=== PATIENT | female | born 1960 | race Caucasian/White ===

== ENCOUNTER 2016-11-17 13:05 | Emergency (ER) | payer SELFPAY ==
[~2016-11-17] VITALS: Ht 177.8 cm; Wt 112.0 kg
[~2016-11-17 13:05] MED LIST: Z.0.NO CURRENT MEDS
[2016-11-17 13:06] VITALS: BP 149/83; PULSE 83; RESP 20; TEMP 98.5; O2SAT 97
[2016-11-17] MEDS ORDERED: CEPH-460 PO (13:48)
[2016-11-17] MEDS ORDERED: INDO50CA PO (13:48)
--- NOTE | 2016-11-17 13:49 | PD ---
HPI Chief Complaint: Skin Problem Time Seen by Provider: 13:42 Travel History International Travel<30 days: No Contact w/Intl Traveler<30days: No Traveled to known affect area: No History of Present Illness HPI Patient's 56-year-old female presenting to emergency for evaluation of redness to her right thigh. Patient states this started on Saturday, she denies any pain but states it's sensitive to the touch. Patient reports the redness has improved since it started. Patient denies any leg swelling, calf tenderness, recent surgeries, long trips. She has no significant past medical history. [facility] Past Medical History Medical History: Denies Significant Hx Tetanus Vaccination: > 5 Years Influenza Vaccination: No ?: Not Past Surgical History Surgical History: No Previous Surgery Social History Alcohol Use: No Tobacco Use: No Substance Use: No Allergies-Medications (Allergen,Severity, Reaction): Coded Allergies: No Known Allergies (Verified , 11/17/16) Reported Meds & Prescriptions Reported Meds & Active Scripts Active No Active Prescriptions or Reported Medications Review of Systems Except as stated in HPI: all other systems reviewed are Neg Skin: Positive Change in Pigmentation Physical Exam Narrative GENERAL: Obese, well-developed, alert female. Resting comfortably in no acute distress. SKIN: Focused skin assessment warm/dry. Right anterior thigh has a linear area of erythema noted, approximately 7 inches long. Tenderness to palpation, no induration noted. HEAD: Atraumatic. Normocephalic. EYES: Pupils equal and round. No scleral icterus. No injection or drainage. ENT: No nasal bleeding or discharge. Mucous membranes pink and moist. NECK: Trachea midline. No JVD. CARDIOVASCULAR: Regular rate and rhythm. No murmur appreciated. RESPIRATORY: No accessory muscle use. Clear to auscultation. Breath sounds equal bilaterally. GASTROINTESTINAL: Abdomen soft, non-tender, nondistended. Hepatic and splenic margins not palpable. MUSCULOSKELETAL: No obvious deformities. No clubbing. No cyanosis. No edema. Negative Homans sign, 2+ dorsalis pedis pulse. NEUROLOGICAL: Awake and alert. No obvious cranial nerve deficits. Motor grossly within normal limits. Normal speech. PSYCHIATRIC: Appropriate mood and affect; insight and judgment normal. Data Data Last Documented VS Vital Signs Date Time Temp Pulse Resp B/P Pulse Ox O2 Delivery O2 Flow Rate FiO2 11/17/16 13:06 98.5 83 20 149/83 97 Room Air MDM Medical Decision Making Medical Screen Exam Complete: Yes Emergency Medical Condition: Yes Interpretation(s) Vital Signs Date Time Temp Pulse Resp B/P Pulse Ox O2 Delivery O2 Flow Rate FiO2 11/17/16 13:06 98.5 83 20 149/83 97 Room Air Differential Diagnosis DVT versus phlebitis versus cellulitis versus other Narrative Course Patient is a 56-year-old female presenting to emergency department for evaluation of redness to the right anterior thigh that started 4 days ago. Patient is neurovascularly intact. Physical examination appears more consistent with phlebitis. Patient was seen and evaluated by my attending physician. Patient will be discharged home with anti-inflammatory medication as well as an antibiotic. Patient was reassured that there does not appear to be any risk factors or exam findings to suggest a DVT at this time. Patient was given strict return precautions, to secure a follow-up with her primary doctor. Patient stable for discharge. Diagnosis Primary Impression: Phlebitis Referrals: [facility] [address] Primary Care Physician Patient Instructions: General Instructions, Superficial Thrombophlebitis (ED) Additional Instructions: Follow-up with primary care or at the [facility] Take medications as directed Return to emergency department immediately for any new or worsening symptoms May apply warm compress to affected area Med/Other Pt SpecificInfo: Prescription(s) given Scripts Cephalexin (Keflex)500 Mg [id number] Mg PO Q12H 7 Days Ref 0 Prov:Sarah Nelson 11/17/16 Indomethacin 50 Mg Cap50 Mg PO TID PRN (PAIN SCALE 1 TO 10) 7 Days Ref 0 Take with food, milk, or antacids to decrease stomach adverse effects. Prov:Sarah Nelson 11/17/16 Disposition: 01 DISCHARGE HOME Condition: Stable Sarah Nelson Nov 17, 2016 13:49
--- NOTE | 2016-11-17 14:00 | PD ---
Data Data Last Documented VS Vital Signs Date Time Temp Pulse Resp B/P Pulse Ox O2 Delivery O2 Flow Rate FiO2 11/17/16 13:06 98.5 83 20 149/83 97 Room Air MDM Supervised Visit with SHANNAN: Yes Narrative Course The history, exam, and medical decision-making in the associated mid-level provider note were completed with my assistance. I reviewed and agree with the findings presented. I attest that I had a [id number] encounter with the patient on the same day, and personally performed and documented my assessment and findings in the medical record. *My assessment and Findings: 56 year-old woman presents emergency Department with a short segment of erythema on her right leg. She is a palpable. Gross vein in the upper right thigh that seems consistent with superficial thrombophlebitis. Specially improving. Been going on for couple days. There is no calf swelling edema or pressure to suggest DVT. Recommend supportive treatment antibiotics, NSAIDs, and outpatient follow-up. Warm compresses to the area. Diagnosis Primary Impression: Phlebitis Referrals: [facility] Primary Care Physician Patient Instructions: General Instructions, Superficial Thrombophlebitis (ED) Departure Forms: Tests/Procedures Additional Instruction: Follow-up with primary care or at the [facility] Take medications as directed Return to emergency department immediately for any new or worsening symptoms May apply warm compress to affected area Scripts Cephalexin (Keflex)500 Mg [id number] Mg PO Q12H 7 Days Ref 0 Prov:Sarah Nelson 11/17/16 Indomethacin 50 Mg Cap50 Mg PO TID PRN (PAIN SCALE 1 TO 10) 7 Days Ref 0 Take with food, milk, or antacids to decrease stomach adverse effects. Prov:Sarah Nelson 11/17/16 Disposition: 01 DISCHARGE HOME Condition: Stable Ramesh Ortega MD Nov 17, 2016 14:00
== END 2016-11-17 14:08 | disposition home or self-care (01) ==
LOC: NEPD 13:05
DX: I80.01 Phlebitis and thrombophlebitis of superficial vessels of right lower extremity (principal)
CPT/HCPCS: 99284

== ENCOUNTER 2016-12-29 08:20 | Inpatient (IN) | payer SELFPAY ==
[~2016-12-29] VITALS: Ht 172.7 cm; Wt 137.5 kg
[2016-12-29] VITALS (31 sets, daily range): BP systolic 98–183; BP diastolic 52–90; PULSE 111–151; RESP 26–28; TEMP 98.6; O2SAT 60–100
[~2016-12-29 08:20] MED LIST changes: +CEPH-460 PO; +INDO50CA PO; -Z.0.NO CURRENT MEDS
[2016-12-29] MEDS ORDERED: ETOMIDATE 20 MG/10 ML VIAL ONE (08:34)
[2016-12-29] MEDS ORDERED: SUCCINYLCHOLINE CHLORIDE 200 MG/10 ML VIAL ONE (08:35)
[2016-12-29] MEDS ORDERED: PROPOFOL 1000 MG/100 ML INJ 100 ML ONE ×3 (08:41→15:33)
[2016-12-29] MEDS ORDERED: SUCCINYLCHOLINE CHLORIDE 200 MG/10 ML VIAL IVP ONE (08:45)
[2016-12-29] MEDS ORDERED: ETOMIDATE 20 MG/10 ML VIAL IVP ONE (08:45)
--- NOTE | 2016-12-29 08:51 | PD ---
HPI Chief Complaint: Respiratory Distress Time Seen by Provider: 08:22 Travel History International Travel<30 days: No Contact w/Intl Traveler<30days: No Traveled to known affect area: No History of Present Illness HPI The patient was seen and examined in the presence of the nurse. This patient complains of shortness of breath. She woke up this morning feeling short of breath. Yesterday she was feeling fine. She doesn't go to any physician. She has no medical illnesses her history. She's never smoked. She denies fever or any chest pain or cardiac history or pulmonary history. She's had a cough on and off for a week but that's her only complaint prior to this morning. Patient arrives critically ill. She is in extremis. Saturations are in the 70s on room air and her heart rate is 160. Challenging for her to speak in complete sentences. She is gasping for breath. [facility] Social History Alcohol Use: No Tobacco Use: No Substance Use: No Allergies-Medications (Allergen,Severity, Reaction): Coded Allergies: No Known Allergies (Verified , 11/17/16) Reported Meds & Prescriptions Reported Meds & Active Scripts Active Keflex (Cephalexin) 500 Mg Cap 500 Mg PO Q12H 7 Days Indomethacin 50 Mg Cap 50 Mg PO TID PRN 7 Days Take with food, milk, or antacids to decrease stomach adverse effects. Review of Systems General / Constitutional: No: Fever Eyes: No: Visual changes HENT: No: Headaches Cardiovascular: No: Chest Pain or Discomfort Respiratory: Positive: Cough, Shortness of Breath Gastrointestinal: No: Abdominal Pain Genitourinary: No: Dysuria Musculoskeletal: No: Pain Skin: No Rash Neurologic: No: Weakness Psychiatric: No: Depression Endocrine: No: Polydipsia Hematologic/Lymphatic: No: Easy Bruising Physical Exam Narrative GENERAL: Well-nourished, well-developed patient in profound respiratory distress. SKIN: Focused skin assessment reveals no rash and nodules. Skin is Warm and dry. HEAD: Atraumatic. Normocephalic. EYES: Pupils equal and round. No scleral icterus. No injection or drainage. ENT: No nasal bleeding or discharge. Mucous membranes pink and moist. NECK: Trachea midline. No JVD. CARDIOVASCULAR: Regular rate and rhythm. No murmur appreciated. Tachycardic at 150s RESPIRATORY: Positive accessory muscle use. Clear to auscultation. Breath sounds equal bilaterally. She is in prominent distress GASTROINTESTINAL: Abdomen soft, non-tender, nondistended. Hepatic and splenic margins not palpable. MUSCULOSKELETAL: No obvious deformities. No clubbing. No cyanosis. No edema. NEUROLOGICAL: Awake and alert. No obvious cranial nerve deficits. Motor grossly within normal limits. Normal speech. PSYCHIATRIC: Very anxious mood and affect; insight and judgment reasonable . Data Data Last Documented VS Vital Signs Date Time Temp Pulse Resp B/P Pulse Ox O2 Delivery O2 Flow Rate FiO2 12/29/16 10:23 146 158/75 97 Ventilator 12/29/16 09:38 100 12/29/16 08:28 98.6 26 Orders Electrocardiogram (12/29/16 ) Complete Blood Count With Diff (12/29/16 08:28) Basic Metabolic Panel (Bmp) (12/29/16 08:28) Act Partial Throm Time (Ptt) (12/29/16 08:28) Prothrombin Time / Inr (Pt) (12/29/16 08:28) Arterial Blood Gas (Abg) (12/29/16 08:28) Iv Access Insert/Monitor (12/29/16 08:28) Electrocardiogram (12/29/16 08:28) Ecg Monitoring (12/29/16 08:28) Oximetry (12/29/16 08:28) Oxygen Administration (12/29/16 08:28) Chest, Single Ap (12/29/16 08:28) Sodium Chloride 0.9% Flush (Ns Flush) (12/29/16 08:30) Etomidate Inj (Amidate Inj) (12/29/16 08:34) Succinylcholine Inj (Quelicin Inj) (12/29/16 08:35) Propofol 1000 Mg/100 Ml Inj (Diprivan 10 (12/29/16 08:41) Ng Gastric Tube Insert/Monitor (12/29/16 08:42) Urinary Catheter Insert/Apply (12/29/16 08:42) Etomidate Inj (Amidate Inj) (12/29/16 08:45) Succinylcholine Inj (Quelicin Inj) (12/29/16 08:45) Sodium Chloride 0.9% Flush (Ns Flush) (12/29/16 08:45) Restraints Non-Violent YOGI.Q3H (12/29/16 08:42) Ct Pulmonary Angiogram (12/29/16 ) Lorazepam Inj (Ativan Inj) (12/29/16 09:15) Midazolam Inj (Versed Inj) (12/29/16 09:15) Sodium Chlor 0.9% 1000 Ml Inj (Ns 1000 M (12/29/16 09:45) Ct Brain W/O Iv Contrast(Rout) (12/29/16 ) Iohexol 350 Inj (Omnipaque 350 Inj) (12/29/16 10:09) Admit To Inpatient (12/29/16 ) Code Status (12/29/16 10:25) Vital Signs (Adult) YOGI.Q1H (12/29/16 10:25) Activity Bed Rest (12/29/16 10:25) Elevate Head Of Bed (12/29/16 10:25) Neuro Checks . ORDERED (12/29/16 10:25) Pantoprazole Inj (Protonix Inj) (12/29/16 11:00) Albuterol-Ipratropium Neb (Duoneb Neb) (12/29/16 12:00) Complete Blood Count With Diff (12/30/16 04:00) Basic Metabolic Panel (Bmp) (12/30/16 04:00) Library Circulation Technician / Telemetry YOGI.Q8H (12/29/16 10:25) Scd Bilateral/Knee High YOGI.BID (12/29/16 10:25) ^ Initiate Protocol (12/29/16 10:25) Instruction (12/29/16 10:25) [facility] (12/29/16 10:30) Chlorhexidine 2% Cloth (Chlorhexidine 2% (12/30/16 04:00) Chlorhexidine 2% Cloth (Chlorhexidine 2% (12/29/16 10:30) Mrsa Pcr Surveillance (12/29/16 10:25) Docusate Sodium-Senna (Radha-Colace) (12/29/16 21:00) Magnesium Hydroxide Liq (Milk Of Magnesi (12/29/16 10:30) Sennosides (Senokot) (12/29/16 10:30) Bisacodyl Supp (Dulcolax Supp) (12/29/16 10:30) Lactulose Liq (Lactulose Liq) (12/29/16 10:30) Inpatient Certification (12/29/16 ) Neurological Rass Scale Q30MX2,Q2HX4,Q4H (12/29/16 10:28) Fentanyl Drip (Fentanyl Drip) (12/29/16 10:30) Lactic Acid (12/29/16 10:28) Creatine Kinase (Cpk) (12/29/16 10:28) Ckmb (Isoenzyme) Profile (12/29/16 10:28) Troponin I (12/29/16 10:28) Echo 2d Comp With Doppler (12/29/16 ) Us Leg Venous Doppler Bilat (12/29/16 ) Sodium Chlor 0.9% 1000 Ml Inj (Ns 1000 M (12/29/16 11:00) Blood Glucose Goal (Criteria) (12/29/16 10:28) Hypoglycemia 70 Mg/Dl Or < (12/29/16 10:28) Notify Dr: Other (12/29/16 10:28) Dextrose 50% In Hector (Vial) Inj (D50w (Vi (12/29/16 10:30) Glucagon Inj (Glucagon Inj) (12/29/16 10:30) Insulin Human Reg Supp Scale (Novolin R (12/29/16 11:00) Admit Order (Ed Use Only) (12/29/16 10:30) Invasive Rad Dept Consult (12/29/16 ) Labs Laboratory Tests Test 12/29/16 12/29/16 08:34 09:09 White Blood Count 22.4 TH/MM3 Red Blood Count 4.97 MIL/MM3 Hemoglobin 14.5 GM/DL Hematocrit 43.1 % Mean Corpuscular Volume 86.7 FL Mean Corpuscular Hemoglobin 29.1 PG Mean Corpuscular Hemoglobin 33.5 % Concent Red Cell Distribution Width 14.1 % Platelet Count 328 TH/MM3 Mean Platelet Volume 6.5 FL Neutrophils (%) (Auto) 43.9 % Lymphocytes (%) (Auto) 49.2 % Monocytes (%) (Auto) 5.3 % Eosinophils (%) (Auto) 1.1 % Basophils (%) (Auto) 0.5 % Neutrophils # (Auto) 9.8 TH/MM3 Lymphocytes # (Auto) 11.0 TH/MM3 Monocytes # (Auto) 1.2 TH/MM3 Eosinophils # (Auto) 0.2 TH/MM3 Basophils # (Auto) 0.1 TH/MM3 CBC Comment AUTO DIFF Differential Total Cells 100 Counted Neutrophils % (Manual) 53 % Lymphocytes % 38 % Monocytes % 8 % Neutrophils # (Manual) 12.1 TH/MM3 Metamyelocytes 1 % Differential Comment FINAL DIFF MANUAL Platelet Estimate NORMAL Platelet Morphology Comment NORMAL Red Cell Morphology Comment NORMAL Prothrombin Time 10.6 SEC Prothromb Time International 1.0 RATIO Ratio Activated Partial 25.1 SEC Thromboplast Time Sodium Level 137 MEQ/L Potassium Level 3.7 MEQ/L Chloride Level 108 MEQ/L Carbon Dioxide Level 17.1 MEQ/L Anion Gap 12 MEQ/L Blood Urea Nitrogen 11 MG/DL Creatinine 1.12 MG/DL Estimat Glomerular Filtration 51 ML/MIN Rate Random Glucose 216 MG/DL Calcium Level 8.8 MG/DL Blood Gas Puncture Site RT RADIAL Blood Gas Patient Temperature 98.6 Blood Gas HCO3 17 mmol/L Blood Gas Base Excess -10.3 mmol/L Blood Gas Oxygen Saturation 88 % Arterial Blood pH 7.15 Arterial Blood Partial 51 mmHg Pressure CO2 Arterial Blood Partial 73 mmHG Pressure O2 Arterial Blood Oxygen Content 17.0 Vol % Arterial Blood 0.7 % Carboxyhemoglobin Arterial Blood Methemoglobin 0.6 % Blood Gas Hemoglobin 13.7 G/DL Oxygen Delivery Device VENTILATOR Blood Gas Ventilator Setting Blood Gas Inspired Oxygen 100 % MDM Medical Decision Making Medical Screen Exam Complete: Yes Emergency Medical Condition: Yes Medical Record Reviewed: Yes Differential Diagnosis Respiratory failure, PE, CHF, pneumonia Narrative Course I have reviewed the patient's electronic medical record. This patient arrives critically ill and in desperate need of mechanical ventilation. She has good waveform saturations of mid 80s despite 100% nonrebreather and is still struggling. After the risks and benefits were discussed the following procedure was performed: INTUBATION: The patient was put in optimal position for the procedure. Rapid sequence intubation was initiated by me using 30 milligrams of etomidate IV and 100 milligrams of succinylcholine IV. The patient was intubated with a 8-0 cuffed endotracheal tube. Tube placement was confirmed by visualization of the tube and balloon passing through the cords, capnometry and subsequent chest x- ray. Breath sounds were equal and well aerated bilaterally postintubation. No breath sounds over stomach. Patient tolerated procedure well. 2 IVs placed Diprivan drip started for sedation NG and restraints in Mcdaniel catheter placed CBC shows significant leukocytosis of 22,000 Metabolic profile shows mild renal insufficiency Coagulation studies are normal I reviewed her EKG. I think she is in a sinus tachycardia despite what the machine reads Extended cardiac monitoring shows sinus tachycardia of 140. There appears to be P wave in front of each QRS and it is looking regular I reviewed her chest x-ray which is negative and shows good tube placement ABG is poor. She has PO2 of 72 despite 100% FiO2 on the ventilator. She is acidemic. I sent her for CT pulmonary angiogram suspecting PE. This confirms she has bilateral extensive PE. I'm having difficulty oxygenating her despite ventilation and 100% FiO2 I reviewed with automatic machine attendant and he agrees that TPA infusion seems warranted this critically ill patient He has spoken with radiologist Dr. Álvarez who is coming in to place central line and start TPA infusion Patient will be admitted to intensive care and critical condition Very complex case and a lot of bedside time was required Critical Care Narrative Aggregate critical care time was 83 minutes. Time to perform other separately billable procedures was not included in the critical care time. My time did not include minutes spent treating any other patients simultaneously or on activities that did not directly contribute to the patient's treatment. The services I provided to this patient were to treat and/or prevent clinically significant deterioration that could result in: Cardiopulmonary arrest, hypoxemic brain injury, cardiac arrhythmia I provided critical care services requiring my management, as noted below: Chart data review, documentation time, medication orders and management, vital sign assessments/reviewing monitor data, ordering and reviewing lab tests, ordering and interpreting/reviewing x-rays and diagnostic studies, care of the patient and discussion of the patient with the admitting physicians. Diagnosis Primary Impression: Acute hypoxemic respiratory failure Additional Impression: Acute pulmonary embolus Qualified Code: I26.09 - Other acute pulmonary embolism with acute cor pulmonale Admitting Information Admitting Physician Requests: Obdulio Goncalves MD Dec 29, 2016 08:51
--- NOTE | 2016-12-29 09:13 | RADRPT ---
EXAM DATE/TIME: 12/29/2016 08:32 [facility] COMPARISON: No previous studies available for comparison. INDICATIONS : Status post intubation. Shortness of breath. MEDICAL HISTORY : None. SURGICAL HISTORY : None. ENCOUNTER: Initial ACUITY: 1 day PAIN SCORE: Non-responsive. LOCATION: Bilateral chest FINDINGS: A single view of the chest demonstrates the lungs to be symmetrically aerated without evidence of mas s, infiltrate or effusion. The endotracheal tube is present with the tip approximately 4 cm above the bernice. The cardiomediastinal contours are unremarkable. Osseous structures are intact. CONCLUSION: 1. Status post intubation. 2. No acute cardiopulmonary disease. Oswaldo Moody MD on December 29, 2016 at 9:11 Board Certified Radiologist. This report was verified electronically.
[2016-12-29] MEDS ORDERED: MIDAZOLAM HCL 2 MG/2 ML VIAL IV PUSH ONE (09:15)
[2016-12-29] MEDS ORDERED: LORazepam 2 MG/ML VIAL IV PUSH ONE (09:15)
[2016-12-29 09:19] LABS: BLOOD GAS BASE EXCESS -10.3 mmol/L (-2-2); BLOOD GAS CARBOXYHEMOGLOBIN 0.7 % (0-4); BLOOD GAS HCO3 17 mmol/L (22-26); BLOOD GAS METHEMOGLOBIN 0.6 % (0-2); BLOOD GAS O2 HGB SATURATION 88 % (90-100); BLOOD GAS PCO2 51 mmHg (38-42); BLOOD GAS PO2 73 mmHG (61-120); BLOOD GAS TOTAL HGB 13.7 G/DL (12.0-16.0); TEMP CORR TO 98.6
[2016-12-29 09:20] LABS: CRITICAL VALUE YES; DRAW SITE RT RADIAL; FIO2 100 %; NUMBER OF ARTERIAL PUNCTURES 1; OXYGEN DEVICE VENTILATOR; STAT YES
[2016-12-29 09:31] LABS: AUTOMATED NEUTROPHIL # 9.8 TH/MM3 (1.8-7.7); BASOPHIL # 0.1 TH/MM3 (0-0.2); BASOPHIL % 0.5 % (0.0-2.0); EOSINOPHIL # 0.2 TH/MM3 (0-0.4); EOSINOPHIL % 1.1 % (0.0-4.0); HEMATOCRIT 43.1 % (35.0-46.0); LYMPH % 49.2 % (9.0-44.0); MEAN CELL VOLUME 86.7 FL (80.0-100.0); MEAN CORPUSCULAR HEMOGLOBIN 29.1 PG (27.0-34.0); MEAN CORPUSCULAR HGB CONC 33.5 % (32.0-36.0); MONO % 5.3 % (0.0-8.0); NEUT % 43.9 % (16.0-70.0); PLATELET COUNT 328 TH/MM3 (150-450); RED BLOOD COUNT 4.97 MIL/MM3 (4.00-5.30); RED CELL DISTRIBUTION WIDTH 14.1 % (11.6-17.2); WHITE BLOOD COUNT 22.4 TH/MM3 (4.0-11.0)
[2016-12-29 09:33] LABS: HEMO FLAGS AUTO DIFF
[2016-12-29 09:41] LABS: APTT (PATIENT) 25.1 SEC (24.3-30.1); PROTHROMBIN TIME - PATIENT 10.6 SEC (9.8-11.6)
[2016-12-29] MEDS ORDERED: SODIUM CHLOR 0.9% 1000 ML INJ 1,000 ML IV ONE (09:45)
[2016-12-29 09:51] LABS: BICARBONATE 17.1 MEQ/L (21.0-32.0)
[2016-12-29 09:56] LABS: POTASSIUM 3.7 MEQ/L (3.5-5.1)
[2016-12-29] MEDS ORDERED: IOHEXOL 350 MG/ML 10 ML VIAL (for RAD DIAG) IV ONE (10:09)
--- NOTE | 2016-12-29 10:13 | RADRPT ---
EXAM DATE/TIME: 12/29/2016 10:01 [facility] COMPARISON: CT BRAIN W/O CONTRAST, December 29, 2016, 9:49. INDICATIONS : Shortness of breath. IV CONTRAST: 100 cc Omnipaque 350 (iohexol) IV RADIATION DOSE: 22.98 CTDIvol (mGy) MEDICAL HISTORY : Non-responsive. SURGICAL HISTORY : Non-responsive. ENCOUNTER: Initial ACUITY: 1 day PAIN SCALE: Non-responsive LOCATION: Bilateral chest TECHNIQUE: Volumetric scanning of the chest was performed using a pulmonary embolism protocol MIP images were re constructed. Using automated exposure control and adjustment of the mA and/or kV according to patien t size, radiation dose was kept as low as reasonably achievable to obtain optimal diagnostic quality images. DICOM format image data is available electronically for review and comparison. Follow-up recommendations for detected pulmonary nodules are based at a minimum on nodule size and pa tient risk factors according to Fleischner Society Guidelines. FINDINGS: PULMONARY ARTERIES: The main pulmonary artery is patent. There are bilateral pulmonary emboli with filling defects in the distal right and left main pulmonary arteries and primary branch vessels. This extends throughout th e lower extremity pulmonary arteries bilaterally. LUNGS: There is no consolidation or pneumothorax . No concerning pulmonary nodule is visualized. PLEURAE: There is no pleural thickening or pleural effusion. MEDIASTINUM: There is good visualization of the great vessels of the middle mediastinum. No evidence of mediastin al or hilar adenopathy/mass. An endotracheal tube and nasogastric tube are in place. MUSCULOSKELETAL: Within normal limits for patient age. MISCELLANEOUS: The visualized upper abdominal organs demonstrate no acute abnormality. CONCLUSION: Extensive bilateral pulmonary embolism. These findings were discussed with the emergency room physician at 1009 hrs. Oswaldo Moody MD on December 29, 2016 at 10:08 Board Certified Radiologist. This report was verified electronically.
--- NOTE | 2016-12-29 10:15 | RADRPT ---
EXAM DATE/TIME: 12/29/2016 09:49 [facility] COMPARISON: No previous studies available for comparison. INDICATIONS : Altered mental status. RADIATION DOSE: 53.85 CTDIvol (mGy) ; Patient motion MEDICAL HISTORY : Non-responsive. SURGICAL HISTORY : Non-responsive. ENCOUNTER: Initial ACUITY: 1 day PAIN SCALE: Non-responsive LOCATION: cranial TECHNIQUE: Multiple contiguous axial images were obtained of the head. Using automated exposure control and adj ustment of the mA and/or kV according to patient size, radiation dose was kept as low as reasonably a chievable to obtain optimal diagnostic quality images. DICOM format image data is available electro nically for review and comparison. FINDINGS: The study is significantly degraded by motion artifact. CEREBRUM: The ventricles are normal for age. No evidence of midline shift, mass lesion, hemorrhage or acute in farction. No extra-axial fluid collections are seen. POSTERIOR FOSSA: The cerebellum and brainstem are intact. The 4th ventricle is midline. The cerebellopontine angle i s unremarkable. There is a prominent cisterna magna is normal variant. EXTRACRANIAL: The visualized portion of the orbits is intact. SKULL: The calvaria is intact. No evidence of skull fracture. CONCLUSION: 1. Suboptimal examination secondary to motion artifact. 2. No evidence of hemorrhage or mass effect identified. Oswaldo Moody MD on December 29, 2016 at 10:11 Board Certified Radiologist. This report was verified electronically.
[2016-12-29] MEDS ORDERED: GLUCAGON 1 MG/ML VIAL OTHER PRN (10:30)
[2016-12-29] MEDS ORDERED: MAGNESIUM HYDROXIDE SUSP 30 ML CUP PO PRN (10:30)
[2016-12-29] MEDS ORDERED: LACTULOSE SYRUP 20 GM/30 ML CUP PO PRN (10:30)
[2016-12-29] MEDS ORDERED: BISACODYL 10 MG SUPP RECTAL PRN (10:30)
[2016-12-29] MEDS ORDERED: SENNOSIDES 8.6 MG TAB PO PRN (10:30)
[2016-12-29] MEDS ORDERED: DEXTROSE 50% IN WATER 50 ML VIAL(D50) IV PRN (10:30)
[2016-12-29] MEDS ORDERED: CHLORHEXIDINE GLUCONATE 2 % 1 PACK (2 CLOTHS) TOP PRN (10:30)
[2016-12-29] MEDS ORDERED: MISCELLANEOUS NURSING INFORMATION XX SCH (10:30)
[2016-12-29 10:32] LABS: METAMYELOCYTES 1 % (0-1); NEUTROPHIL # MANUAL DIFF 12.1 TH/MM3 (1.8-7.7); POLYS (SEG NEUTROPHILS) 53 % (16-70); WBC DIFF SAMPLE 100
[2016-12-29 10:33] LABS: PLATELET ESTIMATE SMEAR NORMAL (NORMAL); PLATELET MORPHOLOGY NORMAL (NORMAL); SCAN/DIFF FINAL DIFF MANUAL
[2016-12-29] MEDS ORDERED: fentaNYL DRIP 250 ML ONE (10:42)
[2016-12-29] MEDS ORDERED: SODIUM CHLOR 0.9% 1000 ML INJ 1,000 ML IV SCH (11:00)
[2016-12-29] MEDS: PANTOPRAZOLE SODIUM 40 MG VIAL IV SCH (11:07)
[2016-12-29] MEDS: INSULIN NovoLIN REGULAR SUPPLEMENTAL SCALE SQ SCH ×4 (11:21→23:00)
--- NOTE | 2016-12-29 11:40 | RADRPT ---
EXAM DATE/TIME: 12/29/2016 10:56 [facility] COMPARISON: No previous studies available for comparison. INDICATIONS : Pulmonary embolism. MEDICAL HISTORY : Pulmonary embolism. Shortness of breath. SURGICAL HISTORY : Umbilical hernia repair. ENCOUNTER: Initial ACUITY: 1 day PAIN SCORE: Non-responsive LOCATION: Bilateral legs. TECHNIQUE: Venous ultrasound of the left and right leg was performed from the inguinal ligament to the proximal calf. Real-time, color Doppler and spectral tracing, compression and augmentation techniques were us ed. FINDINGS: RIGHT LEG: There is a noncompressible occlusive thrombus in the right posterior tibial vein demonstrating no col or flow. There is nonocclusive thrombus in the right common femoral vein and greater saphenous vein w hich are partially compressible and demonstrate color flow. The superficial femoral vein and poplitea l veins are patent and compressible. LEFT LEG: There is normal compressibility of the deep venous system from the inguinal region to the proximal ca lf. No echogenic clot is seen in the lumen of the common femoral, femoral, popliteal, and posterior tibial veins. There is a normal response of the venous system to proximal and distal augmentation an d respiration. CONCLUSION: 1. Occlusive thrombus in the right posterior tibial vein. 2. Nonocclusive thrombus in the right common femoral vein and greater saphenous vein. 3. No deep venous thrombosis in the left lower extremity. Oswaldo Moody MD on December 29, 2016 at 11:34 Board Certified Radiologist. This report was verified electronically.
[2016-12-29] MEDS: RESP: ALBUTEROL 2.5 MG/IPRATROPIUM 0.5 MG NEB (SCH) INH ×3 (11:50→20:35)
--- NOTE | 2016-12-29 11:55 | ECHRPT ---
Indication: Chronic pulmonary embolism CONCLUSIONS The left ventricle is not well visualized. The right ventricle was not well visualized. The right ventricle is moderately dilated. The right ventricular systoilc function is moderately decreased. The interatrial septum not well visualized. The aortic valve is not well visualized. No aortic valve regurgitation. No aortic valve stenosis. The tricuspid valve is not well visualized. There is mild to moderate tricuspid valve regurgitation. The estimated pulmonary arterial pressure is 41 mmHg. The pulmonary valve is not well visualized. BP: / HR: Rhythm: Other Technical Quality:Poor FINDINGS LEFT VENTRICLE The left ventricle is not well visualized. RIGHT VENTRICLE The right ventricle was not well visualized. The right ventricle is moderately dilated. The right ventricular systoilc function is moderately decreased. LEFT ATRIUM The left atrial size is normal. RIGHT ATRIUM The right atrial size is normal. ATRIAL SEPTUM The interatrial septum not well visualized. AORTA The aortic root and proximal ascending aorta are normal in size on limited imaging. MITRAL VALVE Structurally normal mitral valve. No mitral valve stenosis or regurgitation. AORTIC VALVE The aortic valve is not well visualized. No aortic valve regurgitation. No aortic valve stenosis. TRICUSPID VALVE The tricuspid valve is not well visualized. There is mild to moderate tricuspid valve regurgitation. The estimated pulmonary arterial pressure is 41 mmHg. PULMONARY VALVE The pulmonary valve is not well visualized. VESSELS The inferior vena cava is normal in size. PERICARDIUM No pericardial effusion. Glen Macedo MD (Electronically Signed) Final Date:29 December 2016 11:54
--- NOTE | 2016-12-29 12:14 | MH ---
cc: ABBY MOYA M.D. DATE OF ADMISSION: 12/29/2016 HISTORY OF PRESENT ILLNESS: The patient is a 56-year-old female without significant past medical history who presented to the [facility] Emergency Department with severe respiratory distress. Per ED records, the patient woke up this morning feeling short of breath. She denied any associated symptoms of chest pain, orthopnea, PND or edema of the lower extremities. On arrival to the emergency department, she was found hypoxic with saturation in the 70s on room air and tachycardiac with heart rate of 160. The patient was subsequently intubated with etomidate, succinylcholine and Versed and placed on full mechanical ventilation. ABG post-intubation showed severe respiratory acidosis with a pH of 7.15, CO2 51, pAO2 73, bicarb 17, sats of 88% PRVC mode, rate of 24, tidal volume 500, ___ 1.0, PEEP of 20 with 100% FIO2. Chest x-ray showed no acute cardiopulmonary disease. The patient underwent a stat CT scan of the chest, which showed extensive bilateral pulmonary embolism. She also had CT scan of the brain, which showed no evidence of hemorrhage or mass effect. In the emergency room, she was given IV fluids 2 liters In ER she was given IV fluids 2 liters, Ativan, and placed on Diprivan infusion for sedation. The case discussed with Dr. Álvarez from interventional radiology and the plan is to proceed with tPA infusion per PE protocol. PAST MEDICAL HISTORY: No history of hypertension or diabetes mellitus. PAST SURGICAL HISTORY: Unknown. ALLERGIES: NO KNOWN DRUG ALLERGIES. SOCIAL HISTORY: Nonsmoker and non-drinker. REPORTED MEDICATIONS: 1. Indocin. 2. Keflex. REVIEW OF SYSTEMS: The review of systems is as per the history of present illness, and the rest of the review of systems is limited as the patient is intubated. PHYSICAL EXAMINATION: GENERAL: A 56-year-old female intubated for acute respiratory failure. VITAL SIGNS: Temperature of 98.6, pulse of 120s to 140s, blood pressure 158/75, saturation 98%. HEAD, EYES, EARS, NOSE, THROAT: Normocephalic and atraumatic. Pupils equal, round and reactive to light and accommodation. Extraocular muscles intact. Conjunctivae are pink. Nonicteric sclerae. Oral mucosa within normal limits. NECK: The neck is supple. No jugular venous distention, adenopathy or thyromegaly. Trachea in the midline. Orally intubated. CARDIOVASCULAR: Tachycardic. Normal S1-S2. No murmurs, rubs or gallops noted. PULMONARY: Bilateral equal air entry. No crackles or wheezing. ABDOMEN: The abdomen is soft, nontender and no distention. Positive bowel sounds. EXTREMITIES: No cyanosis, clubbing or edema. NEUROLOGIC: Intubated and sedated with Diprivan. LABORATORY DATA: Sodium 137, potassium 3.7, chloride 108, carbon dioxide 17, BUN 11, creatinine 1.12, glucose of 216, calcium 8.8. WBCs 22.4, hemoglobin 14.5, hematocrit 43, platelet count 328,000. INR 1. PT 10.6. PTT 25.1. RADIOGRAPHIC STUDIES: CT angiogram of the chest showed extensive bilateral PE. Chest x-ray post-intubation showed ET tube above the bernice. No acute cardiopulmonary disease. CT scan of the brain negative for acute intracranial process. EKGS: EKG showed sinus tachycardia versus atrial flutter with rapid ventricular response at a rate of 148 beats per minute. IMPRESSION: 1. Acute hypoxemic hypercapnic respiratory failure requiring intubation. 2. Extensive bilateral pulmonary embolism. 3. Leukocytosis, likely stress-related. 4. Hyperglycemia. 5. Obesity. RECOMMENDATIONS: 1. Continue with the Diprivan infusion for sedation and will add Fentanyl drip if needed for vent synchrony. 2. CT scan of the brain in the emergency room negative for acute intracranial process. 3. Continue with vent support and maintain saturations above 92%. 4. Bronchodilators in the form of DuoNeb q. 6. 5. Continue with vent settings, currently on pressure control / assist control ventilation with a respiratory rate of 28 and inspiratory pressure of 24, I-time 1.0, PEEP of 10 and 60% FIO2 with saturations of 96%. Will repeat ABG now. 6. Case discussed with Dr. Álvarez from interventional radiology. Will proceed with tPA infusion given her extensive PE and degree of hypoxemia. 7. Monitor heart rate and blood pressure closely and maintain MAP greater than 65 mmHg. 8. Check cardiac enzymes with troponin. In addition, we will check lactic acid level. 9. Obtain 2-D echocardiogram to rule out RV strain and to evaluate left ventricular function. 10. Monitor renal function, intake and output and electrolyte replacement as needed. Place on IV fluids normal saline at 84 mL/hour. 11. Keep NPO for now and place on Protonix 40 milligrams IV daily for GI prophylaxis. 12. Start nutritional support within the next 24 hours if remains intubated. 13. Monitor for signs of infection, which include fever and WBCs. Chest x-ray in the emergency room negative for acute process. Ugarte culture if spikes a fever. Check urinalysis with culture if indicated. 14. Sliding scale insulin with Accu-Chek for glycemic control q. 4 hours. 15. Monitor CBC and coags as the patient will be on tPA per PE protocol. 16. Check Doppler ultrasound of the lower extremities to rule out DVT. 17. GI prophylaxis with Protonix 40 milligrams daily and DVT prophylaxis and the patient will be starting heparin. The patient is critically ill with severe hypoxemic and hypercapnic respiratory failure and extensive bilateral pulmonary embolism. CRITICAL CARE TIME: Forty (40) minutes excluding procedures. Addendum: Patient underwent right subclavian central line placement and started on TPA infusion per IR. Shortly after arrival to ICU patient became hemodynamically unstable hypoxic with sats 60's% and hypotensive. She was started on pressors currently on Neosyn 300 mics, Dobutamine, Levophed 2mics and bicarb drip. Echo showed mod. dilated RV with decreased function. Patient was also given TPA bolus 35 mg bolus. She remained hypotensive on multiple pressors, hypoxemic on 100% FIO2 and PEEP : 10. Discussed with Dr. Álvarez re possibility of catheter directed thrombectomy however he did not feel patient is good candidate for it as the clot burden is too peripheral for angiovac catheter use. Spoke to Dr. Donnelly from CTS re possibility of open embolectomy and he did not recommend it due to risk of perioperative risk of massive bleeding and it is unlikely to improve her prognosis MD MANUEL Castrejon/ROLAND /11:39 AM /11:55 AM ANGIE
[2016-12-29] MEDS ORDERED: SODIUM CHLORIDE 0.9% INJ 10 ML ONE (12:34)
[2016-12-29] MEDS ORDERED: HEPARIN-D5W 25,000 U/250 ML 250 ML ONE (12:57)
[2016-12-29] MEDS ORDERED: HEPARIN INJ 1,000 UNITS in SODIUM CHLORID 0.9% 500 ML INJ 500 ML IV PRN (13:30)
[2016-12-29] MEDS ORDERED: HEPARIN-D5W 25,000 U/250 ML 250 ML IV SCH (13:30)
[2016-12-29] MEDS ORDERED: IOHEXOL 350 MG/ML 50 ML BTL (for RAD DIAG) IV ONE (13:35)
--- NOTE | 2016-12-29 13:41 | PD.RAD ---
Post Procedure Progress Note Pre Procedure Diagnosis: (1) Acute pulmonary embolus (2) Phlebitis (3) Acute hypoxemic respiratory failure Post Procedure Diagnosis: (1) Acute pulmonary embolus (2) Phlebitis (3) Acute hypoxemic respiratory failure Procedure Date: Dec 29, 2016 Supervising Radiologist: Oren Álvarez Proceduralist/Assist: Glory Washington RT(R)(CV) Anesthesia: Local, Conscious Sedation Plan of Activity Patient to Unit: Critical Care Patient Condition: Critical See PACS Report for procedural detail/treatment Vascular-Venous Procedure Procedure 1 Procedure Site: Bilateral Leg Procedure(s): Fibrinolysis, Venogram Access Access Site(s): Right Subclavian Vein Findings: No significant remaining lower extremity DVT to indicate IVC filter placement - small volume of residual nonocclusive clot at saphenofemoral junction and calf DVT in Right posterior tibial vein. central line placed and TPA infusion started Oren Álvarez MD Dec 29, 2016 13:41
[2016-12-29] MEDS: CATHFLO ACTIVASE INJ 10 MG in SODIUM CHLORID 0.9% 500 ML INJ 500 ML IV SCH ×2 (13:52→19:40)
[2016-12-29 14:21] LABS: BACTERIA, URINE OCC /hpf; BLOOD, URINE MOD (NEG); COMMENT (UR) CATH-CULTURE IND; CULTURE IF INDICATED CATH CULTURE IND; GLUCOSE,URINE TRACE mg/dL (NEG); HYALINE CAST, URINE 36 /lpf (RARE); KETONE, URINE NEG (NEG); MUCUS URINE MANY /lpf (OCC); NITRITE,URINE NEG (NEG); PH, URINE 5.5 (5.0-8.5); SQUAMOUS EPITHELIAL CELL URINE 9 /hpf (0-5); URINE COLOR YELLOW (YELLW/STRAW)
[2016-12-29] MEDS: PHENYLEPHRINE 40 MG/D5W 496 ML ADMIX IV SCH ×6 (14:30→21:54)
[2016-12-29] MEDS ORDERED: PHENYLEPHRINE HCL 10 MG/ML VIAL ONE ×4 (14:30→16:56)
[2016-12-29] MEDS ORDERED: NOREPINEPHRINE-DEXTROSE DRIP 250 ML IV ONE (14:52)
[2016-12-29] MEDS: PIPERACIL-TAZO 4.5 GM PREMIX 100 ML IV SCH ×2 (15:00→21:53)
[2016-12-29] MEDS ORDERED: DOBUTamine PREMIX DRIP 250 ML ONE ×2 (15:03→19:03)
[2016-12-29] MEDS ORDERED: ALTEPLASE BOLUS IV ONE (15:15)
[2016-12-29 15:34] LABS: BLOOD GAS BASE EXCESS -9.8 mmol/L (-2-2); BLOOD GAS HCO3 17 mmol/L (22-26); BLOOD GAS METHEMOGLOBIN 1.1 % (0-2); BLOOD GAS O2 HGB SATURATION 81 % (90-100); BLOOD GAS OXYGEN CONTENT 13.7 Vol % (12.0-20.0); BLOOD GAS PCO2 44 mmHg (38-42); BLOOD GAS PO2 60 mmHg (61-120); BLOOD GAS TOTAL HGB 11.9 G/DL (12.0-16.0); TEMP CORR TO 98.6
[2016-12-29 15:35] LABS: CRITICAL VALUE YES; DRAW SITE ART LINE; FIO2 100 %; LITER FLOW 15 L/M; OXYGEN DEVICE AMBU; STAT YES; ULNAR PULSE PRESENT
--- NOTE | 2016-12-29 15:42 | PD.PROCEDR ---
Procedure Note Procedure REASON FOR PROCEDURE Hemodynamic instability, invasive blood pressure monitoring and Crescencio Trac PROCEDURE PERFORMED Right femoral arterial catheter placement, US guided CONSENT Emergency procedure, profound shock ANESTHESIA Local injection of 1% Lidocaine DESCRIPTION OF THE PROCEDURE The patient was placed in supine, position. The right groin area was exposed and cleansed with ChloraPrep, times two. Sterile drape was used to cover the patient, with the site exposed, under sterile conditions including cap, face mask, sterile gown, and sterile gloves. Procedure done as emergency and unable to follow full sterile precautions. The introducer needle was inserted with negative pressure in syringe and arterial flash was obtained. The guide wire was then advanced without any restriction and the needle was removed. Using Seldinger technique the 20 G arterial catheter was advanced over the guide wire. The guide wire was removed. Good arterial wave form noted after connecting to transducer. Antibiotic disc was placed around arterial line line at puncture site. The arterial line was secured to the skin with one interrupted 2.0 silk sutures. RADIOLOGICAL DATA Ultrasound guidance was used to locate right femoral vein COMPLICATIONS: No apparent complications ESTIMATED BLOOD LOSS: Less than 3 cc. Naz Lott MD Dec 29, 2016 15:42
[2016-12-29] MEDS: SODIUM BICARBONATE 8.4% INJ 150 MEQ in WATER STERILE FOR INJ 1,000 ML IV SCH ×2 (15:45→21:54)
[2016-12-29 15:52] LABS: AUTOMATED NEUTROPHIL # 15.8 TH/MM3 (1.8-7.7); BASOPHIL # 0.1 TH/MM3 (0-0.2); BASOPHIL % 0.2 % (0.0-2.0); EOSINOPHIL % 0.1 % (0.0-4.0); HEMATOCRIT 38.1 % (35.0-46.0); LYMPH % 27.5 % (9.0-44.0); LYMPHOCYTE # 6.6 TH/MM3 (1.0-4.8); MEAN CELL VOLUME 87.9 FL (80.0-100.0); MEAN CORPUSCULAR HEMOGLOBIN 28.7 PG (27.0-34.0); MEAN CORPUSCULAR HGB CONC 32.7 % (32.0-36.0); MONO % 6.5 % (0.0-8.0); NEUT % 65.7 % (16.0-70.0); PLATELET COUNT 258 TH/MM3 (150-450); RED BLOOD COUNT 4.33 MIL/MM3 (4.00-5.30); RED CELL DISTRIBUTION WIDTH 14.2 % (11.6-17.2)
[2016-12-29] MEDS: VASOPRESSIN INJ 40 UNITS in DEXTROSE 5% IN WATER 100ML INJ 98 ML IV SCH ×2 (15:53)
--- NOTE | 2016-12-29 15:57 | PD.CONS ---
History of Present Illness Service CT Surgery Consult Requested By Dr. Tran Reason for Consult Massive pulmonary embolism with hemodynamic instability Primary Care Physician No Primary Care Physician Diagnoses: (1) Acute pulmonary embolus (2) Acute hypoxemic respiratory failure (3) Shock circulatory History of Present Illness 56 y/o female presents with acute onset dyspnea with severe hypoxia and metabolic acidosis. She was intubated and has been hemodynamically unstable. CT scan shows a massive bilateral pulmonary embolus. Systemic TPA therapy has been initiated as well as heparinization. I was called to consider her for open embolectomy vs coordination with interventional radiology to use angiovac catheter. Her PMH is unknown, but she is morbidly obese. Review of Systems ROS Limitations: Clinical Condition, Intubated, Unresponsive Past Family Social History Allergies: Coded Allergies: No Known Allergies (Verified , 11/17/16) Past Medical History unknown Past Surgical History unknown Reported Medications unknown Active Ordered Medications Current Medications Medications (Trade) Dose Ordered Sig/Sabine Route Start Time Stop Time Status Last Admin (NS Flush) 2 ml UNSCH PRN IVF 12/29/16 08:30 (NS Flush) 2 ml UNSCH PRN IVF 12/29/16 08:45 (Protonix Inj) 40 mg DAILY IV 12/29/16 11:00 12/29/16 11:07 Miscellaneous Information 1 Q361D XX 12/29/16 10:30 (Chlorhexidine 2% Cloth) 3 pack Taper DAILY@04 TOP 12/30/16 04:00 12/26/17 03:59 (Chlorhexidine 2% Cloth) 3 pack UNSCH PRN TOP 12/29/16 10:30 (Radha-Colace) 1 tab BID PO 12/29/16 21:00 (Milk Of Magnesia Liq) 30 ml Q12H PRN PO 12/29/16 10:30 (Senokot) 17.2 mg Q12H PRN PO 12/29/16 10:30 (Dulcolax Supp) 10 mg DAILY PRN RECTAL 12/29/16 10:30 Lactulose 30 ml 30 ml DAILY PRN PO 12/29/16 10:30 Fentanyl Citrate 250 ml @ 0 mls/hr TITRATE IV 12/29/16 10:30 (NS 1000 ml Inj) 1,000 ml @ 84 mls/hr [id number] IV 12/29/16 11:00 12/29/16 11:07 (D50w (Vial) Inj) 50 ml UNSCH PRN IV 12/29/16 10:30 (Glucagon Inj) 1 mg UNSCH PRN OTHER 12/29/16 10:30 Insulin Human Regular 1 1 Q4H SQ 12/29/16 11:00 12/29/16 11:21 Alteplase, Recombinant 10 mg/ Sodium Chloride 500 ml @ 0 mls/hr CONTINUOUS IV 12/29/16 15:00 12/29/16 13:52 Heparin Sodium (Porcine) 1000 units/Sodium Chloride 501 ml @ 10 mls/hr UNSCH PRN IV 12/29/16 13:30 Heparin Sodium/ Dextrose 250 ml @ 0 mls/hr TITRATE IV 12/29/16 13:30 12/29/16 13:50 (Zosyn 4.5 Gm Premix) 100 ml @ 200 mls/hr Q6H IV 12/29/16 15:00 Family History unknown Social History unknown Physical Exam Vital Signs Vital Signs Date Time Temp Pulse Resp B/P Pulse Ox O2 Delivery O2 Flow Rate FiO2 12/29/16 14:25 60 15.00 100 12/29/16 13:15 120 28 110/78 95 Ventilator 12/29/16 13:00 126 28 101/81 94 Ventilator 12/29/16 12:30 123 28 133/52 97 Ventilator 12/29/16 12:15 125 28 104/65 98 Ventilator 12/29/16 11:55 130 111/70 98 Ventilator 12/29/16 11:45 95 100 12/29/16 11:32 120 108/60 97 Ventilator 12/29/16 11:01 136 110/57 97 Ventilator 12/29/16 10:48 138 158/75 95 Ventilator 12/29/16 10:38 96 60 12/29/16 10:23 146 158/75 97 Ventilator 12/29/16 10:13 145 145/84 96 12/29/16 09:47 136 140/60 99 Ventilator 12/29/16 09:40 89 12/29/16 09:39 148 140/60 91 Ventilator 12/29/16 09:38 91 100 12/29/16 09:32 151 183/85 90 Ventilator 12/29/16 09:28 150 12/29/16 09:26 149 134/84 91 Ventilator 12/29/16 09:25 145 104/60 95 Ventilator 12/29/16 09:14 143 157/78 100 Ventilator 12/29/16 09:10 146 147/73 100 Ventilator 12/29/16 09:05 99 12/29/16 08:45 90 100 12/29/16 08:37 100 12/29/16 08:31 82 Non-Rebreather 12/29/16 08:28 98.6 111 26 173/90 Physical Exam GENERAL: This is a morbidly obese patient in acute distress. She is intubated and sedated on high-dose NIKKI infusion and 5mcg/kg/min dobutamine infusion SKIN: Cool with some mottling peripherally. HEAD: Atraumatic. Normocephalic. No temporal or scalp tenderness. EYES: No scleral icterus. No injection or drainage. ENT: Nose without bleeding, purulent drainage or septal hematoma. Throat without erythema, tonsillar hypertrophy or exudate. Uvula midline. Airway patent. NECK: Trachea midline. No JVD or lymphadenopathy. Supple, nontender, no meningeal signs. CARDIOVASCULAR: Tachy without murmurs, gallops, or rubs. RESPIRATORY: Clear to auscultation. Breath sounds equal bilaterally. No wheezes , rales, or rhonchi. GASTROINTESTINAL: Abdomen soft,obese nondistended. . MUSCULOSKELETAL: Extremities without clubbing, cyanosis, or edema. No joint tenderness, effusion, or edema noted. No calf tenderness. Negative Homans sign bilaterally. NEUROLOGICAL: intubated, sedated. Laboratory Laboratory Tests Test 12/29/16 12/29/16 12/29/16 12/29/16 08:34 09:02 09:09 15:14 White Blood Count 22.4 Red Blood Count 4.97 Hemoglobin 14.5 Hematocrit 43.1 Mean Corpuscular Volume 86.7 Mean Corpuscular Hemoglobin 29.1 Mean Corpuscular Hemoglobin 33.5 Concent Red Cell Distribution Width 14.1 Platelet Count 328 Mean Platelet Volume 6.5 Neutrophils (%) (Auto) 43.9 Lymphocytes (%) (Auto) 49.2 Monocytes (%) (Auto) 5.3 Eosinophils (%) (Auto) 1.1 Basophils (%) (Auto) 0.5 Neutrophils # (Auto) 9.8 Lymphocytes # (Auto) 11.0 Monocytes # (Auto) 1.2 Eosinophils # (Auto) 0.2 Basophils # (Auto) 0.1 CBC Comment AUTO DIFF Differential Total Cells 100 Counted Neutrophils % (Manual) 53 Lymphocytes % 38 Monocytes % 8 Neutrophils # (Manual) 12.1 Metamyelocytes 1 Differential Comment FINAL DIFF MANUAL Platelet Estimate NORMAL Platelet Morphology Comment NORMAL Red Cell Morphology Comment NORMAL Prothrombin Time 10.6 Prothromb Time International 1.0 Ratio Activated Partial 25.1 Thromboplast Time Sodium Level 137 Potassium Level 3.7 Chloride Level 108 Carbon Dioxide Level 17.1 Anion Gap 12 Blood Urea Nitrogen 11 Creatinine 1.12 Estimat Glomerular Filtration 51 Rate Random Glucose 216 Calcium Level 8.8 Urine Color YELLOW Urine Turbidity CLOUDY Urine pH 5.5 Urine Specific [place] 1.028 Urine Protein 300 Urine Glucose (UA) TRACE Urine Ketones NEG Urine Occult Blood MOD Urine Nitrite NEG Urine Bilirubin NEG Urine Urobilinogen LESS THAN 2.0 Urine Leukocyte Esterase SMALL Urine RBC 15 Urine WBC 57 Urine WBC Clumps MOD Urine Squamous Epithelial 9 Cells Urine Amorphous Sediment RARE Urine Bacteria OCC Urine Hyaline Casts 36 Urine Mucus MANY Microscopic Urinalysis Comment CATH-CULTURE IND Blood Gas Puncture Site RT RADIAL ART LINE Blood Gas Patient Temperature 98.6 98.6 Blood Gas HCO3 17 17 Blood Gas Base Excess -10.3 -9.8 Blood Gas Oxygen Saturation 88 81 Arterial Blood pH 7.15 7.20 Arterial Blood Partial 51 44 Pressure CO2 Arterial Blood Partial 73 60 Pressure O2 Arterial Blood Oxygen Content 17.0 13.7 Arterial Blood 0.7 1.0 Carboxyhemoglobin Arterial Blood Methemoglobin 0.6 1.1 Blood Gas Hemoglobin 13.7 11.9 Oxygen Delivery Device VENTILATOR AMBU Blood Gas Ventilator Setting Blood Gas Inspired Oxygen 100 100 Blood Gas Liter Flow 15 Date/Time Procedure Status Source Growth 12/29/16 09:02 Urine Culture Received Urine Clean Catch Pending Result Diagram: 12/29/16 0834 12/29/16 0834 Imaging Last Impressions Chest X-Ray 12/29/16827 Signed Impressions: Service Date/Time: Thursday, December 29, 2016 08:32 - CONCLUSION: 1. Status post intubation. 2. No acute cardiopulmonary disease. Oswaldo Moody MD Lower Extremity Ultrasound 12/29/16 0000 Signed Impressions: Service Date/Time: Thursday, December 29, 2016 10:56 - CONCLUSION: 1. Occlusive thrombus in the right posterior tibial vein. 2. Nonocclusive thrombus in the right common femoral vein and greater saphenous vein. 3. No deep venous thrombosis in the left lower extremity. Oswaldo Moody MD Head CT 12/29/16 0000 Signed Impressions: Service Date/Time: Thursday, December 29, 2016 09:49 - CONCLUSION: 1. Suboptimal examination secondary to motion artifact. 2. No evidence of hemorrhage or mass effect identified. Oswaldo Moody MD CT Angiography 12/29/16 0000 Signed Impressions: Service Date/Time: Thursday, December 29, 2016 10:01 - CONCLUSION: Extensive bilateral pulmonary embolism. These findings were discussed with the emergency room physician at 1009 hrs. Oswaldo Moody MD Course Patient has an ongoing metabolic and respiratory acidosis despite aggressive hemodynamic and circulatory support. Assessment and Plan Problem List: (1) Acute pulmonary embolus Status: Acute (2) Acute hypoxemic respiratory failure Status: Acute (3) Shock circulatory Status: Acute Assessment and Plan Unfortunate 56y/o female presents with massive pulmonary embolus with hemodynamic instability. I reviewed the CT scan with Dr. Álvarez and his impression is that the clot burden is too peripheral for angiovac catheter use. From the surgical standpoint, the patient's prognosis is very poor as she is anticoagulated with ongoing thrombolytic infusion and most of her thrombus is at the lobar level or more peripheral. Her operative risk is very high for mortality and may be equivalent to medical management at this point. Furthermore, there is no family or next of kin to discuss her prognosis and potential options. I do not recommend emergency sternotomy for open embolectomy due to risk of perioperative risk of massive bleeding and it is unlikely to improve her prognosis. Problem Qualifiers (1) Acute pulmonary embolus: Qualified Code: I26.09 - Other acute pulmonary embolism with acute cor pulmonale Angelica Donnelly MD Dec 29, 2016 15:57
[2016-12-29 15:58] LABS: HEMO FLAGS AUTO DIFF
[2016-12-29 15:59] LABS: APTT (PATIENT) 27.3 SEC (24.3-30.1); PROTHROMBIN TIME - PATIENT 11.1 SEC (9.8-11.6)
[2016-12-29 16:12] LABS: BICARBONATE 20.2 MEQ/L (21.0-32.0); POTASSIUM 4.3 MEQ/L (3.5-5.1)
--- NOTE | 2016-12-29 16:30 | RADRPT ---
EXAM DATE/TIME: 12/29/2016 11:26 This report includes an Addendum and supersedes previous reports for this exam. [facility] COMPARISON: No previous studies available for comparison. INDICATIONS : Patient with a history of pulmonary embolus needs central line. MEDICAL HISTORY : None. SURGICAL HISTORY : Unknown. ENCOUNTER: Initial ACUITY: 1 day PAIN SCORE: Nonresponsive. FLUORO TIME: 14.5 minutes IMAGE SERIES: 8 ACCESS: Right internal jugular vein DEVICE(S): 1.) 7 Moldovan triple lumen 20 cm Central line PROCEDURE : 1. Ultrasound guided venipuncture. 2. Fluoroscopic guidance. 3. Central line placement. The procedure was performed in conjunction with lower extremity venography which is dictated separate ly. The right subclavian vein had been punctured under direct ultrasound guidance. The venous access site in the right subclavian vein was utilized for placement of a 7 [place] triple-lumen central line under direct fluoroscopic guidance. The line was positioned into the superior vena cava and secured w ith silk suture. The patient tolerated the procedure well. CONCLUSION: Uncomplicated ultrasound and fluoroscopic guided central line placement as above. Oren Álvarez MD on December 29, 2016 at 16:27 Board Certified Radiologist. This report was verified electronically. ADDENDUM: At the start of the above described combined procedure: The patient was placed supine on the angiography table. The right shoulder region was prepped in ster ile fashion. Full sterile technique was used, including cap, mask, sterile gloves and gown and a larg e sterile sheet. Hand hygiene and 2% chlorhexidine and/or betadine/alcohol prep was utilized per prot ocol for cutaneous antisepsis with appropriate dry time for site. The skin and subcutaneous tissues w ere infiltrated with lidocaine solution. Blunt dissection was utilized to free up the tissues superfi cial to the access vessel. Ultrasound guidance was utilized using sterile gel and sterile probe cover . Under direct ultrasound guidance, micropuncture access was accomplished into the right subclavian v ein allowing placement of a 4 Moldovan vascular sheath. The ultrasound images depicting access guidance were saved and stored to PACS for permanent record. Oren Álvarez MD on January 17, 2017 at 8:17 Board Certified Radiologist. This report was verified electronically.
[2016-12-29 16:35] LABS: NEUTROPHIL # MANUAL DIFF 19.2 TH/MM3 (1.8-7.7); POLYS (SEG NEUTROPHILS) 80 % (16-70); WBC DIFF SAMPLE 100
[2016-12-29 16:36] LABS: BLOOD GAS BASE EXCESS -11.7 mmol/L (-2-2); BLOOD GAS CARBOXYHEMOGLOBIN 1.1 % (0-4); BLOOD GAS HCO3 14 mmol/L (22-26); BLOOD GAS METHEMOGLOBIN 1.1 % (0-2); BLOOD GAS O2 HGB SATURATION 88 % (90-100); BLOOD GAS OXYGEN CONTENT 13.9 Vol % (12.0-20.0); BLOOD GAS PCO2 32 mmHg (38-42); BLOOD GAS PO2 68 mmHg (61-120); BLOOD GAS TOTAL HGB 11.1 G/DL (12.0-16.0); TEMP CORR TO 98.6
[2016-12-29 16:36] LABS: PLATELET ESTIMATE SMEAR NORMAL (NORMAL); PLATELET MORPHOLOGY NORMAL (NORMAL); SCAN/DIFF FINAL DIFF MANUAL
[2016-12-29 16:37] LABS: CRITICAL VALUE YES; OXYGEN DEVICE VENTILATOR
--- NOTE | 2016-12-29 16:37 | RADRPT ---
EXAM DATE/TIME: 12/29/2016 11:26 [facility] COMPARISON: No previous studies available for comparison. INDICATIONS : Patient with a history of pulmonary embolus. MEDICAL HISTORY : None. SURGICAL HISTORY : Unknown ENCOUNTER: Initial ACUITY: 1 day PAIN SCORE: Non-responsive FLUORO TIME: 14.5 minutes IMAGE SERIES: 8 ACCESS SITE: Right arm Internal jugular CONTRAST: 110 cc Omnipaque (iohexol) 350 PROCEDURE : 1. Ultrasound-guided right subclavian vein venipuncture. 2. selective catheterization, right superficial femoral vein from right subclavian vein approach. 3. selective catheterization, left superficial femoral vein from right subclavian approach. 4. Bilateral lower extremity venography 5. Inferior venacavography. The patient was placed supine on the angiography table. The right shoulder region was prepped in ster ile fashion. Full sterile technique was used, including cap, mask, sterile gloves and gown and a larg e sterile sheet. Hand hygiene and 2% chlorhexidine and/or betadine/alcohol prep was utilized per prot ocol for cutaneous antisepsis. The skin and subcutaneous tissues were infiltrated with lidocaine solu tion. Blunt dissection was utilized to free up the tissues superficial to the common femoral artery. Under direct ultrasound guidance, micropuncture access was accomplished into the right subclavian vei n allowing placement of a 4 Mohawk vascular sheath. The ultrasound images depicting access guidance w ere saved and stored to PACS for permanent record. A 4 Mohawk angled taper glide X. catheter was introduced and with the assistance of an angled Glidewi re was manipulated down into the distal right superficial femoral vein. Right leg contrast venography was performed. The catheter was then manipulated down the left side into the left superficial femora l vein and left leg venography was performed. Inferior vena cava artery was accomplished. The catheter was removed and central line placement was accomplished, the procedure dictated separate ly. FINDINGS: There is no evidence of significant DVT from the popliteal veins up through to the inferior cava on e ither side. Small volume nonocclusive clot at the right saphenofemoral junction is better seen on dup paloma ultrasound evaluation. Known right calf DVT was not evaluated venographically. CONCLUSION: Uncomplicated bilateral venogram as above. No significant DVT in the legs on either side. No ileocava l thrombus. As such, I do not feel inferior vena caval filter placement is indicated prior to thrombo lytic therapy and/or other therapy for the patient's pulmonary embolism. Oren Álvarez MD on December 29, 2016 at 16:31 Board Certified Radiologist. This report was verified electronically.
[2016-12-29 16:38] LABS: DRAW SITE ART LINE; FIO2 100 %; STAT YES; ULNAR PULSE PRESENT; VENT SETTINGS SEE COMMENTS
[2016-12-29] MEDS ORDERED: SODIUM BICARBONATE 8.4% INJ 50 ML ONE (16:39)
[2016-12-29] MEDS ORDERED: SODIUM BICARBONATE 8.4% INJ 50 MEQ/50 ML SYR IV PUSH ONE (16:45)
[2016-12-29] MEDS ORDERED: VECURONIUM BROMIDE 10 MG VIAL ONE (17:29)
[2016-12-29] MEDS ORDERED: VECURONIUM BROMIDE 10 MG VIAL IV PUSH ONE (17:30)
[2016-12-29] MEDS: fentaNYL DRIP 250 ML IV SCH (19:43)
[2016-12-29] MEDS ORDERED: NOREPINEPHRINE 4 MG/D5W 250 ML IV SCH (19:45)
[2016-12-29] MEDS ORDERED: TERBUTALINE INJ 1 MG/ML AMP SQ PRN (19:45)
[2016-12-29] MEDS ORDERED: SODIUM BICARBONATE 8.4% INJ 50 MEQ/50 ML SYR IV ONE (19:45)
[2016-12-29] MEDS: DOBUTamine 250 MG/D5W 250 ML PREMIX DRIP IV SCH (20:01)
[2016-12-29 20:19] LABS: AUTOMATED NEUTROPHIL # 18.5 TH/MM3 (1.8-7.7); BASOPHIL % 0.1 % (0.0-2.0); HEMATOCRIT 38.4 % (35.0-46.0); HEMO FLAGS DIFF FINAL; LYMPH % 16.1 % (9.0-44.0); LYMPHOCYTE # 3.7 TH/MM3 (1.0-4.8); MEAN CELL VOLUME 86.3 FL (80.0-100.0); MEAN CORPUSCULAR HEMOGLOBIN 28.5 PG (27.0-34.0); MONO % 3.9 % (0.0-8.0); NEUT % 79.9 % (16.0-70.0); PLATELET COUNT 184 TH/MM3 (150-450); RED BLOOD COUNT 4.45 MIL/MM3 (4.00-5.30); RED CELL DISTRIBUTION WIDTH 13.9 % (11.6-17.2); WHITE BLOOD COUNT 23.1 TH/MM3 (4.0-11.0)
[2016-12-29 20:26] LABS: APTT (PATIENT) 29.3 SEC (24.3-30.1)
[2016-12-29 20:47] LABS: BICARBONATE 19.3 MEQ/L (21.0-32.0); POTASSIUM 3.6 MEQ/L (3.5-5.1)
[2016-12-29] MEDS: DOCUSATE SODIUM 50 MG/SENNA 8.6 MG TAB PO SCH (21:00)
[2016-12-29 21:28] LABS: CALCIUM-PROTEIN CORRECTED 7.7 MG/DL (8.5-10.1)
[2016-12-30] VITALS (25 sets, daily range): BP systolic 93–152; BP diastolic 52–93; PULSE 88–120; RESP 0–28; O2SAT 86–99
[2016-12-30] MEDS: RESP: ALBUTEROL 2.5 MG/IPRATROPIUM 0.5 MG NEB (SCH) INH ×6 (00:20→19:43)
[2016-12-30] MEDS: PHENYLEPHRINE 40 MG/D5W 496 ML ADMIX IV SCH ×8 (00:54→18:01)
[2016-12-30] MEDS: fentaNYL DRIP 250 ML IV SCH ×2 (01:35→18:01)
[2016-12-30 01:39] LABS: AUTOMATED NEUTROPHIL # 20.3 TH/MM3 (1.8-7.7); BASOPHIL % 0.1 % (0.0-2.0); LYMPH % 22.2 % (9.0-44.0); LYMPHOCYTE # 6.2 TH/MM3 (1.0-4.8); MEAN CELL VOLUME 86.1 FL (80.0-100.0); MEAN CORPUSCULAR HEMOGLOBIN 29.2 PG (27.0-34.0); MEAN CORPUSCULAR HGB CONC 33.9 % (32.0-36.0); MONO % 5.3 % (0.0-8.0); NEUT % 72.4 % (16.0-70.0); PLATELET COUNT 194 TH/MM3 (150-450); RED BLOOD COUNT 4.53 MIL/MM3 (4.00-5.30); WHITE BLOOD COUNT 28.1 TH/MM3 (4.0-11.0)
[2016-12-30 01:40] LABS: HEMO FLAGS AUTO DIFF
[2016-12-30 01:43] LABS: APTT (PATIENT) 28.2 SEC (24.3-30.1)
[2016-12-30 02:04] LABS: BANDS 2 % (0-6); NEUTROPHIL # MANUAL DIFF 21.1 TH/MM3 (1.8-7.7); PLATELET ESTIMATE SMEAR NORMAL (NORMAL); PLATELET MORPHOLOGY NORMAL (NORMAL); POLYS (SEG NEUTROPHILS) 73 % (16-70); SCAN/DIFF FINAL DIFF MANUAL; WBC DIFF SAMPLE 100
--- NOTE | 2016-12-30 02:49 | RADRPT ---
EXAM DATE/TIME: 12/30/2016 02:15 [facility] COMPARISON: CHEST SINGLE AP, December 29, 2016, 8:32. INDICATIONS : Respiratory distress. MEDICAL HISTORY : Pulmonary embolism. Shortness of breath SURGICAL HISTORY : Umbilical hernia repair ENCOUNTER: Subsequent ACUITY: 2 days PAIN SCORE: Non-responsive. LOCATION: Bilateral chest FINDINGS: A single view of the chest demonstrates large right-sided pneumothorax with collapse of the right rodolfo g. Slight tension component. Endotracheal tube 5 cm above the bernice. Right subclavian central line w ith tip in the SVC. Nasogastric tube tip in stomach. The cardiomediastinal contours are unremarkable. Osseous structures are intact. CONCLUSION: 1. Large right-sided pneumothorax with minimal tension component. Chest tube recommended. 2. Collapse of the right lung. Benji Jean Baptiste MD on December 30, 2016 at 2:45 Board Certified Radiologist. This report was verified electronically.
[2016-12-30 03:29] LABS: BLOOD GAS BASE EXCESS -7.7 mmol/L (-2-2); BLOOD GAS CARBOXYHEMOGLOBIN 1.3 % (0-4); BLOOD GAS HCO3 18 mmol/L (22-26); BLOOD GAS O2 HGB SATURATION 96 % (90-100); BLOOD GAS OXYGEN CONTENT 17.2 Vol % (12.0-20.0); BLOOD GAS PCO2 41 mmHg (38-42); BLOOD GAS PO2 112 mmHg (61-120); BLOOD GAS TOTAL HGB 12.7 G/DL (12.0-16.0); CRITICAL VALUE YES; OXYGEN DEVICE VENTILATOR; TEMP CORR TO 98.6
[2016-12-30 03:31] LABS: DRAW SITE ART LINE; FIO2 100 %; STAT YES; VENT SETTINGS PC/AC
[2016-12-30] MEDS: CISATRACURIUM INJ 100 MG in SODIUM CHLOR 0.9% 250 ML INJ 240 ML IV SCH ×3 (03:44→18:02)
[2016-12-30] MEDS: VASOPRESSIN INJ 40 UNITS in DEXTROSE 5% IN WATER 100ML INJ 98 ML IV SCH ×2 (03:45)
--- NOTE | 2016-12-30 03:49 | PD.PROCEDR ---
Procedure Note Procedure Procedure: Pigtail catheter placement site: right pleural cavity Preop diagnosis: Right tension pneumothorax Postop diagnosis: Same Informed consent: Not obtained as this was an emergent procedure. Anesthesia used: 1% lidocaine for local infiltration anesthesia Procedure: After sterile prepping and draping using 1% lidocaine for local infiltration anesthesia after making a skin james with #10 scalpel blade, introducer needle was used to enter right pleural cavity in the 3rd intercostal space just anterior to anterior axillary line. Pleural cavity was entered as evidenced by return of air bubbles. The syringe was disconnected from needle with continued discussion of air heard from air escaping the right pleural cavity. A guidewire was passed through the needle without any resistance following which Angiocath was removed. 10 Khmer pigtail catheter was advanced over the guidewire into the right pleural cavity following which guidewire and stiffener were removed. Pigtail catheter was connected to Pleur-evac VAC with a connector. Pigtail catheter was sutured in place as well as secured with stayfix. Postprocedure chest x-ray was ordered and reviewed with appropriate placement of right pigtail catheter with reexpansion of right lung and resolution of pneumothorax. Patient's O2 sats improved from the mid 80s to upper 90s immediately following placement of pigtail catheter. Patient tolerated procedure well with no immediate complications noted. Note: TPA and heparin infusions were held 15 minutes prior to the procedure. Loi Jackson MD Dec 30, 2016 03:49
[2016-12-30] MEDS: PIPERACIL-TAZO 4.5 GM PREMIX 100 ML IV SCH ×4 (03:53→21:36)
[2016-12-30] MEDS: CHLORHEXIDINE GLUCONATE 2 % 1 PACK (2 CLOTHS) TOP SCH (04:00)
[2016-12-30] MEDS: INSULIN NovoLIN REGULAR SUPPLEMENTAL SCALE SQ SCH ×5 (04:00→23:00)
--- NOTE | 2016-12-30 04:13 | RADRPT ---
EXAM DATE/TIME: 12/30/2016 02:53 [facility] COMPARISON: CHEST SINGLE AP, December 30, 2016, 2:15. INDICATIONS : Right side chest tube placement MEDICAL HISTORY : Pulmonary embolism SURGICAL HISTORY : Umbilical hernia repair. ENCOUNTER: Subsequent ACUITY: 2 days PAIN SCORE: Non-responsive. LOCATION: Bilateral FINDINGS: A single view of the chest demonstrates the lungs to be symmetrically aerated without evidence of mas s, infiltrate or effusion. Right-sided small caliber chest tube placement. No pneumothorax. Endotrac heal tube, nasogastric tube and right subclavian central line stable in position. The cardiomediastin al contours are unremarkable. Osseous structures are intact. CONCLUSION: Small caliber right-sided chest tube without pneumothorax. Benji Jean Baptiste MD on December 30, 2016 at 4:11 Board Certified Radiologist. This report was verified electronically.
[2016-12-30] MEDS: CATHFLO ACTIVASE INJ 10 MG in SODIUM CHLORID 0.9% 500 ML INJ 500 ML IV SCH (05:02)
[2016-12-30] MEDS: VASOPRESSIN INJ 40 UNITS in SODIUM CHLORIDE 0.9% INJ 98 ML IV SCH ×2 (05:44→21:36)
[2016-12-30] MEDS: NOREPINEPHRINE INJ 4 MG in SODIUM CHLOR 0.9% 250 ML INJ 246 ML IV SCH ×3 (05:44→18:01)
[2016-12-30] MEDS ORDERED: IRR IV SCH (05:45)
[2016-12-30] MEDS ORDERED: NOREPINEPHRINE IV SCH (05:45)
[2016-12-30] MEDS ORDERED: SODIUM CHLORIDE 0.9% IV SCH (05:45)
[2016-12-30 05:54] LABS: AUTOMATED NEUTROPHIL # 17.2 TH/MM3 (1.8-7.7); BASOPHIL % 0.2 % (0.0-2.0); HEMATOCRIT 37.3 % (35.0-46.0); LYMPH % 22.7 % (9.0-44.0); LYMPHOCYTE # 5.4 TH/MM3 (1.0-4.8); MEAN CELL VOLUME 84.1 FL (80.0-100.0); MEAN CORPUSCULAR HGB CONC 34.5 % (32.0-36.0); MONO % 5.6 % (0.0-8.0); NEUT % 71.5 % (16.0-70.0); PLATELET COUNT 166 TH/MM3 (150-450); RED BLOOD COUNT 4.43 MIL/MM3 (4.00-5.30); RED CELL DISTRIBUTION WIDTH 13.8 % (11.6-17.2)
[2016-12-30 06:00] LABS: HEMO FLAGS AUTO DIFF
[2016-12-30 06:04] LABS: APTT (PATIENT) 28.7 SEC (24.3-30.1)
[2016-12-30 06:26] LABS: BICARBONATE 23.8 MEQ/L (21.0-32.0); POTASSIUM 3.9 MEQ/L (3.5-5.1)
[2016-12-30 06:38] LABS: BANDS 5 % (0-6); NEUTROPHIL # MANUAL DIFF 19.7 TH/MM3 (1.8-7.7); POLYS (SEG NEUTROPHILS) 77 % (16-70); WBC DIFF SAMPLE 100
[2016-12-30 06:39] LABS: PLATELET ESTIMATE SMEAR NORMAL (NORMAL); PLATELET MORPHOLOGY NORMAL (NORMAL); SCAN/DIFF FINAL DIFF MANUAL
[2016-12-30 07:05] LABS: CALCIUM-PROTEIN CORRECTED 7.6 MG/DL (8.5-10.1)
[2016-12-30] MEDS ORDERED: PROPOFOL 500 MG/50 ML INJ 50 ML ONE (07:16)
[2016-12-30] MEDS: SODIUM BICARBONATE 8.4% INJ 150 MEQ in WATER STERILE FOR INJ 1,000 ML IV SCH (07:33)
[2016-12-30] MEDS: PANTOPRAZOLE SODIUM 40 MG VIAL IV SCH (09:00)
[2016-12-30] MEDS: DOCUSATE SODIUM 50 MG/SENNA 8.6 MG TAB PO SCH ×2 (09:00→21:36)
--- NOTE | 2016-12-30 09:02 | HHI.CCPN ---
Subjective Remarks/Hospital Course Patient is a 56-year-old female without significant past medical history who presented to the [facility] Emergency Department with severe respiratory distress. Per ED records, the patient woke up this morning feeling short of breath. She denied any associated symptoms of chest pain, orthopnea, PND or edema of the lower extremities. On arrival to the emergency department, she was found hypoxic with saturation in the 70s on room air and tachycardiac with heart rate of 160. The patient was subsequently intubated with etomidate, succinylcholine and Versed and placed on full mechanical ventilation. ABG post- intubation showed severe respiratory acidosis with a pH of 7.15, CO2 51, pAO2 73 , bicarb 17, sats of 88% PRVC mode, rate of 24, tidal volume 500,IT: 1.0, PEEP of 20 with 100% FIO2. Chest x-ray showed no acute cardiopulmonary disease. The patient underwent a stat CT scan of the chest, which showed extensive bilateral pulmonary embolism. She also had CT scan of the brain, which showed no evidence of hemorrhage or mass effect. In ER she was given IV fluids 2 liters, Ativan, and placed on Diprivan infusion for sedation. 12/30 On arrival to ICU from IR patient became hemodynamically unstable and placed on multiple pressors. She is currently on Neosyn 100 mics, Vasopressin 0.04, Levophed 12 mics, Off Dobutamine. In addition she is sedated with Fentnayl, Diprivan and on Nimbex. At approx 3 am she developed right sided PTX and pig tail catheter was placed with resolution of PTX on repeat CXR. On PC/AC RR 28, IP: 18, IT:1.0, PEEP:10, FIO2 70%. On TPA 1mg/hr and Heparin drip. T;101.1 at 4am. Objective Vital Signs Date Time Temp Pulse Resp B/P Pulse Ox O2 Delivery O2 Flow Rate FiO2 12/30/16 07:32 99 70 12/30/16 06:00 115 12/30/16 04:00 101.1 115/81 123/77 12/30/16 00:00 28 12/29/16 14:25 15.00 12/29/16 13:15 Ventilator Intake and Output 12/29/16 12/29/16 12/30/16 08:00 16:00 00:00 Intake Total 5960 ml Output Total 650 ml Balance 5310 ml Result Diagram: 12/30/16 0515 12/30/16 0515 Other Results Laboratory Tests Test 12/29/16 12/29/16 12/29/16 12/29/16 09:02 09:09 15:00 15:14 Urine Color YELLOW Urine Turbidity CLOUDY Urine pH 5.5 Urine Specific Addis 1.028 Urine Protein 300 mg/dL Urine Glucose (UA) TRACE mg/dL Urine Ketones NEG mg/dL Urine Occult Blood MOD Urine Nitrite NEG Urine Bilirubin NEG Urine Urobilinogen LESS THAN 2.0 MG/DL Urine Leukocyte Esterase SMALL Urine RBC 15 /hpf Urine WBC 57 /hpf Urine WBC Clumps MOD Urine Squamous Epithelial 9 /hpf Cells Urine Amorphous Sediment RARE Urine Bacteria OCC /hpf Urine Hyaline Casts 36 /lpf Urine Mucus MANY /lpf Microscopic Urinalysis Comment CATH-CULTURE IND Blood Gas Puncture Site RT RADIAL ART LINE Blood Gas Patient Temperature 98.6 98.6 Blood Gas HCO3 17 mmol/L 17 mmol/L Blood Gas Base Excess -10.3 mmol/L -9.8 mmol/L Blood Gas Oxygen Saturation 88 % 81 % Arterial Blood pH 7.15 7.20 Arterial Blood Partial 51 mmHg 44 mmHg Pressure CO2 Arterial Blood Partial 73 mmHG 60 mmHg Pressure O2 Arterial Blood Oxygen Content 17.0 Vol % 13.7 Vol % Arterial Blood 0.7 % 1.0 % Carboxyhemoglobin Arterial Blood Methemoglobin 0.6 % 1.1 % Blood Gas Hemoglobin 13.7 G/DL 11.9 G/DL Oxygen Delivery Device VENTILATOR AMBU Blood Gas Ventilator Setting Blood Gas Inspired Oxygen 100 % 100 % White Blood Count 24.0 TH/MM3 Red Blood Count 4.33 MIL/MM3 Hemoglobin 12.4 GM/DL Hematocrit 38.1 % Mean Corpuscular Volume 87.9 FL Mean Corpuscular Hemoglobin 28.7 PG Mean Corpuscular Hemoglobin 32.7 % Concent Red Cell Distribution Width 14.2 % Platelet Count 258 TH/MM3 Mean Platelet Volume 6.2 FL Neutrophils (%) (Auto) 65.7 % Lymphocytes (%) (Auto) 27.5 % Monocytes (%) (Auto) 6.5 % Eosinophils (%) (Auto) 0.1 % Basophils (%) (Auto) 0.2 % Neutrophils # (Auto) 15.8 TH/MM3 Lymphocytes # (Auto) 6.6 TH/MM3 Monocytes # (Auto) 1.6 TH/MM3 Eosinophils # (Auto) 0.0 TH/MM3 Basophils # (Auto) 0.1 TH/MM3 CBC Comment AUTO DIFF Differential Total Cells 100 Counted Neutrophils % (Manual) 80 % Lymphocytes % 14 % Monocytes % 6 % Neutrophils # (Manual) 19.2 TH/MM3 Differential Comment FINAL DIFF MANUAL Platelet Estimate NORMAL Platelet Morphology Comment NORMAL Red Cell Morphology Comment NORMAL Prothrombin Time 11.1 SEC Prothromb Time International 1.0 RATIO Ratio Activated Partial 27.3 SEC Thromboplast Time Sodium Level 140 MEQ/L Potassium Level 4.3 MEQ/L Chloride Level 106 MEQ/L Carbon Dioxide Level 20.2 MEQ/L Anion Gap 14 MEQ/L Blood Urea Nitrogen 12 MG/DL Creatinine 1.34 MG/DL Estimat Glomerular Filtration 41 ML/MIN Rate Random Glucose 267 MG/DL Lactic Acid Level 7.4 mmol/L Calcium Level 7.8 MG/DL Total Creatine Kinase 99 U/L Troponin I 1.56 NG/ML Blood Gas Liter Flow 15 L/M Test 12/29/16 12/29/16 12/29/16 12/29/16 15:49 16:26 16:46 17:00 Blood Type AB POSITIVE AB POSITIVE Blood Gas Puncture Site ART LINE Blood Gas Patient Temperature 98.6 Blood Gas HCO3 14 mmol/L Blood Gas Base Excess -11.7 mmol/L Blood Gas Oxygen Saturation 88 % Arterial Blood pH 7.26 Arterial Blood Partial 32 mmHg Pressure CO2 Arterial Blood Partial 68 mmHg Pressure O2 Arterial Blood Oxygen Content 13.9 Vol % Arterial Blood 1.1 % Carboxyhemoglobin Arterial Blood Methemoglobin 1.1 % Blood Gas Hemoglobin 11.1 G/DL Oxygen Delivery Device VENTILATOR Blood Gas Ventilator Setting SEE COMMENTS Blood Gas Inspired Oxygen 100 % Antibody Screen NEGATIVE Crossmatch Leukocyte-Reduced Red Blood Cells Blood Bank Comment Nasal Screen MRSA (PCR) MRSA NOT DETECTED Test 12/29/16 12/29/16 12/30/16 12/30/16 19:50 22:40 01:20 03:08 White Blood Count 23.1 TH/MM3 28.1 TH/MM3 Red Blood Count 4.45 MIL/MM3 4.53 MIL/MM3 Hemoglobin 12.7 GM/DL 13.2 GM/DL Hematocrit 38.4 % 39.0 % Mean Corpuscular Volume 86.3 FL 86.1 FL Mean Corpuscular Hemoglobin 28.5 PG 29.2 PG Mean Corpuscular Hemoglobin 33.0 % 33.9 % Concent Red Cell Distribution Width 13.9 % 14.0 % Platelet Count 184 TH/MM3 194 TH/MM3 Mean Platelet Volume 5.9 FL 6.1 FL Neutrophils (%) (Auto) 79.9 % 72.4 % Lymphocytes (%) (Auto) 16.1 % 22.2 % Monocytes (%) (Auto) 3.9 % 5.3 % Eosinophils (%) (Auto) 0.0 % 0.0 % Basophils (%) (Auto) 0.1 % 0.1 % Neutrophils # (Auto) 18.5 TH/MM3 20.3 TH/MM3 Lymphocytes # (Auto) 3.7 TH/MM3 6.2 TH/MM3 Monocytes # (Auto) 0.9 TH/MM3 1.5 TH/MM3 Eosinophils # (Auto) 0.0 TH/MM3 0.0 TH/MM3 Basophils # (Auto) 0.0 TH/MM3 0.0 TH/MM3 CBC Comment DIFF FINAL AUTO DIFF Differential Comment FINAL DIFF MANUAL Activated Partial 29.3 SEC 28.2 SEC Thromboplast Time Fibrinogen 137 mg/dL 170 mg/dL Sodium Level 137 MEQ/L Potassium Level 3.6 MEQ/L Chloride Level 105 MEQ/L Carbon Dioxide Level 19.3 MEQ/L Anion Gap 13 MEQ/L Blood Urea Nitrogen 12 MG/DL Creatinine 1.03 MG/DL Estimat Glomerular Filtration 56 ML/MIN Rate Random Glucose 321 MG/DL Calcium Level 6.9 MG/DL Protein Corrected Calcium 7.7 MG/DL Troponin I 1.23 NG/ML Total Protein 5.6 GM/DL Lactic Acid Level 3.6 mmol/L Differential Total Cells 100 Counted Neutrophils % (Manual) 73 % Band Neutrophils % 2 % Lymphocytes % 19 % Monocytes % 6 % Neutrophils # (Manual) 21.1 TH/MM3 Platelet Estimate NORMAL Platelet Morphology Comment NORMAL Red Cell Morphology Comment NORMAL Blood Gas Puncture Site ART LINE Blood Gas Patient Temperature 98.6 Blood Gas HCO3 18 mmol/L Blood Gas Base Excess -7.7 mmol/L Blood Gas Oxygen Saturation 96 % Arterial Blood pH 7.26 Arterial Blood Partial 41 mmHg Pressure CO2 Arterial Blood Partial 112 mmHg Pressure O2 Arterial Blood Oxygen Content 17.2 Vol % Arterial Blood 1.3 % Carboxyhemoglobin Arterial Blood Methemoglobin 1.0 % Blood Gas Hemoglobin 12.7 G/DL Oxygen Delivery Device VENTILATOR Blood Gas Ventilator Setting PC/AC Blood Gas Inspired Oxygen 100 % Test 12/30/16 12/30/16 05:15 07:20 White Blood Count 24.0 TH/MM3 Red Blood Count 4.43 MIL/MM3 Hemoglobin 12.9 GM/DL Hematocrit 37.3 % Mean Corpuscular Volume 84.1 FL Mean Corpuscular Hemoglobin 29.0 PG Mean Corpuscular Hemoglobin 34.5 % Concent Red Cell Distribution Width 13.8 % Platelet Count 166 TH/MM3 Mean Platelet Volume 6.3 FL Neutrophils (%) (Auto) 71.5 % Lymphocytes (%) (Auto) 22.7 % Monocytes (%) (Auto) 5.6 % Eosinophils (%) (Auto) 0.0 % Basophils (%) (Auto) 0.2 % Neutrophils # (Auto) 17.2 TH/MM3 Lymphocytes # (Auto) 5.4 TH/MM3 Monocytes # (Auto) 1.3 TH/MM3 Eosinophils # (Auto) 0.0 TH/MM3 Basophils # (Auto) 0.0 TH/MM3 CBC Comment AUTO DIFF Differential Total Cells 100 Counted Neutrophils % (Manual) 77 % Band Neutrophils % 5 % Lymphocytes % 16 % Monocytes % 2 % Neutrophils # (Manual) 19.7 TH/MM3 Differential Comment FINAL DIFF MANUAL Platelet Estimate NORMAL Platelet Morphology Comment NORMAL Red Cell Morphology Comment NORMAL Activated Partial 28.7 SEC 30.0 SEC Thromboplast Time Sodium Level 134 MEQ/L Potassium Level 3.9 MEQ/L Chloride Level 99 MEQ/L Carbon Dioxide Level 23.8 MEQ/L Anion Gap 11 MEQ/L Blood Urea Nitrogen 12 MG/DL Creatinine 1.21 MG/DL Estimat Glomerular Filtration 46 ML/MIN Rate Random Glucose 217 MG/DL Calcium Level 6.9 MG/DL Protein Corrected Calcium 7.6 MG/DL Total Protein 5.8 GM/DL Fibrinogen 205 mg/dL Imaging Last Impressions Chest X-Ray 12/30/16 0000 Signed Impressions: Service Date/Time: Friday, December 30, 2016 02:53 - CONCLUSION: Small caliber right-sided chest tube without pneumothorax. Benji Jean Baptiste MD Venogram 12/29/16 0000 Signed Impressions: Service Date/Time: Thursday, December 29, 2016 11:26 - CONCLUSION: Uncomplicated bilateral venogram as above. No significant DVT in the legs on either side. No ileocaval thrombus. As such, I do not feel inferior vena caval filter placement is indicated prior to thrombolytic therapy and/or other therapy for the patient's pulmonary embolism. Oren Álvarez MD Lower Extremity Ultrasound 12/29/16 Signed Impressions: Service Date/Time: Thursday, December 29, 2016 10:56 - CONCLUSION: 1. Occlusive thrombus in the right posterior tibial vein. 2. Nonocclusive thrombus in the right common femoral vein and greater saphenous vein. 3. No deep venous thrombosis in the left lower extremity. Oswaldo Moody MD Head CT 12/29/16 Signed Impressions: Service Date/Time: Thursday, December 29, 2016 09:49 - CONCLUSION: 1. Suboptimal examination secondary to motion artifact. 2. No evidence of hemorrhage or mass effect identified. Oswaldo Moody MD Central Venous Line 12/29/16 Signed Impressions: Service Date/Time: Thursday, December 29, 2016 11:26 - CONCLUSION: Uncomplicated ultrasound and fluoroscopic guided central line placement as above. Oren Álvarez MD CT Angiography 12/29/16 Signed Impressions: Service Date/Time: Thursday, December 29, 2016 10:01 - CONCLUSION: Extensive bilateral pulmonary embolism. These findings were discussed with the emergency room physician at 1009 hrs. Oswaldo Moody MD Objective Remarks GENERAL: Patient is 56 yo critically ill intubated and sedated SKIN: Warm and dry. HEAD: Normocephalic. EYES: No scleral icterus. No injection or drainage. NECK: Supple, trachea midline. No JVD or lymphadenopathy. Orally intubated CARDIOVASCULAR: Regular rate and rhythm without murmurs, gallops, or rubs. RESPIRATORY: Breath sounds equal bilaterally. No accessory muscle use. GASTROINTESTINAL: Abdomen soft, non-tender, nondistended. MUSCULOSKELETAL: No cyanosis, or edema. Neuro: Sedated A/P Assessment and Plan 1. Acute hypoxemic hypercapnic respiratory failure requiring intubation. 2 Distributive shock 3. Extensive bilateral pulmonary embolism. 4. DVT RLE 5 Lactic acidemia 6 EKATERINA 7 Elevated trop...2nd PE 8 Leukocytosis, 9 UTI 10. Hyperglycemia. 11 Morbid obesity Obesity. 12 Right sided PTX s/p pig tail catheter placement Plan Neuro: On Diprivan and Fentanyl infusion for sedated in addition patient is on Nimbex for vent synchrony. Sedation vacation when appropriate CT brain in ED negative for acute intracranial process. Pulm: Continue with vent support and maintain sats > 92%. Bronchodilators, ICU vent bundle. On PC/AC RR 28, IP: 18, IT:1.0, PEEP:10, FIO2 70%. Decrease FIO2 as tamanna. check ABG s/p pigtail catheter placement for right sided PTX 12/30 On TPA 1mg/hr and Heparin drip per IR. Spoke to Dr. Álvarez will d/c TPA and started adjusting heparin per PE protocol with no bolus. Monitor Fibrinogen level. Discussed with Dr. Álvarez yesterday re possibility of catheter directed thrombectomy however he did not feel patient is good candidate for it as the clot burden is too peripheral for angiovac catheter use.Also, spoke to Dr. Donnelly from [facility] re possibility of open embolectomy and he did not recommend it due to risk of perioperative risk of massive bleeding and it is unlikely to improve her prognosis Hypercoagulable workup. CV: Continue with pressors ( Neosyn, Levophed, Vaso)maintain MAP> 65 mmHg. Stress dose steroids- HC 50mg IV Q6 Serial lactic acid monitoring (trending down), monitor trop Echo showed mid dilated RV with mod. decrease in systolic function, PAP 41mmHg, LV is not well visualized. : Monitor renal function, intake and output and electrolyte replacement as needed. d/c bicarb drip GI: On Protonix 40 milligrams IV daily for GI prophylaxis. Start tube feeds ( Glucerna 1.5 with goal rate 45ml/hr) ID:Continue with abx (Zosyn) vanco 1gram x1, Monitor for signs of infections( fever and WBCs). Check BC x2 sets, sputum cx, follow up on urine cx Endo: SSI with Accu-Chek for glycemic control q. 4 hours. Heme: Monitor CBC and coags/Fibrinogen( Fibrinogen level 205) -on tPA/Heparin per PE protocol. Doppler US LE: DVT RLE GI prophylaxis with Protonix 40 mg daily and DVT prophylaxis- on Heparin/TPA Lines: Right subclavian CVP placed by IR 12/29, Left Radial Art line placed 12/29 Patient is critically ill with severe hypoxemic and hypercapnic respiratory failure and extensive bilateral pulmonary embolism, DVT, shock on multiple pressors. CCT 40 mins Antonio Tran MD Dec 30, 2016 09:02
[2016-12-30] MEDS: HYDROCORTISONE SOD SUCCINATE 100 MG VIAL IV PUSH SCH ×4 (09:45→23:33)
[2016-12-30] MEDS ORDERED: VANCOMYCIN INJ 1,000 MG in SODIUM CHLOR 0.9% 250 ML INJ 250 ML IV ONE (09:45)
[2016-12-30] MEDS ORDERED: CALCIUM GLUCONATE INJ 1 GM in SODIUM CHLORIDE 0.9% INJ 100 ML IV ONE (10:00)
[2016-12-30 10:52] LABS: BLOOD GAS BASE EXCESS -2.3 mmol/L (-2-2); BLOOD GAS CARBOXYHEMOGLOBIN 1.3 % (0-4); BLOOD GAS HCO3 23 mmol/L (22-26); BLOOD GAS METHEMOGLOBIN 1.1 % (0-2); BLOOD GAS O2 HGB SATURATION 91 % (90-100); BLOOD GAS OXYGEN CONTENT 15.9 Vol % (12.0-20.0); BLOOD GAS PCO2 44 mmHg (38-42); BLOOD GAS PO2 71 mmHg (61-120); BLOOD GAS TOTAL HGB 12.4 G/DL (12.0-16.0); CRITICAL VALUE NO; OXYGEN DEVICE VENTILATOR
[2016-12-30 10:53] LABS: DRAW SITE ART LINE; FIO2 60 %; STAT NO; TEMP CORR TO 98.6; VENT SETTINGS SEE COMMENTS
[2016-12-30 10:54] LABS: AUTOMATED NEUTROPHIL # 17.5 TH/MM3 (1.8-7.7); BASOPHIL # 0.1 TH/MM3 (0-0.2); BASOPHIL % 0.2 % (0.0-2.0); HEMATOCRIT 37.7 % (35.0-46.0); LYMPH % 26.1 % (9.0-44.0); LYMPHOCYTE # 6.7 TH/MM3 (1.0-4.8); MEAN CELL VOLUME 83.9 FL (80.0-100.0); MEAN CORPUSCULAR HEMOGLOBIN 28.9 PG (27.0-34.0); MEAN CORPUSCULAR HGB CONC 34.4 % (32.0-36.0); MONO % 5.8 % (0.0-8.0); NEUT % 67.9 % (16.0-70.0); PLATELET COUNT 196 TH/MM3 (150-450); RED BLOOD COUNT 4.49 MIL/MM3 (4.00-5.30); RED CELL DISTRIBUTION WIDTH 13.8 % (11.6-17.2); WHITE BLOOD COUNT 25.8 TH/MM3 (4.0-11.0)
[2016-12-30 10:55] LABS: HEMO FLAGS AUTO DIFF
[2016-12-30] MEDS: SODIUM CHLOR 0.9% 1000 ML INJ 1,000 ML IV SCH ×2 (11:00→23:36)
[2016-12-30 11:07] LABS: APTT (PATIENT) 28.7 SEC (24.3-30.1)
[2016-12-30 12:16] LABS: BANDS 2 % (0-6); POLYS (SEG NEUTROPHILS) 64 % (16-70); SCAN/DIFF FINAL DIFF MANUAL; WBC DIFF SAMPLE 100
[2016-12-30] MEDS: PROPOFOL 1000 MG/100 ML IV SCH ×2 (12:41→18:43)
[2016-12-30] MEDS: SODIUM CHLORIDE 0.9% FLUSH 10 ML FLUSH IVF PRN ×6 (12:42→21:37)
--- NOTE | 2016-12-30 15:50 | RADRPT ---
EXAM DATE/TIME: 12/30/2016 15:15 [facility] COMPARISON: CHEST SINGLE AP, December 30, 2016, 2:15. CHEST SINGLE AP, December 30, 2016, 2:53. INDICATIONS : Evaluate for pneumothorax. MEDICAL HISTORY : Pulmonary embolism. SURGICAL HISTORY : None. ENCOUNTER: Subsequent ACUITY: 2 days PAIN SCORE: 0/10 LOCATION: Bilateral chest FINDINGS: A single view of the chest demonstrates recurrence of a right-sided pneumothorax. A small caliber bing st tube placed appears to be kinked at the skin surface. There is slight shift of mediastinal structu res to the left. Endotracheal and nasogastric tubes are in stable position. CONCLUSION: Recurrent large right pneumothorax secondary to kinking of a small caliber chest tube. Leftward shift of previous sternal structures. Stable support devices. Manpreet Smith MD on December 30, 2016 at 15:42 Board Certified Radiologist. This report was verified electronically.
--- NOTE | 2016-12-30 16:11 | PD.PROCEDR ---
Procedure Note Procedure Procedure: Right pigtail chest tube placement Indication: Large right pneumothorax A time-out was completed verifying correct patient, procedure, site, positioning. The patient's right anterior upper chest was prepped and draped in a sterile manner after the third intercostal space in midclavicular line was infiltrated with 1% lidocaine to anesthetize the surrounding skin. A 10-blade scalpel used to make the incision. 18G needle was then introduced without difficulty and into the pleural space and there was butler of air. Guidewire was placed through the needle and the needle was removed. A 7 Azerbaijani dilator was used, followed by placement of 10 Azerbaijani pigtail catheter over the guidewire using Seldinger technique. Guidewire was removed and pigtail was connected to the Vacutainer. There was significant air leak which. Immediate improvement in O2 saturation from 80% to 94%. A post-procedure chest x-ray was ordered and is pending Estimated Blood Loss: <1 ml. Naz Lott MD Dec 30, 2016 16:10
--- NOTE | 2016-12-30 16:26 | RADRPT ---
EXAM DATE/TIME: 12/30/2016 15:59 [facility] COMPARISON: CHEST SINGLE AP, December 30, 2016, 15:15. INDICATIONS : Right pigtail chest tube placement. MEDICAL HISTORY : Pulmonary embolism. SURGICAL HISTORY : None. ENCOUNTER: Subsequent ACUITY: 2 days PAIN SCORE: 0/10 LOCATION: Bilateral chest FINDINGS: A single view of the chest demonstrates complete reexpansion of the right lung following placement of a second chest tube. Small airspace disease is seen in the right base. Left lung remains clear. Supp ort devices are in stable position. CONCLUSION: Complete reexpansion of the right lung following placement of a second chest tube. Manpreet Smith MD on December 30, 2016 at 16:24 Board Certified Radiologist. This report was verified electronically.
[2016-12-30] MEDS: HEPARIN-D5W 25,000 U/250 ML 250 ML IV SCH ×2 (18:06→23:34)
[2016-12-30] MEDS ORDERED: HEPARIN SODIUM - IV 10,000 UNITS/10 ML VIAL IV PRN ×2 (21:30)
[2016-12-30] MEDS: DOBUTamine 250 MG/D5W 250 ML PREMIX DRIP IV SCH (22:25)
[2016-12-30 22:32] LABS: APTT (PATIENT) 54.5 SEC (24.3-30.1)
[2016-12-30] MEDS ORDERED: HEPARIN-D5W 25,000 U/250 ML 250 ML ONE (23:32)
[2016-12-30] MEDS ORDERED: SODIUM CHLOR 0.9% 250 ML INJ 250 ML ONE (23:32)
[2016-12-31] VITALS (21 sets, daily range): BP systolic 89–153; BP diastolic 50–87; PULSE 97–123; RESP 26–27; O2SAT 91–100
[2016-12-31] MEDS: CISATRACURIUM INJ 100 MG in SODIUM CHLOR 0.9% 250 ML INJ 240 ML IV SCH ×2 (00:08→05:34)
[2016-12-31] MEDS: RESP: ALBUTEROL 2.5 MG/IPRATROPIUM 0.5 MG NEB (SCH) INH ×7 (01:03→23:22)
[2016-12-31] MEDS: fentaNYL DRIP 250 ML IV SCH ×2 (02:27→11:15)
[2016-12-31] MEDS: INSULIN NovoLIN REGULAR SUPPLEMENTAL SCALE SQ SCH ×4 (03:00→23:00)
[2016-12-31] MEDS: CHLORHEXIDINE GLUCONATE 2 % 1 PACK (2 CLOTHS) TOP SCH (04:00)
[2016-12-31] MEDS: PIPERACIL-TAZO 4.5 GM PREMIX 100 ML IV SCH ×4 (04:29→22:00)
[2016-12-31] MEDS: HYDROCORTISONE SOD SUCCINATE 100 MG VIAL IV PUSH SCH ×2 (04:29→22:01)
[2016-12-31] MEDS: PROPOFOL 1000 MG/100 ML IV SCH ×3 (04:29→20:24)
[2016-12-31] MEDS ORDERED: SODIUM BICARBONATE 8.4% INJ 50 MEQ/50 ML SYR IV ONE (05:00)
[2016-12-31] MEDS ORDERED: CALCIUM CHLORIDE 10% SOLN 1 GRAM/10 ML SYR IV ONE (05:00)
[2016-12-31 05:15] LABS: AUTOMATED NEUTROPHIL # 21.3 TH/MM3 (1.8-7.7); BASOPHIL % 0.1 % (0.0-2.0); HEMATOCRIT 35.8 % (35.0-46.0); LYMPH % 23.3 % (9.0-44.0); LYMPHOCYTE # 7.1 TH/MM3 (1.0-4.8); MEAN CELL VOLUME 85.1 FL (80.0-100.0); MEAN CORPUSCULAR HEMOGLOBIN 29.1 PG (27.0-34.0); MEAN CORPUSCULAR HGB CONC 34.2 % (32.0-36.0); MONO % 6.5 % (0.0-8.0); NEUT % 70.1 % (16.0-70.0); PLATELET COUNT 157 TH/MM3 (150-450); RED CELL DISTRIBUTION WIDTH 13.8 % (11.6-17.2); WHITE BLOOD COUNT 30.3 TH/MM3 (4.0-11.0)
[2016-12-31 05:21] LABS: APTT (PATIENT) 71.1 SEC (24.3-30.1)
[2016-12-31 05:32] LABS: HEMO FLAGS AUTO DIFF
[2016-12-31] MEDS: PHENYLEPHRINE 40 MG/D5W 496 ML ADMIX IV SCH ×2 (05:34)
[2016-12-31 05:36] LABS: BICARBONATE 21.5 MEQ/L (21.0-32.0); MAGNESIUM 1.4 MG/DL (1.5-2.5); POTASSIUM 3.7 MEQ/L (3.5-5.1)
[2016-12-31 05:59] LABS: CALCIUM-PROTEIN CORRECTED 7.7 MG/DL (8.5-10.1)
[2016-12-31 07:00] LABS: NEUTROPHIL # MANUAL DIFF 25.8 TH/MM3 (1.8-7.7); POLYS (SEG NEUTROPHILS) 85 % (16-70); WBC DIFF SAMPLE 100
[2016-12-31 07:01] LABS: PLATELET ESTIMATE SMEAR NORMAL (NORMAL); PLATELET MORPHOLOGY NORMAL (NORMAL); SCAN/DIFF FINAL DIFF MANUAL
[2016-12-31] MEDS: PANTOPRAZOLE SODIUM 40 MG VIAL IV SCH (09:00)
[2016-12-31] MEDS: DOCUSATE SODIUM 50 MG/SENNA 8.6 MG TAB PO SCH ×2 (09:00→22:01)
--- NOTE | 2016-12-31 10:19 | EKG ---
Date Performed: 12/29/2016 Time Performed: 09:08:13 PTAGE: 56 years EKG: ATRIAL FLUTTER/TACHYCARDIA WITH RAPID VENTRICULAR RESPONSE INDETERMINATE AXIS LOW QRS VOLTA GE IN EXTREMITY LEADS INCOMPLETE RIGHT BUNDLE BRANCH BLOCK ABNORMAL RHYTHM ECG Clinical correlation i s recommended NO PREVIOUS TRACING DOCTOR: Junior Dunn Interpretating Date/Time 12/31/2016 10:17:39
--- NOTE | 2016-12-31 10:59 | HHI.CCPN ---
Subjective Remarks/Hospital Course Patient is a 56-year-old female without significant past medical history who presented to the [facility] Emergency Department with severe respiratory distress. Per ED records, the patient woke up this morning feeling short of breath. She denied any associated symptoms of chest pain, orthopnea, PND or edema of the lower extremities. On arrival to the emergency department, she was found hypoxic with saturation in the 70s on room air and tachycardiac with heart rate of 160. The patient was subsequently intubated with etomidate, succinylcholine and Versed and placed on full mechanical ventilation. ABG post- intubation showed severe respiratory acidosis with a pH of 7.15, CO2 51, pAO2 73 , bicarb 17, sats of 88% PRVC mode, rate of 24, tidal volume 500,IT: 1.0, PEEP of 20 with 100% FIO2. Chest x-ray showed no acute cardiopulmonary disease. The patient underwent a stat CT scan of the chest, which showed extensive bilateral pulmonary embolism. She also had CT scan of the brain, which showed no evidence of hemorrhage or mass effect. In ER she was given IV fluids 2 liters, Ativan, and placed on Diprivan infusion for sedation. 12/30 On arrival to ICU from IR patient became hemodynamically unstable and placed on multiple pressors. She is currently on Neosyn 100 mics, Vasopressin 0.04, Levophed 12 mics, Off Dobutamine. In addition she is sedated with Fentanyl, Diprivan and on Nimbex. At approx 3 am she developed right sided PTX and pig tail catheter was placed with resolution of PTX on repeat CXR. On PC/AC RR 28, IP: 18, IT:1.0, PEEP:10, FIO2 70%. On TPA 1mg/hr and Heparin drip. T;101.1 at 4am. 12/31 Patient remains sedated, intubated and on Nimbex. She had recurrent right sided PTX yesterday afternoon and a secong pigtail catheter was placed with resolution of PTX. Off TPA and on heparin drip. She is off Levophed, Neosyn however remained on Vasopressin. Alsio, there is improvements in her O2 requirements and down to PEEP: 10 and FIO2 40%. T:101.1 last night Objective Vital Signs Date Time Temp Pulse Resp B/P Pulse Ox O2 Delivery O2 Flow Rate FiO2 12/31/16 07:37 95 50 12/31/16 06:00 98 12/31/16 06:00 114/73 12/31/16 04:00 99.7 26 12/29/16 14:25 15.00 12/29/16 13:15 Ventilator Intake and Output 12/30/16 12/30/16 12/30/16 07:59 15:59 23:59 Intake Total 2040 ml 4619 ml 1917 ml Output Total 250 ml 300 ml 225 ml Balance 1790 ml 4319 ml 1692 ml Result Diagram: 12/31/16 0440 12/31/16 0440 Other Results Laboratory Tests Test 12/30/16 12/30/16 12/31/16 13:30 22:00 04:40 Fibrinogen 213 mg/dL Activated Partial 54.5 SEC 71.1 SEC Thromboplast Time White Blood Count 30.3 TH/MM3 Red Blood Count 4.20 MIL/MM3 Hemoglobin 12.2 GM/DL Hematocrit 35.8 % Mean Corpuscular Volume 85.1 FL Mean Corpuscular Hemoglobin 29.1 PG Mean Corpuscular Hemoglobin 34.2 % Concent Red Cell Distribution Width 13.8 % Platelet Count 157 TH/MM3 Mean Platelet Volume 6.8 FL Neutrophils (%) (Auto) 70.1 % Lymphocytes (%) (Auto) 23.3 % Monocytes (%) (Auto) 6.5 % Eosinophils (%) (Auto) 0.0 % Basophils (%) (Auto) 0.1 % Neutrophils # (Auto) 21.3 TH/MM3 Lymphocytes # (Auto) 7.1 TH/MM3 Monocytes # (Auto) 2.0 TH/MM3 Eosinophils # (Auto) 0.0 TH/MM3 Basophils # (Auto) 0.0 TH/MM3 CBC Comment AUTO DIFF Differential Total Cells 100 Counted Neutrophils % (Manual) 85 % Lymphocytes % 7 % Monocytes % 8 % Neutrophils # (Manual) 25.8 TH/MM3 Differential Comment FINAL DIFF MANUAL Platelet Estimate NORMAL Platelet Morphology Comment NORMAL Red Cell Morphology Comment NORMAL Sodium Level 132 MEQ/L Potassium Level 3.7 MEQ/L Chloride Level 96 MEQ/L Carbon Dioxide Level 21.5 MEQ/L Anion Gap 15 MEQ/L Blood Urea Nitrogen 11 MG/DL Creatinine 1.16 MG/DL Estimat Glomerular Filtration 49 ML/MIN Rate Random Glucose 184 MG/DL Calcium Level 6.9 MG/DL Protein Corrected Calcium 7.7 MG/DL Phosphorus Level 3.1 MG/DL Magnesium Level 1.4 MG/DL Total Protein 5.6 GM/DL Imaging Last Impressions Chest X-Ray 12/30/16 Signed Impressions: Service Date/Time: Friday, December 30, 2016 15:59 - CONCLUSION: Complete reexpansion of the right lung following placement of a second chest tube. Manpreet Smith MD Venogram 12/29/16 Signed Impressions: Service Date/Time: Thursday, December 29, 2016 11:26 - CONCLUSION: Uncomplicated bilateral venogram as above. No significant DVT in the legs on either side. No ileocaval thrombus. As such, I do not feel inferior vena caval filter placement is indicated prior to thrombolytic therapy and/or other therapy for the patient's pulmonary embolism. Oren Álvarez MD Lower Extremity Ultrasound 12/29/16 Signed Impressions: Service Date/Time: Thursday, December 29, 2016 10:56 - CONCLUSION: 1. Occlusive thrombus in the right posterior tibial vein. 2. Nonocclusive thrombus in the right common femoral vein and greater saphenous vein. 3. No deep venous thrombosis in the left lower extremity. Oswaldo Moody MD Head CT 12/29/16 Signed Impressions: Service Date/Time: Thursday, December 29, 2016 09:49 - CONCLUSION: 1. Suboptimal examination secondary to motion artifact. 2. No evidence of hemorrhage or mass effect identified. Oswaldo Moody MD Central Venous Line 12/29/16 Signed Impressions: Service Date/Time: Thursday, December 29, 2016 11:26 - CONCLUSION: Uncomplicated ultrasound and fluoroscopic guided central line placement as above. Oren Álvarez MD CT Angiography 12/29/16 Signed Impressions: Service Date/Time: Thursday, December 29, 2016 10:01 - CONCLUSION: Extensive bilateral pulmonary embolism. These findings were discussed with the emergency room physician at 1009 hrs. Oswaldo Moody MD Objective Remarks GENERAL: Patient is 56 yo critically ill intubated and sedated SKIN: Warm and dry. HEAD: Normocephalic. EYES: No scleral icterus. No injection or drainage. NECK: Supple, trachea midline. No JVD or lymphadenopathy. Orally intubated CARDIOVASCULAR: Regular rate and rhythm without murmurs, gallops, or rubs. RESPIRATORY: Breath sounds equal bilaterally. No accessory muscle use. GASTROINTESTINAL: Abdomen soft, non-tender, nondistended. MUSCULOSKELETAL: No cyanosis, or edema. Neuro: Sedated A/P Assessment and Plan 1. Acute hypoxemic hypercapnic respiratory failure requiring intubation. 2 Distributive shock 3. Extensive bilateral pulmonary embolism. 4. DVT RLE 5 Lactic acidemia 6 EKATERINA 7 Elevated trop...2nd PE 8 Leukocytosis, 9 UTI 10. Hyperglycemia. 11 Morbid obesity Obesity. 12 Right sided PTX s/p pig tail catheter placement 13 Elevated LFT's Plan Neuro: On Diprivan and Fentanyl infusion for sedated in addition patient is on Nimbex for vent synchrony. Sedation vacation when appropriate. Will d/c Nimbex today. CT brain in ED negative for acute intracranial process. Pulm: Continue with vent support and maintain sats > 92%. Bronchodilators, ICU vent bundle. On PC/AC RR 26, IP:20, IT:1.0, PEEP:10, FIO2 40%. check ABG A second pigtail catheter was placed yesterday afternoon for recurrent PTX. s/p pigtail catheter placement for right sided PTX morning of 12/30 Off TPA, continue with Heparin drip per PE protocol. Hypercoagulable workup in process. CV: Continue with pressors ( Neosyn, Levophed, Vaso)maintain MAP> 65 mmHg. Stress dose steroids- decrease HC 50mg IV Q12 Serial lactic acid monitoring -cleared Echo showed mid dilated RV with mod. decrease in systolic function, PAP 41mmHg, LV is not well visualized. : Monitor renal function, intake and output and electrolyte replacement as needed. Will need Mag replacement today On NS@75ml/hr, diurese with Bumex 1mg x1 GI: On Protonix 40 milligrams IV daily for GI prophylaxis. On tube feeds ( Glucerna 1.5 with goal rate 45ml/hr) Keep NPO, check US liver for elevated LFT's ID:Continue with abx (Zosyn, continue vanco) ID eval, Monitor for signs of infections( fever and WBCs). urine cx: GNR Endo: SSI with Accu-Chek for glycemic control q. 4 hours. Heme: Monitor CBC and coags/Fibrinogen( Fibrinogen level 205) -on tPA/Heparin per PE protocol. Doppler US LE: DVT RLE GI prophylaxis with Protonix 40 mg daily and DVT prophylaxis- on Heparin drip Lines: Right subclavian CVP placed by IR 12/29, Left Radial Art line placed 12/29 Patient is critically ill with severe hypoxemic and hypercapnic respiratory failure and extensive bilateral pulmonary embolism, DVT, shock CCT 40 mins Antonio Tran MD Dec 31, 2016 10:59
[2016-12-31] MEDS ORDERED: SODIUM PHOSPHATE INJ 30 MMOL in SODIUM CHLOR 0.9% 250 ML INJ 240 ML IV PRN (11:00)
[2016-12-31] MEDS ORDERED: POTASSIUM CHLORIDE 25 MEQ EFFERVESCENT TAB PO PRN (11:00)
[2016-12-31] MEDS ORDERED: POTASSIUM PHOSPHATE INJ 30 MMOL in SODIUM CHLOR 0.9% 250 ML INJ 250 ML IV PRN (11:00)
[2016-12-31] MEDS ORDERED: POTASSIUM PHOSPHATE MONOBASIC 500 MG TAB PO PRN (11:00)
[2016-12-31] MEDS ORDERED: MAGNESIUM SULFATE INJ 4 GM in SODIUM CHLORIDE 0.9% INJ 92 ML IV PRN (11:00)
[2016-12-31] MEDS ORDERED: BUMETANIDE INJ 1 MG/4 ML VIAL IV PUSH ONE (11:00)
[2016-12-31] MEDS ORDERED: Vancomycin Consult Pharmacy 1 EA OTHER SCH (11:00)
[2016-12-31] MEDS ORDERED: POTASSIUM PHOSPHATE MONOBASIC 500 MG TAB PO/TUBE PRN (11:00)
[2016-12-31] MEDS ORDERED: POTASSIUM CHLOR 40 MEQ PREMIX 100 ML IV PRN ×2 (11:00)
[2016-12-31] MEDS ORDERED: MAGNESIUM OXIDE 400 MG TAB PO PRN (11:00)
[2016-12-31] MEDS ORDERED: MAGNESIUM SULFATE INJ 2 GM in SODIUM CHLORIDE 0.9% INJ 96 ML IV PRN (11:00)
[2016-12-31] MEDS ORDERED: VANCOMYCIN INJ 1,000 MG in SODIUM CHLOR 0.9% 250 ML INJ 250 ML IV ONE (11:00)
[2016-12-31] MEDS ORDERED: POTASSIUM CHLOR 20 MEQ PREMIX 100 ML IV PRN ×2 (11:00)
[2016-12-31] MEDS: SODIUM CHLORIDE 0.9% FLUSH 10 ML FLUSH IVF PRN ×3 (11:15→11:42)
--- NOTE | 2016-12-31 11:33 | RADRPT ---
EXAM DATE/TIME: 12/31/2016 09:17 [facility] COMPARISON: CHEST SINGLE AP, December 30, 2016, 15:59. INDICATIONS : Following up on right sided pneumothorax. MEDICAL HISTORY : unobtainable SURGICAL HISTORY : unobtainable ENCOUNTER: Subsequent ACUITY: 2 days PAIN SCORE: Non-responsive. LOCATION: Bilateral upper chest FINDINGS: The exam demonstrates 2 small bore chest tubes on the right. There is a central venous catheter in go od position. There are atelectatic changes in the lung bases. No pneumothorax is seen. The ET tube an d nasogastric tube are in good position. CONCLUSION: 1. Small bore chest tubes on the right in good position. No pneumothorax. 2. Central line, ET tube and NG tube in good position. 3. Atelectatic changes in the lung bases. Jd Cornelius MD on December 31, 2016 at 11:25 Board Certified Radiologist. This report was verified electronically.
[2016-12-31] MEDS: SODIUM CHLOR 0.9% 1000 ML INJ 1,000 ML IV SCH (11:39)
[2016-12-31] MEDS ORDERED: CALCIUM GLUCONATE INJ 1 GM in SODIUM CHLORIDE 0.9% INJ 100 ML IV ONE (12:00)
[2016-12-31 12:14] LABS: APTT (PATIENT) 71.8 SEC (24.3-30.1)
[2016-12-31] MEDS ORDERED: VANCOMYCIN 1,000 MG/NS 250 ML IV ONE ×2 (12:15)
[2016-12-31] MEDS ORDERED: MAGNESIUM SULFATE INJ 2 GM in SODIUM CHLORIDE 0.9% INJ 96 ML IV ONE (12:15)
[2016-12-31 12:17] LABS: INDIRECT BILIRUBIN 0.2 MG/DL (0.0-0.8); TOTAL BILIRUBIN ADULT 0.4 MG/DL (0.2-1.0)
[2016-12-31] MEDS ORDERED: HEPARIN-D5W 25,000 U/250 ML 250 ML ONE (13:32)
[2016-12-31] MEDS ORDERED: SODIUM CHLOR 0.9% 250 ML INJ 250 ML ONE (13:32)
[2016-12-31] MEDS: HEPARIN-D5W 25,000 U/250 ML 250 ML IV SCH (13:55)
[2016-12-31 14:02] LABS: BLOOD GAS BASE EXCESS -2.6 mmol/L (-2-2); BLOOD GAS CARBOXYHEMOGLOBIN 1.5 % (0-4); BLOOD GAS HCO3 22 mmol/L (22-26); BLOOD GAS METHEMOGLOBIN 1.2 % (0-2); BLOOD GAS O2 HGB SATURATION 90 % (90-100); BLOOD GAS OXYGEN CONTENT 14.4 Vol % (12.0-20.0); BLOOD GAS PCO2 40 mmHg (38-42); BLOOD GAS PO2 67 mmHg (61-120); BLOOD GAS TOTAL HGB 11.4 G/DL (12.0-16.0); CRITICAL VALUE NO; FIO2 40 %; OXYGEN DEVICE VENTILATOR; TEMP CORR TO 98.6; VENT SETTINGS PC/AC RATE 26
[2016-12-31 14:03] LABS: DRAW SITE ART LINE; STAT NO
--- NOTE | 2016-12-31 16:04 | PD.CONS ---
History of Present Illness Service Infectious disease Consult Requested By Dr Tran Reason for Consult Evaluate patient with fever Primary Care Physician No Primary Care Physician Diagnoses: History of Present Illness Patient seen and examined. Records reviewed. Patient is a 56-year-old female with no significant past medical history, brought into the hospital for further evaluation of severe shortness of breath. She was apparently okay and was not having any problem until the day of admission when she woke up and she had significant shortness of breath. There was no other complaint as far as chest pain, cough, or any previous history of shortness of breath. Evaluation in the ED showed significant hypoxemia, and tachycardia. She ended up getting intubated. CT of the chest showed evidence of massive bilateral pulmonary embolism. She underwent lytic therapy. She was initially on pressors, and currently she is not on any blood pressure support. His December 30 she's been having fevers, and the last time she had any fever was around 2:00 this morning. She is currently sedated on the vent. Her FiO2 is down to 40%. She also had an elevated WBC. Her urinalysis showed evidence of pyuria, and her urine cultures growing gram-negative david. Blood cultures are negative so far. Her chest x-ray on admission did not show any acute pulmonary disease, and subsequent chest x-ray showing some atelectasis. Infectious disease consultation has been requested to evaluate the patient with fevers. She is currently on Zosyn and vancomycin. Review of Systems ROS Limitations: Clinical Condition, Intubated Constitutional: COMPLAINS OF: Fever Respiratory: COMPLAINS OF: Shortness of breath Past Family Social History Allergies: Coded Allergies: No Known Allergies (Verified , 11/17/16) Past Medical History No significant past history Past Surgical History Not known Active Ordered Medications Albuterol Dulcolax Fentanyl Heparin Solu-Cortef Insulin Lactulose MOM Magnesium Protonix Zosyn Potassium Diprivan Vancomycin Family History Not known Social History Not known Physical Exam Vital Signs Vital Signs Date Time Temp Pulse Resp B/P Pulse Ox O2 Delivery O2 Flow Rate FiO2 12/31/16 15:30 100 40 12/31/16 14:25 40 12/31/16 12:00 40 12/31/16 12:00 99.9 100 26 91/50 97 89/61 12/31/16 12:00 100 12/31/16 11:23 100 40 12/31/16 11:00 97 12/31/16 10:00 109 12/31/16 09:00 113 12/31/16 08:00 60 12/31/16 08:00 104 12/31/16 08:00 99.9 104 26 134/60 91 130/79 12/31/16 07:37 95 50 12/31/16 06:00 98 12/31/16 06:00 98 114/73 12/31/16 04:00 99.7 105 26 108/64 96 118/73 12/31/16 04:00 105 12/31/16 04:00 60 12/31/16 03:20 95 60 12/31/16 02:00 105 12/31/16 02:00 100.0 105 26 122/75 95 12/31/16 00:55 94 60 12/31/16 00:00 100.6 100 26 106/62 93 118/74 12/31/16 00:00 60 12/31/16 00:00 100 12/30/16 22:00 96 12/30/16 22:00 101.3 96 26 93 118/75 12/30/16 20:00 93 12/30/16 20:00 101.1 93 26 100/52 93 111/69 12/30/16 20:00 60 12/30/16 19:45 96 60 12/30/16 19:00 91 110/70 12/30/16 18:10 92 101/54 108/69 12/30/16 18:00 93 12/30/16 18:00 93 109/70 12/30/16 17:00 98 12/30/16 16:00 105 12/30/16 16:00 105 137/87 12/30/16 16:00 100 12/30/16 16:00 101.1 105 28 137/87 92 Physical Exam GENERAL: Patient is an obese, well-developed CF, sedated on the vent, not in respiratory distress. SKIN: Warm and dry. No generalized rash, no ecchymoses and no evidence of embolic lesions. HEAD: Atraumatic. Normocephalic. No temporal wasting, or tenderness. EYES: [place] conjunctiva. No petechia or hemorrhage. Pupils equal, round and reactive to light. No scleral icterus. No injection or drainage. EARS, NOSE AND THROAT: Nose without bleeding or purulent nasal discharge. Orally intubated. NECK: Trachea midline. Supple and not tender, no meningeal signs CARDIOVASCULAR: Regular rate and rhythm. No murmurs, rubs or gallops heard. Line RSC, site ok. 2 pigtail cath on R anterior chest RESPIRATORY: Clear to auscultation. Breath sounds equal bilaterally. No rales , wheezing or rhonchi. Decreased breath sounds at the bases. ABDOMEN: Soft, obese, nondistended, no reaction to deep palpation.. Bowel sounds present and normoactive. No guarding. No rebound. No organomegaly. EXTREMITIES: No clubbing, cyanosis, or edema. Has A line R groin with surrounding ecchymoses, some blood sat site. Well perfused and warm. NEUROLOGICAL: Sedated PSYCHIATRIC: Unable to assess LINE: No evidence of infection Laboratory Laboratory Tests Test 12/30/16 12/31/16 12/31/16 12/31/16 22:00 04:40 11:30 13:55 Activated Partial 54.5 71.1 71.8 Thromboplast Time White Blood Count 30.3 Red Blood Count 4.20 Hemoglobin 12.2 Hematocrit 35.8 Mean Corpuscular Volume 85.1 Mean Corpuscular Hemoglobin 29.1 Mean Corpuscular Hemoglobin 34.2 Concent Red Cell Distribution Width 13.8 Platelet Count 157 Mean Platelet Volume 6.8 Neutrophils (%) (Auto) 70.1 Lymphocytes (%) (Auto) 23.3 Monocytes (%) (Auto) 6.5 Eosinophils (%) (Auto) 0.0 Basophils (%) (Auto) 0.1 Neutrophils # (Auto) 21.3 Lymphocytes # (Auto) 7.1 Monocytes # (Auto) 2.0 Eosinophils # (Auto) 0.0 Basophils # (Auto) 0.0 CBC Comment AUTO DIFF Differential Total Cells 100 Counted Neutrophils % (Manual) 85 Lymphocytes % 7 Monocytes % 8 Neutrophils # (Manual) 25.8 Differential Comment FINAL DIFF MANUAL Platelet Estimate NORMAL Platelet Morphology Comment NORMAL Red Cell Morphology Comment NORMAL Sodium Level 132 Potassium Level 3.7 Chloride Level 96 Carbon Dioxide Level 21.5 Anion Gap 15 Blood Urea Nitrogen 11 Creatinine 1.16 Estimat Glomerular Filtration 49 Rate Random Glucose 184 Calcium Level 6.9 Protein Corrected Calcium 7.7 Phosphorus Level 3.2 Magnesium Level 1.4 Total Bilirubin 0.4 Direct Bilirubin 0.2 Indirect Bilirubin 0.2 Aspartate Amino Transf 133 (AST/SGOT) Alanine Aminotransferase 94 (ALT/SGPT) Alkaline Phosphatase 51 Total Protein 5.6 Albumin 2.5 Blood Gas Puncture Site ART LINE Blood Gas Patient Temperature 98.6 Blood Gas HCO3 22 Blood Gas Base Excess -2.6 Blood Gas Oxygen Saturation 90 Arterial Blood pH 7.36 Arterial Blood Partial 40 Pressure CO2 Arterial Blood Partial 67 Pressure O2 Arterial Blood Oxygen Content 14.4 Arterial Blood 1.5 Carboxyhemoglobin Arterial Blood Methemoglobin 1.2 Blood Gas Hemoglobin 11.4 Oxygen Delivery Device VENTILATOR Blood Gas Ventilator Setting PC/AC RATE 26 Blood Gas Inspired Oxygen 40 Date/Time Procedure Status Source Growth 12/31/16 12:20 Urine Culture Received Urine Catheterized Urine Pending 12/31/16 11:30 Aerobic Blood Culture Received Blood Peripheral Pending 12/31/16 11:30 Anaerobic Blood Culture Received Blood Peripheral Pending 12/30/16 16:30 Gram Stain - Final Resulted Sputum Endotracheal 12/30/16 16:30 Sputum Culture - Preliminary Resulted Sputum Endotracheal LIGHT GROWTH NORMAL RESPIRATORY JUVE... 12/30/16 13:45 Aerobic Blood Culture - Preliminary Resulted Blood Peripheral NO GROWTH IN 1 DAY 12/30/16 13:45 Anaerobic Blood Culture - Preliminary Resulted Blood Peripheral NO GROWTH IN 1 DAY 12/29/16 09:02 Urine Culture - Preliminary Resulted Urine Clean Catch Gram Negative David Result Diagram: 12/31/16 0440 12/31/16 0440 Imaging RADIOLOGY STUDIES/FILMS REVIEWED Chest X-Ray 12/31/16 0000 Signed Impressions: Service Date/Time: Saturday, December 31, 2016 09:17 - CONCLUSION: 1. Small bore chest tubes on the right in good position. No pneumothorax. 2. Central line, ET tube and NG tube in good position. 3. Atelectatic changes in the lung bases. Jd Cornelius MD Venogram 12/29/16 0000 Signed Impressions: Service Date/Time: Thursday, December 29, 2016 11:26 - CONCLUSION: Uncomplicated bilateral venogram as above. No significant DVT in the legs on either side. No ileocaval thrombus. As such, I do not feel inferior vena caval filter placement is indicated prior to thrombolytic therapy and/or other therapy for the patient's pulmonary embolism. Oren Álvarez MD Lower Extremity Ultrasound 12/29/16 0000 Signed Impressions: Service Date/Time: Thursday, December 29, 2016 10:56 - CONCLUSION: 1. Occlusive thrombus in the right posterior tibial vein. 2. Nonocclusive thrombus in the right common femoral vein and greater saphenous vein. 3. No deep venous thrombosis in the left lower extremity. Oswaldo Moody MD Head CT 12/29/16 0000 Signed Impressions: Service Date/Time: Thursday, December 29, 2016 09:49 - CONCLUSION: 1. Suboptimal examination secondary to motion artifact. 2. No evidence of hemorrhage or mass effect identified. Oswaldo Moody MD Central Venous Line 12/29/16 0000 Signed Impressions: Service Date/Time: Thursday, December 29, 2016 11:26 - CONCLUSION: Uncomplicated ultrasound and fluoroscopic guided central line placement as above. Oren Álvarez MD CT Angiography 12/29/16 0000 Signed Impressions: Service Date/Time: Thursday, December 29, 2016 10:01 - CONCLUSION: Extensive bilateral pulmonary embolism. These findings were discussed with the emergency room physician at 1009 hrs. Oswaldo Moody MD Assessment and Plan Assessment and Plan IMPRESSION Fever, etiology, likely due to massive PE Has GNR UTI No evidence of PNA Respiratory failure due to massive PE Shock to due to PE, better Leukocytosis due to PE RECOMMENDATION Continue Zosyn Follow cultures and adjust antibiotics Stop vancomycin Follow CBC Monitor progress I will determine course of antibiotic depending on her clinical progress and results of the workup I will follow along with you Thank you for this consultation Dee Mcgrath MD Dec 31, 2016 16:04
--- NOTE | 2016-12-31 16:18 | RADRPT ---
EXAM DATE/TIME: 12/31/2016 15:09 [facility] COMPARISON: CT PULMONARY ANGIOGRAM, December 29, 2016, 10:01. INDICATIONS : Increased lab values. MEDICAL HISTORY : Blood transfusion. Shortness of breath. SURGICAL HISTORY : None. ENCOUNTER: Initial ACUITY: 1 day PAIN SCORE: Nonresponsive. LOCATION: Bilateral upper quadrant MEASUREMENTS: LIVER: 18.2 cm length COMMON DUCT: 4 mm RIGHT KIDNEY: 11.7 x 4.6 x 5.4 cm SPLEEN: 13.6 cm length FINDINGS: LIVER: Mild increased echotexture without focal lesion or ductal dilatation. COMMON DUCT: No intraluminal mass or stone visualized. GALLBLADDER: Contains no stones, demonstrates no wall thickening or pericholecystic fluid. PANCREAS: The visualized portions are within normal limits. RIGHT KIDNEY: There is no hydronephrosis or mass. In the lower pole there is a 13 mm cyst. Echogenic shadowing stru cture in the mid collecting system measures up to 15 mm. SPLEEN: No focal lesion. Nonspecific structure in the superior abdomen adjacent to the liver and spleen. CONCLUSION: 1. Mildly increased echotexture of the liver characteristic of steatosis. No focal liver abnormality is identified. 2. Mild splenomegaly. Adjacent to the spleen and liver in the upper abdomen the assault amphibious vehicle officer reports a questionable mass. Consider abdomen and pelvis CT for further characterization. 3. Suspected 15 mm right renal stone. Oren Palafox MD on December 31, 2016 at 16:10 Board Certified Radiologist. This report was verified electronically.
[2017-01-01] VITALS (20 sets, daily range): BP systolic 94–132; BP diastolic 51–85; PULSE 98–121; RESP 16–26; TEMP 99.5–100; O2SAT 93–100
[2017-01-01] MEDS: fentaNYL DRIP 250 ML IV SCH ×2 (00:33→21:03)
[2017-01-01] MEDS: PROPOFOL 1000 MG/100 ML IV SCH ×3 (00:33→22:46)
[2017-01-01] MEDS: INSULIN NovoLIN REGULAR SUPPLEMENTAL SCALE SQ SCH ×6 (03:00→22:19)
[2017-01-01] MEDS ORDERED: HEPARIN-D5W 25,000 U/250 ML 250 ML ONE ×2 (03:01→17:22)
[2017-01-01] MEDS ORDERED: SODIUM CHLOR 0.9% 250 ML INJ 250 ML ONE ×2 (03:01→17:22)
[2017-01-01] MEDS: SODIUM CHLOR 0.9% 1000 ML INJ 1,000 ML IV SCH (03:22)
[2017-01-01] MEDS: PIPERACIL-TAZO 4.5 GM PREMIX 100 ML IV SCH ×4 (03:22→21:03)
[2017-01-01] MEDS: HEPARIN-D5W 25,000 U/250 ML 250 ML IV SCH (03:24)
[2017-01-01] MEDS: CHLORHEXIDINE GLUCONATE 2 % 1 PACK (2 CLOTHS) TOP SCH (04:00)
[2017-01-01] MEDS: RESP: ALBUTEROL 2.5 MG/IPRATROPIUM 0.5 MG NEB (SCH) INH ×6 (04:00→23:15)
[2017-01-01] MEDS: VASOPRESSIN INJ 40 UNITS in SODIUM CHLORIDE 0.9% INJ 98 ML IV SCH (05:30)
[2017-01-01] MEDS ORDERED: VANCOMYCIN INJ 2,000 MG in SODIUM CHLORID 0.9% 500 ML INJ 500 ML IV SCH (06:00)
[2017-01-01 06:09] LABS: AUTOMATED NEUTROPHIL # 14.1 TH/MM3 (1.8-7.7); BASOPHIL % 0.1 % (0.0-2.0); HEMATOCRIT 29.8 % (35.0-46.0); HEMO FLAGS DIFF FINAL; LYMPH % 17.7 % (9.0-44.0); LYMPHOCYTE # 3.3 TH/MM3 (1.0-4.8); MEAN CELL VOLUME 83.6 FL (80.0-100.0); MEAN CORPUSCULAR HEMOGLOBIN 29.4 PG (27.0-34.0); MEAN CORPUSCULAR HGB CONC 35.2 % (32.0-36.0); MONO % 5.8 % (0.0-8.0); NEUT % 76.4 % (16.0-70.0); PLATELET COUNT 127 TH/MM3 (150-450); RED BLOOD COUNT 3.56 MIL/MM3 (4.00-5.30); RED CELL DISTRIBUTION WIDTH 13.5 % (11.6-17.2); WHITE BLOOD COUNT 18.5 TH/MM3 (4.0-11.0)
[2017-01-01 06:19] LABS: APTT (PATIENT) 51.3 SEC (24.3-30.1)
[2017-01-01 06:28] LABS: BICARBONATE 26.9 MEQ/L (21.0-32.0); MAGNESIUM 2.2 MG/DL (1.5-2.5); POTASSIUM 3.2 MEQ/L (3.5-5.1)
[2017-01-01] MEDS: HYDROCORTISONE SOD SUCCINATE 100 MG VIAL IV PUSH SCH ×2 (07:52→21:03)
[2017-01-01] MEDS: PANTOPRAZOLE SODIUM 40 MG VIAL IV SCH (07:53)
[2017-01-01] MEDS: DOCUSATE SODIUM 50 MG/SENNA 8.6 MG TAB PO SCH ×2 (07:53→21:00)
--- NOTE | 2017-01-01 08:54 | HHI.CCPN ---
Subjective Remarks/Hospital Course Patient is a 56-year-old female without significant past medical history who presented to the [facility] Emergency Department with severe respiratory distress. Per ED records, the patient woke up this morning feeling short of breath. She denied any associated symptoms of chest pain, orthopnea, PND or edema of the lower extremities. On arrival to the emergency department, she was found hypoxic with saturation in the 70s on room air and tachycardiac with heart rate of 160. The patient was subsequently intubated with etomidate, succinylcholine and Versed and placed on full mechanical ventilation. ABG post- intubation showed severe respiratory acidosis with a pH of 7.15, CO2 51, pAO2 73 , bicarb 17, sats of 88% PRVC mode, rate of 24, tidal volume 500,IT: 1.0, PEEP of 20 with 100% FIO2. Chest x-ray showed no acute cardiopulmonary disease. The patient underwent a stat CT scan of the chest, which showed extensive bilateral pulmonary embolism. She also had CT scan of the brain, which showed no evidence of hemorrhage or mass effect. In ER she was given IV fluids 2 liters, Ativan, and placed on Diprivan infusion for sedation. 12/30 On arrival to ICU from patient became hemodynamically unstable and placed on multiple pressors. She is currently on Neosyn 100 mics, Vasopressin 0.04, Levophed 12 mics, Off Dobutamine. In addition she is sedated with Fentanyl, Diprivan and on Nimbex. At approx 3 am she developed right sided PTX and pig tail catheter was placed with resolution of PTX on repeat CXR. On PC/AC RR 28, IP: 18, IT:1.0, PEEP:10, FIO2 70%. On TPA 1mg/hr and Heparin drip. T;101.1 at 4am. 12/31 Patient remains sedated, intubated and on Nimbex. She had recurrent right sided PTX yesterday afternoon and a secong pigtail catheter was placed with resolution of PTX. Off TPA and on heparin drip. She is off Levophed, Neosyn however remained on Vasopressin. Alsio, there is improvements in her O2 requirements and down to PEEP: 10 and FIO2 40%. T:101.1 last night 01/01 Patient is off all pressors, sedated with Diprivan and Fentanyl. Remains on Heparin drip. WBC is trending down. T:100.0 Objective Vital Signs Date Time Temp Pulse Resp B/P Pulse Ox O2 Delivery O2 Flow Rate FiO2 01/01/17 07:15 97 40 01/01/17 06:00 110 95/53 132/85 01/01/17 04:00 100.0 26 12/29/16 14:25 15.00 12/29/16 13:15 Ventilator Intake and Output 12/31/16 12/31/16 01/01/17 08:00 16:00 00:00 Intake Total 2181 ml 1620 ml 1404 ml Output Total 200 ml 300 ml 1160 ml Balance 1981 ml 1320 ml 244 ml Result Diagram: 01/01/17 0545 01/01/17 0545 Other Results Laboratory Tests Test 12/31/16 12/31/16 01/01/17 11:30 13:55 05:45 Activated Partial 71.8 SEC 51.3 SEC Thromboplast Time Blood Gas Puncture Site ART LINE Blood Gas Patient Temperature 98.6 Blood Gas HCO3 22 mmol/L Blood Gas Base Excess -2.6 mmol/L Blood Gas Oxygen Saturation 90 % Arterial Blood pH 7.36 Arterial Blood Partial 40 mmHg Pressure CO2 Arterial Blood Partial 67 mmHg Pressure O2 Arterial Blood Oxygen Content 14.4 Vol % Arterial Blood 1.5 % Carboxyhemoglobin Arterial Blood Methemoglobin 1.2 % Blood Gas Hemoglobin 11.4 G/DL Oxygen Delivery Device VENTILATOR Blood Gas Ventilator Setting PC/AC RATE 26 Blood Gas Inspired Oxygen 40 % White Blood Count 18.5 TH/MM3 Red Blood Count 3.56 MIL/MM3 Hemoglobin 10.5 GM/DL Hematocrit 29.8 % Mean Corpuscular Volume 83.6 FL Mean Corpuscular Hemoglobin 29.4 PG Mean Corpuscular Hemoglobin 35.2 % Concent Red Cell Distribution Width 13.5 % Platelet Count 127 TH/MM3 Mean Platelet Volume 6.7 FL Neutrophils (%) (Auto) 76.4 % Lymphocytes (%) (Auto) 17.7 % Monocytes (%) (Auto) 5.8 % Eosinophils (%) (Auto) 0.0 % Basophils (%) (Auto) 0.1 % Neutrophils # (Auto) 14.1 TH/MM3 Lymphocytes # (Auto) 3.3 TH/MM3 Monocytes # (Auto) 1.1 TH/MM3 Eosinophils # (Auto) 0.0 TH/MM3 Basophils # (Auto) 0.0 TH/MM3 CBC Comment DIFF FINAL Differential Comment Sodium Level 135 MEQ/L Potassium Level 3.2 MEQ/L Chloride Level 99 MEQ/L Carbon Dioxide Level 26.9 MEQ/L Anion Gap 9 MEQ/L Blood Urea Nitrogen 13 MG/DL Creatinine 1.19 MG/DL Estimat Glomerular Filtration 47 ML/MIN Rate Random Glucose 136 MG/DL Calcium Level 7.5 MG/DL Phosphorus Level 1.3 MG/DL Magnesium Level 2.2 MG/DL Imaging Last Impressions Liver Ultrasound 12/31/16 0000 Signed Impressions: Service Date/Time: Saturday, December 31, 2016 15:09 - CONCLUSION: 1. Mildly increased echotexture of the liver characteristic of steatosis. No focal liver abnormality is identified. 2. Mild splenomegaly. Adjacent to the spleen and liver in the upper abdomen the junior copywriter reports a questionable mass. Consider abdomen and pelvis CT for further characterization. 3. Suspected 15 mm right renal stone. Oren Palafox MD Chest X-Ray 12/31/16 0000 Signed Impressions: Service Date/Time: Saturday, December 31, 2016 09:17 - CONCLUSION: 1. Small bore chest tubes on the right in good position. No pneumothorax. 2. Central line, ET tube and NG tube in good position. 3. Atelectatic changes in the lung bases. Jd Cornelius MD Venogram 12/29/16 0000 Signed Impressions: Service Date/Time: Thursday, December 29, 2016 11:26 - CONCLUSION: Uncomplicated bilateral venogram as above. No significant DVT in the legs on either side. No ileocaval thrombus. As such, I do not feel inferior vena caval filter placement is indicated prior to thrombolytic therapy and/or other therapy for the patient's pulmonary embolism. Oren Álvarez MD Lower Extremity Ultrasound 12/29/16 0000 Signed Impressions: Service Date/Time: Thursday, December 29, 2016 10:56 - CONCLUSION: 1. Occlusive thrombus in the right posterior tibial vein. 2. Nonocclusive thrombus in the right common femoral vein and greater saphenous vein. 3. No deep venous thrombosis in the left lower extremity. Oswaldo Moody MD Head CT 12/29/16 0000 Signed Impressions: Service Date/Time: Thursday, December 29, 2016 09:49 - CONCLUSION: 1. Suboptimal examination secondary to motion artifact. 2. No evidence of hemorrhage or mass effect identified. Oswaldo Moody MD Central Venous Line 12/29/16 0000 Signed Impressions: Service Date/Time: Thursday, December 29, 2016 11:26 - CONCLUSION: Uncomplicated ultrasound and fluoroscopic guided central line placement as above. Oren Álvarez MD CT Angiography 12/29/16 0000 Signed Impressions: Service Date/Time: Thursday, December 29, 2016 10:01 - CONCLUSION: Extensive bilateral pulmonary embolism. These findings were discussed with the emergency room physician at 1009 hrs. Oswaldo Moody MD Objective Remarks GENERAL: Patient is 56 yo critically ill intubated and sedated SKIN: Warm and dry. HEAD: Normocephalic. EYES: No scleral icterus. No injection or drainage. NECK: Supple, trachea midline. No JVD or lymphadenopathy. Orally intubated CARDIOVASCULAR: Regular rate and rhythm without murmurs, gallops, or rubs. RESPIRATORY: Breath sounds equal bilaterally. No accessory muscle use. GASTROINTESTINAL: Abdomen soft, non-tender, nondistended. MUSCULOSKELETAL: No cyanosis, or edema. Neuro: Sedated A/P Assessment and Plan 1. Acute hypoxemic hypercapnic respiratory failure requiring intubation. 2 Distributive shock 3. Extensive bilateral pulmonary embolism. 4. DVT RLE 5 Lactic acidemia 6 EKATERINA 7 Elevated trop...2nd PE 8 Leukocytosis, 9 UTI 10. Hyperglycemia. 11 Morbid obesity Obesity. 12 Right sided PTX s/p pig tail catheter placement 13 Elevated LFT's Plan Neuro: On Diprivan and Fentanyl infusion for sedation. Daily Sedation vacation CT brain in ED negative for acute intracranial process. Repeat CT brain today showed infarct frontal lobes b/l L>R likely 2nd hypoperfusion . Check EEG, neuro eval. Pulm: Continue with vent support and maintain sats > 92%. Bronchodilators, ICU vent bundle. CPAP trials as tamanna On PC/AC RR 26, IP:20, IT:1.0, PEEP:5, FIO2 40%. c pigtail catheter was placed 12/30 in afternoon for recurrent PTX. s/p pigtail catheter placement for right sided PTX morning of 12/30 CXR: 12/31: Atelectasis Off TPA, continue with Heparin drip per PE protocol. Hypercoagulable workup in process. CV: Off pressors monitor HR and BP maintain MAP> 65 mmHg. Taper steroids- HC 50mg IV Q12 Serial lactic acid monitoring -cleared Echo showed mid dilated RV with mod. decrease in systolic function, PAP 41mmHg, LV is not well visualized. : Monitor renal function, intake and output and electrolyte replacement as needed. Will need K, phos replacement today d/c IVF GI: On Protonix 40 milligrams IV daily for GI prophylaxis. On tube feeds ( Glucerna 1.5 with goal rate 45ml/hr) US Liver: Mildly increased echotexture of the liver characteristic of steatosis. No focal liver abnormality is identified. Mild splenomegaly. Adjacent to the spleen and liver in the upper abdomen the junior copywriter reports a ? mass. Will get CT abdomen/pelvis r/o abd masses ID:Continue with abx (Zosyn) ID is following, Monitor for signs of infections( fever and WBCs). WBC is trending down urine cx: GNR Endo: SSI with Accu-Chek for glycemic control q. 4 hours. Heme: Monitor CBC and coags/Fibrinogen( Fibrinogen level 205) -on Heparin per PE protocol. Doppler US LE: DVT RLE GI prophylaxis with Protonix 40 mg daily and DVT prophylaxis- on Heparin drip Lines: Right subclavian CVP placed by IR 12/29, CCT 30 mins Antonio Tran MD Jan 01, 2017 08:54
[2017-01-01] MEDS ORDERED: DIATRIZOATE MEGLUM/DIATRIZOATE SOD 9 ML CUP PO ONE (10:30)
[2017-01-01] MEDS ORDERED: IOHEXOL 350 MG/ML 10 ML VIAL (for RAD DIAG) IV ONE (14:20)
--- NOTE | 2017-01-01 14:41 | RADRPT ---
EXAM DATE/TIME: 01/01/2017 13:58 [facility] COMPARISON: US ABDOMEN - LIVER, December 31, 2016, 15:09. CT ABDOMEN & PELVIS W CONTRAST, January 01, 2017, 13:57. CT BRAIN W/O CONTRAST, December 29, 2016, 9:49. INDICATIONS : Status post TPA for pulmonary embolism. Evaluate for bleed. RADIATION DOSE: 56.35 CTDIvol (mGy) MEDICAL HISTORY : Non-responsive. SURGICAL HISTORY : Non-responsive. ENCOUNTER: Initial ACUITY: 1 day PAIN SCALE: Non-responsive LOCATION: cranial TECHNIQUE: Multiple contiguous axial images were obtained of the head. Using automated exposure control and adj ustment of the mA and/or kV according to patient size, radiation dose was kept as low as reasonably a chievable to obtain optimal diagnostic quality images. DICOM format image data is available electro nically for review and comparison. FINDINGS: CEREBRUM: There are new areas of low density seen in the frontal lobes bilaterally. The low density is much lar sandi on the left. On the left side, the low-density involves the posterior frontal and anterior pariet al lobe. Significant midline shift is not seen although there is decrease in size of the left lateral ventricle compared to the right. No hemorrhage is seen. No extra-axial fluid collections are seen. POSTERIOR FOSSA: There is subtle questionable low density in the left lower cerebellum. A subtle infarct cannot be exc luded. Otherwise, the cerebellum and brainstem are intact. The 4th ventricle is midline. The cerebe llopontine angle is unremarkable. There is benign cystic change at the posterior aspect of the oracle engineer ior fossa along the tentorium. Could be an arachnoid cyst. EXTRACRANIAL: The visualized portion of the orbits is intact. There is mucosal thickening in the left maxillary sin us. SKULL: The calvaria is intact. No evidence of skull fracture. CONCLUSION: 1. New areas of edema likely from infarction in the left frontoparietal region and right frontal sridhar ons. 2. Narrowing of the left lateral ventricle. Significant midline shift is not seen. The basal cisterns are open. 3. Questionable subtle area of low-density in the left cerebellar hemisphere which could potentially represent a small area of infarction. Oren Gamez MD on January 01, 2017 at 14:28 Board Certified Radiologist. This report was verified electronically.
--- NOTE | 2017-01-01 15:26 | RADRPT ---
EXAM DATE/TIME: 01/01/2017 13:57 [facility] COMPARISON: US ABDOMEN - LIVER, December 31, 2016, 15:09. INDICATIONS : Evaluate for questionable mass seen on ultrasound of liver. IV CONTRAST: 92 cc Omnipaque 350 (iohexol) IV ORAL CONTRAST: No oral contrast ingested. RADIATION DOSE: 25.76 CTDIvol (mGy) ; Patient body habitus MEDICAL HISTORY : Non-responsive. SURGICAL HISTORY : Non-responsive. ENCOUNTER: Initial ACUITY: 1 day PAIN SCALE: Non-responsive LOCATION: Abdomen TECHNIQUE: Volumetric scanning of the abdomen and pelvis was performed. Using automated exposure control and ad justment of the mA and/or kV according to patient size, radiation dose was kept as low as reasonably achievable to obtain optimal diagnostic quality images. DICOM format image data is available electro nically for review and comparison. FINDINGS: There does appear to be a catheter seen in the deep right chest just superficial to the ribs. There i s air in the soft tissues in this region. Bilateral large pulmonary emboli are seen. There are patc hy areas of consolidation seen at the right lower lobe. Infarcts could have this appearance. There a re minimal bilateral effusions being greater on the right. There is decreased attenuation of the liver likely related to hepatic steatosis. There is increased density seen within the gallbladder. This could represent milk of calcium or vicarious excretion of intravenous contrast from prior intravenous contras administrations. The spleen is normal in size. There is a 2.4 cm low density mass seen at the anterior aspect of the spleen. No other focal splenic lesion is seen. The pancreas and adrenal glands are normal. There is a 1.7 cm stone seen at the [facility]. Hydronephrosis is not seen on either side. There is low density seen at the posterior lateral left kidney measuring 1.1 cm representing some cystic change. Some degree of infar ction in this region cannot be excluded. The cortex appears thinned. There is an NG tube in place in the stomach. There are scattered colonic diverticula in the sigmoid region. There is a mild amount of ascites seen in the pelvis in the perineum. There is a 6.3 x 4.2 c m left adnexal mass with a 2.6 cm focal component of fat. 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 The right ovary appears normal in size. The uterus is unremarkable for a CT examination. There is a Mcdaniel catheter in the bladder. The bladder is decompressed. There is a small amount of air seen w ithin the urinary bladder. The patient does have a catheter in the right femoral artery. A rectal t ube is in place. There does appear to be edema within the subcutaneous tissues throughout likely rel ated to anasarca. CONCLUSION: 1. Pulmonary emboli with patchy areas of peripheral consolidation at the right lower lobe concerning for possible infarcts. 2. 2.4 cm focal splenic lesion. This is nonspecific. The most common splenic lesion to have this carson earance would be a hemangioma. This can be followed up with an MRI examination in several months as an outpatient. 3. 1.7 cm large nonobstructing right renal stone. 4. Mild cystic change or possible area of infarction in the lateral right kidney with an area of hai ical thinning and mild cystic change. 5. Left adnexal mass likely related to a dermoid given the large fat component. 6. Mild amount of free intraperitoneal fluid in the pelvis. 7. Scattered colonic diverticula in the sigmoid region without inflammatory change. 8. Catheter in the right femoral artery. Oren Gamez MD on January 01, 2017 at 15:07 Board Certified Radiologist. This report was verified electronically.
--- NOTE | 2017-01-01 16:37 | PD.CONS ---
History of Present Illness Service Neurology Consult Requested By [facility] Reason for Consult stroke Primary Care Physician No Primary Care Physician History of Present Illness Patient is a 56-year-old female with no significant past medical history, brought into the hospital for further evaluation of severe shortness of breath. found to have severe hypoxemia 2/2 pulmonary embolus. on hep gtt. intubated in the icu. ct brain on admission negative. repeat ct brain performed today showed ischemic strokes. pt unable to give any hx. is intubated and mildly sedated. Review of Systems ROS Limitations: Clinical Condition, Intubated Past Family Social History Allergies: Coded Allergies: No Known Allergies (Verified , 11/17/16) Past Medical History No significant past history Past Surgical History Not known Family History Not known Social History Not known Review of Systems All other ROS: Unable to obtain Past Family Social History Allergies: Coded Allergies: No Known Allergies (Verified , 11/17/16) Active Ordered Medications Current Medications Medications (Trade) Dose Ordered Sig/Sabine Route Start Time Stop Time Status Last Admin (NS Flush) 2 ml UNSCH PRN IVF 12/29/16 08:30 12/31/16 11:42 (NS Flush) 2 ml UNSCH PRN IVF 12/29/16 08:45 12/31/16 11:42 (Protonix Inj) 40 mg DAILY IV 12/29/16 11:00 01/01/17 07:53 Miscellaneous Information 1 Q361D XX 12/29/16 10:30 (Chlorhexidine 2% Cloth) 3 pack Taper DAILY@04 TOP 12/30/16 04:00 12/26/17 03:59 01/01/17 04:00 (Chlorhexidine 2% Cloth) 3 pack UNSCH PRN TOP 12/29/16 10:30 (Radha-Colace) 1 tab BID PO 12/29/16 21:00 01/01/17 07:53 (Milk Of Magnesia Liq) 30 ml Q12H PRN PO 12/29/16 10:30 (Senokot) 17.2 mg Q12H PRN PO 12/29/16 10:30 (Dulcolax Supp) 10 mg DAILY PRN RECTAL 12/29/16 10:30 Lactulose 30 ml 30 ml DAILY PRN PO 12/29/16 10:30 (fentaNYL DRIP) 250 ml @ 0 mls/hr TITRATE IV 12/29/16 10:30 01/01/17 00:33 (D50w (Vial) Inj) 50 ml UNSCH PRN IV 12/29/16 10:30 (Glucagon Inj) 1 mg UNSCH PRN OTHER 12/29/16 10:30 Insulin Human Regular 1 1 Q4H SQ 12/29/16 11:00 12/31/16 03:00 (Zosyn 4.5 Gm Premix) 100 ml @ 200 mls/hr Q6H IV 12/29/16 15:00 01/01/17 07:53 Terbutaline Sulfate 1 mg 1 mg UNSCH PRN SQ 12/29/16 19:45 Vasopressin 40 units/Sodium Chloride 100 ml @ 1.5 mls/hr Q24H IV 12/30/16 05:30 12/30/16 21:36 (Diprivan 1000 Mg/100ml Inj) 100 ml @ 0 mls/hr TITRATE IV 12/30/16 07:30 01/01/17 04:31 (Heparin Inj) 5,000 units UNSCH PRN IV 12/30/16 21:30 Heparin Sodium (Porcine) 2500 units 2,500 units UNSCH PRN IV 12/30/16 21:30 (Heparin-D5W Inj) 250 ml @ 0 mls/hr TITRATE IV 12/30/16 16:00 01/01/17 03:24 Hydrocortisone Sodium Succinate 50 mg 50 mg Q12HR IV PUSH 12/31/16 21:00 01/01/17 07:52 Potassium Chloride 100 ml @ 50 mls/hr Q2H PRN IV 12/31/16 11:00 (KCl 20 Meq Premix Inj) 100 ml @ 50 mls/hr Q2H PRN IV 12/31/16 11:00 Potassium Bicarb/ Potassium Chloride 50 meq 50 meq UNSCH PRN PO 12/31/16 11:00 Potassium Chloride 100 ml @ 25 mls/hr UNSCH PRN IV 12/31/16 11:00 Potassium Chloride 100 ml @ 50 mls/hr Q2H PRN IV 12/31/16 11:00 (Magnesium Sulfate Inj/NS Inj) 100 ml @ 50 mls/hr UNSCH PRN IV 12/31/16 11:00 Magnesium Oxide 800 mg 800 mg UNSCH PRN PO 12/31/16 11:00 (Magnesium Sulfate Inj/NS Inj) 100 ml @ 50 mls/hr UNSCH PRN IV 12/31/16 11:00 Potassium Phosphate 2000 mg 2,000 mg Q4H PRN PO 12/31/16 11:00 (Sodium Phosphate Inj/NS 250 ml Inj) 250 ml @ 42 mls/hr UNSCH PRN IV 12/31/16 11:00 Potassium Phosphate 2000 mg 2,000 mg UNSCH PRN PO/TUBE 12/31/16 11:00 (Potassium Phosphate Inj/NS 250 ml Inj) 260 ml @ 42 mls/hr UNSCH PRN IV 12/31/16 11:00 Exam I&O / VS 12/31/16 12/31/16 01/01/17 15:00 23:00 07:00 Intake Total 1620 ml 1404 ml 1504 ml Output Total 300 ml 1160 ml 906 ml Balance 1320 ml 244 ml 598 ml Intake Oral 0 ml IV Total 1500 ml 1099 ml 1271 ml Tube Feeding 120 ml 305 ml 233 ml Output Urine Total 300 ml 1150 ml 900 ml Gastric Drainage Total 0 ml Chest Tube Drainage Total 0 ml 10 ml 6 ml # Bowel Movements 0 0 0 Vital Signs Date Time Temp Pulse Resp B/P Pulse Ox O2 Delivery O2 Flow Rate FiO2 01/01/17 15:24 100 40 01/01/17 14:00 118 01/01/17 13:05 93 100 01/01/17 12:00 99.5 111 26 111/69 100 116/69 01/01/17 12:00 117 01/01/17 12:00 40 01/01/17 11:02 98 40 01/01/17 10:00 118 01/01/17 08:00 40 01/01/17 08:00 100.0 121 26 132/74 100 124/78 01/01/17 08:00 120 01/01/17 07:15 97 40 01/01/17 06:00 110 95/53 132/85 01/01/17 06:00 110 01/01/17 04:00 100.0 104 26 95/53 100 112/72 01/01/17 04:00 111 01/01/17 04:00 40 01/01/17 03:59 100 40 01/01/17 02:00 104 01/01/17 01:04 100 40 01/01/17 00:00 117 01/01/17 00:00 40 01/01/17 00:00 100.9 117 16 118/55 100 116/74 12/31/16 22:00 123 12/31/16 20:15 100 40 12/31/16 20:00 40 12/31/16 20:00 100.4 111 26 96/63 100 122/78 12/31/16 20:00 111 12/31/16 18:00 110 Exam Comments morbidly obese. intubated. on propofol gtt, hep gtt. slightly wakes up and appears to try to follow with left side, eomi, ou 2.5mm sluggish, appears to have rt hemiplegia, wiggles left toes and moves left fingers, extensor planter rt Review/Management Diagnosis/Plan: (1) Acute embolic stroke Plan: bihemispheric left mca >rt mca strokes appears to have rt hemiplegia on exam. will be better able to ascertain once she is extubated/off sedation recs probable hypercoagulable state causing pulm embolus and strokes on anticoagulation but at high risk for ICH transformation. risk vs benefit no ef given on 12/29 echo? unstable/morbidly obese for mri brain follow exam (2) Acute hypoxemic respiratory failure (3) Acute pulmonary embolus Problem Qualifiers (1) Acute pulmonary embolus: Qualified Code: I26.09 - Other acute pulmonary embolism with acute cor pulmonale Dk Frias MD Jan 01, 2017 16:37
--- NOTE | 2017-01-01 23:56 | PD.CONS ---
History of Present Illness Service Hematology/Oncology Consult Requested By Primary Care Physician No Primary Care Physician Diagnoses: History of Present Illness Ms. Sadler is a 56 year old lady with obesity and no known past medical history who presented to the hospital on 12/29/2016 with shortness of breath. Her heart rate was in the 160's, she was hypotensive, her oxygen saturation on room air was in the 70's and she was in severe respiratory distress. Per ED report she denied any symptoms of chest pain, orthopena, PND, extremity edema prior to hospital presentation. Due to unstable vitals she was intubated and was given TPA. After procedure she was moved to the ICU and was found to have hypotension and was placed on multiple pressors. She was found not to be a candidate for open embolectomy or catheter directed thrombolysis. She developed a tension pneumothorax on 12/30 and has a chest tube in place. She has been intermittently spiking fevers since 12/30/2016 and she is on broad spectrum antibiotics with vancomycin and zosyn. No abnormalities on CT on admission and Most recent CT with bilateral stroke. Review of Systems ROS Limitations: Intubated (Unable to obtain ROS as patient is intubated and sedated), Altered Mental Status, Unresponsive Past Family Social History Allergies: Coded Allergies: No Known Allergies (Verified , 11/17/16) Past Medical History Obesity Past Surgical History No known surgical history Reported Medications No known home medications Family History No known family history Social History Her primary medical decision maker is her mother who lives in [place] Physical Exam Vital Signs Vital Signs Date Time Temp Pulse Resp B/P Pulse Ox O2 Delivery O2 Flow Rate FiO2 01/01/17 22:00 98 01/01/17 20:53 100 40 01/01/17 20:00 98 01/01/17 20:00 100.6 98 26 94/51 100 107/64 01/01/17 20:00 40 01/01/17 18:01 115 01/01/17 18:00 110 106/63 94/52 01/01/17 16:00 114 01/01/17 16:00 99.5 111 26 111/69 100 116/69 01/01/17 16:00 40 01/01/17 15:24 100 40 01/01/17 14:00 118 01/01/17 13:05 93 100 01/01/17 12:00 99.5 111 26 111/69 100 116/69 01/01/17 12:00 117 01/01/17 12:00 40 01/01/17 11:02 98 40 01/01/17 10:00 118 01/01/17 08:00 40 01/01/17 08:00 100.0 121 26 132/74 100 124/78 01/01/17 08:00 120 01/01/17 07:15 97 40 01/01/17 06:00 110 95/53 132/85 01/01/17 06:00 110 01/01/17 04:00 100.0 104 26 95/53 100 112/72 01/01/17 04:00 111 01/01/17 04:00 40 01/01/17 03:59 100 40 01/01/17 02:00 104 01/01/17 01:04 100 40 01/01/17 00:00 117 01/01/17 00:00 40 01/01/17 00:00 100.9 117 16 118/55 100 116/74 Physical Exam GENERAL: Overweight lady, intubated, sedated SKIN: No rashes, ecchymoses or lesions. Cool and dry. HEAD: Atraumatic ENT: ET tube in placed NECK: With no palpable LAD CARDIOVASCULAR: Regular rate and rhythm without murmurs, gallops, or rubs. RESPIRATORY: Clear to auscultation. Breath sounds equal bilaterally. No wheezes , rales, or rhonchi. GASTROINTESTINAL: Protuberant abdomen with no palpable hepato-splenomegaly MUSCULOSKELETAL: edema of all four extremitites NEUROLOGICAL: Unable to assess as patient is intubated and sedated. Laboratory Laboratory Tests Test 01/01/17 05:45 White Blood Count 18.5 Red Blood Count 3.56 Hemoglobin 10.5 Hematocrit 29.8 Mean Corpuscular Volume 83.6 Mean Corpuscular Hemoglobin 29.4 Mean Corpuscular Hemoglobin 35.2 Concent Red Cell Distribution Width 13.5 Platelet Count 127 Mean Platelet Volume 6.7 Neutrophils (%) (Auto) 76.4 Lymphocytes (%) (Auto) 17.7 Monocytes (%) (Auto) 5.8 Eosinophils (%) (Auto) 0.0 Basophils (%) (Auto) 0.1 Neutrophils # (Auto) 14.1 Lymphocytes # (Auto) 3.3 Monocytes # (Auto) 1.1 Eosinophils # (Auto) 0.0 Basophils # (Auto) 0.0 CBC Comment DIFF FINAL Differential Comment Activated Partial 51.3 Thromboplast Time Sodium Level 135 Potassium Level 3.2 Chloride Level 99 Carbon Dioxide Level 26.9 Anion Gap 9 Blood Urea Nitrogen 13 Creatinine 1.19 Estimat Glomerular Filtration 47 Rate Random Glucose 136 Calcium Level 7.5 Phosphorus Level 1.3 Magnesium Level 2.2 Date/Time Procedure Status Source Growth 12/31/16 12:20 Urine Culture - Preliminary Resulted Urine Catheterized Urine NO GROWTH IN 24 HOURS. 12/31/16 11:30 Aerobic Blood Culture - Preliminary Resulted Blood Peripheral NO GROWTH IN 1 DAY 12/31/16 11:30 Anaerobic Blood Culture - Preliminary Resulted Blood Peripheral NO GROWTH IN 1 DAY 12/30/16 16:30 Gram Stain - Final Complete Sputum Endotracheal 12/30/16 16:30 Sputum Culture - Final Complete Sputum Endotracheal LIGHT GROWTH NORMAL RESPIRATORY JUVE Result Diagram: 01/01/17 0545 01/01/[address] head 01/01/2017: Left frontoparietal, right frontal stroke CXR from 12/31/2016: small bore chest tube in place 12/31/2016: Abdominal ultrasound: increased echotexture of liver due to steatohepatitis. Mild splenomegaly. Mass adjacent to liver LE ultrasound from 12/29/2016: right posterior tibial VTE, nonocclusive clot in the right common femoral and greater sapehnous vein 12/29/2016: CT with extensive bilateral PE Assessment and Plan Assessment and Plan 1. DVT and PE: hemodynamically unstable on admission on 12/29 and s/p TPA. She has been on anticoagulation with heparin since admission. 2. CVA: bilateral. Uncertain of etiology from pattern possibly secondary to hypoperfusion vs embolic phenonemon. Will need to review with neuroradiology team. If CVA is thought to be due to embolic phenonemon will need to order TTE with bubble study and evaluation of vasculature including carotid artery ultrasound. 3. Anemia: normocytic. Likely multifactorial in the setting of critically ill patient undergoing multiple blood draws. 4. Thrombocytopenia: Decreased platelet count in a critically ill patient is multifactorial including due to antibiotic therapy, infection. Will order peripheral smear for review. 5. Hypercoaguable state: She is obese with a BMI of 47.6 which itself is a risk factor for VTE. Will need to call mother and significant other and obtain a thorough health history including any immobilization, recent hospitalizations , autoimmune disorders, previous clotting history. Given acute VTE and current heparin therapy hypercoaguable work up including protein C, protein S, antithrombin III will not be reliable results. Prothrombin gene mutation, Factor V leiden mutation, antiphospholipid antibody panel and lupus anticoagulant would not be altered by acute clot or anticoagulant therapy. Neema Ruiz MD Jan 01, 2017 23:56
[2017-01-02] VITALS (19 sets, daily range): BP systolic 82–155; BP diastolic 53–100; PULSE 81–110; RESP 22–27; TEMP 99.7; O2SAT 93–100
[2017-01-02] MEDS: INSULIN NovoLIN REGULAR SUPPLEMENTAL SCALE SQ SCH ×6 (03:00→23:00)
[2017-01-02] MEDS: RESP: ALBUTEROL 2.5 MG/IPRATROPIUM 0.5 MG NEB (SCH) INH ×3 (03:09→10:39)
[2017-01-02] MEDS: PROPOFOL 1000 MG/100 ML IV SCH ×3 (03:16→22:43)
[2017-01-02 03:44] LABS: POTASSIUM 3.6 MEQ/L (3.5-5.1)
[2017-01-02] MEDS: CHLORHEXIDINE GLUCONATE 2 % 1 PACK (2 CLOTHS) TOP SCH ×2 (04:00→23:13)
[2017-01-02] MEDS: fentaNYL DRIP 250 ML IV SCH ×2 (04:56→22:44)
[2017-01-02] MEDS: PIPERACIL-TAZO 4.5 GM PREMIX 100 ML IV SCH ×4 (04:57→21:32)
[2017-01-02] MEDS: VASOPRESSIN INJ 40 UNITS in SODIUM CHLORIDE 0.9% INJ 98 ML IV SCH (05:30)
--- NOTE | 2017-01-02 05:35 | RADRPT ---
EXAM DATE/TIME: 01/02/2017 04:24 [facility] COMPARISON: CHEST SINGLE AP, December 31, 2016, 9:17. INDICATIONS : Shortness of breath. MEDICAL HISTORY : Non-responsive. SURGICAL HISTORY : Non-responsive. ENCOUNTER: Subsequent ACUITY: 4 - 6 days PAIN SCORE: Non-responsive. LOCATION: Bilateral chest FINDINGS: Suboptimal image called leak with blurring of the bronchopulmonary markings. Endotracheal tube tip w ell above the bernice. Gastric tube traverses the [id number]. 2 right chest pigtail catheter arash ins projected at the upper/mid chest and lower lateral right chest. Improved aeration to the left lo wer lung with portions of the left hemidiaphragm no discernible. Patchy infiltrates in the right low er lung stable. There is soft tissue emphysema on the right side with outline of right pectoralis fi bers. CONCLUSION: 1. Improved aeration left lower lung with residual patchy infiltrates. Stable patchy infiltrates rig ht lower lung. 2. Interval development of soft tissue emphysema about the right anterior chest wall. 3. Blurring of the image limits evaluation for right pneumothorax. Some lung markings are seen into the right apex however. Karl Tan MD on January 02, 2017 at 5:30 Board Certified Radiologist. This report was verified electronically.
[2017-01-02] MEDS ORDERED: HEPARIN-D5W 25,000 U/250 ML 250 ML ONE (06:05)
[2017-01-02] MEDS ORDERED: SODIUM CHLOR 0.9% 250 ML INJ 250 ML ONE (06:05)
[2017-01-02] MEDS: HEPARIN-D5W 25,000 U/250 ML 250 ML IV SCH (06:08)
[2017-01-02 06:53] LABS: AUTOMATED NEUTROPHIL # 9.2 TH/MM3 (1.8-7.7); BASOPHIL % 0.2 % (0.0-2.0); EOSINOPHIL % 0.2 % (0.0-4.0); HEMATOCRIT 27.2 % (35.0-46.0); HEMO FLAGS DIFF FINAL; LYMPH % 21.8 % (9.0-44.0); LYMPHOCYTE # 2.8 TH/MM3 (1.0-4.8); MEAN CELL VOLUME 84.2 FL (80.0-100.0); MEAN CORPUSCULAR HEMOGLOBIN 29.3 PG (27.0-34.0); MEAN CORPUSCULAR HGB CONC 34.8 % (32.0-36.0); MONO % 6.1 % (0.0-8.0); NEUT % 71.7 % (16.0-70.0); PLATELET COUNT 141 TH/MM3 (150-450); RED BLOOD COUNT 3.23 MIL/MM3 (4.00-5.30); RED CELL DISTRIBUTION WIDTH 13.9 % (11.6-17.2); WHITE BLOOD COUNT 12.9 TH/MM3 (4.0-11.0)
[2017-01-02 07:05] LABS: PROTHROMBIN TIME - PATIENT 10.9 SEC (9.8-11.6)
[2017-01-02 07:14] LABS: APTT (PATIENT) 44.3 SEC (24.3-30.1)
[2017-01-02] MEDS: HYDROCORTISONE SOD SUCCINATE 100 MG VIAL IV PUSH SCH ×2 (09:00→21:32)
[2017-01-02] MEDS: PANTOPRAZOLE SODIUM 40 MG VIAL IV SCH (09:00)
[2017-01-02] MEDS: DOCUSATE SODIUM 50 MG/SENNA 8.6 MG TAB PO SCH ×2 (09:00→21:32)
--- NOTE | 2017-01-02 09:41 | HHI.CCPN ---
Subjective Remarks/Hospital Course Patient is a 56-year-old female without significant past medical history who presented to the [facility] Emergency Department with severe respiratory distress. Per ED records, the patient woke up this morning feeling short of breath. She denied any associated symptoms of chest pain, orthopnea, PND or edema of the lower extremities. On arrival to the emergency department, she was found hypoxic with saturation in the 70s on room air and tachycardiac with heart rate of 160. The patient was subsequently intubated with etomidate, succinylcholine and Versed and placed on full mechanical ventilation. ABG post- intubation showed severe respiratory acidosis with a pH of 7.15, CO2 51, pAO2 73 , bicarb 17, sats of 88% PRVC mode, rate of 24, tidal volume 500,IT: 1.0, PEEP of 20 with 100% FIO2. Chest x-ray showed no acute cardiopulmonary disease. The patient underwent a stat CT scan of the chest, which showed extensive bilateral pulmonary embolism. She also had CT scan of the brain, which showed no evidence of hemorrhage or mass effect. In ER she was given IV fluids 2 liters, Ativan, and placed on Diprivan infusion for sedation. 12/30 On arrival to ICU from patient became hemodynamically unstable and placed on multiple pressors. She is currently on Neosyn 100 mics, Vasopressin 0.04, Levophed 12 mics, Off Dobutamine. In addition she is sedated with Fentanyl, Diprivan and on Nimbex. At approx 3 am she developed right sided PTX and pig tail catheter was placed with resolution of PTX on repeat CXR. On PC/AC RR 28, IP: 18, IT:1.0, PEEP:10, FIO2 70%. On TPA 1mg/hr and Heparin drip. T;101.1 at 4am. 12/31 Patient remains sedated, intubated and on Nimbex. She had recurrent right sided PTX yesterday afternoon and a second pigtail catheter was placed with resolution of PTX. Off TPA and on heparin drip. She is off Levophed, Neosyn however remained on Vasopressin. Also, there is improvements in her O2 requirements and down to PEEP: 10 and FIO2 40%. T:101.1 last night 01/01 Patient is off all pressors, sedated with Diprivan and Fentanyl. Remains on Heparin drip. WBC is trending down. T:100.0 01/02: Tmax 100.6. Leukocytosis resolving. PEEP decreased to 5. Hemodynamically stable overnight Objective Vital Signs Date Time Temp Pulse Resp B/P Pulse Ox O2 Delivery O2 Flow Rate FiO2 01/02/17 07:30 94 40 01/02/17 06:00 110 126/76 123/78 01/02/17 04:00 99.9 26 12/29/16 14:25 15.00 12/29/16 13:15 Ventilator Intake and Output 01/01/17 01/01/17 01/02/17 08:00 16:00 00:00 Intake Total 1504 ml 2553 ml Output Total 906 ml 2274 ml Balance 598 ml 279 ml Result Diagram: 01/02/17 0600 01/02/17 0300 Other Results Microbiology Date/Time Procedure Status Source Growth 12/30/16 16:30 Gram Stain - Final Complete Sputum Endotracheal 12/30/16 16:30 Sputum Culture - Final Complete Sputum Endotracheal LIGHT GROWTH NORMAL RESPIRATORY JUVE Imaging Last Impressions Chest X-Ray 01/02/17 0000 Signed Impressions: Service Date/Time: Monday, January 02, 2017 04:24 - CONCLUSION: 1. Improved aeration left lower lung with residual patchy infiltrates. Stable patchy infiltrates right lower lung. 2. Interval development of soft tissue emphysema about the right anterior chest wall. 3. Blurring of the image limits evaluation for right pneumothorax. Some lung markings are seen into the right apex however. Karl Tan MD Head CT 01/01/17 0000 Signed Impressions: Service Date/Time: Sunday, January 01, 2017 13:58 - CONCLUSION: 1. New areas of edema likely from infarction in the left frontoparietal region and right frontal regions. 2. Narrowing of the left lateral ventricle. Significant midline shift is not seen. The basal cisterns are open. 3. Questionable subtle area of low-density in the left cerebellar hemisphere which could potentially represent a small area of infarction. Oren Gamez MD Abdomen/Pelvis CT 01/01/17 0000 Signed Impressions: Service Date/Time: Sunday, January 01, 2017 13:57 - CONCLUSION: 1. Pulmonary emboli with patchy areas of peripheral consolidation at the right lower lobe concerning for possible infarcts. 2. 2.4 cm focal splenic lesion. This is nonspecific. The most common splenic lesion to have this appearance would be a hemangioma. This can be followed up with an MRI examination in several months as an outpatient. 3. 1.7 cm large nonobstructing right renal stone. 4. Mild cystic change or possible area of infarction in the lateral right kidney with an area of cortical thinning and mild cystic change. 5. Left adnexal mass likely related to a dermoid given the large fat component. 6. Mild amount of free intraperitoneal fluid in the pelvis. 7. Scattered colonic diverticula in the sigmoid region without inflammatory change. 8. Catheter in the right femoral artery. Oren Gamez MD Liver Ultrasound 12/31/16 Signed Impressions: Service Date/Time: Saturday, December 31, 2016 15:09 - CONCLUSION: 1. Mildly increased echotexture of the liver characteristic of steatosis. No focal liver abnormality is identified. 2. Mild splenomegaly. Adjacent to the spleen and liver in the upper abdomen the surveillance systems engineer reports a questionable mass. Consider abdomen and pelvis CT for further characterization. 3. Suspected 15 mm right renal stone. Oren Palafox MD Venogram 12/29/16 Signed Impressions: Service Date/Time: Thursday, December 29, 2016 11:26 - CONCLUSION: Uncomplicated bilateral venogram as above. No significant DVT in the legs on either side. No ileocaval thrombus. As such, I do not feel inferior vena caval filter placement is indicated prior to thrombolytic therapy and/or other therapy for the patient's pulmonary embolism. Oren Álvarez MD Lower Extremity Ultrasound 12/29/16 Signed Impressions: Service Date/Time: Thursday, December 29, 2016 10:56 - CONCLUSION: 1. Occlusive thrombus in the right posterior tibial vein. 2. Nonocclusive thrombus in the right common femoral vein and greater saphenous vein. 3. No deep venous thrombosis in the left lower extremity. Oswaldo Moody MD Central Venous Line 12/29/16 Signed Impressions: Service Date/Time: Thursday, December 29, 2016 11:26 - CONCLUSION: Uncomplicated ultrasound and fluoroscopic guided central line placement as above. Oren Álvarez MD CT Angiography 12/29/16 Signed Impressions: Service Date/Time: Thursday, December 29, 2016 10:01 - CONCLUSION: Extensive bilateral pulmonary embolism. These findings were discussed with the emergency room physician at 1009 hrs. Oswaldo Moody MD Last Impressions Liver Ultrasound 12/31/16 Signed Impressions: Service Date/Time: Saturday, December 31, 2016 15:09 - CONCLUSION: 1. Mildly increased echotexture of the liver characteristic of steatosis. No focal liver abnormality is identified. 2. Mild splenomegaly. Adjacent to the spleen and liver in the upper abdomen the surveillance systems engineer reports a questionable mass. Consider abdomen and pelvis CT for further characterization. 3. Suspected 15 mm right renal stone. Oren Palafox MD Chest X-Ray 12/31/16 Signed Impressions: Service Date/Time: Saturday, December 31, 2016 09:17 - CONCLUSION: 1. Small bore chest tubes on the right in good position. No pneumothorax. 2. Central line, ET tube and NG tube in good position. 3. Atelectatic changes in the lung bases. Jd Cornelius MD Venogram 12/29/16 Signed Impressions: Service Date/Time: Thursday, December 29, 2016 11:26 - CONCLUSION: Uncomplicated bilateral venogram as above. No significant DVT in the legs on either side. No ileocaval thrombus. As such, I do not feel inferior vena caval filter placement is indicated prior to thrombolytic therapy and/or other therapy for the patient's pulmonary embolism. Oren Álvarez MD Lower Extremity Ultrasound 12/29/16 Signed Impressions: Service Date/Time: Thursday, December 29, 2016 10:56 - CONCLUSION: 1. Occlusive thrombus in the right posterior tibial vein. 2. Nonocclusive thrombus in the right common femoral vein and greater saphenous vein. 3. No deep venous thrombosis in the left lower extremity. Oswaldo Moody MD Head CT 12/29/16 Signed Impressions: Service Date/Time: Thursday, December 29, 2016 09:49 - CONCLUSION: 1. Suboptimal examination secondary to motion artifact. 2. No evidence of hemorrhage or mass effect identified. Oswaldo Moody MD Central Venous Line 12/29/16 Signed Impressions: Service Date/Time: Thursday, December 29, 2016 11:26 - CONCLUSION: Uncomplicated ultrasound and fluoroscopic guided central line placement as above. Oren Álvarez MD CT Angiography 12/29/16 Signed Impressions: Service Date/Time: Thursday, December 29, 2016 10:01 - CONCLUSION: Extensive bilateral pulmonary embolism. These findings were discussed with the emergency room physician at 1009 hrs. Oswaldo Moody MD Objective Remarks Infusions Heparin 1800 units/hour Fentanyl 250 mcgs/hour Diprivan 24 mcgs per kilo per hour BP 140/93 Pulse 93 O2 saturation 97% GENERAL: Patient is 56 yo female morbidly obese, critically ill intubated and sedated SKIN: Warm and dry. HEAD: Normocephalic. EYES: No scleral icterus. No injection or drainage. Pupils equal and reactive ( sluggish) NECK: Supple, trachea midline. Unable to evaluate JVD or lymphadenopathy secondary to body habitus. Orally intubated CARDIOVASCULAR: Regular rate and rhythm without murmurs, gallops, or rubs. Telemetry sinus rhythm RESPIRATORY: Breath sounds equal bilaterally. No accessory muscle use. Chest tubes right in situ on 20 cm H20 suction GASTROINTESTINAL: Abdomen soft, obese .non-tender, nondistended. MUSCULOSKELETAL: No cyanosis, or edema. Neuro: GCS 3T .Sedated A/P Assessment and Plan 1. Acute hypoxemic hypercapnic respiratory failure requiring intubation 2 Distributive shock 3. Extensive bilateral pulmonary embolism. 4. DVT RLE 5 Lactic acidemia 6 EKATERINA 7 Elevated trop...2nd PE 8 Leukocytosis, 9 UTI 10. Hyperglycemia. 11 Morbid obesity Obesity. 12 Right sided PTX s/p pig tail catheter placement 13 Elevated LFT's 14. Fatty liver Plan Neuro: On Diprivan and Fentanyl infusion for sedation. Perform daily Sedation vacation CT brain in ED negative for acute intracranial process. 01/01Repeat CT brain today showed infarct frontal lobes bilateral L>R MCA embolic stroke ,likely 2nd hypoperfusion . F/U EEG Neurology followingDrWaldo Frias- unable to perform MRI secondary to instability at this time Concern for transformation to ICH, secondary to anticoagulation therapy Repeat CT brain Pulm: Continue with vent support and maintain sats > 92%. Bronchodilators, ICU vent bundle. CPAP trials as tamanna On PC/AC RR 26, IP:20, IT:1.0, PEEP:5, FIO2 40%. c pigtail catheter was placed 12/30 in afternoon for recurrent PTX. s/p pigtail catheter placement for right sided PTX morning of 12/30 CXR: 12/31: Atelectasis Off TPA, continue with Heparin drip per PE protocol. Hypercoagulable workup in process. CV: monitor HR and BP maintain MAP> 65 mmHg. Taper steroids- HC 50mg IV Q12 Serial lactic acid monitoring -cleared Echo showed mid dilated RV with mod. decrease in systolic function, PAP 41mmHg, LV is not well visualized. No EF reported Repeat ECHO w/ bubble study Obtain carotid doppler studies : Monitor renal function, intake and output and electrolyte replacement as needed. Electrolytes pending this a.m. replete per ICU protocol GI: On Protonix 40 milligrams IV daily for GI prophylaxis. On tube feeds ( Glucerna 1.5 with goal rate 45ml/hr) US Liver: Mildly increased echotexture of the liver characteristic of steatosis. No focal liver abnormality is identified. Mild splenomegaly. Adjacent to the spleen and liver in the upper abdomen the surveillance systems engineer reports a ? mass. Will get CT abdomen/pelvis r/o abd masses ID:Continue with abx (Zosyn) ID is following, Monitor for signs of infections( fever and WBCs). WBC is trending down urine cx: GNR Endo: SSI with Accu-Chek for glycemic control q. 4 hours. Heme: Monitor CBC and coags/Fibrinogen( Fibrinogen level 205) Heparin infusion per PE protocol, discontinue begin Argatroban Doppler US LE: DVT RLE Hematologyoncology [id number] procoagulant studies GI prophylaxis with Protonix 40 mg daily and DVT prophylaxis- on Heparin drip will change to Argatroban Lines: Right subclavian CVP placed by IR 12/29, femoral arterial line Dispo: Discussed with HAND SANDER at bedside. Palliative care consulted to define goals of care. This patient remains critically ill with one or more organ systems which are or may become a threat to life. I have spent in excess of 33 minutes discontinuously in the care and management of this patient. This time is exclusive of procedures, and includes, but is not limited to, evaluation of the patient, review of the medical record, discussions with family, consultants, nursing staff, or respiratory therapy, and documentation in the medical record. Physician Sulema Faulkner MD Jan 02, 2017 09:41
--- NOTE | 2017-01-02 09:52 | HHI.IDPN ---
Subjective Subjective Remarks Patient is a 56-year-old female with no significant past medical history, brought into the hospital for further evaluation of severe shortness of breath. She was apparently okay and was not having any problem until the day of admission when she woke up and she had significant shortness of breath. There was no other complaint as far as chest pain, cough, or any previous history of shortness of breath. Evaluation in the ED showed significant hypoxemia, and tachycardia. She ended up getting intubated. CT of the chest showed evidence of massive bilateral pulmonary embolism. She underwent lytic therapy. She was initially on pressors, and currently she is not on any blood pressure support. His December 30 she's been having fevers, and the last time she had any fever was around 2:00 this morning. She is currently sedated on the vent. Her FiO2 is down to 40%. She also had an elevated WBC. Her urinalysis showed evidence of pyuria, and her urine cultures growing gram-negative nereida. Blood cultures are negative so far. Her chest x-ray on admission did not show any acute pulmonary disease, and subsequent chest x-ray showing some atelectasis. Infectious disease consultation has been requested to evaluate the patient with fevers. She is currently on Zosyn and vancomycin. Notes reviewed Temps low grade On the vent Off pressors CT head with bilateral infarcts - looks fairly big (not the typical septic embolic lesions) CT A/P noted UC Strep and Proteus BC negative Sputum normal caron Echo not good study Antibiotics Zosyn Lines RSC TLC Past Medical History Not known Allergies: Coded Allergies: No Known Allergies (Verified , 11/17/16) Objective . Vital Signs Date Time Temp Pulse Resp B/P Pulse Ox O2 Delivery O2 Flow Rate FiO2 01/02/17 07:30 94 40 01/02/17 06:00 110 126/76 123/78 01/02/17 06:00 91 01/02/17 04:29 100 40 01/02/17 04:00 88 01/02/17 04:00 40 01/02/17 04:00 99.9 88 26 125/78 100 145/84 01/02/17 02:00 81 01/02/17 01:03 100 40 01/02/17 00:00 40 01/02/17 00:00 86 01/02/17 00:00 100.0 86 27 82/53 100 101/64 01/01/17 22:00 98 01/01/17 20:53 100 40 01/01/17 20:00 98 01/01/17 20:00 100.6 98 26 94/51 100 107/64 01/01/17 20:00 40 01/01/17 18:01 115 01/01/17 18:00 110 106/63 94/52 01/01/17 16:00 114 01/01/17 16:00 99.5 111 26 111/69 100 116/69 01/01/17 16:00 40 01/01/17 15:24 100 40 01/01/17 14:00 118 01/01/17 13:05 93 100 01/01/17 12:00 99.5 111 26 111/69 100 116/69 01/01/17 12:00 117 01/01/17 12:00 40 01/01/17 11:02 98 40 01/01/17 10:00 118 01/01/17 01/01/17 01/02/17 15:00 23:00 07:00 Intake Total 2553 ml 1321 ml Output Total 2274 ml 610 ml Balance 279 ml 711 ml Intake Oral 0 ml IV Total 2229 ml 1280 ml Tube Feeding 324 ml 41 ml Output Urine Total 2250 ml 600 ml Chest Tube Drainage Total 24 ml 10 ml # Bowel Movements 0 0 . Laboratory Tests Test 01/01/17 01/02/17 05:45 06:00 White Blood Count 18.5 TH/MM3 12.9 TH/MM3 Red Blood Count 3.56 MIL/MM3 3.23 MIL/MM3 Hemoglobin 10.5 GM/DL 9.5 GM/DL Hematocrit 29.8 % 27.2 % Mean Corpuscular Volume 83.6 FL 84.2 FL Mean Corpuscular Hemoglobin 29.4 PG 29.3 PG Mean Corpuscular Hemoglobin 35.2 % 34.8 % Concent Red Cell Distribution Width 13.5 % 13.9 % Platelet Count 127 TH/MM3 141 TH/MM3 Mean Platelet Volume 6.7 FL 7.0 FL Neutrophils (%) (Auto) 76.4 % 71.7 % Lymphocytes (%) (Auto) 17.7 % 21.8 % Monocytes (%) (Auto) 5.8 % 6.1 % Eosinophils (%) (Auto) 0.0 % 0.2 % Basophils (%) (Auto) 0.1 % 0.2 % Neutrophils # (Auto) 14.1 TH/MM3 9.2 TH/MM3 Lymphocytes # (Auto) 3.3 TH/MM3 2.8 TH/MM3 Monocytes # (Auto) 1.1 TH/MM3 0.8 TH/MM3 Eosinophils # (Auto) 0.0 TH/MM3 0.0 TH/MM3 Basophils # (Auto) 0.0 TH/MM3 0.0 TH/MM3 CBC Comment DIFF FINAL DIFF FINAL Differential Comment Blood Smear Pathologist Review Laboratory Tests Test 01/01/17 01/02/17 05:45 03:00 Sodium Level 135 MEQ/L Potassium Level 3.2 MEQ/L 3.6 MEQ/L Chloride Level 99 MEQ/L Carbon Dioxide Level 26.9 MEQ/L Anion Gap 9 MEQ/L Blood Urea Nitrogen 13 MG/DL Creatinine 1.19 MG/DL Estimat Glomerular Filtration 47 ML/MIN Rate Random Glucose 136 MG/DL Calcium Level 7.5 MG/DL Phosphorus Level 1.3 MG/DL 2.8 MG/DL Magnesium Level 2.2 MG/DL Microbiology Date/Time Procedure Status Source Growth 12/30/16 13:45 Aerobic Blood Culture - Preliminary Resulted Blood Peripheral NO GROWTH IN 2 DAYS 12/30/16 13:45 Anaerobic Blood Culture - Preliminary Resulted Blood Peripheral NO GROWTH IN 2 DAYS 12/30/16 16:30 Gram Stain - Final Complete Sputum Endotracheal 12/30/16 16:30 Sputum Culture - Final Complete Sputum Endotracheal LIGHT GROWTH NORMAL RESPIRATORY CARON 12/31/16 04:40 Aerobic Blood Culture - Preliminary Resulted Blood Peripheral NO GROWTH IN 1 DAY 12/31/16 04:40 Anaerobic Blood Culture - Preliminary Resulted Blood Peripheral NO GROWTH IN 1 DAY 12/31/16 11:30 Aerobic Blood Culture - Preliminary Resulted Blood Peripheral NO GROWTH IN 1 DAY 12/31/16 11:30 Anaerobic Blood Culture - Preliminary Resulted Blood Peripheral NO GROWTH IN 1 DAY 12/31/16 12:20 Urine Culture - Final Complete Urine Catheterized Urine NO GROWTH IN 48 HOURS. Imaging Chest X-Ray 01/02/17 0000 Signed Impressions: Service Date/Time: Monday, January 02, 2017 04:24 - CONCLUSION: 1. Improved aeration left lower lung with residual patchy infiltrates. Stable patchy infiltrates right lower lung. 2. Interval development of soft tissue emphysema about the right anterior chest wall. 3. Blurring of the image limits evaluation for right pneumothorax. Some lung markings are seen into the right apex however. Karl Tan MD Head CT 01/01/17 Signed Impressions: Service Date/Time: Sunday, January 01, 2017 13:58 - CONCLUSION: 1. New areas of edema likely from infarction in the left frontoparietal region and right frontal regions. 2. Narrowing of the left lateral ventricle. Significant midline shift is not seen. The basal cisterns are open. 3. Questionable subtle area of low-density in the left cerebellar hemisphere which could potentially represent a small area of infarction. Oren Gamez MD Abdomen/Pelvis CT 01/01/17 Signed Impressions: Service Date/Time: Sunday, January 01, 2017 13:57 - CONCLUSION: 1. Pulmonary emboli with patchy areas of peripheral consolidation at the right lower lobe concerning for possible infarcts. 2. 2.4 cm focal splenic lesion. This is nonspecific. The most common splenic lesion to have this appearance would be a hemangioma. This can be followed up with an MRI examination in several months as an outpatient. 3. 1.7 cm large nonobstructing right renal stone. 4. Mild cystic change or possible area of infarction in the lateral right kidney with an area of cortical thinning and mild cystic change. 5. Left adnexal mass likely related to a dermoid given the large fat component. 6. Mild amount of free intraperitoneal fluid in the pelvis. 7. Scattered colonic diverticula in the sigmoid region without inflammatory change. 8. Catheter in the right femoral artery. Oren Gamez MD Liver Ultrasound 12/31/16 Signed Impressions: Service Date/Time: Saturday, December 31, 2016 15:09 - CONCLUSION: 1. Mildly increased echotexture of the liver characteristic of steatosis. No focal liver abnormality is identified. 2. Mild splenomegaly. Adjacent to the spleen and liver in the upper abdomen the harvester operator reports a questionable mass. Consider abdomen and pelvis CT for further characterization. 3. Suspected 15 mm right renal stone. Oren Palafox MD Venogram 12/29/16 Signed Impressions: Service Date/Time: Thursday, December 29, 2016 11:26 - CONCLUSION: Uncomplicated bilateral venogram as above. No significant DVT in the legs on either side. No ileocaval thrombus. As such, I do not feel inferior vena caval filter placement is indicated prior to thrombolytic therapy and/or other therapy for the patient's pulmonary embolism. Oren Álvarez MD Lower Extremity Ultrasound 12/29/16 Signed Impressions: Service Date/Time: Thursday, December 29, 2016 10:56 - CONCLUSION: 1. Occlusive thrombus in the right posterior tibial vein. 2. Nonocclusive thrombus in the right common femoral vein and greater saphenous vein. 3. No deep venous thrombosis in the left lower extremity. Oswaldo Moody MD Central Venous Line 12/29/16 Signed Impressions: Service Date/Time: Thursday, December 29, 2016 11:26 - CONCLUSION: Uncomplicated ultrasound and fluoroscopic guided central line placement as above. Oren Álvarez MD CT Angiography 12/29/16 Signed Impressions: Service Date/Time: Thursday, December 29, 2016 10:01 - CONCLUSION: Extensive bilateral pulmonary embolism. These findings were discussed with the emergency room physician at 1009 hrs. Oswaldo Moody MD Physical Exam GENERAL: Patient is an obese, well-developed CF, sedated on the vent, not in respiratory distress. SKIN: Warm and dry. No generalized rash, no evidence of embolic lesions. HEAD: Atraumatic. Normocephalic. No temporal wasting, or tenderness. EYES: [place] conjunctiva. No petechia or hemorrhage. Pupils equal, round and reactive to light. No scleral icterus. No injection or drainage. EARS, NOSE AND THROAT: Nose without bleeding or purulent nasal discharge. Orally intubated. NECK: Trachea midline. Supple and not tender, no meningeal signs CARDIOVASCULAR: Regular rate and rhythm. No murmurs, rubs or gallops heard. Line RSC, site ok. 2 pigtail cath on R anterior chest RESPIRATORY: Clear to auscultation. Breath sounds equal bilaterally. No rales , wheezing or rhonchi. Decreased breath sounds at the bases. ABDOMEN: Soft, obese, nondistended, no reaction to deep palpation.. Bowel sounds present and normoactive. No guarding. No rebound. No organomegaly. EXTREMITIES: No clubbing, cyanosis, or edema. Has A line R groin with surrounding ecchymoses, some blood at site. Cool feet NEUROLOGICAL: Sedated PSYCHIATRIC: Unable to assess LINE: No evidence of infection Assessment & Plan Remarks IMPRESSION Fever, etiology, likely due to massive PE Massive PE, etiology? UTI No evidence of PNA, infiltrates now likely more on pulmonary infarcts Respiratory failure due to massive PE Shock to due to PE, better Leukocytosis due to PE, better Bilateral brain infarcts, likely due to hypoperfusion - emboli usually smaller RECOMMENDATION Change Zosyn to Rocephin for the UTI (proteus and Strep mutans) Follow CBC Monitor progress Monitor temps Work-up in progress for massive PE] To get repeat echo - ZHOU may be more helpful D/W Dee Rutledge MD Jan 02, 2017 09:52
[2017-01-02 09:55] LABS: ALKALINE PHOSPHATASE 89 U/L (45-117); ALT (GPT) 70 U/L (10-53); ANION GAP 11 MEQ/L (5-15); AST (GOT) 57 U/L (15-37); BICARBONATE 24.9 MEQ/L (21.0-32.0); BLOOD UREA NITROGEN 15 MG/DL (7-18); CHLORIDE 103 MEQ/L (98-107); GLOMERULAR FILTRATION RATE 53 ML/MIN (>89); MAGNESIUM 2.5 MG/DL (1.5-2.5); SODIUM (NA) 139 MEQ/L (136-145); TOTAL BILIRUBIN ADULT 0.8 MG/DL (0.2-1.0)
[2017-01-02] MEDS ORDERED: MISCELLANEOUS PHARMACY INFORMATION XX ONE (12:15)
[2017-01-02 13:26] LABS: APTT (PATIENT) 32.4 SEC (24.3-30.1)
--- NOTE | 2017-01-02 13:30 | PD.ONC.PN ---
Subjective Subjective Remarks Ms. Sadler is a a 56 year old lady who is criticially ill in the ICU. She is intubated and sedated. Called and spoke with her mother Gabby Sadler and her boyfriend Maycol to obtain more history. Her mother reports that she has not seen her daughter in over ten years. She did not know about her current or past medical history. Her father of of VT at the age of 40. Her mother has metastatic breast cancer and has a history of lower extremity VTE in the setting of metastatic cancer. Her brother sees a diabetologist. Spoke with her boyfriend Maycol. He reports that patient was having bilateral leg pain prior to hospitalization and developed "red stripes" on her leg. She was evaluated in ED on 11/17/2016 and was given Keflex and indomethacin. He reports that she has always been overweight and has a sedentary lifestyle. 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 She did not smoke or drink etoh. He states that she did not complain of shortness of breath prior to admission. He states that she left for work prior to him waking up the morning of admission. She did not follow regularly with a primary care physician. Objective Data Date Time Temp Pulse Resp B/P Pulse Ox O2 Delivery O2 Flow Rate FiO2 01/02/17 10:27 94 40 01/02/17 07:30 94 40 01/02/17 06:00 110 126/76 123/78 01/02/17 06:00 91 01/02/17 04:29 100 40 01/02/17 04:00 88 01/02/17 04:00 40 01/02/17 04:00 99.9 88 26 125/78 100 145/84 01/02/17 02:00 81 01/02/17 01:03 100 40 01/02/17 00:00 40 01/02/17 00:00 86 01/02/17 00:00 100.0 86 27 82/53 100 101/64 01/01/17 22:00 98 01/01/17 20:53 100 40 01/01/17 20:00 98 01/01/17 20:00 100.6 98 26 94/51 100 107/64 01/01/17 20:00 40 01/01/17 18:01 115 01/01/17 18:00 110 106/63 94/52 01/01/17 16:00 114 01/01/17 16:00 99.5 111 26 111/69 100 116/69 01/01/17 16:00 40 01/01/17 15:24 100 40 01/01/17 14:00 118 01/01/17 13:05 93 100 01/02/17 01/02/17 01/02/17 06:59 14:59 22:59 Intake Total 1321 ml Output Total 610 ml Balance 711 ml Result Diagram: 01/02/17 0600 01/02/17 0300 Laboratory Results Laboratory Tests Test 01/02/17 01/02/17 03:00 06:00 Sodium Level 139 MEQ/L Potassium Level 3.6 MEQ/L Chloride Level 103 MEQ/L Carbon Dioxide Level 24.9 MEQ/L Anion Gap 11 MEQ/L Blood Urea Nitrogen 15 MG/DL Creatinine 1.08 MG/DL Estimat Glomerular Filtration 53 ML/MIN Rate Random Glucose 131 MG/DL Calcium Level 7.7 MG/DL Phosphorus Level 2.8 MG/DL Magnesium Level 2.5 MG/DL Total Bilirubin 0.8 MG/DL Aspartate Amino Transf 57 U/L (AST/SGOT) Alanine Aminotransferase 70 U/L (ALT/SGPT) Alkaline Phosphatase 89 U/L Total Protein 5.2 GM/DL Albumin 1.9 GM/DL White Blood Count 12.9 TH/MM3 Red Blood Count 3.23 MIL/MM3 Hemoglobin 9.5 GM/DL Hematocrit 27.2 % Mean Corpuscular Volume 84.2 FL Mean Corpuscular Hemoglobin 29.3 PG Mean Corpuscular Hemoglobin 34.8 % Concent Red Cell Distribution Width 13.9 % Platelet Count 141 TH/MM3 Mean Platelet Volume 7.0 FL Neutrophils (%) (Auto) 71.7 % Lymphocytes (%) (Auto) 21.8 % Monocytes (%) (Auto) 6.1 % Eosinophils (%) (Auto) 0.2 % Basophils (%) (Auto) 0.2 % Neutrophils # (Auto) 9.2 TH/MM3 Lymphocytes # (Auto) 2.8 TH/MM3 Monocytes # (Auto) 0.8 TH/MM3 Eosinophils # (Auto) 0.0 TH/MM3 Basophils # (Auto) 0.0 TH/MM3 CBC Comment DIFF FINAL Differential Comment Blood Smear Pathologist Review Prothrombin Time 10.9 SEC Prothromb Time International 1.0 RATIO Ratio Activated Partial 44.3 SEC Thromboplast Time Fibrinogen 623 mg/dL Culture Results Microbiology Date/Time Procedure Status Source Growth 12/30/16 13:45 Aerobic Blood Culture - Preliminary Resulted Blood Peripheral NO GROWTH IN 3 DAYS 12/30/16 13:45 Anaerobic Blood Culture - Preliminary Resulted Blood Peripheral NO GROWTH IN 3 DAYS 12/30/16 16:30 Gram Stain - Final Complete Sputum Endotracheal 12/30/16 16:30 Sputum Culture - Final Complete Sputum Endotracheal LIGHT GROWTH NORMAL RESPIRATORY JUVE 12/31/16 04:40 Aerobic Blood Culture - Preliminary Resulted Blood Peripheral NO GROWTH IN 2 DAYS 12/31/16 04:40 Anaerobic Blood Culture - Preliminary Resulted Blood Peripheral NO GROWTH IN 2 DAYS 12/31/16 11:30 Aerobic Blood Culture - Preliminary Resulted Blood Peripheral NO GROWTH IN 2 DAYS 12/31/16 11:30 Anaerobic Blood Culture - Preliminary Resulted Blood Peripheral NO GROWTH IN 2 DAYS 12/31/16 12:20 Urine Culture - Final Complete Urine Catheterized Urine NO GROWTH IN 48 HOURS. Imaging Studies Last 24 hours Impressions Chest X-Ray 01/02/17 0000 Signed Impressions: Service Date/Time: Monday, January 02, 2017 04:24 - CONCLUSION: 1. Improved aeration left lower lung with residual patchy infiltrates. Stable patchy infiltrates right lower lung. 2. Interval development of soft tissue emphysema about the right anterior chest wall. 3. Blurring of the image limits evaluation for right pneumothorax. Some lung markings are seen into the right apex however. Karl Tan MD Administered Medications Medications (Trade) Dose Ordered Sig/Sabine Route PRN Reason Start Time Stop Time Status Last Admin Dose Admin Sodium Chloride (NS Flush) 2 ml UNSCH PRN IVF FLUSH AFTER USING IV ACCESS 12/29/16 08:30 12/31/16 11:42 Sodium Chloride (NS Flush) 2 ml UNSCH PRN IVF FLUSH AFTER USING IV ACCESS 12/29/16 08:45 12/31/16 11:42 Pantoprazole Sodium (Protonix Inj) 40 mg DAILY IV 12/29/16 11:00 01/01/17 07:53 Chlorhexidine Gluconate (Chlorhexidine 2% Cloth) 3 pack Taper DAILY@04 TOP 12/30/16 04:00 12/26/17 03:59 01/02/17 04:00 Senna/Docusate Sodium 1 tab 1 tab BID PO 12/29/16 21:00 01/01/17 21:00 Fentanyl Citrate (fentaNYL DRIP) 250 ml @ 0 mls/hr TITRATE IV 12/29/16 10:30 01/02/17 04:56 Insulin Human Regular 1 1 Q4H SQ 12/29/16 11:00 12/31/16 03:00 Piperacillin Sod/ Tazobactam Sod 100 ml @ 200 mls/hr Q6H IV 12/29/16 15:00 01/02/17 09:00 Vasopressin 40 units/Sodium Chloride 100 ml @ 1.5 mls/hr Q24H IV 12/30/16 05:30 12/30/16 21:36 Propofol 100 ml @ 0 mls/hr TITRATE IV 12/30/16 07:30 01/02/17 07:12 Heparin Sodium/ Dextrose (Heparin-D5W Inj) 250 ml @ 0 mls/hr TITRATE IV 12/30/16 16:00 01/02/17 06:08 Hydrocortisone Sodium Succinate (SoluCORTEF INJ) 50 mg Q12HR IV PUSH 12/31/16 21:00 01/02/17 09:00 Objective Remarks GENERAL: intubated, sedated, does not respond to commands SKIN: Warm and dry. HEAD: Normocephalic. EYES: No scleral icterus. NECK: Supple, trachea midline. No JVD or lymphadenopathy. LYMPHATIC: No adenopathy. CARDIOVASCULAR: Regular rate and rhythm without murmurs. RESPIRATORY: Breath sounds equal bilaterally. ET tube in place GASTROINTESTINAL: Abdomen soft, non-tender, nondistended. EXTREMITIES: edema of all four extremities NEUROLOGICAL: intubated and sedated PSYCHIATRIC: intubated and sedated Assessment/Plan Assessment 1. DVT and PE: hemodynamically unstable on admission on 12/29 and s/p TPA. She has been on anticoagulation with heparin since admission. 2. CVA: bilateral: discussed images with radiologist and discussed case with Dr. Rojas. Both feel that this is most likely an ischemic stroke. Discussed risks/benefits of anticoagulation with Dr. Ortiz. He reports that with any new ischemic stroke there is a risk of hemorrhagic transformation with anticoagulation. This is a difficult situation in a patient with a hypercoagable state. She is too unstable for MRI brain. Would obtain carotid doppler ultrasound, echo with bubble to further evaluate for embolic phenomenon. 3. Anemia: normocytic. Likely multifactorial in the setting of critically ill patient undergoing multiple blood draws. 4. Thrombocytopenia: Decreased platelet count in a critically ill patient is multifactorial including due to antibiotic therapy, infection. Will follow up peripheral smear for review. With new thrombosis (CVA has been associated with HIT) 4T score would be 4 due to degree of thrombocytopenia and new thrombosis. This places her in intermediate risk. Would order HIT test for evaluation. Discussed with lab: this is a send out test and will be available in tomorrow or Saturday. Will order doppler ultrasound of bilateral lower and upper extremity for further evaluation given edema. With elevated fibrinogen DIC is less likely. Until hit assay returns would change heparin to argatroban. Please start at lower infusion rate given criticially ill patient (0.5 micrograms/kg/minute) and follow PTT. Child Singh class is B, however this is clouded by critical illness. INR WNL, albumin likely low due to decreased nutritional status. Bili WNL. AST/ALT downtrending. 5. Hypercoaguable state: She is obese with a BMI of 47.6 which itself is a risk factor for VTE. She led a sedentary lifestyle. Mother with DVT in the setting of metastatic breast cancer. No routine medical follow up and no known medical problems. Given acute VTE and anticoagulant therapy hypercoaguable work up including protein C, protein S, antithrombin III will not be reliable results. Prothrombin gene mutation, Factor V leiden mutation, antiphospholipid antibody panel and lupus anticoagulant would not be altered by acute clot. Will follow up on the results of these studies. Neema Ruiz MD Jan 02, 2017 13:29
[2017-01-02] MEDS ORDERED: ARGATROBAN INJ 250 MG in SODIUM CHLOR 0.9% 250 ML INJ 250 ML IV SCH (14:15)
--- NOTE | 2017-01-02 15:20 | RADRPT ---
EXAM DATE/TIME: 01/02/2017 13:33 [facility] COMPARISON: US LEG BILATERAL VENOUS DOPPLER, December 29, 2016, 10:56. INDICATIONS : Pulmonary embolism. Bilateral leg edema. MEDICAL HISTORY : Dyspnea. Pulmonary embolism. Chest pain. Orthopnea. Tachycardia. Stroke. SURGICAL HISTORY : Blood transfusions. ENCOUNTER: Subsequent ACUITY: 1 day PAIN SCORE: 0/10 LOCATION: Bilateral leg. TECHNIQUE: Venous ultrasound of the left and right leg was performed from the inguinal ligament to the proximal calf. Real-time, color Doppler and spectral tracing, compression and augmentation techniques were us ed. FINDINGS: RIGHT LEG: There is nonocclusive thrombus in the right common femoral vein, greater saphenous vein and peroneal veins which are partially compressible. There is occlusive thrombus in the posterior tibial vein. LEFT LEG: There is normal compressibility of the deep venous system from the inguinal region to the proximal ca lf. No echogenic clot is seen in the lumen of the common femoral, femoral, popliteal, and posterior tibial veins. There is a normal response of the venous system to proximal and distal augmentation an d respiration. CONCLUSION: 1. Occlusive thrombus in the right posterior tibial vein. 2. Nonocclusive thrombus in the right common femoral vein, greater saphenous vein and peroneal veins. 3. No deep venous thrombosis in the left lower extremity. Oswaldo Moody MD on January 02, 2017 at 15:16 Board Certified Radiologist. This report was verified electronically.
--- NOTE | 2017-01-02 15:32 | RADRPT ---
EXAM DATE/TIME: 01/02/2017 14:26 [facility] COMPARISON: No previous studies available for comparison. INDICATIONS : Pulmonary embolism. Bilateral arm edema. MEDICAL HISTORY : Dyspnea. Pulmonary embolism. Chest pain. Orthopnea. Tachycardia. Stroke. SURGICAL HISTORY : Blood transfusions. ENCOUNTER: Initial ACUITY: 1 day PAIN SCORE: Non-responsive LOCATION: Bilateral arm. FINDINGS: RIGHT UPPER EXTREMITY: There is spontaneous flow documented in the brachial, basilic, axillary, and subclavian veins. These vessels are compressible and augmentation response is documented. No filling defects are seen. The flow is phasic with respiration. Direction of flow in the jugular vein is caudal. There is occlusiv e thrombus in the right cephalic vein in the forearm. There is also nonocclusive thrombus in the righ t mid and distal cephalic vein. LEFT UPPER EXTREMITY: There is spontaneous flow documented in the brachial, basilic, cephalic, axillary, and subclavian vei ns. The vessels are compressible and augmentation response is documented. No filling defects are se en. The flow is phasic with respiration. Direction of flow in the jugular vein is caudal. CONCLUSION: 1. Occlusive and nonocclusive thrombus in the right cephalic vein. 2. No left upper extremity venous thrombosis. Oswaldo Moody MD on January 02, 2017 at 15:24 Board Certified Radiologist. This report was verified electronically.
--- NOTE | 2017-01-02 15:44 | RADRPT ---
EXAM DATE/TIME: 01/02/2017 14:02 [facility] COMPARISON: No previous studies available for comparison. INDICATIONS : Stroke. MEDICAL HISTORY : Dyspnea. Pulmonary embolism. Chest pain. Orthopnea. Tachycardia. Stroke. SURGICAL HISTORY : Blood transfusions. ENCOUNTER: Initial ACUITY: 1 day PAIN SCORE: Nonresponsive. LOCATION: Bilateral neck PEAK SYSTOLIC VELOCITIES (cm/sec): ICA/CCA RATIO: Right: 0.9 Left: 1.7 ICA: Right: 77 Left: 134 CCA: Right: 85 Left: 77 ECA: Right: 85 Left: 85 VERTEBRAL: Right: 63 antegrade Left: 71 antegrade Elevated flow velocities and ICA/CCA ratios have been found to correlate with increased degrees of vessel stenosis, calculated as percentage of diameter relative to a normal segment of distal ICA/CCA FINDINGS: RIGHT CAROTID: No significant stenosis is visualized. The waveforms are within normal limits. LEFT CAROTID: No significant stenosis is visualized. The waveforms are within normal limits. VERTEBRAL ARTERIES: Antegrade flow is seen in both vertebral arteries. MISCELLANEOUS: None. CONCLUSION: 1. There is elevation of the velocity in the distal left internal carotid artery. The proximal ICA sh ows normal velocities. I see no appreciable plaque within the area of concern. I cannot completely ex clude a 50-69% stenosis of the distal left ICA. Consider CTA of the carotid arteries to further evalu ate. 2. 2.4 cm cystic nodule involving the right lobe of the thyroid. Karl Oliver Jr., MD on January 02, 2017 at 15:37 Board Certified Radiologist. This report was verified electronically.
[2017-01-02] MEDS ORDERED: PHARMACY ORDERED LAB ONE (17:45)
[2017-01-02 17:47] LABS: APTT (PATIENT) 40.6 SEC (24.3-30.1)
--- NOTE | 2017-01-02 17:55 | MG ---
cc: FAYE KATZ Lab No: Date: 01/02/2017 Age: Sex: F Race: ELECTROENCEPHALOGRAM NUMBER [id number] INTRODUCTION Fentanyl. Diprivan. O2 saturation in the 70s. Pulmonary embolism. A 56-year-old woman. DESCRIPTION Diffuse delta slowing is noted in the 2-4 Hz range. The recording overall is synchronous and symmetrical. No epileptiform or seizure activity is noted. No hemisphere asymmetries are seen. Photic stimulation is performed without significant posterior driving. Hyperventilation not performed. IMPRESSION This is consistent with a severe diffuse encephalopathy versus medication effect. No focal abnormalities are noted. No seizure activity is seen. MD BISHNU Abbasi/DANIEL /5:16 PM /5:44 PM
--- NOTE | 2017-01-02 19:25 | PD.CONS ---
Consult Service Palliative Care . Consult Requested By Dr. Yoon . Primary Care Physician No Primary Care Physician . Reason for Consultation a. To assist with evaluation and management of symptoms including: dyspnea, pain. b. To assist medical decision maker(s) with: better understanding of current medical conditions; weighing benefits/burdens of medical treatment options; making medical treatment decisions. . HPI History of Present Illness Ms. Sadler is a 56 year old female with past medical history of morbid obesity , no other known medical problems. Notes indicate patient did not have a primary care physician or go to see any doctor. She was evaluated in ED on 2016 and was given Keflex and indomethacin. Patient presented to [facility] emergency department on 12/30/15 in severe respiratory distress. Notes indicate she awoke in the morning feeling short of breath. There's reports she was driving to work when she became increasingly short of breath and brought herself to the hospital. She reported a cough off and on for a week. She denied any other associated symptoms, no chest pain, no orthopnea, no edema or fever. Her boyfriend did report that she had bilateral leg pain prior to hospitalization and was developing red stripes on her leg. Upon arrival to the emergency department she was found hypoxic with oxygen saturation in the 70s on room air, tachycardic with heart rate of 160. She was emergently intubated and placed on mechanical ventilation. * ABG Post intubation showed severe respiratory acidosis with pH 7.15, CO2 51, PaO2 73, bicarb 17. * Chest x-ray showed no acute cardiopulmonary disease. * STAT CTA - extensive bilateral pulmonary emboli with filling defects in the distal right and left main pulmonary arteries and primary branch vessels, extends throughout the lower extremity pulmonary arteries bilaterally. * Bilateral lower extremity ultrasound occlusive thrombus in the right posterior tibial vein, nonocclusive thrombus in the right common femoral vein and greater saphenous vein, no DVT in the left lower extremity. * CT head no evidence of hemorrhage or mass effect, motion artifact. * Venogram uncomplicated venogram, no IVC filter placement is indicated. * WBC 22.4, hemoglobin 14.5, hematocrit 43.1, platelets 328, neutrophil 43.9% * sodium 137, potassium 3.7, carbon dioxide 17.1, BUN 11, creatinine 1.12, GFR 51, glucose 216, calcium 8.8 * lactic acid 7.4 * troponin 1.56, 1.23, 2.11 sequentially * PT 10.6, INR 1.0, APTT 25.1 * urinalysis positive for leukocyte esterase, WBC, bacteria, mucus, culture indicated - culture and sensitivity later revealed Proteus Mirabilis and streptococcus mutans. Patient was admitted to ICU with extensive bilateral pulmonary emboli, acute hypoxemic hypercapnic respiratory failure requiring intubation, leukocytosis and hyperglycemia. Systemic TPA and heparin therapy was initiated. CT surgery , Dr. Donnelly was consulted for consideration of open embolectomy. He reviewed the CT scan with Dr. Álvarez and his impression is that the clot burden is too peripheral for angiovac catheter use. From the surgical standpoint, the patient 's prognosis is very poor as she is anticoagulated with ongoing thrombolytic infusion and most of her thrombus is at the lobar level or more peripheral. Her operative risk is very high for mortality and may be equivalent to medical management at this point. He did not recommend emergency sternotomy for open embolectomy due to risk of perioperative risk of massive bleeding and it is unlikely to improve her prognosis. Patient became hemodynamically unstable and was placed on multiple pressors. She developed right sided pneumothorax and pigtail catheter was placed. On 12/31 patient had recurrent right sided pneumothorax and a 2nd pigtail catheter was placed with resolution of pneumothorax. Liver ultrasound mildly increased echotexture of the liver characteristic of steatosis, mild splenomegaly, adjacent to the spleen and liver in the upper abdomen questionable mass, 15 mm right renal stone. CT abdomen/ pelvis revealed pulmonary emboli with patchy areas of peripheral consolidation at the right lower lobe concerning for possible infarcts, 2.4 cm focal splenic lesion (nonspecific possible hemangioma recommendations for f/u imaging in several months), 1.7 cm large nonobstructing renal stone, mild cystic change or possible area of infarction in the lateral right kidney with an area of cortical thinning and mild cystic change, left adnexal mass likely dermoid given the large fat component, mild amount of free intraperitoneal fluid in the pelvis, scattered colonic diverticula in the sigmoid region without inflammatory change. Patient with leucocytosis and intermittent fever. Infectious disease, Dr. Mcgrath was consulted and continues to follow for antibiotic recommendations. On 01/01/17, repeat CT head revealed new areas of edema likely from infarction in the left frontal parietal region 8 frontal regions, narrowing of the left lateral ventricle, no midline shift, questionable subtle area of low density in the left cerebellar hemisphere possible representation of small area of infarction. Neurologist, Dr. Frias was consulted for evaluation of acute embolic bihemispheric left MCA, right MCA strokes secondary to probable hypercoagulable state. Recommended to need anticoagulation understanding patient is at high risk for ICH transformation. Too unstable for MRI brain. EEG completed consistent with severe diffuse encephalopathy versus medication affect, no seizure. Dr. Ruiz, hematology consulted for evaluation given DVT, PE, CVA, anemia, thrombocytopenia and hypercoagulable state. Hypercoagulable work up pending including protein C, protein S, antithrombin III will not be reliable results. Prothrombin gene mutation, Factor V leiden mutation, antiphospholipid antibody panel and lupus anticoagulant would not be altered by acute clot or anticoagulant therapy. Carotid ultrasound revealed 50 69% stenosis of the distal left ICA, recommend consider CTA of carotid arteries for further evaluation, 2.4 cm cystic nodule in the right lobe of the thyroid. Now on Argatroban. Palliative care was consulted to assist with further clarification of treatment goals. . Function/Cognitive Trajectory Sedentary lifestyle. Review of Systems ROS Limitations: Intubated, Unresponsive Constitutional: COMPLAINS OF: Fatigue, Pain (bilateral lower extremity pain prior to admission) Respiratory: COMPLAINS OF: Shortness of breath Cardiovascular: COMPLAINS OF: Dyspnea on Exertion, Lower Extremity Edema Gastrointestinal: COMPLAINS OF: Constipation Hematologic/Lymphatics: COMPLAINS OF: Bruising Other ROS: Pt intubated. Incapacitated. ROS per EMR review and family report. . Past Family Social History Coded Allergies: No Known Allergies (Verified , 11/17/16) Past Medical History Morbid obesity . Past Surgical History Unknown. . Reported Medications Reported Meds & Active Scripts Active Keflex (Cephalexin) 500 Mg Cap 500 Mg PO Q12H 7 Days Indomethacin 50 Mg Cap 50 Mg PO TID PRN 7 Days Take with food, milk, or antacids to decrease stomach adverse effects. . Current Medications Medications (Trade) Dose Ordered Sig/Sabine Route Start Time Stop Time Status Last Admin (NS Flush) 2 ml UNSCH PRN IVF 12/29/16 08:30 12/31/16 11:42 (NS Flush) 2 ml UNSCH PRN IVF 12/29/16 08:45 12/31/16 11:42 (Protonix Inj) 40 mg DAILY IV 12/29/16 11:00 01/02/17 09:00 Miscellaneous Information 1 Q361D XX 12/29/16 10:30 (Chlorhexidine 2% Cloth) 3 pack Taper DAILY@04 TOP 12/30/16 04:00 12/26/17 03:59 01/02/17 04:00 (Chlorhexidine 2% Cloth) 3 pack UNSCH PRN TOP 12/29/16 10:30 (Radha-Colace) 1 tab BID PO 12/29/16 21:00 01/01/17 21:00 (Milk Of Magnesia Liq) 30 ml Q12H PRN PO 12/29/16 10:30 (Senokot) 17.2 mg Q12H PRN PO 12/29/16 10:30 (Dulcolax Supp) 10 mg DAILY PRN RECTAL 12/29/16 10:30 Lactulose 30 ml 30 ml DAILY PRN PO 12/29/16 10:30 (fentaNYL DRIP) 250 ml @ 0 mls/hr TITRATE IV 12/29/16 10:30 01/02/17 04:56 (D50w (Vial) Inj) 50 ml UNSCH PRN IV 12/29/16 10:30 (Glucagon Inj) 1 mg UNSCH PRN OTHER 12/29/16 10:30 Insulin Human Regular 1 1 Q4H SQ 12/29/16 11:00 12/31/16 03:00 (Zosyn 4.5 Gm Premix) 100 ml @ 200 mls/hr Q6H IV 12/29/16 15:00 01/02/17 15:00 Terbutaline Sulfate 1 mg 1 mg UNSCH PRN SQ 12/29/16 19:45 Vasopressin 40 units/Sodium Chloride 100 ml @ 1.5 mls/hr Q24H IV 12/30/16 05:30 12/30/16 21:36 (Diprivan 1000 Mg/100ml Inj) 100 ml @ 0 mls/hr TITRATE IV 12/30/16 07:30 01/02/17 07:12 Hydrocortisone Sodium Succinate 50 mg 50 mg Q12HR IV PUSH 12/31/16 21:00 01/02/17 09:00 Potassium Chloride 100 ml @ 50 mls/hr Q2H PRN IV 12/31/16 11:00 (KCl 20 Meq Premix Inj) 100 ml @ 50 mls/hr Q2H PRN IV 12/31/16 11:00 Potassium Bicarb/ Potassium Chloride 50 meq 50 meq UNSCH PRN PO 12/31/16 11:00 Potassium Chloride 100 ml @ 25 mls/hr UNSCH PRN IV 12/31/16 11:00 Potassium Chloride 100 ml @ 50 mls/hr Q2H PRN IV 12/31/16 11:00 (Magnesium Sulfate Inj/NS Inj) 100 ml @ 50 mls/hr UNSCH PRN IV 12/31/16 11:00 Magnesium Oxide 800 mg 800 mg UNSCH PRN PO 12/31/16 11:00 (Magnesium Sulfate Inj/NS Inj) 100 ml @ 50 mls/hr UNSCH PRN IV 12/31/16 11:00 Potassium Phosphate 2000 mg 2,000 mg Q4H PRN PO 12/31/16 11:00 (Sodium Phosphate Inj/NS 250 ml Inj) 250 ml @ 42 mls/hr UNSCH PRN IV 12/31/16 11:00 Potassium Phosphate 2000 mg 2,000 mg UNSCH PRN PO/TUBE 12/31/16 11:00 Potassium Phosphate 30 mmol/ Sodium Chloride 260 ml @ 42 mls/hr UNSCH PRN IV 12/31/16 11:00 (Novastan Inj/NS 250 ml Inj) 252.5 ml @ 0 mls/hr TITRATE IV 01/02/17 14:15 . Family History Father at age 40 of an ID. Mother has metastatic breast cancer and a history of DVT in the setting of metastatic cancer. Her brother Caesar nurse staff community health. . Substance Use Tobacco: Never smoked. Alcohol: None. Prescription med abuse: None. Illicits: None. . Psychosocial History Significant other, Bill. Not legally . No biologic children. Mother is alive with metastatic breast cancer. Sedentary lifestyle. 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 . Spiritual/Cultural Factors Pentecostalism rojas. Living Will: Never completed Health Care Surrogate: Never completed Durable Power of Clinic Assistant: Never completed Health Care Surrogate(s): According to [place] statutes, health care proxy decision-making falls to the patient's mother, Gabby Sadler. . Today's verbally stated goals: Patient currently incapacitated, uncertain if she will regain capacity. . Ethical and Legal Issues According to [place] statutes, health care proxy decision-making falls to the patient's mother, Gabby Sadler. . Physical Exam Vital Signs Date Time Temp Pulse Resp B/P Pulse Ox O2 Delivery O2 Flow Rate FiO2 01/02/17 15:20 93 40 01/02/17 12:56 94 40 01/02/17 10:27 94 40 01/02/17 07:30 94 40 01/02/17 06:00 110 126/76 123/78 01/02/17 06:00 91 01/02/17 04:29 100 40 01/02/17 04:00 88 01/02/17 04:00 40 01/02/17 04:00 99.9 88 26 125/78 100 145/84 01/02/17 02:00 81 01/02/17 01:03 100 40 01/02/17 00:00 40 01/02/17 00:00 86 01/02/17 00:00 100.0 86 27 82/53 100 101/64 01/01/17 22:00 98 01/01/17 20:53 100 40 01/01/17 20:00 98 01/01/17 20:00 100.6 98 26 94/51 100 107/64 01/01/17 20:00 40 01/01/17 01/02/17 18:59 06:59 Intake Total 1419 ml 2455 ml Output Total 310 ml 2574 ml Balance 1109 ml -119 ml Intake Oral 0 ml IV Total 1270 ml 2239 ml Tube Feeding 149 ml 216 ml Output Urine Total 300 ml 2550 ml Chest Tube Drainage Total 10 ml 24 ml # Bowel Movements 0 0 Exam CONSTITUTIONAL/GENERAL: This is an adequately nourished patient, intubated on mechanical ventilation. TUBES/LINES/DRAINS: ETT, OG, right subclavian central line, right chest tube x 2 , PIV right hand, right femoral A-line, Mcdaniel, podus boots. SKIN: No jaundice, rashes, or lesions. Ecchymoses on upper extremities. No wounds seen anteriorly. Skin temperature appropriate. Not diaphoretic. HEAD: Atraumatic. Normocephalic. EYES: Pupils sluggish. No scleral icterus. No injection or drainage. ENT: Unable to assess hearing. Nose without bleeding or purulent drainage. Difficult to visualize Throat due to tubes. NECK: Trachea midline. CARDIOVASCULAR: Regular rate and rhythm without murmurs, gallops, or rubs. No JVD. Peripheral pulses symmetric. RESPIRATORY/CHEST: Symmetric, unlabored respirations on vent. Diminished. right chest tubes x 2. GASTROINTESTINAL: Abdomen soft, protuberant, nondistended. Bowel sounds present. GENITOURINARY: Without palpable bladder distension. Mcdaniel catheter in place. MUSCULOSKELETAL: Extremities x4 with edema. No mottling or clubbing. LYMPHATICS: No palpable cervical or supraclavicular adenopathy. NEUROLOGICAL: Sedated. Does not follow commands. PSYCHIATRIC: Sedated. Diagnostic Tests Laboratory Laboratory Tests Test 12/30/16 12/31/16 12/31/16 12/31/16 22:00 04:40 11:30 13:55 Activated Partial 54.5 SEC 71.1 SEC 71.8 SEC Thromboplast Time (24.3-30.1) (24.3-30.1) (24.3-30.1) White Blood Count 30.3 TH/MM3 (4.0-11.0) Red Blood Count 4.20 MIL/MM3 (4.00-5.30) Hemoglobin 12.2 GM/DL (11.6-15.3) Hematocrit 35.8 % (35.0-46.0) Mean Corpuscular Volume 85.1 FL (80.0-100.0) Mean Corpuscular Hemoglobin 29.1 PG (27.0-34.0) Mean Corpuscular Hemoglobin 34.2 % Concent (32.0-36.0) Red Cell Distribution Width 13.8 % (11.6-17.2) Platelet Count 157 TH/MM3 (150-450) Mean Platelet Volume 6.8 FL (7.0-11.0) Neutrophils (%) (Auto) 70.1 % (16.0-70.0) Lymphocytes (%) (Auto) 23.3 % (9.0-44.0) Monocytes (%) (Auto) 6.5 % (0.0-8.0) Eosinophils (%) (Auto) 0.0 % (0.0-4.0) Basophils (%) (Auto) 0.1 % (0.0-2.0) Neutrophils # (Auto) 21.3 TH/MM3 (1.8-7.7) Lymphocytes # (Auto) 7.1 TH/MM3 (1.0-4.8) Monocytes # (Auto) 2.0 TH/MM3 (0-0.9) Eosinophils # (Auto) 0.0 TH/MM3 (0-0.4) Basophils # (Auto) 0.0 TH/MM3 (0-0.2) CBC Comment AUTO DIFF Differential Total Cells 100 Counted Neutrophils % (Manual) 85 % (16-70) Lymphocytes % 7 % (9-44) Monocytes % 8 % (0-8) Neutrophils # (Manual) 25.8 TH/MM3 (1.8-7.7) Differential Comment FINAL DIFF MANUAL Platelet Estimate NORMAL (NORMAL) Platelet Morphology Comment NORMAL (NORMAL) Red Cell Morphology Comment NORMAL (NORMAL) Sodium Level 132 MEQ/L (136-145) Potassium Level 3.7 MEQ/L (3.5-5.1) Chloride Level 96 MEQ/L (98-107) Carbon Dioxide Level 21.5 MEQ/L (21.0-32.0) Anion Gap 15 MEQ/L (5-15) Blood Urea Nitrogen 11 MG/DL (7-18) Creatinine 1.16 MG/DL (0.50-1.00) Estimat Glomerular Filtration 49 ML/MIN (>89) Rate Random Glucose 184 MG/DL (74-106) Calcium Level 6.9 MG/DL (8.5-10.1) Protein Corrected Calcium 7.7 MG/DL (8.5-10.1) Phosphorus Level 3.2 MG/DL (2.5-4.9) Magnesium Level 1.4 MG/DL (1.5-2.5) Total Bilirubin 0.4 MG/DL (0.2-1.0) Direct Bilirubin 0.2 MG/DL (0.0-0.2) Indirect Bilirubin 0.2 MG/DL (0.0-0.8) Aspartate Amino Transf 133 U/L (15-37) (AST/SGOT) Alanine Aminotransferase 94 U/L (10-53) (ALT/SGPT) Alkaline Phosphatase 51 U/L (45-117) Total Protein 5.6 GM/DL (6.4-8.2) Albumin 2.5 GM/DL (3.4-5.0) Blood Gas Puncture Site ART LINE Blood Gas Patient Temperature 98.6 Blood Gas HCO3 22 mmol/L (22-26) Blood Gas Base Excess -2.6 mmol/L (-2-2) Blood Gas Oxygen Saturation 90 % (90-100) Arterial Blood pH 7.36 (7.380-7.420) Arterial Blood Partial 40 mmHg (38-42) Pressure CO2 Arterial Blood Partial 67 mmHg Pressure O2 (61-120) Arterial Blood Oxygen Content 14.4 Vol % (12.0-20.0) Arterial Blood 1.5 % (0-4) Carboxyhemoglobin Arterial Blood Methemoglobin 1.2 % (0-2) Blood Gas Hemoglobin 11.4 G/DL (12.0-16.0) Oxygen Delivery Device VENTILATOR Blood Gas Ventilator Setting PC/AC RATE 26 Blood Gas Inspired Oxygen 40 % Test 01/01/17 01/02/17 01/02/17 01/02/17 05:45 03:00 06:00 13:03 White Blood Count 18.5 TH/MM3 12.9 TH/MM3 (4.0-11.0) (4.0-11.0) Red Blood Count 3.56 MIL/MM3 3.23 MIL/MM3 (4.00-5.30) (4.00-5.30) Hemoglobin 10.5 GM/DL 9.5 GM/DL (11.6-15.3) (11.6-15.3) Hematocrit 29.8 % 27.2 % (35.0-46.0) (35.0-46.0) Mean Corpuscular Volume 83.6 FL 84.2 FL (80.0-100.0) (80.0-100.0) Mean Corpuscular Hemoglobin 29.4 PG 29.3 PG (27.0-34.0) (27.0-34.0) Mean Corpuscular Hemoglobin 35.2 % 34.8 % Concent (32.0-36.0) (32.0-36.0) Red Cell Distribution Width 13.5 % 13.9 % (11.6-17.2) (11.6-17.2) Platelet Count 127 TH/MM3 141 TH/MM3 (150-450) (150-450) Mean Platelet Volume 6.7 FL 7.0 FL (7.0-11.0) (7.0-11.0) Neutrophils (%) (Auto) 76.4 % 71.7 % (16.0-70.0) (16.0-70.0) Lymphocytes (%) (Auto) 17.7 % 21.8 % (9.0-44.0) (9.0-44.0) Monocytes (%) (Auto) 5.8 % (0.0-8.0) 6.1 % (0.0-8.0) Eosinophils (%) (Auto) 0.0 % (0.0-4.0) 0.2 % (0.0-4.0) Basophils (%) (Auto) 0.1 % (0.0-2.0) 0.2 % (0.0-2.0) Neutrophils # (Auto) 14.1 TH/MM3 9.2 TH/MM3 (1.8-7.7) (1.8-7.7) Lymphocytes # (Auto) 3.3 TH/MM3 2.8 TH/MM3 (1.0-4.8) (1.0-4.8) Monocytes # (Auto) 1.1 TH/MM3 0.8 TH/MM3 (0-0.9) (0-0.9) Eosinophils # (Auto) 0.0 TH/MM3 0.0 TH/MM3 (0-0.4) (0-0.4) Basophils # (Auto) 0.0 TH/MM3 0.0 TH/MM3 (0-0.2) (0-0.2) CBC Comment DIFF FINAL DIFF FINAL Differential Comment Activated Partial 51.3 SEC 44.3 SEC 32.4 SEC Thromboplast Time (24.3-30.1) (24.3-30.1) (24.3-30.1) Sodium Level 135 MEQ/L 139 MEQ/L (136-145) (136-145) Potassium Level 3.2 MEQ/L 3.6 MEQ/L (3.5-5.1) (3.5-5.1) Chloride Level 99 MEQ/L 103 MEQ/L (98-107) (98-107) Carbon Dioxide Level 26.9 MEQ/L 24.9 MEQ/L (21.0-32.0) (21.0-32.0) Anion Gap 9 MEQ/L (5-15) 11 MEQ/L (5-15) Blood Urea Nitrogen 13 MG/DL (7-18) 15 MG/DL (7-18) Creatinine 1.19 MG/DL 1.08 MG/DL (0.50-1.00) (0.50-1.00) Estimat Glomerular Filtration 47 ML/MIN (>89) 53 ML/MIN (>89) Rate Random Glucose 136 MG/DL 131 MG/DL (74-106) (74-106) Calcium Level 7.5 MG/DL 7.7 MG/DL (8.5-10.1) (8.5-10.1) Phosphorus Level 1.3 MG/DL 2.8 MG/DL (2.5-4.9) (2.5-4.9) Magnesium Level 2.2 MG/DL 2.5 MG/DL (1.5-2.5) (1.5-2.5) Haptoglobin 241 MG/DL (30-200) Total Bilirubin 0.8 MG/DL (0.2-1.0) Aspartate Amino Transf 57 U/L (15-37) (AST/SGOT) Alanine Aminotransferase 70 U/L (10-53) (ALT/SGPT) Alkaline Phosphatase 89 U/L (45-117) Total Protein 5.2 GM/DL (6.4-8.2) Albumin 1.9 GM/DL (3.4-5.0) Blood Smear Pathologist Review Prothrombin Time 10.9 SEC (9.8-11.6) Prothromb Time International 1.0 RATIO Ratio Fibrinogen 623 mg/dL (227-377) Test 01/02/17 01/02/17 13:13 17:22 D-Dimer Quantitative (PE/DVT) 5.72 MG/L FEU (0.00-0.50) Activated Partial 40.6 SEC Thromboplast Time (24.3-30.1) Result Diagram: 01/02/17 0600 01/02/17 0300 Microbiology Microbiology Date/Time Procedure Status Source Growth 12/31/16 04:40 Aerobic Blood Culture - Preliminary Resulted Blood Peripheral NO GROWTH IN 2 DAYS 12/31/16 04:40 Anaerobic Blood Culture - Preliminary Resulted Blood Peripheral NO GROWTH IN 2 DAYS 12/31/16 11:30 Aerobic Blood Culture - Preliminary Resulted Blood Peripheral NO GROWTH IN 2 DAYS 12/31/16 11:30 Anaerobic Blood Culture - Preliminary Resulted Blood Peripheral NO GROWTH IN 2 DAYS 12/31/16 12:20 Urine Culture - Final Complete Urine Catheterized Urine NO GROWTH IN 48 HOURS. Imaging Last Impressions Carotid Artery Ultrasound 01/02/17 1308 Signed Impressions: Service Date/Time: Monday, January 02, 2017 14:02 - CONCLUSION: 1. There is elevation of the velocity in the distal left internal carotid artery. The proximal ICA shows normal velocities. I see no appreciable plaque within the area of concern. I cannot completely exclude a 50-69%% stenosis of the distal left ICA. Consider CTA of the carotid arteries to further evaluate. 2. 2.4 cm cystic nodule involving the right lobe of the thyroid. Karl Oliver Jr., MD Upper Extremity Ultrasound 01/02/17 0000 Signed Impressions: Service Date/Time: Monday, January 02, 2017 14:26 - CONCLUSION: 1. Occlusive and nonocclusive thrombus in the right cephalic vein. 2. No left upper extremity venous thrombosis. Oswaldo Moody MD Lower Extremity Ultrasound 01/02/17 0000 Signed Impressions: Service Date/Time: Monday, January 02, 2017 13:33 - CONCLUSION: 1. Occlusive thrombus in the right posterior tibial vein. 2. Nonocclusive thrombus in the right common femoral vein, greater saphenous vein and peroneal veins. 3. No deep venous thrombosis in the left lower extremity. Oswaldo Moody MD Chest X-Ray 01/02/17 0000 Signed Impressions: Service Date/Time: Monday, January 02, 2017 04:24 - CONCLUSION: 1. Improved aeration left lower lung with residual patchy infiltrates. Stable patchy infiltrates right lower lung. 2. Interval development of soft tissue emphysema about the right anterior chest wall. 3. Blurring of the image limits evaluation for right pneumothorax. Some lung markings are seen into the right apex however. Karl Tan MD Head CT 01/01/17 0000 Signed Impressions: Service Date/Time: Sunday, January 01, 2017 13:58 - CONCLUSION: 1. New areas of edema likely from infarction in the left frontoparietal region and right frontal regions. 2. Narrowing of the left lateral ventricle. Significant midline shift is not seen. The basal cisterns are open. 3. Questionable subtle area of low-density in the left cerebellar hemisphere which could potentially represent a small area of infarction. Oren Gamez MD Abdomen/Pelvis CT 01/01/17 Signed Impressions: Service Date/Time: Sunday, January 01, 2017 13:57 - CONCLUSION: 1. Pulmonary emboli with patchy areas of peripheral consolidation at the right lower lobe concerning for possible infarcts. 2. 2.4 cm focal splenic lesion. This is nonspecific. The most common splenic lesion to have this appearance would be a hemangioma. This can be followed up with an MRI examination in several months as an outpatient. 3. 1.7 cm large nonobstructing right renal stone. 4. Mild cystic change or possible area of infarction in the lateral right kidney with an area of cortical thinning and mild cystic change. 5. Left adnexal mass likely related to a dermoid given the large fat component. 6. Mild amount of free intraperitoneal fluid in the pelvis. 7. Scattered colonic diverticula in the sigmoid region without inflammatory change. 8. Catheter in the right femoral artery. Oren Gamez MD Liver Ultrasound 12/31/16 Signed Impressions: Service Date/Time: Saturday, December 31, 2016 15:09 - CONCLUSION: 1. Mildly increased echotexture of the liver characteristic of steatosis. No focal liver abnormality is identified. 2. Mild splenomegaly. Adjacent to the spleen and liver in the upper abdomen the nurse practitioner reports a questionable mass. Consider abdomen and pelvis CT for further characterization. 3. Suspected 15 mm right renal stone. Oren Palafox MD Venogram 12/29/16 Signed Impressions: Service Date/Time: Thursday, December 29, 2016 11:26 - CONCLUSION: Uncomplicated bilateral venogram as above. No significant DVT in the legs on either side. No ileocaval thrombus. As such, I do not feel inferior vena caval filter placement is indicated prior to thrombolytic therapy and/or other therapy for the patient's pulmonary embolism. Oren Álvarez MD Central Venous Line 12/29/16 Signed Impressions: Service Date/Time: Thursday, December 29, 2016 11:26 - CONCLUSION: Uncomplicated ultrasound and fluoroscopic guided central line placement as above. Oren Álvarez MD CT Angiography 12/29/16 Signed Impressions: Service Date/Time: Thursday, December 29, 2016 10:01 - CONCLUSION: Extensive bilateral pulmonary embolism. These findings were discussed with the emergency room physician at 1009 hrs. Owsaldo Moody MD Procedures * Right pigtail chest tube x 2 * Right subclavian central line basement * right femoral A-line placement * 12/29/16 intubated Patient/Family Conference Present at Family Conference: Spoke with motherGabby via telephone to provide medical update. Mother is willing to serve as health care proxy decision maker. Issues Discussed: * Palliative care role, purpose, approach * Additional medical, psychosocial, and spiritual history * Patients general health, functional status, and cognitive changes in the months leading up to the current hospitalization * Patient/family understanding of the current medical problems * Patient/family understanding of prognosis * Patients goals of care as best understood from advance directives and/or conversations and/or values * Current medical treatment options and benefits/burdens of those options * Likely scenarios comparing ongoing aggressive care with a transition to comfort measures only * Questions answered to the best of my ability * Palliative care contact information provided Assessment and Plan Disease Oriented Problem List: (1) Acute embolic stroke (2) Acute pulmonary embolus (3) Acute hypoxemic respiratory failure (4) Shock circulatory Symptom Scale: (1) Pain 0-10 Scale: Unable to quantify Comment: possible sources include PE, DVT, tubes, lines, bedbound status, stroke. Sedated Fentanyl and Propofol. (2) Dyspnea 0-10 Scale: Unable to quantify Comment: remains on [facility] vent. Pertinent Non-Medical Issues Psychosocial: lives with significant other. Not legally . No biological children. Mother alive, [place] of state. Spiritual: [employer]ism rojas. Welcomes inspector balance truing support. Legal: According to [place] statutes, health care proxy decision-making would fall to the patient's mother, Gabby Sadler. She is willing to serve as HCP. Ethical issues impacting care: no known concerns at this time. . Important Contacts * Gabby Sadler, mother: [phone] * Anastacio Kirk, significant other: [phone] * Stella Granados boss: [phone] . Prognosis Will need to speak with medical team for further prognostication. Code Status: Full Code Plan * Decision Maker: Single. No children. Has a significant other, not legally . Mother is alive. Has 1 brother, Dorian. According to [place] statutes, health care proxy decision-making falls to the patient's mother, Gabby Sadler. Mother is willing to serve as health care proxy decision maker. * FULL CODE - mother is considering code status. * Palliative care spoke with mother, Gabby she is willing to serve as health care proxy decision maker. Update provided. She wants to speak with her son and is considering code status. Mother permits me to provide medical information to Bill (significant other) and Stella (her boss). * SYMPTOMS: Pain: possible sources include PE, DVT, tubes, lines, bedbound status, stroke. Sedated Fentanyl and Propofol. Dyspnea: sedated on mech vent. No new medication recommendations at this time. * Palliative care number provided. * Palliative care will continue to follow throughout hospital course to assist with symptom management and clarification of goals as needed. . Thank you for the opportunity to participate in the care of Ms. Sadler. Attestation To help prompt me to consider important information that might be impacting today's encounter and assessment, information from prior notes written by myself or my colleagues may have been "brought forward" into today's note. My signature on this note, however, is an attestation that I personally performed the exam, history, and/or decision-making noted today, and, unless otherwise indicated, the interactions with patient, family, and staff as well as the review of records all occurred today. I also attest that the listed assessment and stated plan reflect my best clinical judgment today based on the combination of historical information, prior notes, and today's exam/ interactions. When time spent is documented, it refers only to time spent today by the signer, or if indicated, combined time spent today by collaborating physician/nurse practitioner. Kristen Casillas Jan 02, 2017 19:17
[2017-01-02 23:14] LABS: APTT (PATIENT) 53.9 SEC (24.3-30.1)
[2017-01-02 23:53] LABS: THROMBIN TIME FOR LA ND sec (13-19)
[2017-01-03] VITALS (20 sets, daily range): BP systolic 102–156; BP diastolic 63–87; PULSE 78–106; RESP 15–23; TEMP 98.6–99.7; O2SAT 94–98
[2017-01-03] MEDS: INSULIN NovoLIN REGULAR SUPPLEMENTAL SCALE SQ SCH ×5 (02:55→23:00)
[2017-01-03] MEDS: PIPERACIL-TAZO 4.5 GM PREMIX 100 ML IV SCH ×2 (02:57→08:38)
[2017-01-03] MEDS: PROPOFOL 1000 MG/100 ML IV SCH ×3 (02:57→21:03)
[2017-01-03 04:54] LABS: AUTOMATED NEUTROPHIL # 8.6 TH/MM3 (1.8-7.7); BASOPHIL % 0.2 % (0.0-2.0); EOSINOPHIL % 0.2 % (0.0-4.0); HEMATOCRIT 27.6 % (35.0-46.0); HEMO FLAGS DIFF FINAL; LYMPH % 16.6 % (9.0-44.0); LYMPHOCYTE # 1.8 TH/MM3 (1.0-4.8); MEAN CELL VOLUME 85.2 FL (80.0-100.0); MEAN CORPUSCULAR HEMOGLOBIN 29.3 PG (27.0-34.0); MEAN CORPUSCULAR HGB CONC 34.4 % (32.0-36.0); MONO % 5.6 % (0.0-8.0); NEUT % 77.4 % (16.0-70.0); PLATELET COUNT 162 TH/MM3 (150-450); RED BLOOD COUNT 3.24 MIL/MM3 (4.00-5.30); RED CELL DISTRIBUTION WIDTH 14.2 % (11.6-17.2); WHITE BLOOD COUNT 11.1 TH/MM3 (4.0-11.0)
[2017-01-03 05:05] LABS: BLOOD GAS CARBOXYHEMOGLOBIN 1.4 % (0-4); BLOOD GAS HCO3 25 mmol/L (22-26); BLOOD GAS METHEMOGLOBIN 1.1 % (0-2); BLOOD GAS O2 HGB SATURATION 95 % (90-100); BLOOD GAS OXYGEN CONTENT 14.5 Vol % (12.0-20.0); BLOOD GAS PCO2 37 mmHg (38-42); BLOOD GAS PO2 90 mmHg (61-120); BLOOD GAS TOTAL HGB 10.8 G/DL (12.0-16.0); CRITICAL VALUE NO; OXYGEN DEVICE VENTILATOR; TEMP CORR TO 98.6
[2017-01-03 05:06] LABS: DRAW SITE ALINE; FIO2 45 %; STAT NO
[2017-01-03 05:15] LABS: BICARBONATE 31.4 MEQ/L (21.0-32.0); MAGNESIUM 2.6 MG/DL (1.5-2.5); POTASSIUM 4.1 MEQ/L (3.5-5.1)
[2017-01-03] MEDS: VASOPRESSIN INJ 40 UNITS in SODIUM CHLORIDE 0.9% INJ 98 ML IV SCH (05:30)
[2017-01-03 05:42] LABS: INDIRECT BILIRUBIN 0.3 MG/DL (0.0-0.8); TOTAL BILIRUBIN ADULT 0.9 MG/DL (0.2-1.0)
--- NOTE | 2017-01-03 06:00 | RADRPT ---
EXAM DATE/TIME: 01/03/2017 03:22 [facility] COMPARISON: CHEST SINGLE AP, January 02, 2017, 4:24. INDICATIONS : Shortness of breath, possible pulmonary disease. MEDICAL HISTORY : Stroke. PE SURGICAL HISTORY : None. ENCOUNTER: Subsequent ACUITY: 4 - 6 days PAIN SCORE: Non-responsive. LOCATION: Bilateral chest FINDINGS: Endotracheal tube tip 2.5 cm above the bernice. Right subclavian catheter tip projects over the cavoa trial junction. Gastric tube traverses the [id number]. Right chest pigtail catheter as in the mi d and lower chest similar to prior. Some patchy areas of infiltrate in the lateral right and lower l eft lung similar to prior. The right chest emphysema stable. CONCLUSION: Patchy infiltrates in the lungs. No evidence pneumothorax. Karl Tan MD on January 03, 2017 at 5:57 Board Certified Radiologist. This report was verified electronically.
[2017-01-03 06:12] LABS: APTT (PATIENT) 74.5 SEC (24.3-30.1)
[2017-01-03] MEDS: HYDROCORTISONE SOD SUCCINATE 100 MG VIAL IV PUSH SCH ×2 (08:37→21:03)
[2017-01-03] MEDS: PANTOPRAZOLE SODIUM 40 MG VIAL IV SCH (08:37)
[2017-01-03] MEDS: DOCUSATE SODIUM 50 MG/SENNA 8.6 MG TAB PO SCH ×2 (08:38→21:03)
--- NOTE | 2017-01-03 08:56 | HHI.PR ---
Review/Management Diagnosis/Plan: (1) Acute embolic stroke Plan: bihemispheric left mca >rt mca strokes mechanism: hypercoagulable state > hypoperfusion appears to have rt hemiplegia on exam. will be better able to ascertain once she is extubated/off sedation recs check ct brain/cta brain/carotids on sedation d/w heme yesterday follow exam (2) Acute hypoxemic respiratory failure (3) Acute pulmonary embolus Subjective Subjective Comments No acute events reported Active Medications Current Medications Medications (Trade) Dose Ordered Sig/Sabine Route Start Time Stop Time Status Last Admin (NS Flush) 2 ml UNSCH PRN IVF 12/29/16 08:30 12/31/16 11:42 (NS Flush) 2 ml UNSCH PRN IVF 12/29/16 08:45 12/31/16 11:42 (Protonix Inj) 40 mg DAILY IV 12/29/16 11:00 01/03/17 08:37 Miscellaneous Information 1 Q361D XX 12/29/16 10:30 (Chlorhexidine 2% Cloth) 3 pack Taper DAILY@04 TOP 12/30/16 04:00 12/26/17 03:59 01/02/17 04:00 (Chlorhexidine 2% Cloth) 3 pack UNSCH PRN TOP 12/29/16 10:30 (Radha-Colace) 1 tab BID PO 12/29/16 21:00 01/03/17 08:38 (Milk Of Magnesia Liq) 30 ml Q12H PRN PO 12/29/16 10:30 (Senokot) 17.2 mg Q12H PRN PO 12/29/16 10:30 (Dulcolax Supp) 10 mg DAILY PRN RECTAL 12/29/16 10:30 Lactulose 30 ml 30 ml DAILY PRN PO 12/29/16 10:30 (fentaNYL DRIP) 250 ml @ 0 mls/hr TITRATE IV 12/29/16 10:30 01/02/17 22:44 (D50w (Vial) Inj) 50 ml UNSCH PRN IV 12/29/16 10:30 (Glucagon Inj) 1 mg UNSCH PRN OTHER 12/29/16 10:30 Insulin Human Regular 1 1 Q4H SQ 12/29/16 11:00 12/31/16 03:00 (Zosyn 4.5 Gm Premix) 100 ml @ 200 mls/hr Q6H IV 12/29/16 15:00 01/03/17 08:38 Terbutaline Sulfate 1 mg 1 mg UNSCH PRN SQ 12/29/16 19:45 Vasopressin 40 units/Sodium Chloride 100 ml @ 1.5 mls/hr Q24H IV 12/30/16 05:30 12/30/16 21:36 (Diprivan 1000 Mg/100ml Inj) 100 ml @ 0 mls/hr TITRATE IV 12/30/16 07:30 01/03/17 02:57 Hydrocortisone Sodium Succinate 50 mg 50 mg Q12HR IV PUSH 12/31/16 21:00 01/03/17 08:37 Potassium Chloride 100 ml @ 50 mls/hr Q2H PRN IV 12/31/16 11:00 (KCl 20 Meq Premix Inj) 100 ml @ 50 mls/hr Q2H PRN IV 12/31/16 11:00 Potassium Bicarb/ Potassium Chloride 50 meq 50 meq UNSCH PRN PO 12/31/16 11:00 Potassium Chloride 100 ml @ 25 mls/hr UNSCH PRN IV 12/31/16 11:00 Potassium Chloride 100 ml @ 50 mls/hr Q2H PRN IV 12/31/16 11:00 (Magnesium Sulfate Inj/NS Inj) 100 ml @ 50 mls/hr UNSCH PRN IV 12/31/16 11:00 Magnesium Oxide 800 mg 800 mg UNSCH PRN PO 12/31/16 11:00 (Magnesium Sulfate Inj/NS Inj) 100 ml @ 50 mls/hr UNSCH PRN IV 12/31/16 11:00 Potassium Phosphate 2000 mg 2,000 mg Q4H PRN PO 12/31/16 11:00 (Sodium Phosphate Inj/NS 250 ml Inj) 250 ml @ 42 mls/hr UNSCH PRN IV 12/31/16 11:00 Potassium Phosphate 2000 mg 2,000 mg UNSCH PRN PO/TUBE 12/31/16 11:00 Potassium Phosphate 30 mmol/ Sodium Chloride 260 ml @ 42 mls/hr UNSCH PRN IV 12/31/16 11:00 (Novastan Inj/NS 250 ml Inj) 252.5 ml @ 0 mls/hr TITRATE IV 01/02/17 14:15 01/02/17 21:30 Allergies Allergies Coded Allergies No Known Allergies (Verified11/17/16) Review of Systems All other ROS: Unable to obtain Exam I&O / VS 01/02/17 01/02/17 01/03/17 14:59 22:59 06:59 Intake Total 860 ml 1160 ml 520 ml Output Total 450 ml 1012 ml 770 ml Balance 410 ml 148 ml -250 ml IV Total 760 ml 1000 ml 480 ml Tube Feeding 100 ml 160 ml 40 ml Output Urine Total 450 ml 1000 ml 550 ml Gastric Drainage Total 220 ml Chest Tube Drainage Total 12 ml 0 ml # Bowel Movements 0 0 0 Vital Signs Date Time Temp Pulse Resp B/P Pulse Ox O2 Delivery O2 Flow Rate FiO2 01/03/17 07:39 95 40 01/03/17 06:00 81 01/03/17 04:31 84 130/71 140/78 01/03/17 04:14 45 01/03/17 04:06 95 45 01/03/17 04:00 79 01/03/17 04:00 98.6 81 22 127/71 94 124/69 01/03/17 03:00 50 01/03/17 02:00 85 01/03/17 01:30 55 01/03/17 01:28 97 55 01/03/17 00:00 95 106/79 102/75 01/03/17 00:00 99.1 106 22 110/70 97 120/68 01/03/17 00:00 65 01/03/17 00:00 95 01/02/17 22:19 65 01/02/17 22:00 99 01/02/17 21:00 65 01/02/17 20:40 75 01/02/17 20:00 99.7 106 22 138/82 96 138/90 01/02/17 20:00 85 01/02/17 20:00 107 01/02/17 19:30 100 01/02/17 19:27 96 100 01/02/17 19:00 40 01/02/17 18:00 107 01/02/17 18:00 110 155/91 123/100 01/02/17 16:00 98 26 110/72 100 109/76 01/02/17 16:00 91 01/02/17 16:00 40 01/02/17 15:20 93 40 01/02/17 14:00 107 01/02/17 13:00 40 01/02/17 12:56 94 40 01/02/17 12:00 91 01/02/17 12:00 98 26 110/72 100 111/89 01/02/17 10:27 94 40 01/02/17 10:00 110 Exam Comments morbidly obese. intubated. on propofol gtt, hep gtt, eomi, ou 2.5mm sluggish, in ue restraints, not moving any extremity Objective Micro and Labs Laboratory Tests Test 01/02/17 01/02/17 01/02/17 01/02/17 13:03 13:13 17:22 21:55 Activated Partial 32.4 40.6 53.9 Thromboplast Time D-Dimer Quantitative (PE/DVT) 5.72 Test 01/03/17 01/03/17 04:30 04:50 White Blood Count 11.1 Red Blood Count 3.24 Hemoglobin 9.5 Hematocrit 27.6 Mean Corpuscular Volume 85.2 Mean Corpuscular Hemoglobin 29.3 Mean Corpuscular Hemoglobin 34.4 Concent Red Cell Distribution Width 14.2 Platelet Count 162 Mean Platelet Volume 6.7 Neutrophils (%) (Auto) 77.4 Lymphocytes (%) (Auto) 16.6 Monocytes (%) (Auto) 5.6 Eosinophils (%) (Auto) 0.2 Basophils (%) (Auto) 0.2 Neutrophils # (Auto) 8.6 Lymphocytes # (Auto) 1.8 Monocytes # (Auto) 0.6 Eosinophils # (Auto) 0.0 Basophils # (Auto) 0.0 CBC Comment DIFF FINAL Differential Comment Activated Partial 74.5 Thromboplast Time Sodium Level 138 Potassium Level 4.1 Chloride Level 102 Carbon Dioxide Level 31.4 Anion Gap 5 Blood Urea Nitrogen 17 Creatinine 0.87 Estimat Glomerular Filtration 68 Rate Random Glucose 113 Calcium Level 7.8 Phosphorus Level 4.3 Magnesium Level 2.6 Total Bilirubin 0.9 Direct Bilirubin 0.6 Indirect Bilirubin 0.3 Aspartate Amino Transf 44 (AST/SGOT) Alanine Aminotransferase 64 (ALT/SGPT) Alkaline Phosphatase 135 Total Protein 5.5 Albumin 1.9 Blood Gas Puncture Site MAGED Blood Gas Patient Temperature 98.6 Blood Gas HCO3 25 Blood Gas Base Excess 1.0 Blood Gas Oxygen Saturation 95 Arterial Blood pH 7.44 Arterial Blood Partial 37 Pressure CO2 Arterial Blood Partial 90 Pressure O2 Arterial Blood Oxygen Content 14.5 Arterial Blood 1.4 Carboxyhemoglobin Arterial Blood Methemoglobin 1.1 Blood Gas Hemoglobin 10.8 Oxygen Delivery Device VENTILATOR Blood Gas Ventilator Setting SEE COMMENT Blood Gas Inspired Oxygen 45 Date/Time Procedure Status Source Growth 01/03/17 05:30 Stool Occult Blood (SHAR) Received Stool Stool Pending 12/31/16 12:20 Urine Culture - Final Complete Urine Catheterized Urine NO GROWTH IN 48 HOURS. 12/31/16 11:30 Aerobic Blood Culture - Preliminary Resulted Blood Peripheral NO GROWTH IN 2 DAYS 12/31/16 11:30 Anaerobic Blood Culture - Preliminary Resulted Blood Peripheral NO GROWTH IN 2 DAYS 12/30/16 16:30 Gram Stain - Final Complete Sputum Endotracheal 12/30/16 16:30 Sputum Culture - Final Complete Sputum Endotracheal LIGHT GROWTH NORMAL RESPIRATORY JUVE Problem Qualifiers (1) Acute pulmonary embolus: Qualified Code: I26.09 - Other acute pulmonary embolism with acute cor pulmonale Dk Frias MD Jan 03, 2017 08:56 Dk Frias MD Jan 03, 2017 08:56
[2017-01-03] MEDS ORDERED: IOHEXOL 350 MG/ML 10 ML VIAL (for RAD DIAG) IV ONE (10:57)
--- NOTE | 2017-01-03 11:04 | RADRPT ---
EXAM DATE/TIME: 01/03/2017 10:37 [facility] COMPARISON: CT BRAIN W/O CONTRAST, December 29, 2016, 9:49. CT BRAIN W/O CONTRAST, January 01, 2017, 13:58. INDICATIONS : Follpw up stroke. Pulmonary embolism.. RADIATION DOSE: 56.35 CTDIvol (mGy) MEDICAL HISTORY : Hypertension. Hypertension. SURGICAL HISTORY : None. ENCOUNTER: Subsequent ACUITY: 3 days PAIN SCALE: Non-responsive LOCATION: cranial TECHNIQUE: Multiple contiguous axial images were obtained of the head. Using automated exposure control and adj ustment of the mA and/or kV according to patient size, radiation dose was kept as low as reasonably a chievable to obtain optimal diagnostic quality images. DICOM format image data is available electro nically for review and comparison. FINDINGS: The study is degraded by motion artifact. The large area of low density edema in the left fronta l and parietal lobes is not significantly changed. This measures up to approximately 6.5 x 4.1 cm in greatest AP and transverse diameter. The smaller area of edema in the right frontal lobe is stable as well. This measures up to approximately 3 x 2.7 cm in diameter. There is no new hemorrhage or mass e ffect. There is slight midline shift again noted to the right. The ventricular system remains stable in appearance. There is no acute high-density hemorrhage. The posterior fossa and brainstem remain st able. A benign cystic structure is again noted along the posterior aspect of the posterior fossa. Thi s potentially could represent an arachnoid cyst. The previously noted questionable area of low densit y in the left cerebellar hemisphere is no longer visualized and Bone windows are unremarkable. CONCLUSION: 1. Study is limited by motion artifact. 2. No significant change in the areas of edema likely from subacute infarction. 3. Slight midline shift to the right remains with no change in the ventricular system. 4. The questionable subtle area of low density in the left cerebellar hemisphere seen on the prior st udy is no longer distinctly visualized. Oswaldo Moody MD on January 03, 2017 at 10:51 Board Certified Radiologist. This report was verified electronically.
--- NOTE | 2017-01-03 11:56 | RADRPT ---
EXAM DATE/TIME: 01/03/2017 10:37 [facility] COMPARISON: CT BRAIN W/O CONTRAST, January 03, 2017, 10:37. CT BRAIN W/O CONTRAST, December 29, 2016, 9:49. CT BRA IN W/O CONTRAST, January 01, 2017, 13:58. INDICATIONS : Stroke. IV CONTRAST: 75 cc Omnipaque 350 (iohexol) IV ; Cumulative dose for multiple exams. RADIATION DOSE: 17.25 CTDIvol (mGy) ; Combined studies; Tabletop CT Head MEDICAL HISTORY : Hypertension. Diabetes mellitus type 2. SURGICAL HISTORY : None. ENCOUNTER: Initial ACUITY: 3 days PAIN SCALE: Non-responsive LOCATION: cranial TECHNIQUE: Volumetric scanning was performed using a multi-row detector CT scanner. The data was post processed with a variety of visualization algorithms including full volume maximum intensity projection, multi -planar sliding thin slab reformation, curved planar reformation, and surface rendering techniques. Using automated exposure control and adjustment of the mA and/or kV according to patient size, radiat ion dose was kept as low as reasonably achievable to obtain optimal diagnostic quality images. DICO M format image data is available electronically for review and comparison. FINDINGS: Both distal internal carotid arteries are patent. The vertebral arteries are patent. The basilar holger ry is patent. The appearance of the anterior and middle cerebral circulation is within normal limits. A larger cent ral vessel occlusion is seen. Posteriorly, the distal basilar is patent. Both posterior cerebrals are patent. CONCLUSION: No large or central vessel occlusion. Jd Cornelius MD on January 03, 2017 at 11:50 Board Certified Radiologist. This report was verified electronically.
--- NOTE | 2017-01-03 12:21 | RADRPT ---
EXAM DATE/TIME: 01/03/2017 10:37 [facility] COMPARISON: CT BRAIN W/O CONTRAST, January 01, 2017, 13:58. INDICATIONS : Stroke. IV CONTRAST: 75 cc Omnipaque 350 (iohexol) IV ; Cumulative dose for multiple exams. RADIATION DOSE: 17.40 CTDIvol (mGy) ; Combined studies MEDICAL HISTORY : Hypertension. Diabetes mellitus type 2. SURGICAL HISTORY : None. ENCOUNTER: Initial ACUITY: 3 days PAIN SCALE: Non-responsive LOCATION: neck Elevated flow velocities and ICA/CCA ratios have been found to correlate with increased degrees of vessel stenosis, calculated as percentage of diameter relative to a normal segment of distal ICA/CCA. TECHNIQUE: Volumetric scanning was performed using a multirow detector CT scanner. The data was post processed with a variety of visualization algorithms including full-volume maximum intensity projection, multip lanar sliding thin-slab reformation, curved-planar reformation, and surface-rendering techniques. Us ing automated exposure control and adjustment of the mA and/or kV according to patient size, radiatio n dose was kept as low as reasonably achievable to obtain optimal diagnostic quality images. DICOM f ormat image data is available electronically for review and comparison. FINDINGS: AORTIC ARCH: There is bovine branching of the great vessels from the arch. The origins of the great vessels are wi phi patent. RIGHT CAROTID: The common carotid artery is intact. The carotid bulb has a normal configuration without ulceration o r narrowing. The internal carotid artery lumen is smooth without stenosis. The external carotid holger ry is intact. LEFT CAROTID: The common carotid artery is intact. The carotid bulb has a normal configuration without ulceration or narrowing. The internal carotid artery lumen is smooth without stenosis. The external carotid ar karly is intact. VERTEBRALS: The vertebral arteries have a symmetric diameter. No stenotic lesions are seen. CONCLUSION: 1. No hemodynamically significant carotid artery stenosis identified. 2. The vertebrobasilar circulation appears widely patent. 3. Incidental note made of a 2.2 cm cystic thyroid nodule. Jd Cornelius MD on January 03, 2017 at 12:07 Board Certified Radiologist. This report was verified electronically.
--- NOTE | 2017-01-03 14:01 | HHI.CCPN ---
Subjective Remarks/Hospital Course Patient is a 56-year-old female without significant past medical history who presented to the [facility] Emergency Department with severe respiratory distress. Per ED records, the patient woke up this morning feeling short of breath. She denied any associated symptoms of chest pain, orthopnea, PND or edema of the lower extremities. On arrival to the emergency department, she was found hypoxic with saturation in the 70s on room air and tachycardiac with heart rate of 160. The patient was subsequently intubated with etomidate, succinylcholine and Versed and placed on full mechanical ventilation. ABG post- intubation showed severe respiratory acidosis with a pH of 7.15, CO2 51, pAO2 73 , bicarb 17, sats of 88% PRVC mode, rate of 24, tidal volume 500,IT: 1.0, PEEP of 20 with 100% FIO2. Chest x-ray showed no acute cardiopulmonary disease. The patient underwent a stat CT scan of the chest, which showed extensive bilateral pulmonary embolism. She also had CT scan of the brain, which showed no evidence of hemorrhage or mass effect. In ER she was given IV fluids 2 liters, Ativan, and placed on Diprivan infusion for sedation. 12/30 On arrival to ICU from patient became hemodynamically unstable and placed on multiple pressors. She is currently on Neosyn 100 mics, Vasopressin 0.04, Levophed 12 mics, Off Dobutamine. In addition she is sedated with Fentanyl, Diprivan and on Nimbex. At approx 3 am she developed right sided PTX and pig tail catheter was placed with resolution of PTX on repeat CXR. On PC/AC RR 28, IP: 18, IT:1.0, PEEP:10, FIO2 70%. On TPA 1mg/hr and Heparin drip. T;101.1 at 4am. 12/31 Patient remains sedated, intubated and on Nimbex. She had recurrent right sided PTX yesterday afternoon and a second pigtail catheter was placed with resolution of PTX. Off TPA and on heparin drip. She is off Levophed, Neosyn however remained on Vasopressin. Also, there is improvements in her O2 requirements and down to PEEP: 10 and FIO2 40%. T:101.1 last night 01/01 Patient is off all pressors, sedated with Diprivan and Fentanyl. Remains on Heparin drip. WBC is trending down. T:100.0 01/02: Tmax 100.6. Leukocytosis resolving. PEEP decreased to 5. Hemodynamically stable overnight 01/03: Tmax 99.2. No change in neurological status. Leukocytosis improving. Hit panel pending. Patient change to Argatroban infusion yesterday, remains in therapeutic range. Objective Vital Signs Date Time Temp Pulse Resp B/P Pulse Ox O2 Delivery O2 Flow Rate FiO2 01/03/17 12:12 95 40 01/03/17 06:00 81 01/03/17 04:31 130/71 140/78 01/03/17 04:00 98.6 22 Intake and Output 01/02/17 01/02/17 01/03/17 08:00 16:00 00:00 Intake Total 1321 ml 860 ml 1160 ml Output Total 610 ml 450 ml 1012 ml Balance 711 ml 410 ml 148 ml Result Diagram: 01/03/17 0430 01/03/17 0430 Other Results Laboratory Tests Test 01/03/17 04:50 Blood Gas Puncture Site MAGED Blood Gas Patient Temperature 98.6 Blood Gas HCO3 25 mmol/L (22-26) Blood Gas Base Excess 1.0 mmol/L (-2-2) Blood Gas Oxygen Saturation 95 % (90-100) Arterial Blood pH 7.44 (7.380-7.420) Arterial Blood Partial 37 mmHg (38-42) Pressure CO2 Arterial Blood Partial 90 mmHg Pressure O2 (61-120) Arterial Blood Oxygen Content 14.5 Vol % (12.0-20.0) Arterial Blood 1.4 % (0-4) Carboxyhemoglobin Arterial Blood Methemoglobin 1.1 % (0-2) Blood Gas Hemoglobin 10.8 G/DL (12.0-16.0) Oxygen Delivery Device VENTILATOR Blood Gas Ventilator Setting SEE COMMENT Blood Gas Inspired Oxygen 45 % Imaging Last Impressions Chest X-Ray 01/02/17 0000 Signed Impressions: Service Date/Time: Monday, January 02, 2017 04:24 - CONCLUSION: 1. Improved aeration left lower lung with residual patchy infiltrates. Stable patchy infiltrates right lower lung. 2. Interval development of soft tissue emphysema about the right anterior chest wall. 3. Blurring of the image limits evaluation for right pneumothorax. Some lung markings are seen into the right apex however. Karl Tan MD Head CT 01/01/17 Signed Impressions: Service Date/Time: Sunday, January 01, 2017 13:58 - CONCLUSION: 1. New areas of edema likely from infarction in the left frontoparietal region and right frontal regions. 2. Narrowing of the left lateral ventricle. Significant midline shift is not seen. The basal cisterns are open. 3. Questionable subtle area of low-density in the left cerebellar hemisphere which could potentially represent a small area of infarction. Oren Gamez MD Abdomen/Pelvis CT 01/01/17 Signed Impressions: Service Date/Time: Sunday, January 01, 2017 13:57 - CONCLUSION: 1. Pulmonary emboli with patchy areas of peripheral consolidation at the right lower lobe concerning for possible infarcts. 2. 2.4 cm focal splenic lesion. This is nonspecific. The most common splenic lesion to have this appearance would be a hemangioma. This can be followed up with an MRI examination in several months as an outpatient. 3. 1.7 cm large nonobstructing right renal stone. 4. Mild cystic change or possible area of infarction in the lateral right kidney with an area of cortical thinning and mild cystic change. 5. Left adnexal mass likely related to a dermoid given the large fat component. 6. Mild amount of free intraperitoneal fluid in the pelvis. 7. Scattered colonic diverticula in the sigmoid region without inflammatory change. 8. Catheter in the right femoral artery. Oren Gamez MD Liver Ultrasound 12/31/16 Signed Impressions: Service Date/Time: Saturday, December 31, 2016 15:09 - CONCLUSION: 1. Mildly increased echotexture of the liver characteristic of steatosis. No focal liver abnormality is identified. 2. Mild splenomegaly. Adjacent to the spleen and liver in the upper abdomen the group exercise manager reports a questionable mass. Consider abdomen and pelvis CT for further characterization. 3. Suspected 15 mm right renal stone. Oren Palafox MD Venogram 12/29/16 Signed Impressions: Service Date/Time: Thursday, December 29, 2016 11:26 - CONCLUSION: Uncomplicated bilateral venogram as above. No significant DVT in the legs on either side. No ileocaval thrombus. As such, I do not feel inferior vena caval filter placement is indicated prior to thrombolytic therapy and/or other therapy for the patient's pulmonary embolism. Oren Álvarez MD Lower Extremity Ultrasound 12/29/16 Signed Impressions: Service Date/Time: Thursday, December 29, 2016 10:56 - CONCLUSION: 1. Occlusive thrombus in the right posterior tibial vein. 2. Nonocclusive thrombus in the right common femoral vein and greater saphenous vein. 3. No deep venous thrombosis in the left lower extremity. Oswaldo Moody MD Central Venous Line 12/29/16 Signed Impressions: Service Date/Time: Thursday, December 29, 2016 11:26 - CONCLUSION: Uncomplicated ultrasound and fluoroscopic guided central line placement as above. Oren Álvarez MD CT Angiography 12/29/16 Signed Impressions: Service Date/Time: Thursday, December 29, 2016 10:01 - CONCLUSION: Extensive bilateral pulmonary embolism. These findings were discussed with the emergency room physician at 1009 hrs. Oswaldo Moody MD Last Impressions Liver Ultrasound 12/31/16 Signed Impressions: Service Date/Time: Saturday, December 31, 2016 15:09 - CONCLUSION: 1. Mildly increased echotexture of the liver characteristic of steatosis. No focal liver abnormality is identified. 2. Mild splenomegaly. Adjacent to the spleen and liver in the upper abdomen the group exercise manager reports a questionable mass. Consider abdomen and pelvis CT for further characterization. 3. Suspected 15 mm right renal stone. Oren Palafox MD Chest X-Ray 12/31/16 Signed Impressions: Service Date/Time: Saturday, December 31, 2016 09:17 - CONCLUSION: 1. Small bore chest tubes on the right in good position. No pneumothorax. 2. Central line, ET tube and NG tube in good position. 3. Atelectatic changes in the lung bases. Jd Cornelius MD Venogram 12/29/16 Signed Impressions: Service Date/Time: Thursday, December 29, 2016 11:26 - CONCLUSION: Uncomplicated bilateral venogram as above. No significant DVT in the legs on either side. No ileocaval thrombus. As such, I do not feel inferior vena caval filter placement is indicated prior to thrombolytic therapy and/or other therapy for the patient's pulmonary embolism. Oren Álvarez MD Lower Extremity Ultrasound 12/29/16 Signed Impressions: Service Date/Time: Thursday, December 29, 2016 10:56 - CONCLUSION: 1. Occlusive thrombus in the right posterior tibial vein. 2. Nonocclusive thrombus in the right common femoral vein and greater saphenous vein. 3. No deep venous thrombosis in the left lower extremity. Oswaldo Moody MD Head CT 12/29/16 Signed Impressions: Service Date/Time: Thursday, December 29, 2016 09:49 - CONCLUSION: 1. Suboptimal examination secondary to motion artifact. 2. No evidence of hemorrhage or mass effect identified. Oswaldo Moody MD Central Venous Line 12/29/16 Signed Impressions: Service Date/Time: Thursday, December 29, 2016 11:26 - CONCLUSION: Uncomplicated ultrasound and fluoroscopic guided central line placement as above. Oren Álvarez MD CT Angiography 12/29/16 Signed Impressions: Service Date/Time: Thursday, December 29, 2016 10:01 - CONCLUSION: Extensive bilateral pulmonary embolism. These findings were discussed with the emergency room physician at 1009 hrs. Oswaldo Moody MD Objective Remarks Infusions Argatroban 1.5 mcgs Fentanyl 150 mcgs/hour Diprivan 20 mcgs per kilo per hour BP 156/93 Pulse 87 O2 saturation 97% GENERAL: Patient is 56 yo female morbidly obese, critically ill intubated and sedated SKIN: Warm and dry. HEAD: Normocephalic. EYES: No scleral icterus. No injection or drainage. Pupils equal and reactive NECK: Supple, trachea midline. Unable to evaluate JVD or lymphadenopathy secondary to body habitus. Orally intubated CARDIOVASCULAR: Regular rate and rhythm without murmurs, gallops, or rubs. Telemetry sinus rhythm RESPIRATORY: Breath sounds equal bilaterally. No accessory muscle use. Chest tubes right in situ on 20 cm H20 suction GASTROINTESTINAL: Abdomen soft, obese .non-tender, nondistended. MUSCULOSKELETAL: No cyanosis, or edema. Neuro: GCS 3T .Sedated on propofol and fentanyl infusions A/P Assessment and Plan 1. Acute hypoxemic hypercapnic respiratory failure requiring intubation 2 Distributive shock 3. Extensive bilateral pulmonary embolism. 4. DVT RLE 5 Lactic acidemia 6 EKATERINA 7 Elevated trop...2nd PE 8 Leukocytosis, 9 UTI 10. Hyperglycemia. 11 Morbid obesity Obesity. 12 Right sided PTX s/p pig tail catheter placement 13 Elevated LFT's 14. Fatty liver Plan Neuro: On Diprivan and Fentanyl infusion for sedation. Perform daily Sedation vacation CT brain in ED negative for acute intracranial process. 01/01Repeat CT brain today showed infarct frontal lobes bilateral L>R MCA embolic stroke ,likely 2nd hypoperfusion . F/U EEG Neurology followingDrWaldo Frias- unable to perform MRI secondary to instability at this time Concern for transformation to ICH, secondary to anticoagulation therapy 01/[address] brain-no change in slight midline shift, no change in edema secondary to subacute infarction 01/03 CTA brain no central vessel occlusion, CTA neck-no significant carotid artery stenosis. Vertebrobasilar artery system widely patent. Pulm: Continue with vent support and maintain sats > 92%. Bronchodilators, ICU vent bundle. CPAP trials as tolerated On PC/AC RR 18, IP:20, IT:1.0, PEEP:5, FIO2 40%. Decrease rate pigtail catheter was placed 12/30 in afternoon for recurrent PTX. s/p pigtail catheter placement for right sided PTX morning of 12/30 CXR: 12/31: Atelectasis Off TPA, continue with Argatroban infusion per PE protocol. Hypercoagulable workup in process. 01/02-HIT panel pending CV: monitor HR and BP maintain MAP> 65 mmHg. Taper steroids- HC 50mg IV Q12 Serial lactic acid monitoring -cleared Echo showed mid dilated RV with mod. decrease in systolic function, PAP 41mmHg, LV is not well visualized. No EF reported 01/02 Repeat ECHO w/ bubble study- pending 01/02 Carotid doppler studies : Monitor renal function, intake and output and electrolyte replacement as needed. Electrolytes pending this a.m. replete per ICU protocol GI: On Protonix 40 milligrams IV daily for GI prophylaxis. On tube feeds ( Glucerna 1.5 with goal rate 45ml/hr)- minimal residuals US Liver: Mildly increased echotexture of the liver characteristic of steatosis. No focal liver abnormality is identified. Mild splenomegaly. Adjacent to the spleen and liver in the upper abdomen the group exercise manager reports a ? mass. Will get CT abdomen/pelvis r/o abd masses ID:Continue with abx (Zosyn) ID is following, Monitor for signs of infections( fever and WBCs). WBC is trending down urine cx: Proteus mirabilis, strep mutans Endo: SSI with Accu-Chek for glycemic control q. 4 hours. Heme: Monitor CBC and coags/Fibrinogen( Fibrinogen level 205) Heparin infusion per PE protocol, discontinue begin Argatroban Doppler US LE: DVT RLE Hematologyoncology [id number] procoagulant studies GI prophylaxis with Protonix 40 mg daily and DVT prophylaxis- on Argatroban infusion Lines: Right subclavian CVP placed by IR 12/29, femoral arterial line Dispo: Discussed with MARKET EDITOR at bedside. Discussed with Heme- Onc Dr. Ruiz. Palliative care consulted to define goals of care. This patient remains critically ill with one or more organ systems which are or may become a threat to life. I have spent in excess of 30 minutes discontinuously in the care and management of this patient. This time is exclusive of procedures, and includes, but is not limited to, evaluation of the patient, review of the medical record, discussions with family, consultants, nursing staff, or respiratory therapy, and documentation in the medical record. Physician Sulema Faulkner MD Jan 03, 2017 14:01
--- NOTE | 2017-01-03 14:40 | HHI.HCPN ---
Reason for visit a. To assist with evaluation and management of symptoms including: dyspnea, pain. b. To assist medical decision maker(s) with: better understanding of current medical conditions; weighing benefits/burdens of medical treatment options; making medical treatment decisions. . Subjective/Interval History Patient seen and examined in ICU. No family at bedside. Nurse, Mica at bedside. Patient just returned from repeat CT head. Respirations appear agonal with accessory muscle use on mech vent. Oxygen saturation 95% on FiO2 40%. Patient had a bowel movement today. WBC 11.1, hemoglobin 9.5, platelets 162. Creatinine 0.87. Albumin 1.9. On Argatroban. . Family/friend interactions Attempted to call mother and significant other, unable to leave a message at either number. . Advance Directives Living Will: Never completed Health Care Surrogate: Never completed Durable Power of Setter Up: Never completed Advance Directive Specifics Health Care Surrogate(s): According to [place] statutes, health care proxy decision-making falls to the patient's mother, Gabby Sadler. . Significant change in goals: FULL CODE. Goals remain aggressive. . Objective Vital Signs Date Time Temp Pulse Resp B/P Pulse Ox O2 Delivery O2 Flow Rate FiO2 01/03/17 12:12 95 40 01/03/17 07:39 95 40 01/03/17 06:00 81 01/03/17 04:31 84 130/71 140/78 01/03/17 04:14 45 01/03/17 04:06 95 45 01/03/17 04:00 79 01/03/17 04:00 98.6 81 22 127/71 94 124/69 01/03/17 03:00 50 01/03/17 02:00 85 01/03/17 01:30 55 01/03/17 01:28 97 55 01/03/17 00:00 95 106/79 102/75 01/03/17 00:00 99.1 106 22 110/70 97 120/68 01/03/17 00:00 65 01/03/17 00:00 95 01/02/17 22:19 65 01/02/17 22:00 99 01/02/17 21:00 65 01/02/17 20:40 75 01/02/17 20:00 99.7 106 22 138/82 96 138/90 01/02/17 20:00 85 01/02/17 20:00 107 01/02/17 19:30 100 01/02/17 19:27 96 100 01/02/17 19:00 40 01/02/17 18:00 107 01/02/17 18:00 110 155/91 123/100 01/02/17 16:00 98 26 110/72 100 109/76 01/02/17 16:00 91 01/02/17 16:00 40 01/02/17 15:20 93 40 Intake & Output 01/03/17 01/03/17 07:00 19:00 Intake Total 1680 ml 487 ml Output Total 1782 ml 462 ml Balance -102 ml 25 ml IV Total 1480 ml 455 ml Tube Feeding 200 ml 32 ml Output Urine Total 1550 ml 450 ml Gastric Drainage Total 220 ml Chest Tube Drainage Total 12 ml 12 ml # Bowel Movements 0 1 Physical Exam CONSTITUTIONAL/GENERAL: This is an adequately nourished patient, intubated on mechanical ventilation. TUBES/LINES/DRAINS: ETT, OG, right subclavian central line, right chest tube x 2 , PIV right hand, right femoral A-line, Mcdaniel, podus boots. SKIN: No jaundice, rashes, or lesions. Ecchymoses on upper extremities. No wounds seen anteriorly. Skin temperature appropriate. Not diaphoretic. EYES: eyes closed. ENT: Unable to assess hearing. Nose without bleeding or purulent drainage. Difficult to visualize Throat due to tubes. Bloody/ brownish secretions noted in suction tubing. CARDIOVASCULAR: Regular rate and rhythm without murmurs, gallops, or rubs. Peripheral pulses symmetric. RESPIRATORY/CHEST: Symmetric, labored, agonal respirations on vent. Diminished. right chest tubes x 2. GASTROINTESTINAL: Abdomen soft, protuberant, nondistended. Bowel sounds present. GENITOURINARY: Without palpable bladder distension. Mcdaniel catheter in place. MUSCULOSKELETAL: Extremities x 4 with edema. No mottling or clubbing. NEUROLOGICAL: Sedated. Does not follow commands. PSYCHIATRIC: Sedated. Diagnostic Tests Laboratory Laboratory Tests Test 01/01/17 01/02/17 01/02/17 01/02/17 05:45 03:00 06:00 13:03 White Blood Count 18.5 TH/MM3 12.9 TH/MM3 (4.0-11.0) (4.0-11.0) Red Blood Count 3.56 MIL/MM3 3.23 MIL/MM3 (4.00-5.30) (4.00-5.30) Hemoglobin 10.5 GM/DL 9.5 GM/DL (11.6-15.3) (11.6-15.3) Hematocrit 29.8 % 27.2 % (35.0-46.0) (35.0-46.0) Mean Corpuscular Volume 83.6 FL 84.2 FL (80.0-100.0) (80.0-100.0) Mean Corpuscular Hemoglobin 29.4 PG 29.3 PG (27.0-34.0) (27.0-34.0) Mean Corpuscular Hemoglobin 35.2 % 34.8 % Concent (32.0-36.0) (32.0-36.0) Red Cell Distribution Width 13.5 % 13.9 % (11.6-17.2) (11.6-17.2) Platelet Count 127 TH/MM3 141 TH/MM3 (150-450) (150-450) Mean Platelet Volume 6.7 FL 7.0 FL (7.0-11.0) (7.0-11.0) Neutrophils (%) (Auto) 76.4 % 71.7 % (16.0-70.0) (16.0-70.0) Lymphocytes (%) (Auto) 17.7 % 21.8 % (9.0-44.0) (9.0-44.0) Monocytes (%) (Auto) 5.8 % (0.0-8.0) 6.1 % (0.0-8.0) Eosinophils (%) (Auto) 0.0 % (0.0-4.0) 0.2 % (0.0-4.0) Basophils (%) (Auto) 0.1 % (0.0-2.0) 0.2 % (0.0-2.0) Neutrophils # (Auto) 14.1 TH/MM3 9.2 TH/MM3 (1.8-7.7) (1.8-7.7) Lymphocytes # (Auto) 3.3 TH/MM3 2.8 TH/MM3 (1.0-4.8) (1.0-4.8) Monocytes # (Auto) 1.1 TH/MM3 0.8 TH/MM3 (0-0.9) (0-0.9) Eosinophils # (Auto) 0.0 TH/MM3 0.0 TH/MM3 (0-0.4) (0-0.4) Basophils # (Auto) 0.0 TH/MM3 0.0 TH/MM3 (0-0.2) (0-0.2) CBC Comment DIFF FINAL DIFF FINAL Differential Comment Activated Partial 51.3 SEC 44.3 SEC 32.4 SEC Thromboplast Time (24.3-30.1) (24.3-30.1) (24.3-30.1) Sodium Level 135 MEQ/L 139 MEQ/L (136-145) (136-145) Potassium Level 3.2 MEQ/L 3.6 MEQ/L (3.5-5.1) (3.5-5.1) Chloride Level 99 MEQ/L 103 MEQ/L (98-107) (98-107) Carbon Dioxide Level 26.9 MEQ/L 24.9 MEQ/L (21.0-32.0) (21.0-32.0) Anion Gap 9 MEQ/L (5-15) 11 MEQ/L (5-15) Blood Urea Nitrogen 13 MG/DL (7-18) 15 MG/DL (7-18) Creatinine 1.19 MG/DL 1.08 MG/DL (0.50-1.00) (0.50-1.00) Estimat Glomerular Filtration 47 ML/MIN (>89) 53 ML/MIN (>89) Rate Random Glucose 136 MG/DL 131 MG/DL (74-106) (74-106) Calcium Level 7.5 MG/DL 7.7 MG/DL (8.5-10.1) (8.5-10.1) Phosphorus Level 1.3 MG/DL 2.8 MG/DL (2.5-4.9) (2.5-4.9) Magnesium Level 2.2 MG/DL 2.5 MG/DL (1.5-2.5) (1.5-2.5) Haptoglobin 241 MG/DL (30-200) Total Bilirubin 0.8 MG/DL (0.2-1.0) Aspartate Amino Transf 57 U/L (15-37) (AST/SGOT) Alanine Aminotransferase 70 U/L (10-53) (ALT/SGPT) Alkaline Phosphatase 89 U/L (45-117) Total Protein 5.2 GM/DL (6.4-8.2) Albumin 1.9 GM/DL (3.4-5.0) Blood Smear Pathologist Review Prothrombin Time 10.9 SEC (9.8-11.6) Prothromb Time International 1.0 RATIO Ratio Fibrinogen 623 mg/dL (227-377) Test 01/02/17 01/02/17 01/02/17 01/03/17 13:13 17:22 21:55 04:30 D-Dimer Quantitative (PE/DVT) 5.72 MG/L FEU (0.00-0.50) Activated Partial 40.6 SEC 53.9 SEC 74.5 SEC Thromboplast Time (24.3-30.1) (24.3-30.1) (24.3-30.1) White Blood Count 11.1 TH/MM3 (4.0-11.0) Red Blood Count 3.24 MIL/MM3 (4.00-5.30) Hemoglobin 9.5 GM/DL (11.6-15.3) Hematocrit 27.6 % (35.0-46.0) Mean Corpuscular Volume 85.2 FL (80.0-100.0) Mean Corpuscular Hemoglobin 29.3 PG (27.0-34.0) Mean Corpuscular Hemoglobin 34.4 % Concent (32.0-36.0) Red Cell Distribution Width 14.2 % (11.6-17.2) Platelet Count 162 TH/MM3 (150-450) Mean Platelet Volume 6.7 FL (7.0-11.0) Neutrophils (%) (Auto) 77.4 % (16.0-70.0) Lymphocytes (%) (Auto) 16.6 % (9.0-44.0) Monocytes (%) (Auto) 5.6 % (0.0-8.0) Eosinophils (%) (Auto) 0.2 % (0.0-4.0) Basophils (%) (Auto) 0.2 % (0.0-2.0) Neutrophils # (Auto) 8.6 TH/MM3 (1.8-7.7) Lymphocytes # (Auto) 1.8 TH/MM3 (1.0-4.8) Monocytes # (Auto) 0.6 TH/MM3 (0-0.9) Eosinophils # (Auto) 0.0 TH/MM3 (0-0.4) Basophils # (Auto) 0.0 TH/MM3 (0-0.2) CBC Comment DIFF FINAL Differential Comment Sodium Level 138 MEQ/L (136-145) Potassium Level 4.1 MEQ/L (3.5-5.1) Chloride Level 102 MEQ/L (98-107) Carbon Dioxide Level 31.4 MEQ/L (21.0-32.0) Anion Gap 5 MEQ/L (5-15) Blood Urea Nitrogen 17 MG/DL (7-18) Creatinine 0.87 MG/DL (0.50-1.00) Estimat Glomerular Filtration 68 ML/MIN (>89) Rate Random Glucose 113 MG/DL (74-106) Calcium Level 7.8 MG/DL (8.5-10.1) Phosphorus Level 4.3 MG/DL (2.5-4.9) Magnesium Level 2.6 MG/DL (1.5-2.5) Total Bilirubin 0.9 MG/DL (0.2-1.0) Direct Bilirubin 0.6 MG/DL (0.0-0.2) Indirect Bilirubin 0.3 MG/DL (0.0-0.8) Aspartate Amino Transf 44 U/L (15-37) (AST/SGOT) Alanine Aminotransferase 64 U/L (10-53) (ALT/SGPT) Alkaline Phosphatase 135 U/L (45-117) Total Protein 5.5 GM/DL (6.4-8.2) Albumin 1.9 GM/DL (3.4-5.0) Test 01/03/17 04:50 Blood Gas Puncture Site MAGED Blood Gas Patient Temperature 98.6 Blood Gas HCO3 25 mmol/L (22-26) Blood Gas Base Excess 1.0 mmol/L (-2-2) Blood Gas Oxygen Saturation 95 % (90-100) Arterial Blood pH 7.44 (7.380-7.420) Arterial Blood Partial 37 mmHg (38-42) Pressure CO2 Arterial Blood Partial 90 mmHg Pressure O2 (61-120) Arterial Blood Oxygen Content 14.5 Vol % (12.0-20.0) Arterial Blood 1.4 % (0-4) Carboxyhemoglobin Arterial Blood Methemoglobin 1.1 % (0-2) Blood Gas Hemoglobin 10.8 G/DL (12.0-16.0) Oxygen Delivery Device VENTILATOR Blood Gas Ventilator Setting SEE COMMENT Blood Gas Inspired Oxygen 45 % Result Diagram: 01/03/17 0430 01/03/17 0430 Microbiology Microbiology Date/Time Procedure Status Source Growth 01/03/17 05:30 Stool Occult Blood (SHAR) Ordered Stool Stool Pending . Imaging Last Impressions Chest X-Ray 01/03/17 0600 Signed Impressions: Service Date/Time: December 03:22 - CONCLUSION: Patchy infiltrates in the lungs. No evidence pneumothorax. Karl Tan MD Neck CTA 01/03/17 0000 Signed Impressions: Service Date/Time: December 10:37 - CONCLUSION: 1. No hemodynamically significant carotid artery stenosis identified. 2. The vertebrobasilar circulation appears widely patent. 3. Incidental note made of a 2.2 cm cystic thyroid nodule. Jd Cornelius MD Head CTA 01/03/17 0000 Signed Impressions: Service Date/Time: December 10:37 - CONCLUSION: No large or central vessel occlusion. Jd Cornelius MD Head CT 01/03/17 0000 Signed Impressions: Service Date/Time: December 10:37 - CONCLUSION: 1. Study is limited by motion artifact. 2. No significant change in the areas of edema likely from subacute infarction. 3. Slight midline shift to the right remains with no change in the ventricular system. 4. The questionable subtle area of low density in the left cerebellar hemisphere seen on the prior study is no longer distinctly visualized. Oswaldo Moody MD Carotid Artery Ultrasound 01/02/17 1308 Signed Impressions: Service Date/Time: Monday, January 02, 2017 14:02 - CONCLUSION: 1. There is elevation of the velocity in the distal left internal carotid artery. The proximal ICA shows normal velocities. I see no appreciable plaque within the area of concern. I cannot completely exclude a 50-69%% stenosis of the distal left ICA. Consider CTA of the carotid arteries to further evaluate. 2. 2.4 cm cystic nodule involving the right lobe of the thyroid. Karl Oliver Jr., MD Upper Extremity Ultrasound 01/02/17 Signed Impressions: Service Date/Time: Monday, January 02, 2017 14:26 - CONCLUSION: 1. Occlusive and nonocclusive thrombus in the right cephalic vein. 2. No left upper extremity venous thrombosis. Oswaldo Moody MD Lower Extremity Ultrasound 01/02/17 Signed Impressions: Service Date/Time: Monday, January 02, 2017 13:33 - CONCLUSION: 1. Occlusive thrombus in the right posterior tibial vein. 2. Nonocclusive thrombus in the right common femoral vein, greater saphenous vein and peroneal veins. 3. No deep venous thrombosis in the left lower extremity. Oswaldo Moody MD Abdomen/Pelvis CT 01/01/17 Signed Impressions: Service Date/Time: Sunday, January 01, 2017 13:57 - CONCLUSION: 1. Pulmonary emboli with patchy areas of peripheral consolidation at the right lower lobe concerning for possible infarcts. 2. 2.4 cm focal splenic lesion. This is nonspecific. The most common splenic lesion to have this appearance would be a hemangioma. This can be followed up with an MRI examination in several months as an outpatient. 3. 1.7 cm large nonobstructing right renal stone. 4. Mild cystic change or possible area of infarction in the lateral right kidney with an area of cortical thinning and mild cystic change. 5. Left adnexal mass likely related to a dermoid given the large fat component. 6. Mild amount of free intraperitoneal fluid in the pelvis. 7. Scattered colonic diverticula in the sigmoid region without inflammatory change. 8. Catheter in the right femoral artery. Oren Gamez MD Liver Ultrasound 12/31/16 0000 Signed Impressions: Service Date/Time: Saturday, December 31, 2016 15:09 - CONCLUSION: 1. Mildly increased echotexture of the liver characteristic of steatosis. No focal liver abnormality is identified. 2. Mild splenomegaly. Adjacent to the spleen and liver in the upper abdomen the back hoe machine operator reports a questionable mass. Consider abdomen and pelvis CT for further characterization. 3. Suspected 15 mm right renal stone. Oren Palafox MD Venogram 12/29/16 0000 Signed Impressions: Service Date/Time: Thursday, December 29, 2016 11:26 - CONCLUSION: Uncomplicated bilateral venogram as above. No significant DVT in the legs on either side. No ileocaval thrombus. As such, I do not feel inferior vena caval filter placement is indicated prior to thrombolytic therapy and/or other therapy for the patient's pulmonary embolism. Oren Álvarez MD Central Venous Line 12/29/16 0000 Signed Impressions: Service Date/Time: Thursday, December 29, 2016 11:26 - CONCLUSION: Uncomplicated ultrasound and fluoroscopic guided central line placement as above. Oren Álvarez MD CT Angiography 12/29/16 0000 Signed Impressions: Service Date/Time: Thursday, December 29, 2016 10:01 - CONCLUSION: Extensive bilateral pulmonary embolism. These findings were discussed with the emergency room physician at 1009 hrs. Oswaldo Moody MD . Procedures * Right pigtail chest tube x 2 * Right subclavian central line basement * right femoral A-line placement * 12/29/16 intubated Assessment and Plan Disease Oriented Problem List: (1) Acute embolic stroke (2) Acute pulmonary embolus (3) Acute hypoxemic respiratory failure (4) Shock circulatory Symptom Scale: (1) Pain 0-10 Scale: Unable to quantify Comment: possible sources include PE, DVT, tubes, lines, bedbound status, stroke. Sedated Fentanyl and Propofol. (2) Dyspnea 0-10 Scale: Unable to quantify Comment: remains on [facility] vent. Pertinent Non-Medical Issues Psychosocial: lives with significant other. Not legally . No biological children. Mother alive, lives out of state. Spiritual: Scientologist rojas. Welcomes vp analytics support. Legal: According to [place] statutes, health care proxy decision-making would fall to the patient's mother, Gabby Salder. She is willing to serve as HCP. Ethical issues impacting care: no known concerns at this time. . Important Contacts * Gabby Sadler, mother: [phone] * Anastacio Kirk, significant other: [phone] * Stella Granados boss: [phone] . Prognosis Will need to speak with medical team for further prognostication. Code Status: Full Code Plan * Decision Maker: Single. No children. Has a significant other, not legally . Mother is alive. Has 1 brother, Dorian. According to [place] statutes, health care proxy decision-making falls to the patient's mother, Gabby Sadler. Mother is willing to serve as health care proxy decision maker. * FULL CODE - mother is considering code status. * Palliative care spoke with mother, Gabby she is willing to serve as health care proxy decision maker. Update provided. She wants to speak with her son and is considering code status. Mother permits me to provide medical information to Bill (significant other) and Stella (her boss). * SYMPTOMS: Pain: possible sources include PE, DVT, tubes, lines, bedbound status, stroke. Sedated Fentanyl and Propofol. Dyspnea: sedated on mech vent. No new medication recommendations at this time. * Palliative care number provided. * Palliative care will continue to follow throughout hospital course to assist with symptom management and clarification of goals as needed. . Attestation To help prompt me to consider important information that might be impacting today's encounter and assessment, information from prior notes written by myself or my colleagues may have been "brought forward" into today's note. My signature on this note, however, is an attestation that I personally performed the exam, history, and/or decision-making noted today, and, unless otherwise indicated, the interactions with patient, family, and staff as well as the review of records all occurred today. I also attest that the listed assessment and stated plan reflect my best clinical judgment today based on the combination of historical information, prior notes, and today's exam/ interactions. When time spent is documented, it refers only to time spent today by the signer, or if indicated, combined time spent today by collaborating physician/nurse practitioner. Kristen Casillas Jan 03, 2017 14:40
[2017-01-03 15:00] LABS: HEPARIN AB OD 0.075 O.D. (0.000-0.300); HEPARIN INDUCED PLATELET AB NEGATIVE (NEGATIVE)
--- NOTE | 2017-01-03 15:48 | HHI.IDPN ---
Subjective Subjective Remarks Patient is a 56-year-old female with no significant past medical history, brought into the hospital for further evaluation of severe shortness of breath. She was apparently okay and was not having any problem until the day of admission when she woke up and she had significant shortness of breath. There was no other complaint as far as chest pain, cough, or any previous history of shortness of breath. Evaluation in the ED showed significant hypoxemia, and tachycardia. She ended up getting intubated. CT of the chest showed evidence of massive bilateral pulmonary embolism. She underwent lytic therapy. She was initially on pressors, and currently she is not on any blood pressure support. His December 30 she's been having fevers, and the last time she had any fever was around 2:00 this morning. She is currently sedated on the vent. Her FiO2 is down to 40%. She also had an elevated WBC. Her urinalysis showed evidence of pyuria, and her urine cultures growing gram-negative nereida. Blood cultures are negative so far. Her chest x-ray on admission did not show any acute pulmonary disease, and subsequent chest x-ray showing some atelectasis. Infectious disease consultation has been requested to evaluate the patient with fevers. She is currently on Zosyn and vancomycin. Notes reviewed Temps better On the vent, does not breathe over the vent Off pressors CT head with bilateral infarcts - looks fairly big (not the typical septic embolic lesions) CT A/P noted UC Strep and Proteus BC negative Sputum normal caron Echo not good study Antibiotics Zosyn Lines RSC TLC Past Medical History Not known Allergies: Coded Allergies: No Known Allergies (Verified , 11/17/16) Objective . Vital Signs Date Time Temp Pulse Resp B/P Pulse Ox O2 Delivery O2 Flow Rate FiO2 01/03/17 12:12 95 40 01/03/17 07:39 95 40 01/03/17 06:00 81 01/03/17 04:31 84 130/71 140/78 01/03/17 04:14 45 01/03/17 04:06 95 45 01/03/17 04:00 79 01/03/17 04:00 98.6 81 22 127/71 94 124/69 01/03/17 03:00 50 01/03/17 02:00 85 01/03/17 01:30 55 01/03/17 01:28 97 55 01/03/17 00:00 95 106/79 102/75 01/03/17 00:00 99.1 106 22 110/70 97 120/68 01/03/17 00:00 65 01/03/17 00:00 95 01/02/17 22:19 65 01/02/17 22:00 99 01/02/17 21:00 65 01/02/17 20:40 75 01/02/17 20:00 99.7 106 22 138/82 96 138/90 01/02/17 20:00 85 01/02/17 20:00 107 01/02/17 19:30 100 01/02/17 19:27 96 100 01/02/17 19:00 40 01/02/17 18:00 107 01/02/17 18:00 110 155/91 123/100 01/02/17 16:00 98 26 110/72 100 109/76 01/02/17 16:00 91 01/02/17 16:00 40 01/02/17 01/02/17 01/03/17 14:59 22:59 06:59 Intake Total 860 ml 1160 ml 520 ml Output Total 450 ml 1012 ml 770 ml Balance 410 ml 148 ml -250 ml IV Total 760 ml 1000 ml 480 ml Tube Feeding 100 ml 160 ml 40 ml Output Urine Total 450 ml 1000 ml 550 ml Gastric Drainage Total 220 ml Chest Tube Drainage Total 12 ml 0 ml # Bowel Movements 0 0 0 . Laboratory Tests Test 01/02/17 01/02/17 01/03/17 03:00 06:00 04:30 Haptoglobin 241 MG/DL White Blood Count 12.9 TH/MM3 11.1 TH/MM3 Red Blood Count 3.23 MIL/MM3 3.24 MIL/MM3 Hemoglobin 9.5 GM/DL 9.5 GM/DL Hematocrit 27.2 % 27.6 % Mean Corpuscular Volume 84.2 FL 85.2 FL Mean Corpuscular Hemoglobin 29.3 PG 29.3 PG Mean Corpuscular Hemoglobin 34.8 % 34.4 % Concent Red Cell Distribution Width 13.9 % 14.2 % Platelet Count 141 TH/MM3 162 TH/MM3 Mean Platelet Volume 7.0 FL 6.7 FL Neutrophils (%) (Auto) 71.7 % 77.4 % Lymphocytes (%) (Auto) 21.8 % 16.6 % Monocytes (%) (Auto) 6.1 % 5.6 % Eosinophils (%) (Auto) 0.2 % 0.2 % Basophils (%) (Auto) 0.2 % 0.2 % Neutrophils # (Auto) 9.2 TH/MM3 8.6 TH/MM3 Lymphocytes # (Auto) 2.8 TH/MM3 1.8 TH/MM3 Monocytes # (Auto) 0.8 TH/MM3 0.6 TH/MM3 Eosinophils # (Auto) 0.0 TH/MM3 0.0 TH/MM3 Basophils # (Auto) 0.0 TH/MM3 0.0 TH/MM3 CBC Comment DIFF FINAL DIFF FINAL Differential Comment Blood Smear Pathologist Review Laboratory Tests Test 01/02/17 01/03/17 03:00 04:30 Sodium Level 139 MEQ/L 138 MEQ/L Potassium Level 3.6 MEQ/L 4.1 MEQ/L Chloride Level 103 MEQ/L 102 MEQ/L Carbon Dioxide Level 24.9 MEQ/L 31.4 MEQ/L Anion Gap 11 MEQ/L 5 MEQ/L Blood Urea Nitrogen 15 MG/DL 17 MG/DL Creatinine 1.08 MG/DL 0.87 MG/DL Estimat Glomerular Filtration 53 ML/MIN 68 ML/MIN Rate Random Glucose 131 MG/DL 113 MG/DL Calcium Level 7.7 MG/DL 7.8 MG/DL Phosphorus Level 2.8 MG/DL 4.3 MG/DL Magnesium Level 2.5 MG/DL 2.6 MG/DL Total Bilirubin 0.8 MG/DL 0.9 MG/DL Aspartate Amino Transf 57 U/L 44 U/L (AST/SGOT) Alanine Aminotransferase 70 U/L 64 U/L (ALT/SGPT) Alkaline Phosphatase 89 U/L 135 U/L Total Protein 5.2 GM/DL 5.5 GM/DL Albumin 1.9 GM/DL 1.9 GM/DL Direct Bilirubin 0.6 MG/DL Indirect Bilirubin 0.3 MG/DL Microbiology Date/Time Procedure Status Source Growth 01/03/17 05:30 Stool Occult Blood (SHAR) Ordered Stool Stool Pending 01/03/17 11:28 Stool Occult Blood (SHAR) Received Stool Stool Pending Imaging Chest X-Ray 01/02/17 0000 Signed Impressions: Service Date/Time: Monday, January 02, 2017 04:24 - CONCLUSION: 1. Improved aeration left lower lung with residual patchy infiltrates. Stable patchy infiltrates right lower lung. 2. Interval development of soft tissue emphysema about the right anterior chest wall. 3. Blurring of the image limits evaluation for right pneumothorax. Some lung markings are seen into the right apex however. Karl Tan MD Head CT 01/01/17 0000 Signed Impressions: Service Date/Time: Sunday, January 01, 2017 13:58 - CONCLUSION: 1. New areas of edema likely from infarction in the left frontoparietal region and right frontal regions. 2. Narrowing of the left lateral ventricle. Significant midline shift is not seen. The basal cisterns are open. 3. Questionable subtle area of low-density in the left cerebellar hemisphere which could potentially represent a small area of infarction. Oren Gamez MD Abdomen/Pelvis CT 01/01/17 0000 Signed Impressions: Service Date/Time: Sunday, January 01, 2017 13:57 - CONCLUSION: 1. Pulmonary emboli with patchy areas of peripheral consolidation at the right lower lobe concerning for possible infarcts. 2. 2.4 cm focal splenic lesion. This is nonspecific. The most common splenic lesion to have this appearance would be a hemangioma. This can be followed up with an MRI examination in several months as an outpatient. 3. 1.7 cm large nonobstructing right renal stone. 4. Mild cystic change or possible area of infarction in the lateral right kidney with an area of cortical thinning and mild cystic change. 5. Left adnexal mass likely related to a dermoid given the large fat component. 6. Mild amount of free intraperitoneal fluid in the pelvis. 7. Scattered colonic diverticula in the sigmoid region without inflammatory change. 8. Catheter in the right femoral artery. Oren Gamez MD Liver Ultrasound 12/31/16 0000 Signed Impressions: Service Date/Time: Saturday, December 31, 2016 15:09 - CONCLUSION: 1. Mildly increased echotexture of the liver characteristic of steatosis. No focal liver abnormality is identified. 2. Mild splenomegaly. Adjacent to the spleen and liver in the upper abdomen the kosher dietary service manager reports a questionable mass. Consider abdomen and pelvis CT for further characterization. 3. Suspected 15 mm right renal stone. Oren Palafox MD Venogram 12/29/16 0000 Signed Impressions: Service Date/Time: Thursday, December 29, 2016 11:26 - CONCLUSION: Uncomplicated bilateral venogram as above. No significant DVT in the legs on either side. No ileocaval thrombus. As such, I do not feel inferior vena caval filter placement is indicated prior to thrombolytic therapy and/or other therapy for the patient's pulmonary embolism. Oren Álvarez MD Lower Extremity Ultrasound 12/29/16 Signed Impressions: Service Date/Time: Thursday, December 29, 2016 10:56 - CONCLUSION: 1. Occlusive thrombus in the right posterior tibial vein. 2. Nonocclusive thrombus in the right common femoral vein and greater saphenous vein. 3. No deep venous thrombosis in the left lower extremity. Oswaldo Moody MD Central Venous Line 12/29/16 Signed Impressions: Service Date/Time: Thursday, December 29, 2016 11:26 - CONCLUSION: Uncomplicated ultrasound and fluoroscopic guided central line placement as above. Oren Álvarez MD CT Angiography 12/29/16 Signed Impressions: Service Date/Time: Thursday, December 29, 2016 10:01 - CONCLUSION: Extensive bilateral pulmonary embolism. These findings were discussed with the emergency room physician at 1009 hrs. Oswaldo Moody MD Physical Exam GENERAL: sedated on the vent, not in respiratory distress. SKIN: Warm and dry. No generalized rash, no evidence of embolic lesions. HEAD: Atraumatic. Normocephalic. No temporal wasting, or tenderness. EYES: [place] conjunctiva. No petechia or hemorrhage. Pupils equal, round and reactive to light. No scleral icterus. No injection or drainage. EARS, NOSE AND THROAT: Nose without bleeding or purulent nasal discharge. Orally intubated. NECK: Trachea midline. Supple and not tender, no meningeal signs CARDIOVASCULAR: Regular rate and rhythm. No murmurs, rubs or gallops heard. Line RSC, site ok. 2 pigtail cath on R anterior chest RESPIRATORY: No rales, wheezing or rhonchi. Decreased breath sounds at the bases. ABDOMEN: Soft, obese, nondistended, no reaction to deep palpation.. Bowel sounds present and normoactive. No organomegaly. EXTREMITIES: No clubbing, cyanosis. Has some pedal edema. Has A line R groin with surrounding ecchymoses, some blood at site. NEUROLOGICAL: Sedated PSYCHIATRIC: Unable to assess LINE: No evidence of infection Assessment & Plan Remarks IMPRESSION Fever, etiology, likely due to massive PE Massive PE, etiology? UTI No evidence of PNA, infiltrates now likely more on pulmonary infarcts Respiratory failure due to massive PE Shock to due to PE, better Leukocytosis due to PE, better Bilateral brain infarcts, likely due to hypoperfusion - emboli usually smaller RECOMMENDATION Change Zosyn to Rocephin for the UTI (proteus and Strep mutans) Follow CBC Monitor progress Monitor janel D/W Dee Rutledge MD Jan 03, 2017 15:48
[2017-01-03] MEDS: cefTRIAXone INJ 2,000 MG in SODIUM CHLORIDE 0.9% INJ 100 ML IV SCH (16:00)
--- NOTE | 2017-01-03 16:29 | PD.ONC.PN ---
Subjective Subjective Remarks Ms. Sadler is intubated and sedated in the ICU. Objective Data Date Time Temp Pulse Resp B/P Pulse Ox O2 Delivery O2 Flow Rate FiO2 01/03/17 15:52 96 40 01/03/17 12:12 95 40 01/03/17 07:39 95 40 01/03/17 06:00 81 01/03/17 04:31 84 130/71 140/78 01/03/17 04:14 45 01/03/17 04:06 95 45 01/03/17 04:00 79 01/03/17 04:00 98.6 81 22 127/71 94 124/69 01/03/17 03:00 50 01/03/17 02:00 85 01/03/17 01:30 55 01/03/17 01:28 97 55 01/03/17 00:00 95 106/79 102/75 01/03/17 00:00 99.1 106 22 110/70 97 120/68 01/03/17 00:00 65 01/03/17 00:00 95 01/02/17 22:19 65 01/02/17 22:00 99 01/02/17 21:00 65 01/02/17 20:40 75 01/02/17 20:00 99.7 106 22 138/82 96 138/90 01/02/17 20:00 85 01/02/17 20:00 107 01/02/17 19:30 100 01/02/17 19:27 96 100 01/02/17 19:00 40 01/02/17 18:00 107 01/02/17 18:00 110 155/91 123/100 01/03/17 01/03/17 01/03/17 07:00 15:00 23:00 Intake Total 520 ml 487 ml Output Total 770 ml 462 ml Balance -250 ml 25 ml Result Diagram: 01/03/17 0430 01/03/17 0430 Laboratory Results Laboratory Tests Test 01/02/17 01/02/17 01/03/17 01/03/17 17:22 21:55 04:30 04:50 Activated Partial 40.6 SEC 53.9 SEC 74.5 SEC Thromboplast Time White Blood Count 11.1 TH/MM3 Red Blood Count 3.24 MIL/MM3 Hemoglobin 9.5 GM/DL Hematocrit 27.6 % Mean Corpuscular Volume 85.2 FL Mean Corpuscular Hemoglobin 29.3 PG Mean Corpuscular Hemoglobin 34.4 % Concent Red Cell Distribution Width 14.2 % Platelet Count 162 TH/MM3 Mean Platelet Volume 6.7 FL Neutrophils (%) (Auto) 77.4 % Lymphocytes (%) (Auto) 16.6 % Monocytes (%) (Auto) 5.6 % Eosinophils (%) (Auto) 0.2 % Basophils (%) (Auto) 0.2 % Neutrophils # (Auto) 8.6 TH/MM3 Lymphocytes # (Auto) 1.8 TH/MM3 Monocytes # (Auto) 0.6 TH/MM3 Eosinophils # (Auto) 0.0 TH/MM3 Basophils # (Auto) 0.0 TH/MM3 CBC Comment DIFF FINAL Differential Comment Sodium Level 138 MEQ/L Potassium Level 4.1 MEQ/L Chloride Level 102 MEQ/L Carbon Dioxide Level 31.4 MEQ/L Anion Gap 5 MEQ/L Blood Urea Nitrogen 17 MG/DL Creatinine 0.87 MG/DL Estimat Glomerular Filtration 68 ML/MIN Rate Random Glucose 113 MG/DL Calcium Level 7.8 MG/DL Phosphorus Level 4.3 MG/DL Magnesium Level 2.6 MG/DL Total Bilirubin 0.9 MG/DL Direct Bilirubin 0.6 MG/DL Indirect Bilirubin 0.3 MG/DL Aspartate Amino Transf 44 U/L (AST/SGOT) Alanine Aminotransferase 64 U/L (ALT/SGPT) Alkaline Phosphatase 135 U/L Total Protein 5.5 GM/DL Albumin 1.9 GM/DL Blood Gas Puncture Site MAGED Blood Gas Patient Temperature 98.6 Blood Gas HCO3 25 mmol/L Blood Gas Base Excess 1.0 mmol/L Blood Gas Oxygen Saturation 95 % Arterial Blood pH 7.44 Arterial Blood Partial 37 mmHg Pressure CO2 Arterial Blood Partial 90 mmHg Pressure O2 Arterial Blood Oxygen Content 14.5 Vol % Arterial Blood 1.4 % Carboxyhemoglobin Arterial Blood Methemoglobin 1.1 % Blood Gas Hemoglobin 10.8 G/DL Oxygen Delivery Device VENTILATOR Blood Gas Ventilator Setting SEE COMMENT Blood Gas Inspired Oxygen 45 % Culture Results Microbiology Date/Time Procedure Status Source Growth 01/03/17 05:30 Stool Occult Blood (SHAR) Ordered Stool Stool Pending 01/03/17 11:28 Stool Occult Blood (SHAR) Received Stool Stool Pending Imaging Studies Last 24 hours Impressions Chest X-Ray 01/03/17 0600 Signed Impressions: Service Date/Time: December 03:22 - CONCLUSION: Patchy infiltrates in the lungs. No evidence pneumothorax. Karl Tan MD Neck CTA 01/03/17 0000 Signed Impressions: Service Date/Time: December 10:37 - CONCLUSION: 1. No hemodynamically significant carotid artery stenosis identified. 2. The vertebrobasilar circulation appears widely patent. 3. Incidental note made of a 2.2 cm cystic thyroid nodule. Jd Cornelius MD Head CTA 01/03/17 0000 Signed Impressions: Service Date/Time: December 10:37 - CONCLUSION: No large or central vessel occlusion. Jd Cornelius MD Head CT 01/03/17 0000 Signed Impressions: Service Date/Time: December 10:37 - CONCLUSION: 1. Study is limited by motion artifact. 2. No significant change in the areas of edema likely from subacute infarction. 3. Slight midline shift to the right remains with no change in the ventricular system. 4. The questionable subtle area of low density in the left cerebellar hemisphere seen on the prior study is no longer distinctly visualized. Oswaldo Moody MD Administered Medications Medications (Trade) Dose Ordered Sig/Sabine Route PRN Reason Start Time Stop Time Status Last Admin Dose Admin Sodium Chloride (NS Flush) 2 ml UNSCH PRN IVF FLUSH AFTER USING IV ACCESS 12/29/16 08:30 12/31/16 11:42 Sodium Chloride (NS Flush) 2 ml UNSCH PRN IVF FLUSH AFTER USING IV ACCESS 12/29/16 08:45 12/31/16 11:42 Pantoprazole Sodium (Protonix Inj) 40 mg DAILY IV 12/29/16 11:00 01/03/17 08:37 Chlorhexidine Gluconate (Chlorhexidine 2% Cloth) 3 pack Taper DAILY@04 TOP 12/30/16 04:00 12/26/17 03:59 01/02/17 04:00 Senna/Docusate Sodium 1 tab 1 tab BID PO 12/29/16 21:00 01/03/17 08:38 Fentanyl Citrate (fentaNYL DRIP) 250 ml @ 0 mls/hr TITRATE IV 12/29/16 10:30 01/02/17 22:44 Insulin Human Regular 1 1 Q4H SQ 12/29/16 11:00 12/31/16 03:00 Vasopressin 40 units/Sodium Chloride 100 ml @ 1.5 mls/hr Q24H IV 12/30/16 05:30 12/30/16 21:36 Propofol (Diprivan 1000 Mg/100ml Inj) 100 ml @ 0 mls/hr TITRATE IV 12/30/16 07:30 01/03/17 13:39 Hydrocortisone Sodium Succinate (SoluCORTEF INJ) 50 mg Q12HR IV PUSH 12/31/16 21:00 01/03/17 08:37 Objective Remarks GENERAL: intubated and sedated on the vent SKIN: Warm and dry. HEAD: Normocephalic. NECK: Supple CARDIOVASCULAR: Regular rate and rhythm without murmurs. RESPIRATORY: Breath sounds equal bilaterally GASTROINTESTINAL: Abdomen soft, non-tender, nondistended. EXTREMITIES: edema of all four extremities NEUROLOGICAL: sedated on the vent PSYCHIATRIC: sedated on the vent Assessment/Plan Assessment 1. DVT and PE: hemodynamically unstable on admission on 12/29 and s/p TPA. As HIT negative dced argatroban and reordered heparin 2. CVA, ischemic: neurology team following. With stroke there is a risk of hemorrhagic transformation with anticoagulation. This is a difficult situation in a patient with a known VTE. 3. Anemia: normocytic. Likely multifactorial in the setting of critically ill patient 4. Thrombocytopenia: multifactorial due to PE, thrombolytic therapy, antibiotic use. Continue to trend. 5. Hypercoaguable state: Known obesity. Protein C, Protein S studies WNL. No Factor V leiden mutation. No LA. AT3 is 79 with lower limit of normal of 80 this is likely artifact due to acute clot and anticoagulation. Antiphospholipid antibody panel WNL. Not performed were prothrombin gene mutation, anti cardiolipin antibody. Neema Ruiz MD Jan 03, 2017 16:29
--- NOTE | 2017-01-03 19:05 | ECHRPT ---
Indication: SHORTNESS OF BREATH CONCLUSIONS Normal left ventricular size. Wall thickness is normal. The left ventricular systolic function is grossly normal on limited imaging. No regional wall motion abnormalities are present. The right ventricle is mild to moderately dilated. The left atrial size is mildly dilated. The right atrial size is mildly dilated. No atrial level shunt is demonstrated by color flow Doppler or agitated saline imaging. No mitral valve regurgitation. No mitral valve stenosis. No aortic valve regurgitation. No aortic valve stenosis. There is trace tricuspid valve regurgitation. No tricuspid valve stenosis. There is less than 50% respiratory change in dimension of the inferior vena cava (abnormal). BP: 126 / 76 HR: 110 Rhythm: Sinus MEASUREMENTS (Male / Female) Normal Values Technical Quality:Fair 2D ECHO LV Diastolic Diameter PLAX 4.0 cm 4.2 - 5.9 / 3.9 - 5.3 cm LV Systolic Diameter PLAX 2.4 cm IVS Diastolic Thickness 0.8 cm 0.6 - 1.0 / 0.6 - 0.9 cm LVPW Diastolic Thickness 0.9 cm 0.6 - 1.0 / 0.6 - 0.9 cm LV Relative Wall Thickness 0.4 LVOT Diameter 2.1 cm Aortic Root Diameter 3.2 cm LA Systolic Diameter LX 2.8 cm 3.0 - 4.0 / 2.7 - 3.8 cm M-MODE AV Cusp Separation MM 2.5 cm DOPPLER AV Peak Velocity 124.0 cm/s AV Peak Gradient 6.2 mmHg AV Mean Gradient 3.0 mmHg AV Velocity Time Integral 18.9 cm LVOT Peak Velocity 109.0 cm/s LVOT Peak Gradient 4.8 mmHg LVOT Velocity Time Integral 17.8 cm AV Area Cont Eq vti 3.3 cm AV Area Cont Eq pk 3.0 cm Mitral E Point Velocity 58.2 cm/s Mitral A Point Velocity 83.9 cm/s Mitral E to A Ratio 0.7 TR Peak Velocity 216.0 cm/s TR Peak Gradient 18.7 mmHg PV Peak Velocity 58.7 cm/s PV Peak Gradient 1.4 mmHg FINDINGS LEFT VENTRICLE Normal left ventricular size. Wall thickness is normal. The left ventricular systolic function is grossly normal on limited imaging. No regional wall motion abnormalities are present. Left ventricular diastolic function parameters are normal. RIGHT VENTRICLE The right ventricle is mild to moderately dilated. LEFT ATRIUM The left atrial size is mildly dilated. RIGHT ATRIUM The right atrial size is mildly dilated. ATRIAL SEPTUM No atrial level shunt is demonstrated by color flow Doppler or agitated saline imaging. AORTA The aortic root and proximal ascending aorta are normal in size on limited imaging. MITRAL VALVE Structurally normal mitral valve. No mitral valve regurgitation. No mitral valve stenosis. AORTIC VALVE Trileaflet aortic valve. No aortic valve regurgitation. No aortic valve stenosis. TRICUSPID VALVE Structurally normal tricuspid valve. There is trace tricuspid valve regurgitation. No tricuspid valve stenosis. PULMONARY VALVE No pulmonary valve regurgitation or stenosis. VESSELS The inferior vena cava is normal in size. There is less than 50% respiratory change in dimension of the inferior vena cava (abnormal). PERICARDIUM No pericardial effusion. Cecilio Hussein MD (Electronically Signed) Final Date:03 January 2017 19:04
[2017-01-03] MEDS: HEPARIN-D5W 25,000 U/250 ML 250 ML IV SCH (19:09)
[2017-01-03 19:14] LABS: MEAN CELL VOLUME 85.5 FL (80.0-100.0); MEAN CORPUSCULAR HEMOGLOBIN 29.2 PG (27.0-34.0); MEAN CORPUSCULAR HGB CONC 34.1 % (32.0-36.0); PLATELET COUNT 175 TH/MM3 (150-450); RED BLOOD COUNT 3.28 MIL/MM3 (4.00-5.30); RED CELL DISTRIBUTION WIDTH 13.8 % (11.6-17.2); REVIEW FLAG FINAL; WHITE BLOOD COUNT 11.7 TH/MM3 (4.0-11.0)
[2017-01-03 19:59] LABS: APTT (PATIENT) 73.8 SEC (24.3-30.1); INTERNATIONAL NORMALIZED RATIO 2.2 RATIO; PROTHROMBIN TIME - PATIENT 25.4 SEC (9.8-11.6)
[2017-01-04] VITALS (15 sets, daily range): BP systolic 98–181; BP diastolic 58–95; PULSE 65–98; RESP 13–23; TEMP 97.9–100.2; O2SAT 94–98
[2017-01-04] MEDS: PROPOFOL 1000 MG/100 ML IV SCH ×6 (00:10→20:59)
[2017-01-04 02:17] LABS: APTT (PATIENT) 56.2 SEC (24.3-30.1)
[2017-01-04] MEDS: INSULIN NovoLIN REGULAR SUPPLEMENTAL SCALE SQ SCH ×6 (03:00→23:00)
[2017-01-04] MEDS: fentaNYL DRIP 250 ML IV SCH ×2 (03:49→18:45)
[2017-01-04] MEDS: CHLORHEXIDINE GLUCONATE 2 % 1 PACK (2 CLOTHS) TOP SCH ×2 (04:00→20:57)
--- NOTE | 2017-01-04 04:53 | RADRPT ---
EXAM DATE/TIME: 01/04/2017 03:25 [facility] COMPARISON: CHEST SINGLE AP, January 03, 2017, 3:22. INDICATIONS : Respiratory failure MEDICAL HISTORY : Hypertension. Diabetes mellitus type 2. SURGICAL HISTORY : None. ENCOUNTER: Subsequent ACUITY: 3 days PAIN SCORE: Non-responsive. LOCATION: Bilateral chest FINDINGS: A single view of the chest demonstrates the lungs to be symmetrically aerated with bilateral, patchy airspace disease, unchanged. Right-sided [place] loop thoracostomy tube in the mid chest without pneumot horax. Right subclavian central venous catheter with the tip projecting over the central venous syste m. Endotracheal and nasogastric tubes are unchanged in position. Heart size is grossly normal. Osseou s structures are intact. CONCLUSION: 1. Bilateral patchy air space disease, unchanged. Probable associated left-sided effusion. 2. Right-sided [place] loop thoracostomy tube without pneumothorax. Stable position of life support tube reymundo Hilliard MD on January 04, 2017 at 4:49 Board Certified Radiologist. This report was verified electronically.
[2017-01-04] MEDS: VASOPRESSIN INJ 40 UNITS in SODIUM CHLORIDE 0.9% INJ 98 ML IV SCH (05:30)
[2017-01-04] MEDS: HEPARIN-D5W 25,000 U/250 ML 250 ML IV SCH ×2 (06:22→22:04)
[2017-01-04 06:30] LABS: HEMATOCRIT 27.5 % (35.0-46.0); MEAN CELL VOLUME 85.9 FL (80.0-100.0); MEAN CORPUSCULAR HEMOGLOBIN 29.6 PG (27.0-34.0); MEAN CORPUSCULAR HGB CONC 34.5 % (32.0-36.0); PLATELET COUNT 180 TH/MM3 (150-450); RED CELL DISTRIBUTION WIDTH 14.1 % (11.6-17.2); REVIEW FLAG FINAL
[2017-01-04 06:37] LABS: BICARBONATE 28.9 MEQ/L (21.0-32.0); MAGNESIUM 2.3 MG/DL (1.5-2.5); POTASSIUM 4.1 MEQ/L (3.5-5.1)
[2017-01-04 06:52] LABS: APTT (PATIENT) 42.5 SEC (24.3-30.1)
[2017-01-04] MEDS: SODIUM CHLORIDE 0.9% FLUSH 10 ML FLUSH IVF PRN ×4 (07:30→20:56)
[2017-01-04] MEDS: HYDROCORTISONE SOD SUCCINATE 100 MG VIAL IV PUSH SCH ×2 (07:31→20:55)
[2017-01-04] MEDS: PANTOPRAZOLE SODIUM 40 MG VIAL IV SCH (07:31)
[2017-01-04] MEDS: DOCUSATE SODIUM 50 MG/SENNA 8.6 MG TAB PO SCH ×2 (07:31→20:55)
[2017-01-04 07:51] LABS: BLOOD GAS BASE EXCESS 2.7 mmol/L (-2-2); BLOOD GAS CARBOXYHEMOGLOBIN 1.6 % (0-4); BLOOD GAS HCO3 26 mmol/L (22-26); BLOOD GAS METHEMOGLOBIN 1.1 % (0-2); BLOOD GAS O2 HGB SATURATION 96 % (90-100); BLOOD GAS OXYGEN CONTENT 14.8 Vol % (12.0-20.0); BLOOD GAS PCO2 37 mmHg (38-42); BLOOD GAS PO2 110 mmHg (61-120); BLOOD GAS TOTAL HGB 10.9 G/DL (12.0-16.0); TEMP CORR TO 98.6
[2017-01-04 07:52] LABS: CRITICAL VALUE NO; OXYGEN DEVICE VENTILATOR; VENT SETTINGS PC/AC
[2017-01-04 07:53] LABS: DRAW SITE ART LINE; STAT NO
--- NOTE | 2017-01-04 08:19 | HHI.PR ---
Review/Management Diagnosis/Plan: (1) Acute embolic stroke Plan: bihemispheric left mca >rt mca strokes mechanism: hypercoagulable state > hypoperfusion (vessels normal) recs check ct brain/cta brain/carotids- strokes stable. nml vasculature. echo- "nml EF" but no % given, no atrial shunt on sedation- extremely challenging to examine. palliative care seeing pt. trach vs comfort care. will require continue serial imaging due to limited exam follow exam (2) Acute hypoxemic respiratory failure (3) Acute pulmonary embolus Subjective Subjective Comments No acute events reported Active Medications Current Medications Medications (Trade) Dose Ordered Sig/Sabine Route Start Time Stop Time Status Last Admin (NS Flush) 2 ml UNSCH PRN IVF 12/29/16 08:30 01/04/17 07:30 (NS Flush) 2 ml UNSCH PRN IVF 12/29/16 08:45 01/04/17 07:30 (Protonix Inj) 40 mg DAILY IV 12/29/16 11:00 01/04/17 07:31 Miscellaneous Information 1 Q361D XX 12/29/16 10:30 (Chlorhexidine 2% Cloth) Taper DAILY@04 TOP 12/30/16 04:00 12/26/17 03:59 01/04/17 04:00 (Chlorhexidine 2% Cloth) 3 pack UNSCH PRN TOP 12/29/16 10:30 (Radha-Colace) 1 tab BID PO 12/29/16 21:00 01/03/17 21:03 (Milk Of Magnesia Liq) 30 ml Q12H PRN PO 12/29/16 10:30 (Senokot) 17.2 mg Q12H PRN PO 12/29/16 10:30 (Dulcolax Supp) 10 mg DAILY PRN RECTAL 12/29/16 10:30 Lactulose 30 ml 30 ml DAILY PRN PO 12/29/16 10:30 (fentaNYL DRIP) 250 ml @ 0 mls/hr TITRATE IV 12/29/16 10:30 01/04/17 03:49 (D50w (Vial) Inj) 50 ml UNSCH PRN IV 12/29/16 10:30 (Glucagon Inj) 1 mg UNSCH PRN OTHER 12/29/16 10:30 (NovoLIN R SUPPLEMENTAL SCALE) 1 Q4H SQ 12/29/16 11:00 12/31/16 03:00 Terbutaline Sulfate 1 mg 1 mg UNSCH PRN SQ 12/29/16 19:45 Vasopressin 40 units/Sodium Chloride 100 ml @ 1.5 mls/hr Q24H IV 12/30/16 05:30 12/30/16 21:36 (Diprivan 1000 Mg/100ml Inj) 100 ml @ 0 mls/hr TITRATE IV 12/30/16 07:30 01/04/17 07:30 Hydrocortisone Sodium Succinate 50 mg 50 mg Q12HR IV PUSH 12/31/16 21:00 01/04/17 07:31 Potassium Chloride 100 ml @ 50 mls/hr Q2H PRN IV 12/31/16 11:00 (KCl 20 Meq Premix Inj) 100 ml @ 50 mls/hr Q2H PRN IV 12/31/16 11:00 Potassium Bicarb/ Potassium Chloride 50 meq 50 meq UNSCH PRN PO 12/31/16 11:00 Potassium Chloride 100 ml @ 25 mls/hr UNSCH PRN IV 12/31/16 11:00 Potassium Chloride 100 ml @ 50 mls/hr Q2H PRN IV 12/31/16 11:00 (Magnesium Sulfate Inj/NS Inj) 100 ml @ 50 mls/hr UNSCH PRN IV 12/31/16 11:00 Magnesium Oxide 800 mg 800 mg UNSCH PRN PO 12/31/16 11:00 (Magnesium Sulfate Inj/NS Inj) 100 ml @ 50 mls/hr UNSCH PRN IV 12/31/16 11:00 Potassium Phosphate 2000 mg 2,000 mg Q4H PRN PO 12/31/16 11:00 (Sodium Phosphate Inj/NS 250 ml Inj) 250 ml @ 42 mls/hr UNSCH PRN IV 12/31/16 11:00 Potassium Phosphate 2000 mg 2,000 mg UNSCH PRN PO/TUBE 12/31/16 11:00 Potassium Phosphate 30 mmol/ Sodium Chloride 260 ml @ 42 mls/hr UNSCH PRN IV 12/31/16 11:00 Ceftriaxone Sodium 2000 mg/ Sodium Chloride 100 ml @ 200 mls/hr Q24H IV 01/03/17 16:00 01/03/17 16:00 (Heparin-D5W Inj) 250 ml @ 0 mls/hr TITRATE IV 01/03/17 16:15 01/04/17 06:22 Allergies Allergies Coded Allergies No Known Allergies (Verified11/17/16) Review of Systems All other ROS: Unable to obtain Exam I&O / VS 01/03/17 01/03/17 01/04/17 15:00 23:00 07:00 Intake Total 487 ml 1018 ml 696 ml Output Total 462 ml 705 ml 350 ml Balance 25 ml 313 ml 346 ml IV Total 455 ml 687 ml 445 ml Tube Feeding 32 ml 331 ml 251 ml Output Urine Total 450 ml 700 ml 350 ml Chest Tube Drainage Total 12 ml 5 ml 0 ml # Bowel Movements 1 1 Vital Signs Date Time Temp Pulse Resp B/P Pulse Ox O2 Delivery O2 Flow Rate FiO2 01/04/17 08:00 98 40 01/04/17 06:00 82 01/04/17 04:00 98.7 74 17 110/70 96 122/72 01/04/17 04:00 74 01/04/17 04:00 40 01/04/17 02:00 80 01/04/17 00:00 98 01/04/17 00:00 100.2 98 23 180/91 94 181/95 01/04/17 00:00 40 01/03/17 23:40 94 40 01/03/17 22:00 86 01/03/17 20:00 40 01/03/17 20:00 99.7 84 15 116/63 95 113/66 01/03/17 20:00 84 01/03/17 19:24 97 40 01/03/17 18:00 85 01/03/17 16:00 99.2 85 17 156/87 98 152/86 01/03/17 16:00 85 01/03/17 16:00 45 01/03/17 15:52 96 40 01/03/17 14:00 84 01/03/17 12:12 95 40 01/03/17 12:00 96 01/03/17 12:00 99.3 96 23 123/75 95 115/67 01/03/17 12:00 45 01/03/17 10:00 102 Exam Comments morbidly obese. intubated. on propofol gtt, coma state, not following, not opening eyes, ou 2.5mm sluggish, in ue restraints, not moving any extremity Objective Micro and Labs Laboratory Tests Test 801/04/17 01/04/17 01/04/17 18:48 01:50 05:15 05:39 White Blood Count 11.7 10.0 Red Blood Count 3.28 3.20 Hemoglobin 9.6 9.5 Hematocrit 28.0 27.5 Mean Corpuscular Volume 85.5 85.9 Mean Corpuscular Hemoglobin 29.2 29.6 Mean Corpuscular Hemoglobin 34.1 34.5 Concent Red Cell Distribution Width 13.8 14.1 Platelet Count 175 180 Mean Platelet Volume 6.6 6.7 Prothrombin Time 25.4 Prothromb Time International 2.2 Ratio Activated Partial 73.8 56.2 42.5 Thromboplast Time Sodium Level 142 Potassium Level 4.1 Chloride Level 106 Carbon Dioxide Level 28.9 Anion Gap 7 Blood Urea Nitrogen 20 Creatinine 0.72 Estimat Glomerular Filtration 84 Rate Random Glucose 109 Calcium Level 7.9 Phosphorus Level 3.3 Magnesium Level 2.3 Blood Gas Puncture Site ART LINE Blood Gas Patient Temperature 98.6 Blood Gas HCO3 26 Blood Gas Base Excess 2.7 Blood Gas Oxygen Saturation 96 Arterial Blood pH 7.47 Arterial Blood Partial 37 Pressure CO2 Arterial Blood Partial 110 Pressure O2 Arterial Blood Oxygen Content 14.8 Arterial Blood 1.6 Carboxyhemoglobin Arterial Blood Methemoglobin 1.1 Blood Gas Hemoglobin 10.9 Oxygen Delivery Device VENTILATOR Blood Gas Ventilator Setting PC/AC Date/Time Procedure Status Source Growth 01/03/17 11:28 Stool Occult Blood (SHAR) - Final Complete Stool Stool HEMOCCULT NEGATIVE 01/03/17 05:30 Stool Occult Blood (SHAR) Ordered Stool Stool Pending 12/31/16 12:20 Urine Culture - Final Complete Urine Catheterized Urine NO GROWTH IN 48 HOURS. 12/31/16 11:30 Aerobic Blood Culture - Preliminary Resulted Blood Peripheral NO GROWTH IN 3 DAYS 12/31/16 11:30 Anaerobic Blood Culture - Preliminary Resulted Blood Peripheral NO GROWTH IN 3 DAYS 12/30/16 16:30 Gram Stain - Final Complete Sputum Endotracheal 12/30/16 16:30 Sputum Culture - Final Complete Sputum Endotracheal LIGHT GROWTH NORMAL RESPIRATORY JUVE Problem Qualifiers (1) Acute pulmonary embolus: Qualified Code: I26.09 - Other acute pulmonary embolism with acute cor pulmonale Dk Frias MD Jan 04, 2017 08:19
--- NOTE | 2017-01-04 12:38 | HHI.IDPN ---
Subjective Subjective Remarks Patient is a 56-year-old female with no significant past medical history, brought into the hospital for further evaluation of severe shortness of breath. She was apparently okay and was not having any problem until the day of admission when she woke up and she had significant shortness of breath. There was no other complaint as far as chest pain, cough, or any previous history of shortness of breath. Evaluation in the ED showed significant hypoxemia, and tachycardia. She ended up getting intubated. CT of the chest showed evidence of massive bilateral pulmonary embolism. She underwent lytic therapy. She was initially on pressors, and currently she is not on any blood pressure support. His December 30 she's been having fevers, and the last time she had any fever was around 2:00 this morning. She is currently sedated on the vent. Her FiO2 is down to 40%. She also had an elevated WBC. Her urinalysis showed evidence of pyuria, and her urine cultures growing gram-negative nereida. Blood cultures are negative so far. Her chest x-ray on admission did not show any acute pulmonary disease, and subsequent chest x-ray showing some atelectasis. Infectious disease consultation has been requested to evaluate the patient with fevers. She is currently on Zosyn and vancomycin. Notes reviewed Temps occ low grade On the vent, sedated BP ok UC Strep and Proteus BC negative Sputum normal caron Antibiotics Rocephin Lines RSC TLC Past Medical History Not known Allergies: Coded Allergies: No Known Allergies (Verified , 11/17/16) Objective . Vital Signs Date Time Temp Pulse Resp B/P Pulse Ox O2 Delivery O2 Flow Rate FiO2 01/04/17 08:00 98 40 01/04/17 06:00 82 01/04/17 04:00 98.7 74 17 110/70 96 122/72 01/04/17 04:00 74 01/04/17 04:00 40 01/04/17 02:00 80 01/04/17 00:00 98 01/04/17 00:00 100.2 98 23 180/91 94 181/95 01/04/17 00:00 40 01/03/17 23:40 94 40 01/03/17 22:00 86 01/03/17 20:00 40 01/03/17 20:00 99.7 84 15 116/63 95 113/66 01/03/17 20:00 84 8/17/17 19:24 97 40 01/03/17 18:00 85 01/03/17 16:00 99.2 85 17 156/87 98 152/86 01/03/17 16:00 85 01/03/17 16:00 45 01/03/17 15:52 96 40 01/03/17 14:00 84 01/03/17 01/03/17 01/04/17 15:00 23:00 07:00 Intake Total 487 ml 1018 ml 696 ml Output Total 462 ml 705 ml 350 ml Balance 25 ml 313 ml 346 ml IV Total 455 ml 687 ml 445 ml Tube Feeding 32 ml 331 ml 251 ml Output Urine Total 450 ml 700 ml 350 ml Chest Tube Drainage Total 12 ml 5 ml 0 ml # Bowel Movements 1 1 . Laboratory Tests Test 01/03/17 01/03/17 01/04/17 04:30 18:48 05:15 White Blood Count 11.1 TH/MM3 11.7 TH/MM3 10.0 TH/MM3 Red Blood Count 3.24 MIL/MM3 3.28 MIL/MM3 3.20 MIL/MM3 Hemoglobin 9.5 GM/DL 9.6 GM/DL 9.5 GM/DL Hematocrit 27.6 % 28.0 % 27.5 % Mean Corpuscular Volume 85.2 FL 85.5 FL 85.9 FL Mean Corpuscular Hemoglobin 29.3 PG 29.2 PG 29.6 PG Mean Corpuscular Hemoglobin 34.4 % 34.1 % 34.5 % Concent Red Cell Distribution Width 14.2 % 13.8 % 14.1 % Platelet Count 162 TH/MM3 175 TH/MM3 180 TH/MM3 Mean Platelet Volume 6.7 FL 6.6 FL 6.7 FL Neutrophils (%) (Auto) 77.4 % Lymphocytes (%) (Auto) 16.6 % Monocytes (%) (Auto) 5.6 % Eosinophils (%) (Auto) 0.2 % Basophils (%) (Auto) 0.2 % Neutrophils # (Auto) 8.6 TH/MM3 Lymphocytes # (Auto) 1.8 TH/MM3 Monocytes # (Auto) 0.6 TH/MM3 Eosinophils # (Auto) 0.0 TH/MM3 Basophils # (Auto) 0.0 TH/MM3 CBC Comment DIFF FINAL Differential Comment Laboratory Tests Test 01/03/17 01/04/17 04:30 05:15 Sodium Level 138 MEQ/L 142 MEQ/L Potassium Level 4.1 MEQ/L 4.1 MEQ/L Chloride Level 102 MEQ/L 106 MEQ/L Carbon Dioxide Level 31.4 MEQ/L 28.9 MEQ/L Anion Gap 5 MEQ/L 7 MEQ/L Blood Urea Nitrogen 17 MG/DL 20 MG/DL Creatinine 0.87 MG/DL 0.72 MG/DL Estimat Glomerular Filtration 68 ML/MIN 84 ML/MIN Rate Random Glucose 113 MG/DL 109 MG/DL Calcium Level 7.8 MG/DL 7.9 MG/DL Phosphorus Level 4.3 MG/DL 3.3 MG/DL Magnesium Level 2.6 MG/DL 2.3 MG/DL Total Bilirubin 0.9 MG/DL Direct Bilirubin 0.6 MG/DL Indirect Bilirubin 0.3 MG/DL Aspartate Amino Transf 44 U/L (AST/SGOT) Alanine Aminotransferase 64 U/L (ALT/SGPT) Alkaline Phosphatase 135 U/L Total Protein 5.5 GM/DL Albumin 1.9 GM/DL Microbiology Date/Time Procedure Status Source Growth 01/03/17 05:30 Stool Occult Blood (SHAR) Ordered Stool Stool Pending 01/03/17 11:28 Stool Occult Blood (SHAR) - Final Complete Stool Stool HEMOCCULT NEGATIVE Imaging Chest X-Ray 01/04/17 0600 Signed Impressions: Service Date/Time: Wednesday, January 04, 2017 03:25 - CONCLUSION: 1. Bilateral patchy air space disease, unchanged. Probable associated left-sided effusion. 2. Right-sided [place] loop thoracostomy tube without pneumothorax. Stable position of life support tubes. Harry Hilliard MD Chest X-Ray 01/03/17 0600 Signed Impressions: Service Date/Time: December 03:22 - CONCLUSION: Patchy infiltrates in the lungs. No evidence pneumothorax. Karl Tan MD Neck CTA 01/03/17 0000 Signed Impressions: Service Date/Time: December 10:37 - CONCLUSION: 1. No hemodynamically significant carotid artery stenosis identified. 2. The vertebrobasilar circulation appears widely patent. 3. Incidental note made of a 2.2 cm cystic thyroid nodule. Jd Cornelius MD Head CTA 01/03/17 0000 Signed Impressions: Service Date/Time: December 10:37 - CONCLUSION: No large or central vessel occlusion. Jd Cornelius MD Head CT 01/03/17 0000 Signed Impressions: Service Date/Time: December 10:37 - CONCLUSION: 1. Study is limited by motion artifact. 2. No significant change in the areas of edema likely from subacute infarction. 3. Slight midline shift to the right remains with no change in the ventricular system. 4. The questionable subtle area of low density in the left cerebellar hemisphere seen on the prior study is no longer distinctly visualized. Oswaldo Moody MD Carotid Artery Ultrasound 01/02/17 1308 Signed Impressions: Service Date/Time: Monday, January 02, 2017 14:02 - CONCLUSION: 1. There is elevation of the velocity in the distal left internal carotid artery. The proximal ICA shows normal velocities. I see no appreciable plaque within the area of concern. I cannot completely exclude a 50-69%% stenosis of the distal left ICA. Consider CTA of the carotid arteries to further evaluate. 2. 2.4 cm cystic nodule involving the right lobe of the thyroid. Karl Oliver Jr., MD Chest X-Ray 01/02/17 0000 Signed Impressions: Service Date/Time: Monday, January 02, 2017 04:24 - CONCLUSION: 1. Improved aeration left lower lung with residual patchy infiltrates. Stable patchy infiltrates right lower lung. 2. Interval development of soft tissue emphysema about the right anterior chest wall. 3. Blurring of the image limits evaluation for right pneumothorax. Some lung markings are seen into the right apex however. Karl Tan MD Head CT 01/01/17 0000 Signed Impressions: Service Date/Time: Sunday, January 01, 2017 13:58 - CONCLUSION: 1. New areas of edema likely from infarction in the left frontoparietal region and right frontal regions. 2. Narrowing of the left lateral ventricle. Significant midline shift is not seen. The basal cisterns are open. 3. Questionable subtle area of low-density in the left cerebellar hemisphere which could potentially represent a small area of infarction. Oren Gamez MD Abdomen/Pelvis CT 01/01/17 0000 Signed Impressions: Service Date/Time: Sunday, January 01, 2017 13:57 - CONCLUSION: 1. Pulmonary emboli with patchy areas of peripheral consolidation at the right lower lobe concerning for possible infarcts. 2. 2.4 cm focal splenic lesion. This is nonspecific. The most common splenic lesion to have this appearance would be a hemangioma. This can be followed up with an MRI examination in several months as an outpatient. 3. 1.7 cm large nonobstructing right renal stone. 4. Mild cystic change or possible area of infarction in the lateral right kidney with an area of cortical thinning and mild cystic change. 5. Left adnexal mass likely related to a dermoid given the large fat component. 6. Mild amount of free intraperitoneal fluid in the pelvis. 7. Scattered colonic diverticula in the sigmoid region without inflammatory change. 8. Catheter in the right femoral artery. Oren Gamez MD Liver Ultrasound 12/31/16 Signed Impressions: Service Date/Time: Saturday, December 31, 2016 15:09 - CONCLUSION: 1. Mildly increased echotexture of the liver characteristic of steatosis. No focal liver abnormality is identified. 2. Mild splenomegaly. Adjacent to the spleen and liver in the upper abdomen the elevating grader operator reports a questionable mass. Consider abdomen and pelvis CT for further characterization. 3. Suspected 15 mm right renal stone. Oren Palafox MD Venogram 12/29/16 Signed Impressions: Service Date/Time: Thursday, December 29, 2016 11:26 - CONCLUSION: Uncomplicated bilateral venogram as above. No significant DVT in the legs on either side. No ileocaval thrombus. As such, I do not feel inferior vena caval filter placement is indicated prior to thrombolytic therapy and/or other therapy for the patient's pulmonary embolism. Oren Álvarez MD Lower Extremity Ultrasound 12/29/16 Signed Impressions: Service Date/Time: Thursday, December 29, 2016 10:56 - CONCLUSION: 1. Occlusive thrombus in the right posterior tibial vein. 2. Nonocclusive thrombus in the right common femoral vein and greater saphenous vein. 3. No deep venous thrombosis in the left lower extremity. Oswaldo Moody MD Central Venous Line 12/29/16 Signed Impressions: Service Date/Time: Thursday, December 29, 2016 11:26 - CONCLUSION: Uncomplicated ultrasound and fluoroscopic guided central line placement as above. Oren Álvarez MD CT Angiography 8/12/17 0000 Signed Impressions: Service Date/Time: Thursday, December 29, 2016 10:01 - CONCLUSION: Extensive bilateral pulmonary embolism. These findings were discussed with the emergency room physician at 1009 hrs. Oswaldo Moody MD Physical Exam GENERAL: sedated on the vent, not in respiratory distress. SKIN: Warm and dry. No generalized rash, no evidence of embolic lesions. HEAD: Atraumatic. Normocephalic. No temporal wasting, or tenderness. EYES: Tool conjunctiva. No petechia or hemorrhage. Pupils equal, round and reactive to light. No scleral icterus. No injection or drainage. EARS, NOSE AND THROAT: Nose without bleeding or purulent nasal discharge. Orally intubated. NECK: Trachea midline. Supple and not tender, no meningeal signs CARDIOVASCULAR: Regular rate and rhythm. No murmurs, rubs or gallops heard. Line RSC, site ok. 2 pigtail cath on R anterior chest RESPIRATORY: No rales, wheezing or rhonchi. Decreased breath sounds at the bases. ABDOMEN: Soft, obese, nondistended, no reaction to deep palpation.. Bowel sounds present and normoactive. No organomegaly. EXTREMITIES: No clubbing, cyanosis. Min edema. NEUROLOGICAL: Sedated PSYCHIATRIC: Unable to assess LINE: No evidence of infection Assessment & Plan Remarks IMPRESSION Fever, etiology, likely due to massive PE Massive PE, etiology? UTI, repeat UA better No evidence of PNA, infiltrates now likely more on pulmonary infarcts Respiratory failure due to massive PE Shock to due to PE, better Leukocytosis due to PE, better Bilateral brain infarcts, likely due to hypoperfusion - emboli usually smaller Low grade temps RECOMMENDATION Continue Rocephin for the UTI (proteus and Strep mutans) Follow CBC Monitor progress Monitor temps D/W Dee Rutledge MD Jan 04, 2017 12:38
[2017-01-04] MEDS: cefTRIAXone INJ 2,000 MG in SODIUM CHLORIDE 0.9% INJ 100 ML IV SCH (16:46)
--- NOTE | 2017-01-04 17:57 | HHI.CCPN ---
Subjective Remarks/Hospital Course Patient is a 56-year-old female without significant past medical history who presented to the [facility] Emergency Department with severe respiratory distress. Per ED records, the patient woke up this morning feeling short of breath. She denied any associated symptoms of chest pain, orthopnea, PND or edema of the lower extremities. On arrival to the emergency department, she was found hypoxic with saturation in the 70s on room air and tachycardiac with heart rate of 160. The patient was subsequently intubated with etomidate, succinylcholine and Versed and placed on full mechanical ventilation. ABG post- intubation showed severe respiratory acidosis with a pH of 7.15, CO2 51, pAO2 73 , bicarb 17, sats of 88% PRVC mode, rate of 24, tidal volume 500,IT: 1.0, PEEP of 20 with 100% FIO2. Chest x-ray showed no acute cardiopulmonary disease. The patient underwent a stat CT scan of the chest, which showed extensive bilateral pulmonary embolism. She also had CT scan of the brain, which showed no evidence of hemorrhage or mass effect. In ER she was given IV fluids 2 liters, Ativan, and placed on Diprivan infusion for sedation. 12/30 On arrival to ICU from patient became hemodynamically unstable and placed on multiple pressors. She is currently on Neosyn 100 mics, Vasopressin 0.04, Levophed 12 mics, Off Dobutamine. In addition she is sedated with Fentanyl, Diprivan and on Nimbex. At approx 3 am she developed right sided PTX and pig tail catheter was placed with resolution of PTX on repeat CXR. On PC/AC RR 28, IP: 18, IT:1.0, PEEP:10, FIO2 70%. On TPA 1mg/hr and Heparin drip. T;101.1 at 4am. 12/31 Patient remains sedated, intubated and on Nimbex. She had recurrent right sided PTX yesterday afternoon and a second pigtail catheter was placed with resolution of PTX. Off TPA and on heparin drip. She is off Levophed, Neosyn however remained on Vasopressin. Also, there is improvements in her O2 requirements and down to PEEP: 10 and FIO2 40%. T:101.1 last night 01/01 Patient is off all pressors, sedated with Diprivan and Fentanyl. Remains on Heparin drip. WBC is trending down. T:100.0 01/02: Tmax 100.6. Leukocytosis resolving. PEEP decreased to 5. Hemodynamically stable overnight 01/03: Tmax 99.2. No change in neurological status. Leukocytosis improving. Hit panel pending. Patient change to Argatroban infusion yesterday, remains in therapeutic range. 01/04: Per hematology and oncology patients infusion return back to heparin. No change in neurological status. Echocardiogram with bubble study performed no shunt was noted Objective Vital Signs Date Time Temp Pulse Resp B/P Pulse Ox O2 Delivery O2 Flow Rate FiO2 01/04/17 14:49 95 40 01/04/17 06:00 82 01/04/17 04:00 98.7 17 110/70 122/72 Intake and Output 01/03/17 01/03/17 01/04/17 08:00 16:00 00:00 Intake Total 520 ml 487 ml 1018 ml Output Total 770 ml 462 ml 705 ml Balance -250 ml 25 ml 313 ml Result Diagram: 01/04/17 0515 01/04/17 0515 Other Results Microbiology Date/Time Procedure Status Source Growth 01/03/17 11:28 Stool Occult Blood (SHAR) - Final Complete Stool Stool HEMOCCULT NEGATIVE Laboratory Tests Test 01/04/17 05:39 Blood Gas Puncture Site ART LINE Blood Gas Patient Temperature 98.6 Blood Gas HCO3 26 mmol/L (22-26) Blood Gas Base Excess 2.7 mmol/L (-2-2) Blood Gas Oxygen Saturation 96 % (90-100) Arterial Blood pH 7.47 (7.380-7.420) Arterial Blood Partial 37 mmHg (38-42) Pressure CO2 Arterial Blood Partial 110 mmHg Pressure O2 (61-120) Arterial Blood Oxygen Content 14.8 Vol % (12.0-20.0) Arterial Blood 1.6 % (0-4) Carboxyhemoglobin Arterial Blood Methemoglobin 1.1 % (0-2) Blood Gas Hemoglobin 10.9 G/DL (12.0-16.0) Oxygen Delivery Device VENTILATOR Blood Gas Ventilator Setting PC/AC Imaging Last Impressions Chest X-Ray 01/04/17 0600 Signed Impressions: Service Date/Time: Wednesday, January 04, 2017 03:25 - CONCLUSION: 1. Bilateral patchy air space disease, unchanged. Probable associated left-sided effusion. 2. Right-sided Clay loop thoracostomy tube without pneumothorax. Stable position of life support tubes. Harry Hilliard MD Neck CTA 01/03/17 0000 Signed Impressions: Service Date/Time: December 10:37 - CONCLUSION: 1. No hemodynamically significant carotid artery stenosis identified. 2. The vertebrobasilar circulation appears widely patent. 3. Incidental note made of a 2.2 cm cystic thyroid nodule. Jd Cornelius MD Head CTA 01/03/17 0000 Signed Impressions: Service Date/Time: December 10:37 - CONCLUSION: No large or central vessel occlusion. Jd Cornelius MD Head CT 01/03/17 0000 Signed Impressions: Service Date/Time: December 10:37 - CONCLUSION: 1. Study is limited by motion artifact. 2. No significant change in the areas of edema likely from subacute infarction. 3. Slight midline shift to the right remains with no change in the ventricular system. 4. The questionable subtle area of low density in the left cerebellar hemisphere seen on the prior study is no longer distinctly visualized. Oswaldo Moody MD Carotid Artery Ultrasound 01/02/17 1308 Signed Impressions: Service Date/Time: Monday, January 02, 2017 14:02 - CONCLUSION: 1. There is elevation of the velocity in the distal left internal carotid artery. The proximal ICA shows normal velocities. I see no appreciable plaque within the area of concern. I cannot completely exclude a 50-69%% stenosis of the distal left ICA. Consider CTA of the carotid arteries to further evaluate. 2. 2.4 cm cystic nodule involving the right lobe of the thyroid. Karl Oliver Jr., MD Upper Extremity Ultrasound 01/02/17 0000 Signed Impressions: Service Date/Time: Monday, January 02, 2017 14:26 - CONCLUSION: 1. Occlusive and nonocclusive thrombus in the right cephalic vein. 2. No left upper extremity venous thrombosis. Oswaldo Moody MD Lower Extremity Ultrasound 01/02/17 0000 Signed Impressions: Service Date/Time: Monday, January 02, 2017 13:33 - CONCLUSION: 1. Occlusive thrombus in the right posterior tibial vein. 2. Nonocclusive thrombus in the right common femoral vein, greater saphenous vein and peroneal veins. 3. No deep venous thrombosis in the left lower extremity. Oswaldo Moody MD Abdomen/Pelvis CT 01/01/17 Signed Impressions: Service Date/Time: Sunday, January 01, 2017 13:57 - CONCLUSION: 1. Pulmonary emboli with patchy areas of peripheral consolidation at the right lower lobe concerning for possible infarcts. 2. 2.4 cm focal splenic lesion. This is nonspecific. The most common splenic lesion to have this appearance would be a hemangioma. This can be followed up with an MRI examination in several months as an outpatient. 3. 1.7 cm large nonobstructing right renal stone. 4. Mild cystic change or possible area of infarction in the lateral right kidney with an area of cortical thinning and mild cystic change. 5. Left adnexal mass likely related to a dermoid given the large fat component. 6. Mild amount of free intraperitoneal fluid in the pelvis. 7. Scattered colonic diverticula in the sigmoid region without inflammatory change. 8. Catheter in the right femoral artery. Oren Gamez MD Liver Ultrasound 12/31/16 Signed Impressions: Service Date/Time: Saturday, December 31, 2016 15:09 - CONCLUSION: 1. Mildly increased echotexture of the liver characteristic of steatosis. No focal liver abnormality is identified. 2. Mild splenomegaly. Adjacent to the spleen and liver in the upper abdomen the teacher's aide reports a questionable mass. Consider abdomen and pelvis CT for further characterization. 3. Suspected 15 mm right renal stone. Oren Palafox MD Venogram 12/29/16 Signed Impressions: Service Date/Time: Thursday, December 29, 2016 11:26 - CONCLUSION: Uncomplicated bilateral venogram as above. No significant DVT in the legs on either side. No ileocaval thrombus. As such, I do not feel inferior vena caval filter placement is indicated prior to thrombolytic therapy and/or other therapy for the patient's pulmonary embolism. Oren Álvarez MD Central Venous Line 12/29/16 Signed Impressions: Service Date/Time: Thursday, December 29, 2016 11:26 - CONCLUSION: Uncomplicated ultrasound and fluoroscopic guided central line placement as above. Oren Álvarez MD CT Angiography 12/29/16 Signed Impressions: Service Date/Time: Thursday, December 29, 2016 10:01 - CONCLUSION: Extensive bilateral pulmonary embolism. These findings were discussed with the emergency room physician at 1009 hrs. Oswaldo Moody MD Last Impressions Chest X-Ray 01/02/17 0000 Signed Impressions: Service Date/Time: Monday, January 02, 2017 04:24 - CONCLUSION: 1. Improved aeration left lower lung with residual patchy infiltrates. Stable patchy infiltrates right lower lung. 2. Interval development of soft tissue emphysema about the right anterior chest wall. 3. Blurring of the image limits evaluation for right pneumothorax. Some lung markings are seen into the right apex however. Karl Tan MD Head CT 01/01/17 0000 Signed Impressions: Service Date/Time: Sunday, January 01, 2017 13:58 - CONCLUSION: 1. New areas of edema likely from infarction in the left frontoparietal region and right frontal regions. 2. Narrowing of the left lateral ventricle. Significant midline shift is not seen. The basal cisterns are open. 3. Questionable subtle area of low-density in the left cerebellar hemisphere which could potentially represent a small area of infarction. Oren Gamez MD Abdomen/Pelvis CT 01/01/17 0000 Signed Impressions: Service Date/Time: Sunday, January 01, 2017 13:57 - CONCLUSION: 1. Pulmonary emboli with patchy areas of peripheral consolidation at the right lower lobe concerning for possible infarcts. 2. 2.4 cm focal splenic lesion. This is nonspecific. The most common splenic lesion to have this appearance would be a hemangioma. This can be followed up with an MRI examination in several months as an outpatient. 3. 1.7 cm large nonobstructing right renal stone. 4. Mild cystic change or possible area of infarction in the lateral right kidney with an area of cortical thinning and mild cystic change. 5. Left adnexal mass likely related to a dermoid given the large fat component. 6. Mild amount of free intraperitoneal fluid in the pelvis. 7. Scattered colonic diverticula in the sigmoid region without inflammatory change. 8. Catheter in the right femoral artery. Oren Gamez MD Liver Ultrasound 12/31/16 0000 Signed Impressions: Service Date/Time: Saturday, December 31, 2016 15:09 - CONCLUSION: 1. Mildly increased echotexture of the liver characteristic of steatosis. No focal liver abnormality is identified. 2. Mild splenomegaly. Adjacent to the spleen and liver in the upper abdomen the teacher's aide reports a questionable mass. Consider abdomen and pelvis CT for further characterization. 3. Suspected 15 mm right renal stone. Oren Palafox MD Venogram 12/29/16 Signed Impressions: Service Date/Time: Thursday, December 29, 2016 11:26 - CONCLUSION: Uncomplicated bilateral venogram as above. No significant DVT in the legs on either side. No ileocaval thrombus. As such, I do not feel inferior vena caval filter placement is indicated prior to thrombolytic therapy and/or other therapy for the patient's pulmonary embolism. Oren Álvarez MD Lower Extremity Ultrasound 12/29/16 Signed Impressions: Service Date/Time: Thursday, December 29, 2016 10:56 - CONCLUSION: 1. Occlusive thrombus in the right posterior tibial vein. 2. Nonocclusive thrombus in the right common femoral vein and greater saphenous vein. 3. No deep venous thrombosis in the left lower extremity. Oswaldo Moody MD Central Venous Line 12/29/16 Signed Impressions: Service Date/Time: Thursday, December 29, 2016 11:26 - CONCLUSION: Uncomplicated ultrasound and fluoroscopic guided central line placement as above. Oren Álvarez MD CT Angiography 12/29/16 Signed Impressions: Service Date/Time: Thursday, December 29, 2016 10:01 - CONCLUSION: Extensive bilateral pulmonary embolism. These findings were discussed with the emergency room physician at 1009 hrs. Oswaldo Moody MD Last Impressions Liver Ultrasound 12/31/16 Signed Impressions: Service Date/Time: Saturday, December 31, 2016 15:09 - CONCLUSION: 1. Mildly increased echotexture of the liver characteristic of steatosis. No focal liver abnormality is identified. 2. Mild splenomegaly. Adjacent to the spleen and liver in the upper abdomen the teacher's aide reports a questionable mass. Consider abdomen and pelvis CT for further characterization. 3. Suspected 15 mm right renal stone. Oren Palafox MD Chest X-Ray 12/31/16 Signed Impressions: Service Date/Time: Saturday, December 31, 2016 09:17 - CONCLUSION: 1. Small bore chest tubes on the right in good position. No pneumothorax. 2. Central line, ET tube and NG tube in good position. 3. Atelectatic changes in the lung bases. Jd Cornelius MD Venogram 12/29/16 Signed Impressions: Service Date/Time: Thursday, December 29, 2016 11:26 - CONCLUSION: Uncomplicated bilateral venogram as above. No significant DVT in the legs on either side. No ileocaval thrombus. As such, I do not feel inferior vena caval filter placement is indicated prior to thrombolytic therapy and/or other therapy for the patient's pulmonary embolism. Oren Álvarez MD Lower Extremity Ultrasound 12/29/16 Signed Impressions: Service Date/Time: Thursday, December 29, 2016 10:56 - CONCLUSION: 1. Occlusive thrombus in the right posterior tibial vein. 2. Nonocclusive thrombus in the right common femoral vein and greater saphenous vein. 3. No deep venous thrombosis in the left lower extremity. Oswaldo Moody MD Head CT 12/29/16 Signed Impressions: Service Date/Time: Thursday, December 29, 2016 09:49 - CONCLUSION: 1. Suboptimal examination secondary to motion artifact. 2. No evidence of hemorrhage or mass effect identified. Oswaldo Moody MD Central Venous Line 12/29/16 Signed Impressions: Service Date/Time: Thursday, December 29, 2016 11:26 - CONCLUSION: Uncomplicated ultrasound and fluoroscopic guided central line placement as above. Oren Álvarez MD CT Angiography 12/29/16 Signed Impressions: Service Date/Time: Thursday, December 29, 2016 10:01 - CONCLUSION: Extensive bilateral pulmonary embolism. These findings were discussed with the emergency room physician at 1009 hrs. Oswaldo Moody MD Objective Remarks Infusions Heparin 1800 units Fentanyl 200 mcgs/hour Diprivan 20 mcgs per kilo per hour BP 156/93 Pulse 87 O2 saturation 97% GENERAL: Patient is 56 yo female morbidly obese, critically ill intubated and sedated SKIN: Warm and dry. HEAD: Normocephalic. EYES: No scleral icterus. No injection or drainage. Pupils equal and reactive NECK: Supple, trachea midline. Unable to evaluate JVD or lymphadenopathy secondary to body habitus. Orally intubated CARDIOVASCULAR: Regular rate and rhythm without murmurs, gallops, or rubs. Telemetry sinus rhythm RESPIRATORY: Breath sounds equal bilaterally. No accessory muscle use. Chest tubes right in situ on 20 cm H20 suction GASTROINTESTINAL: Abdomen soft, obese .non-tender, nondistended. MUSCULOSKELETAL: No cyanosis, or edema. Neuro: GCS 3T .Sedated on propofol and fentanyl infusions A/P Assessment and Plan 1. Acute hypoxemic hypercapnic respiratory failure requiring intubation 2 Distributive shock 3. Extensive bilateral pulmonary embolism. 4. DVT RLE 5 Lactic acidemia 6 EKATERINA 7 Elevated trop...2nd PE 8 Leukocytosis, 9 UTI 10. Hyperglycemia. 11 Morbid obesity Obesity. 12 Right sided PTX s/p pig tail catheter placement 13 Elevated LFT's 14. Fatty liver Plan Neuro: On Diprivan and Fentanyl infusion for sedation. Perform daily Sedation vacation CT brain in ED negative for acute intracranial process. 01/01Repeat CT brain today showed infarct frontal lobes bilateral L>R MCA embolic stroke ,likely 2nd hypoperfusion . F/U EEG Neurology followingDr. Altagracia- unable to perform MRI secondary to instability at this time Concern for transformation to ICH, secondary to anticoagulation therapy 01/[address] brain-no change in slight midline shift, no change in edema secondary to subacute infarction 01/03 CTA brain no central vessel occlusion, CTA neck-no significant carotid artery stenosis. Vertebrobasilar artery system widely patent. Pulm: Continue with vent support and maintain sats > 92%. Bronchodilators, ICU vent bundle. CPAP trials as tolerated On PC/AC RR 18, IP:20, IT:1.0, PEEP:5, FIO2 40%. Decrease rate pigtail catheter was placed 12/30 in afternoon for recurrent PTX. s/p pigtail catheter placement for right sided PTX morning of 12/30 CXR: 12/31: Atelectasis Off TPA, continue with Argatroban infusion per PE protocol. Hypercoagulable workup in process. 01/02-HIT panel negative 01/03 CT # 2 to waterseal CV: monitor HR and BP maintain MAP> 65 mmHg. Taper steroids- HC 50mg IV Q12 Serial lactic acid monitoring -cleared Echo showed mid dilated RV with mod. decrease in systolic function, PAP 41mmHg, LV is not well visualized. No EF reported 01/02 Repeat ECHO w/ bubble study- pending 01/02 Carotid doppler studies : Monitor renal function, intake and output and electrolyte replacement as needed. Electrolytes pending this a.m. replete per ICU protocol GI: On Protonix 40 milligrams IV daily for GI prophylaxis. On tube feeds ( Glucerna 1.5 with goal rate 45ml/hr)- minimal residuals US Liver: Mildly increased echotexture of the liver characteristic of steatosis. No focal liver abnormality is identified. Mild splenomegaly. Adjacent to the spleen and liver in the upper abdomen the teacher's aide reports a ? mass. Will get CT abdomen/pelvis r/o abd masses ID:Continue with abx (Zosyn) ID is following, Monitor for signs of infections( fever and WBCs). WBC is trending down urine cx: Proteus mirabilis, strep mutans Endo: SSI with Accu-Chek for glycemic control q. 4 hours. Heme: Monitor CBC and coags/Fibrinogen( Fibrinogen level 205) Heparin infusion per PE protocol, discontinue begin Argatroban Doppler US LE: DVT RLE Hematologyoncology [id number] procoagulant studies GI prophylaxis with Protonix 40 mg daily and DVT prophylaxis- on Heparin infusion Lines: Right subclavian CVP placed by IR 12/29, femoral arterial line Dispo: Discussed with FUNDRAISING COORDINATOR at bedside. Palliative care consulted to define goals of care. This patient remains critically ill with one or more organ systems which are or may become a threat to life. I have spent in excess of 20 minutes discontinuously in the care and management of this patient. This time is exclusive of procedures, and includes, but is not limited to, evaluation of the patient, review of the medical record, discussions with family, consultants, nursing staff, or respiratory therapy, and documentation in the medical record. Physician Sulema Faulkner MD Jan 04, 2017 17:57
--- NOTE | 2017-01-04 18:11 | HHI.HCPN ---
Reason for visit a. To assist with evaluation and management of symptoms including: dyspnea, pain. b. To assist medical decision maker(s) with: better understanding of current medical conditions; weighing benefits/burdens of medical treatment options; making medical treatment decisions. . Subjective/Interval History Patient seen and examined in ICU. No family at bedside. [facility] Breathing appears less labored today. Tmax 100.2. Oncology recommend DC Argatroban and heparin was restarted. No change in neurologic status remains on Fentanyl and Diprivan. Chest xray bilateral patchy airspace disease, unchanged, left-sided effusion, right-sided [place] loop thoracostomy without pneumothorax. . Family/friend interactions I have made multiple attempts to contact patient's mother, no answer on 01/03/17 for mother or significant other and 5 attempts today to call mother today without answer and unable to leave a message. Attempted to call Anastacio (KATHLEEN), no answer, unable to leave a message. Left message with Stella Granados, patient's boss to see if she had any alternative numbers for family. . Advance Directives Living Will: Never completed Health Care Surrogate: Never completed Durable Power of Sleep Technologist: Never completed Advance Directive Specifics Health Care Surrogate(s): According to [place] statutes, health care proxy decision-making falls to the patient's mother, Gabby Sadler. . Significant change in goals: FULL CODE. Goals remain aggressive. I have made multiple attempts to contact family to further clarify treatment goals in the past 48 hours, no return calls at this point. . Objective Vital Signs Date Time Temp Pulse Resp B/P Pulse Ox O2 Delivery O2 Flow Rate FiO2 01/04/17 14:49 95 40 01/04/17 08:00 98 40 01/04/17 06:00 82 01/04/17 04:00 98.7 74 17 110/70 96 122/72 01/04/17 04:00 74 01/04/17 04:00 40 01/04/17 02:00 80 01/04/17 00:00 98 01/04/17 00:00 100.2 98 23 180/91 94 181/95 01/04/17 00:00 40 01/03/17 23:40 94 40 01/03/17 22:00 86 01/03/17 20:00 40 01/03/17 20:00 99.7 84 15 116/63 95 113/66 01/03/17 20:00 84 01/03/17 19:24 97 40 01/03/17 18:00 85 Intake & Output 01/04/17 01/04/17 07:00 19:00 Intake Total 1714 ml 915 ml Output Total 1055 ml 554 ml Balance 659 ml 361 ml IV Total 1132 ml 497 ml Tube Feeding 582 ml 418 ml Output Urine Total 1050 ml 550 ml Chest Tube Drainage Total 5 ml 4 ml # Bowel Movements 1 1 Physical Exam CONSTITUTIONAL/GENERAL: This is an adequately nourished patient, intubated on mechanical ventilation. TUBES/LINES/DRAINS: ETT, OG, right subclavian central line, right chest tube x 2 , PIV right hand, right femoral A-line, Mcdaniel, podus boots. SKIN: No jaundice, rashes, or lesions. Ecchymoses on upper extremities. No wounds seen anteriorly. Skin temperature appropriate. Not diaphoretic. EYES: eyes closed. ENT: Unable to assess hearing. Nose without bleeding or purulent drainage. Difficult to visualize Throat due to tubes. Bloody/ brownish secretions noted in suction tubing. CARDIOVASCULAR: Regular rate and rhythm without murmurs, gallops, or rubs. Peripheral pulses symmetric. RESPIRATORY/CHEST: Symmetric, unlabored respirations on vent. Diminished. right chest tubes x 2. GASTROINTESTINAL: Abdomen soft, protuberant, nondistended. Bowel sounds present. GENITOURINARY: Without palpable bladder distension. Mcdaniel catheter in place. MUSCULOSKELETAL: Extremities x 4 with edema. No mottling or clubbing. NEUROLOGICAL: Sedated. Does not follow commands. PSYCHIATRIC: Sedated. Diagnostic Tests Laboratory Laboratory Tests Test 01/02/17 01/02/17 01/02/17 01/02/17 03:00 06:00 13:03 13:13 Haptoglobin 241 MG/DL (30-200) Sodium Level 139 MEQ/L (136-145) Potassium Level 3.6 MEQ/L (3.5-5.1) Chloride Level 103 MEQ/L (98-107) Carbon Dioxide Level 24.9 MEQ/L (21.0-32.0) Anion Gap 11 MEQ/L (5-15) Blood Urea Nitrogen 15 MG/DL (7-18) Creatinine 1.08 MG/DL (0.50-1.00) Estimat Glomerular Filtration 53 ML/MIN (>89) Rate Random Glucose 131 MG/DL (74-106) Calcium Level 7.7 MG/DL (8.5-10.1) Phosphorus Level 2.8 MG/DL (2.5-4.9) Magnesium Level 2.5 MG/DL (1.5-2.5) Total Bilirubin 0.8 MG/DL (0.2-1.0) Aspartate Amino Transf 57 U/L (15-37) (AST/SGOT) Alanine Aminotransferase 70 U/L (10-53) (ALT/SGPT) Alkaline Phosphatase 89 U/L (45-117) Total Protein 5.2 GM/DL (6.4-8.2) Albumin 1.9 GM/DL (3.4-5.0) White Blood Count 12.9 TH/MM3 (4.0-11.0) Red Blood Count 3.23 MIL/MM3 (4.00-5.30) Hemoglobin 9.5 GM/DL (11.6-15.3) Hematocrit 27.2 % (35.0-46.0) Mean Corpuscular Volume 84.2 FL (80.0-100.0) Mean Corpuscular Hemoglobin 29.3 PG (27.0-34.0) Mean Corpuscular Hemoglobin 34.8 % Concent (32.0-36.0) Red Cell Distribution Width 13.9 % (11.6-17.2) Platelet Count 141 TH/MM3 (150-450) Mean Platelet Volume 7.0 FL (7.0-11.0) Neutrophils (%) (Auto) 71.7 % (16.0-70.0) Lymphocytes (%) (Auto) 21.8 % (9.0-44.0) Monocytes (%) (Auto) 6.1 % (0.0-8.0) Eosinophils (%) (Auto) 0.2 % (0.0-4.0) Basophils (%) (Auto) 0.2 % (0.0-2.0) Neutrophils # (Auto) 9.2 TH/MM3 (1.8-7.7) Lymphocytes # (Auto) 2.8 TH/MM3 (1.0-4.8) Monocytes # (Auto) 0.8 TH/MM3 (0-0.9) Eosinophils # (Auto) 0.0 TH/MM3 (0-0.4) Basophils # (Auto) 0.0 TH/MM3 (0-0.2) CBC Comment DIFF FINAL Differential Comment Blood Smear Pathologist Review Prothrombin Time 10.9 SEC (9.8-11.6) Prothromb Time International 1.0 RATIO Ratio Activated Partial 44.3 SEC 32.4 SEC Thromboplast Time (24.3-30.1) (24.3-30.1) Fibrinogen 623 mg/dL (227-377) Heparin-Induced Platelet Ab NEGATIVE (Perla) (NEGATIVE) HIPA Patient Optical Density 0.075 O.D. (0.000-0.300) D-Dimer Quantitative (PE/DVT) 5.72 MG/L FEU (0.00-0.50) Test 01/02/17 01/02/17 01/03/17 01/03/17 17:22 21:55 04:30 04:50 Activated Partial 40.6 SEC 53.9 SEC 74.5 SEC Thromboplast Time (24.3-30.1) (24.3-30.1) (24.3-30.1) White Blood Count 11.1 TH/MM3 (4.0-11.0) Red Blood Count 3.24 MIL/MM3 (4.00-5.30) Hemoglobin 9.5 GM/DL (11.6-15.3) Hematocrit 27.6 % (35.0-46.0) Mean Corpuscular Volume 85.2 FL (80.0-100.0) Mean Corpuscular Hemoglobin 29.3 PG (27.0-34.0) Mean Corpuscular Hemoglobin 34.4 % Concent (32.0-36.0) Red Cell Distribution Width 14.2 % (11.6-17.2) Platelet Count 162 TH/MM3 (150-450) Mean Platelet Volume 6.7 FL (7.0-11.0) Neutrophils (%) (Auto) 77.4 % (16.0-70.0) Lymphocytes (%) (Auto) 16.6 % (9.0-44.0) Monocytes (%) (Auto) 5.6 % (0.0-8.0) Eosinophils (%) (Auto) 0.2 % (0.0-4.0) Basophils (%) (Auto) 0.2 % (0.0-2.0) Neutrophils # (Auto) 8.6 TH/MM3 (1.8-7.7) Lymphocytes # (Auto) 1.8 TH/MM3 (1.0-4.8) Monocytes # (Auto) 0.6 TH/MM3 (0-0.9) Eosinophils # (Auto) 0.0 TH/MM3 (0-0.4) Basophils # (Auto) 0.0 TH/MM3 (0-0.2) CBC Comment DIFF FINAL Differential Comment Sodium Level 138 MEQ/L (136-145) Potassium Level 4.1 MEQ/L (3.5-5.1) Chloride Level 102 MEQ/L (98-107) Carbon Dioxide Level 31.4 MEQ/L (21.0-32.0) Anion Gap 5 MEQ/L (5-15) Blood Urea Nitrogen 17 MG/DL (7-18) Creatinine 0.87 MG/DL (0.50-1.00) Estimat Glomerular Filtration 68 ML/MIN (>89) Rate Random Glucose 113 MG/DL (74-106) Calcium Level 7.8 MG/DL (8.5-10.1) Phosphorus Level 4.3 MG/DL (2.5-4.9) Magnesium Level 2.6 MG/DL (1.5-2.5) Total Bilirubin 0.9 MG/DL (0.2-1.0) Direct Bilirubin 0.6 MG/DL (0.0-0.2) Indirect Bilirubin 0.3 MG/DL (0.0-0.8) Aspartate Amino Transf 44 U/L (15-37) (AST/SGOT) Alanine Aminotransferase 64 U/L (10-53) (ALT/SGPT) Alkaline Phosphatase 135 U/L (45-117) Total Protein 5.5 GM/DL (6.4-8.2) Albumin 1.9 GM/DL (3.4-5.0) Blood Gas Puncture Site MAGED Blood Gas Patient Temperature 98.6 Blood Gas HCO3 25 mmol/L (22-26) Blood Gas Base Excess 1.0 mmol/L (-2-2) Blood Gas Oxygen Saturation 95 % (90-100) Arterial Blood pH 7.44 (7.380-7.420) Arterial Blood Partial 37 mmHg (38-42) Pressure CO2 Arterial Blood Partial 90 mmHg Pressure O2 (61-120) Arterial Blood Oxygen Content 14.5 Vol % (12.0-20.0) Arterial Blood 1.4 % (0-4) Carboxyhemoglobin Arterial Blood Methemoglobin 1.1 % (0-2) Blood Gas Hemoglobin 10.8 G/DL (12.0-16.0) Oxygen Delivery Device VENTILATOR Blood Gas Ventilator Setting SEE COMMENT Blood Gas Inspired Oxygen 45 % Test 01/03/17 01/04/17 01/04/17 01/04/17 18:48 01:50 05:15 05:39 White Blood Count 11.7 TH/MM3 10.0 TH/MM3 (4.0-11.0) (4.0-11.0) Red Blood Count 3.28 MIL/MM3 3.20 MIL/MM3 (4.00-5.30) (4.00-5.30) Hemoglobin 9.6 GM/DL 9.5 GM/DL (11.6-15.3) (11.6-15.3) Hematocrit 28.0 % 27.5 % (35.0-46.0) (35.0-46.0) Mean Corpuscular Volume 85.5 FL 85.9 FL (80.0-100.0) (80.0-100.0) Mean Corpuscular Hemoglobin 29.2 PG 29.6 PG (27.0-34.0) (27.0-34.0) Mean Corpuscular Hemoglobin 34.1 % 34.5 % Concent (32.0-36.0) (32.0-36.0) Red Cell Distribution Width 13.8 % 14.1 % (11.6-17.2) (11.6-17.2) Platelet Count 175 TH/MM3 180 TH/MM3 (150-450) (150-450) Mean Platelet Volume 6.6 FL 6.7 FL (7.0-11.0) (7.0-11.0) Prothrombin Time 25.4 SEC (9.8-11.6) Prothromb Time International 2.2 RATIO Ratio Activated Partial 73.8 SEC 56.2 SEC 42.5 SEC Thromboplast Time (24.3-30.1) (24.3-30.1) (24.3-30.1) Sodium Level 142 MEQ/L (136-145) Potassium Level 4.1 MEQ/L (3.5-5.1) Chloride Level 106 MEQ/L (98-107) Carbon Dioxide Level 28.9 MEQ/L (21.0-32.0) Anion Gap 7 MEQ/L (5-15) Blood Urea Nitrogen 20 MG/DL (7-18) Creatinine 0.72 MG/DL (0.50-1.00) Estimat Glomerular Filtration 84 ML/MIN (>89) Rate Random Glucose 109 MG/DL (74-106) Calcium Level 7.9 MG/DL (8.5-10.1) Phosphorus Level 3.3 MG/DL (2.5-4.9) Magnesium Level 2.3 MG/DL (1.5-2.5) Blood Gas Puncture Site ART LINE Blood Gas Patient Temperature 98.6 Blood Gas HCO3 26 mmol/L (22-26) Blood Gas Base Excess 2.7 mmol/L (-2-2) Blood Gas Oxygen Saturation 96 % (90-100) Arterial Blood pH 7.47 (7.380-7.420) Arterial Blood Partial 37 mmHg (38-42) Pressure CO2 Arterial Blood Partial 110 mmHg Pressure O2 (61-120) Arterial Blood Oxygen Content 14.8 Vol % (12.0-20.0) Arterial Blood 1.6 % (0-4) Carboxyhemoglobin Arterial Blood Methemoglobin 1.1 % (0-2) Blood Gas Hemoglobin 10.9 G/DL (12.0-16.0) Oxygen Delivery Device VENTILATOR Blood Gas Ventilator Setting PC/AC Result Diagram: 01/04/17 0515 01/04/17 0515 Microbiology Microbiology Date/Time Procedure Status Source Growth 01/03/17 05:30 Stool Occult Blood (SHAR) Ordered Stool Stool Pending 01/03/17 11:28 Stool Occult Blood (SHAR) - Final Complete Stool Stool HEMOCCULT NEGATIVE . Imaging Last Impressions Chest X-Ray 01/04/17 0600 Signed Impressions: Service Date/Time: Wednesday, January 04, 2017 03:25 - CONCLUSION: 1. Bilateral patchy air space disease, unchanged. Probable associated left-sided effusion. 2. Right-sided [place] loop thoracostomy tube without pneumothorax. Stable position of life support tubes. Harry Hilliard MD Neck CTA 01/03/17 0000 Signed Impressions: Service Date/Time: December 10:37 - CONCLUSION: 1. No hemodynamically significant carotid artery stenosis identified. 2. The vertebrobasilar circulation appears widely patent. 3. Incidental note made of a 2.2 cm cystic thyroid nodule. Jd Cornelius MD Head CTA 01/03/17 0000 Signed Impressions: Service Date/Time: December 10:37 - CONCLUSION: No large or central vessel occlusion. Jd Cornelius MD Head CT 01/03/17 0000 Signed Impressions: Service Date/Time: December 10:37 - CONCLUSION: 1. Study is limited by motion artifact. 2. No significant change in the areas of edema likely from subacute infarction. 3. Slight midline shift to the right remains with no change in the ventricular system. 4. The questionable subtle area of low density in the left cerebellar hemisphere seen on the prior study is no longer distinctly visualized. Oswaldo Moody MD Carotid Artery Ultrasound 01/02/17 1308 Signed Impressions: Service Date/Time: Monday, January 02, 2017 14:02 - CONCLUSION: 1. There is elevation of the velocity in the distal left internal carotid artery. The proximal ICA shows normal velocities. I see no appreciable plaque within the area of concern. I cannot completely exclude a 50-69%% stenosis of the distal left ICA. Consider CTA of the carotid arteries to further evaluate. 2. 2.4 cm cystic nodule involving the right lobe of the thyroid. Karl Oliver Jr., MD Upper Extremity Ultrasound 01/02/17 0000 Signed Impressions: Service Date/Time: Monday, January 02, 2017 14:26 - CONCLUSION: 1. Occlusive and nonocclusive thrombus in the right cephalic vein. 2. No left upper extremity venous thrombosis. Oswaldo Moody MD Lower Extremity Ultrasound 01/02/17 0000 Signed Impressions: Service Date/Time: Monday, January 02, 2017 13:33 - CONCLUSION: 1. Occlusive thrombus in the right posterior tibial vein. 2. Nonocclusive thrombus in the right common femoral vein, greater saphenous vein and peroneal veins. 3. No deep venous thrombosis in the left lower extremity. Oswaldo Moody MD Abdomen/Pelvis CT 01/01/17 0000 Signed Impressions: Service Date/Time: Sunday, January 01, 2017 13:57 - CONCLUSION: 1. Pulmonary emboli with patchy areas of peripheral consolidation at the right lower lobe concerning for possible infarcts. 2. 2.4 cm focal splenic lesion. This is nonspecific. The most common splenic lesion to have this appearance would be a hemangioma. This can be followed up with an MRI examination in several months as an outpatient. 3. 1.7 cm large nonobstructing right renal stone. 4. Mild cystic change or possible area of infarction in the lateral right kidney with an area of cortical thinning and mild cystic change. 5. Left adnexal mass likely related to a dermoid given the large fat component. 6. Mild amount of free intraperitoneal fluid in the pelvis. 7. Scattered colonic diverticula in the sigmoid region without inflammatory change. 8. Catheter in the right femoral artery. Oren Gamez MD Liver Ultrasound 12/31/16 Signed Impressions: Service Date/Time: Saturday, December 31, 2016 15:09 - CONCLUSION: 1. Mildly increased echotexture of the liver characteristic of steatosis. No focal liver abnormality is identified. 2. Mild splenomegaly. Adjacent to the spleen and liver in the upper abdomen the oiler and greaser reports a questionable mass. Consider abdomen and pelvis CT for further characterization. 3. Suspected 15 mm right renal stone. Oren Palafox MD Venogram 12/29/16 Signed Impressions: Service Date/Time: Thursday, December 29, 2016 11:26 - CONCLUSION: Uncomplicated bilateral venogram as above. No significant DVT in the legs on either side. No ileocaval thrombus. As such, I do not feel inferior vena caval filter placement is indicated prior to thrombolytic therapy and/or other therapy for the patient's pulmonary embolism. Oren Álvarez MD Central Venous Line 12/29/16 Signed Impressions: Service Date/Time: Thursday, December 29, 2016 11:26 - CONCLUSION: Uncomplicated ultrasound and fluoroscopic guided central line placement as above. Oren Álvarez MD CT Angiography 12/29/16 Signed Impressions: Service Date/Time: Thursday, December 29, 2016 10:01 - CONCLUSION: Extensive bilateral pulmonary embolism. These findings were discussed with the emergency room physician at 1009 hrs. Oswaldo Moody MD . Procedures * Right pigtail chest tube x 2 * Right subclavian central line basement * right femoral A-line placement * 12/29/16 intubated Assessment and Plan Disease Oriented Problem List: (1) Acute embolic stroke (2) Acute pulmonary embolus (3) Acute hypoxemic respiratory failure (4) Shock circulatory Symptom Scale: (1) Pain 0-10 Scale: Unable to quantify Comment: possible sources include PE, DVT, tubes, lines, bedbound status, stroke. Sedated Fentanyl and Propofol. (2) Dyspnea 0-10 Scale: Unable to quantify Comment: remains on mech vent. Pertinent Non-Medical Issues Psychosocial: lives with significant other. Not legally . No biological children. Mother alive, lives out of state. Spiritual: Orthodox rojas. Welcomes grassroots organizer support. Legal: According to [place] statutes, health care proxy decision-making would fall to the patient's mother, Gabby Sadler. She is willing to serve as HCP. Ethical issues impacting care: no known concerns at this time. . Important Contacts * Gabby Sadler, mother: [phone] * Anastacio Kirk, significant other: [phone] * Stella Granados, boss: [phone] . Prognosis Will need to speak with medical team for further prognostication. Code Status: Full Code Plan * Decision Maker: Single. No children. Has a significant other, not legally . Mother is alive. Has 1 brother, Dorian. According to [place] statutes, health care proxy decision-making falls to the patient's mother, Gabby Sadler. Mother is willing to serve as health care proxy decision maker. * FULL CODE * Palliative care has made multiple attempts to contact family (mother and significant other) to further clarify treatment goals in the past 48 hours, no return calls at this point. * SYMPTOMS: Pain: possible sources include PE, DVT, tubes, lines, bedbound status, stroke. Sedated Fentanyl and Propofol. Dyspnea: sedated on mech vent. No new medication recommendations at this time. * Palliative care will continue to follow throughout hospital course to assist with symptom management and clarification of goals as needed. . Attestation To help prompt me to consider important information that might be impacting today's encounter and assessment, information from prior notes written by myself or my colleagues may have been "brought forward" into today's note. My signature on this note, however, is an attestation that I personally performed the exam, history, and/or decision-making noted today, and, unless otherwise indicated, the interactions with patient, family, and staff as well as the review of records all occurred today. I also attest that the listed assessment and stated plan reflect my best clinical judgment today based on the combination of historical information, prior notes, and today's exam/ interactions. When time spent is documented, it refers only to time spent today by the signer, or if indicated, combined time spent today by collaborating physician/nurse practitioner. Kristen Casillas Jan 04, 2017 18:11
--- NOTE | 2017-01-04 18:28 | PD.ONC.PN ---
Subjective Subjective Remarks Patient is intubated and sedated. Objective Data Date Time Temp Pulse Resp B/P Pulse Ox O2 Delivery O2 Flow Rate FiO2 01/04/17 16:00 40 01/04/17 14:49 95 40 01/04/17 12:00 40 01/04/17 08:00 40 01/04/17 08:00 98 40 01/04/17 06:00 82 01/04/17 04:00 98.7 74 17 110/70 96 122/72 01/04/17 04:00 74 01/04/17 04:00 40 01/04/17 02:00 80 01/04/17 00:00 98 01/04/17 00:00 100.2 98 23 180/91 94 181/95 01/04/17 00:00 40 01/03/17 23:40 94 40 01/03/17 22:00 86 01/03/17 20:00 40 01/03/17 20:00 99.7 84 15 116/63 95 113/66 01/03/17 20:00 84 01/03/17 19:24 97 40 01/04/17 01/04/17 01/04/17 07:00 15:00 23:00 Intake Total 696 ml 915 ml Output Total 350 ml 554 ml Balance 346 ml 361 ml Result Diagram: 01/04/1751401/04/17514 Laboratory Results Laboratory Tests Test 01/03/17 01/04/17 01/04/17 01/04/17 18:48 01:50 05:15 05:39 White Blood Count 11.7 TH/MM3 10.0 TH/MM3 Red Blood Count 3.28 MIL/MM3 3.20 MIL/MM3 Hemoglobin 9.6 GM/DL 9.5 GM/DL Hematocrit 28.0 % 27.5 % Mean Corpuscular Volume 85.5 FL 85.9 FL Mean Corpuscular Hemoglobin 29.2 PG 29.6 PG Mean Corpuscular Hemoglobin 34.1 % 34.5 % Concent Red Cell Distribution Width 13.8 % 14.1 % Platelet Count 175 TH/MM3 180 TH/MM3 Mean Platelet Volume 6.6 FL 6.7 FL Prothrombin Time 25.4 SEC Prothromb Time International 2.2 RATIO Ratio Activated Partial 73.8 SEC 56.2 SEC 42.5 SEC Thromboplast Time Sodium Level 142 MEQ/L Potassium Level 4.1 MEQ/L Chloride Level 106 MEQ/L Carbon Dioxide Level 28.9 MEQ/L Anion Gap 7 MEQ/L Blood Urea Nitrogen 20 MG/DL Creatinine 0.72 MG/DL Estimat Glomerular Filtration 84 ML/MIN Rate Random Glucose 109 MG/DL Calcium Level 7.9 MG/DL Phosphorus Level 3.3 MG/DL Magnesium Level 2.3 MG/DL Blood Gas Puncture Site ART LINE Blood Gas Patient Temperature 98.6 Blood Gas HCO3 26 mmol/L Blood Gas Base Excess 2.7 mmol/L Blood Gas Oxygen Saturation 96 % Arterial Blood pH 7.47 Arterial Blood Partial 37 mmHg Pressure CO2 Arterial Blood Partial 110 mmHg Pressure O2 Arterial Blood Oxygen Content 14.8 Vol % Arterial Blood 1.6 % Carboxyhemoglobin Arterial Blood Methemoglobin 1.1 % Blood Gas Hemoglobin 10.9 G/DL Oxygen Delivery Device VENTILATOR Blood Gas Ventilator Setting PC/AC Culture Results Microbiology Date/Time Procedure Status Source Growth 01/03/17 05:30 Stool Occult Blood (SHAR) Ordered Stool Stool Pending 01/03/17 11:28 Stool Occult Blood (SHAR) - Final Complete Stool Stool HEMOCCULT NEGATIVE Imaging Studies Last 24 hours Impressions Chest X-Ray 01/04/17 0600 Signed Impressions: Service Date/Time: Wednesday, January 04, 2017 03:25 - CONCLUSION: 1. Bilateral patchy air space disease, unchanged. Probable associated left-sided effusion. 2. Right-sided [place] loop thoracostomy tube without pneumothorax. Stable position of life support tubes. Harry Hilliard MD Administered Medications Medications (Trade) Dose Ordered Sig/Sabine Route PRN Reason Start Time Stop Time Status Last Admin Dose Admin Sodium Chloride (NS Flush) 2 ml UNSCH PRN IVF FLUSH AFTER USING IV ACCESS 12/29/16 08:30 01/04/17 07:30 Sodium Chloride (NS Flush) 2 ml UNSCH PRN IVF FLUSH AFTER USING IV ACCESS 12/29/16 08:45 01/04/17 07:30 Pantoprazole Sodium (Protonix Inj) 40 mg DAILY IV 12/29/16 11:00 01/04/17 07:31 Chlorhexidine Gluconate (Chlorhexidine 2% Cloth) Taper DAILY@04 TOP 12/30/16 04:00 12/26/17 03:59 01/04/17 04:00 Senna/Docusate Sodium 1 tab 1 tab BID PO 12/29/16 21:00 01/03/17 21:03 Fentanyl Citrate (fentaNYL DRIP) 250 ml @ 0 mls/hr TITRATE IV 12/29/16 10:30 01/04/17 03:49 Insulin Human Regular 1 1 Q4H SQ 12/29/16 11:00 12/31/16 03:00 Vasopressin 40 units/Sodium Chloride 100 ml @ 1.5 mls/hr Q24H IV 12/30/16 05:30 12/30/16 21:36 Propofol (Diprivan 1000 Mg/100ml Inj) 100 ml @ 0 mls/hr TITRATE IV 12/30/16 07:30 01/04/17 16:59 Hydrocortisone Sodium Succinate 50 mg 50 mg Q12HR IV PUSH 12/31/16 21:00 01/04/17 07:31 Ceftriaxone Sodium 2000 mg/ Sodium Chloride 100 ml @ 200 mls/hr Q24H IV 01/03/17 16:00 01/04/17 16:46 Heparin Sodium/ Dextrose (Heparin-D5W Inj) 250 ml @ 0 mls/hr TITRATE IV 01/03/17 16:15 01/04/17 06:22 Objective Remarks GENERAL: Well-nourished, well-developed patient. SKIN: Warm and dry. HEAD: Normocephalic. EYES: obese lady intubated and sedated NECK: Supple, trachea midline. No JVD or lymphadenopathy. LYMPHATIC: No adenopathy. CARDIOVASCULAR: Regular rate and rhythm without murmurs. RESPIRATORY: Breath sounds equal bilaterally. No accessory muscle use. Chest tube in placed, intubated and sedated. GASTROINTESTINAL: Abdomen soft, non-tender, nondistended. EXTREMITIES: edema of all four extremities NEUROLOGICAL: intubated and sedated PSYCHIATRIC: intubated and sedated Assessment/Plan Assessment 1. DVT and PE: hemodynamically unstable on admission on 12/29 and s/p TPA. On heparin 2. CVA, ischemic: neurology team following. With stroke there is a risk of hemorrhagic transformation with anticoagulation. This is a difficult situation in a patient with a known VTE and hypercoagable state that cannot come off of anticoagulation. Case has been discussed with Dr. Rojas. She has been unable to have sedation vacation due to elevated blood pressure that occurs with weaning of sedation. Neurology team plans for CT head tomorrow. 3. Anemia: normocytic. Likely multifactorial in the setting of critically ill patient 4. Thrombocytopenia: multifactorial due to PE, thrombolytic therapy, antibiotic use. Continue to trend. 5. Hypercoaguable state: Known obesity. Protein C, Protein S studies WNL. No Factor V leiden mutation. No LA. AT3 is 79 with lower limit of normal of 80 this is likely artifact due to acute clot and anticoagulation. Antiphospholipid antibody panel WNL. Anticardiolipin pending. Not performed were prothrombin gene mutation, will hold off on ordering at this point in time as results would not change current management. 6. Pallitiave care: trach vs palliative care. Mother is health care surrogate. Palliative care team following regarding goals of care. Neema Ruiz MD Jan 04, 2017 18:28
[2017-01-05] VITALS (14 sets, daily range): BP systolic 120–164; BP diastolic 73–84; PULSE 77–85; RESP 12–20; TEMP 98.7–99.7; O2SAT 94–100
[2017-01-05] MEDS: PROPOFOL 1000 MG/100 ML IV SCH ×7 (00:34→21:32)
[2017-01-05] MEDS: INSULIN NovoLIN REGULAR SUPPLEMENTAL SCALE SQ SCH ×6 (03:00→22:14)
--- NOTE | 2017-01-05 04:32 | RADRPT ---
EXAM DATE/TIME: 01/05/2017 03:17 [place] COMPARISON: CHEST SINGLE AP, January 04, 2017, 3:25. INDICATIONS : Shortness of breath, possible pulmonary disease. MEDICAL HISTORY : Hypertension. Diabetes mellitus type II. SURGICAL HISTORY : None. ENCOUNTER: Subsequent ACUITY: 4 - 6 days PAIN SCORE: Non-responsive. LOCATION: Bilateral chest FINDINGS: A single view of the chest demonstrates small caliber right chest tube without pneumothorax. Right ce ntral line in superior vena cava. Patchy basilar airspace disease. Endotracheal tube and nasogastric tube unchanged. CONCLUSION: 1. Stable bilateral basilar airspace disease. Support apparatus unchanged. Indra Allen MD on January 05, 2017 at 4:30 Board Certified Radiologist. This report was verified electronically.
[2017-01-05 05:14] LABS: MEAN CORPUSCULAR HEMOGLOBIN 28.6 PG (27.0-34.0); MEAN CORPUSCULAR HGB CONC 33.3 % (32.0-36.0); PLATELET COUNT 235 TH/MM3 (150-450); RED BLOOD COUNT 3.49 MIL/MM3 (4.00-5.30); RED CELL DISTRIBUTION WIDTH 14.1 % (11.6-17.2); REVIEW FLAG FINAL; WHITE BLOOD COUNT 11.9 TH/MM3 (4.0-11.0)
[2017-01-05 05:22] LABS: APTT (PATIENT) 34.2 SEC (24.3-30.1)
[2017-01-05] MEDS: VASOPRESSIN INJ 40 UNITS in SODIUM CHLORIDE 0.9% INJ 98 ML IV SCH (05:30)
[2017-01-05 05:41] LABS: BICARBONATE 30.4 MEQ/L (21.0-32.0); MAGNESIUM 2.2 MG/DL (1.5-2.5)
[2017-01-05] MEDS: fentaNYL DRIP 250 ML IV SCH ×2 (06:55→17:41)
[2017-01-05] MEDS: DOCUSATE SODIUM 50 MG/SENNA 8.6 MG TAB PO SCH ×2 (09:00→20:35)
[2017-01-05] MEDS: PANTOPRAZOLE SODIUM 40 MG VIAL IV SCH (09:23)
[2017-01-05] MEDS: HYDROCORTISONE SOD SUCCINATE 100 MG VIAL IV PUSH SCH ×2 (09:24→20:35)
--- NOTE | 2017-01-05 09:51 | HHI.IDPN ---
Subjective Subjective Remarks Patient is a 56-year-old female with no significant past medical history, brought into the hospital for further evaluation of severe shortness of breath. She was apparently okay and was not having any problem until the day of admission when she woke up and she had significant shortness of breath. There was no other complaint as far as chest pain, cough, or any previous history of shortness of breath. Evaluation in the ED showed significant hypoxemia, and tachycardia. She ended up getting intubated. CT of the chest showed evidence of massive bilateral pulmonary embolism. She underwent lytic therapy. She was initially on pressors, and currently she is not on any blood pressure support. His December 30 she's been having fevers, and the last time she had any fever was around 2:00 this morning. She is currently sedated on the vent. Her FiO2 is down to 40%. She also had an elevated WBC. Her urinalysis showed evidence of pyuria, and her urine cultures growing gram-negative nereida. Blood cultures are negative so far. Her chest x-ray on admission did not show any acute pulmonary disease, and subsequent chest x-ray showing some atelectasis. Infectious disease consultation has been requested to evaluate the patient with fevers. She is currently on Zosyn and vancomycin. Notes reviewed D/W RN Temps occ low grade On the vent, sedated Looks dyspneic on the vent BP ok UC Strep and Proteus Repeat UC negative BC negative Sputum normal caron Antibiotics Rocephin Lines RSC TLC Past Medical History Not known Allergies: Coded Allergies: No Known Allergies (Verified , 11/17/16) Objective . Vital Signs Date Time Temp Pulse Resp B/P Pulse Ox O2 Delivery O2 Flow Rate FiO2 01/05/17 09:04 98 40 01/05/17 08:00 99.3 85 14 164/79 96 01/05/17 08:00 40 01/05/17 06:00 82 01/05/17 04:05 95 40 01/05/17 04:00 99.1 77 12 120/84 95 133/73 01/05/17 04:00 77 01/05/17 04:00 40 01/05/17 02:00 79 01/05/17 00:00 99.6 82 20 141/78 96 150/81 01/05/17 00:00 40 01/05/17 00:00 82 01/04/17 23:18 96 40 01/04/17 22:00 85 01/04/17 20:00 40 01/04/17 20:00 97.9 87 13 153/81 98 154/81 01/04/17 20:00 87 01/04/17 19:20 98 40 01/04/17 18:00 77 01/04/17 16:00 40 01/04/17 16:00 69 01/04/17 16:00 99.1 69 20 134/82 98 144/81 01/04/17 14:49 95 40 01/04/17 14:00 65 01/04/17 12:00 40 01/04/17 12:00 67 01/04/17 12:00 98.3 67 19 98/58 96 112/66 01/04/17 10:00 72 01/04/17 01/04/17 01/05/17 15:00 23:00 07:00 Intake Total 915 ml 776 ml 958 ml Output Total 554 ml 450 ml 450 ml Balance 361 ml 326 ml 508 ml IV Total 497 ml 533 ml 621 ml Tube Feeding 418 ml 243 ml 337 ml Output Urine Total 550 ml 450 ml 450 ml Chest Tube Drainage Total 4 ml # Bowel Movements 1 2 . Laboratory Tests Test 01/03/17 01/04/17 01/05/17 18:48 05:15 04:34 White Blood Count 11.7 TH/MM3 10.0 TH/MM3 11.9 TH/MM3 Red Blood Count 3.28 MIL/MM3 3.20 MIL/MM3 3.49 MIL/MM3 Hemoglobin 9.6 GM/DL 9.5 GM/DL 10.0 GM/DL Hematocrit 28.0 % 27.5 % 30.0 % Mean Corpuscular Volume 85.5 FL 85.9 FL 86.0 FL Mean Corpuscular Hemoglobin 29.2 PG 29.6 PG 28.6 PG Mean Corpuscular Hemoglobin 34.1 % 34.5 % 33.3 % Concent Red Cell Distribution Width 13.8 % 14.1 % 14.1 % Platelet Count 175 TH/MM3 180 TH/MM3 235 TH/MM3 Mean Platelet Volume 6.6 FL 6.7 FL 6.1 FL Laboratory Tests Test 01/04/17 01/05/17 05:15 04:35 Sodium Level 142 MEQ/L 139 MEQ/L Potassium Level 4.1 MEQ/L 4.0 MEQ/L Chloride Level 106 MEQ/L 104 MEQ/L Carbon Dioxide Level 28.9 MEQ/L 30.4 MEQ/L Anion Gap 7 MEQ/L 5 MEQ/L Blood Urea Nitrogen 20 MG/DL 22 MG/DL Creatinine 0.72 MG/DL 0.63 MG/DL Estimat Glomerular Filtration 84 ML/MIN 98 ML/MIN Rate Random Glucose 109 MG/DL 114 MG/DL Calcium Level 7.9 MG/DL 7.7 MG/DL Phosphorus Level 3.3 MG/DL 3.0 MG/DL Magnesium Level 2.3 MG/DL 2.2 MG/DL Microbiology Date/Time Procedure Status Source Growth 01/03/17 05:30 Stool Occult Blood (SHAR) Ordered Stool Stool Pending 01/03/17 11:28 Stool Occult Blood (SHAR) - Final Complete Stool Stool HEMOCCULT NEGATIVE Imaging Chest X-Ray 01/04/17 0600 Signed Impressions: Service Date/Time: Wednesday, January 04, 2017 03:25 - CONCLUSION: 1. Bilateral patchy air space disease, unchanged. Probable associated left-sided effusion. 2. Right-sided [place] loop thoracostomy tube without pneumothorax. Stable position of life support tubes. Harry Hilliard MD Chest X-Ray 01/03/17 0600 Signed Impressions: Service Date/Time: December 03:22 - CONCLUSION: Patchy infiltrates in the lungs. No evidence pneumothorax. Karl Tan MD Neck CTA 01/03/17 0000 Signed Impressions: Service Date/Time: December 10:37 - CONCLUSION: 1. No hemodynamically significant carotid artery stenosis identified. 2. The vertebrobasilar circulation appears widely patent. 3. Incidental note made of a 2.2 cm cystic thyroid nodule. Jd Cornelius MD Head CTA 01/03/17 0000 Signed Impressions: Service Date/Time: December 10:37 - CONCLUSION: No large or central vessel occlusion. Jd Cornelius MD Head CT 01/03/17 0000 Signed Impressions: Service Date/Time: December 10:37 - CONCLUSION: 1. Study is limited by motion artifact. 2. No significant change in the areas of edema likely from subacute infarction. 3. Slight midline shift to the right remains with no change in the ventricular system. 4. The questionable subtle area of low density in the left cerebellar hemisphere seen on the prior study is no longer distinctly visualized. Oswaldo Moody MD Carotid Artery Ultrasound 01/02/17 1308 Signed Impressions: Service Date/Time: Monday, January 02, 2017 14:02 - CONCLUSION: 1. There is elevation of the velocity in the distal left internal carotid artery. The proximal ICA shows normal velocities. I see no appreciable plaque within the area of concern. I cannot completely exclude a 50-69%% stenosis of the distal left ICA. Consider CTA of the carotid arteries to further evaluate. 2. 2.4 cm cystic nodule involving the right lobe of the thyroid. Karl Oliver Jr., MD Chest X-Ray 01/02/17 0000 Signed Impressions: Service Date/Time: Monday, January 02, 2017 04:24 - CONCLUSION: 1. Improved aeration left lower lung with residual patchy infiltrates. Stable patchy infiltrates right lower lung. 2. Interval development of soft tissue emphysema about the right anterior chest wall. 3. Blurring of the image limits evaluation for right pneumothorax. Some lung markings are seen into the right apex however. Karl Tan MD Head CT 01/01/17 0000 Signed Impressions: Service Date/Time: Sunday, January 01, 2017 13:58 - CONCLUSION: 1. New areas of edema likely from infarction in the left frontoparietal region and right frontal regions. 2. Narrowing of the left lateral ventricle. Significant midline shift is not seen. The basal cisterns are open. 3. Questionable subtle area of low-density in the left cerebellar hemisphere which could potentially represent a small area of infarction. Oren Gamez MD Abdomen/Pelvis CT 01/01/17 0000 Signed Impressions: Service Date/Time: Sunday, January 01, 2017 13:57 - CONCLUSION: 1. Pulmonary emboli with patchy areas of peripheral consolidation at the right lower lobe concerning for possible infarcts. 2. 2.4 cm focal splenic lesion. This is nonspecific. The most common splenic lesion to have this appearance would be a hemangioma. This can be followed up with an MRI examination in several months as an outpatient. 3. 1.7 cm large nonobstructing right renal stone. 4. Mild cystic change or possible area of infarction in the lateral right kidney with an area of cortical thinning and mild cystic change. 5. Left adnexal mass likely related to a dermoid given the large fat component. 6. Mild amount of free intraperitoneal fluid in the pelvis. 7. Scattered colonic diverticula in the sigmoid region without inflammatory change. 8. Catheter in the right femoral artery. Oren Gamez MD Liver Ultrasound 12/31/16 Signed Impressions: Service Date/Time: Saturday, December 31, 2016 15:09 - CONCLUSION: 1. Mildly increased echotexture of the liver characteristic of steatosis. No focal liver abnormality is identified. 2. Mild splenomegaly. Adjacent to the spleen and liver in the upper abdomen the cad draftsman reports a questionable mass. Consider abdomen and pelvis CT for further characterization. 3. Suspected 15 mm right renal stone. Oren Palafox MD Venogram 12/29/16 Signed Impressions: Service Date/Time: Thursday, December 29, 2016 11:26 - CONCLUSION: Uncomplicated bilateral venogram as above. No significant DVT in the legs on either side. No ileocaval thrombus. As such, I do not feel inferior vena caval filter placement is indicated prior to thrombolytic therapy and/or other therapy for the patient's pulmonary embolism. Oren Álvarez MD Lower Extremity Ultrasound 12/29/16 Signed Impressions: Service Date/Time: Thursday, December 29, 2016 10:56 - CONCLUSION: 1. Occlusive thrombus in the right posterior tibial vein. 2. Nonocclusive thrombus in the right common femoral vein and greater saphenous vein. 3. No deep venous thrombosis in the left lower extremity. Oswaldo Moody MD Central Venous Line 12/29/16 Signed Impressions: Service Date/Time: Thursday, December 29, 2016 11:26 - CONCLUSION: Uncomplicated ultrasound and fluoroscopic guided central line placement as above. Oren Álvarez MD CT Angiography 12/29/16 Signed Impressions: Service Date/Time: Thursday, December 29, 2016 10:01 - CONCLUSION: Extensive bilateral pulmonary embolism. These findings were discussed with the emergency room physician at 1009 hrs. Oswaldo Moody MD Physical Exam GENERAL: sedated on the vent, not in respiratory distress. SKIN: Warm and dry. No generalized rash, no evidence of embolic lesions. HEAD: Atraumatic. Normocephalic. No temporal wasting, or tenderness. EYES: [place] conjunctiva. No petechia or hemorrhage. Pupils equal, round and reactive to light. No scleral icterus. No injection or drainage. EARS, NOSE AND THROAT: Nose without bleeding or purulent nasal discharge. Orally intubated. NECK: Trachea midline. Supple and not tender, no meningeal signs CARDIOVASCULAR: Regular rate and rhythm. No murmurs, rubs or gallops heard. Line RSC, site ok. 2 pigtail cath on R anterior chest RESPIRATORY: No rales, wheezing or rhonchi. Decreased breath sounds at the bases. ABDOMEN: Soft, obese, nondistended, no reaction to deep palpation.. Bowel sounds present and normoactive. No organomegaly. EXTREMITIES: No clubbing, cyanosis. Min edema. NEUROLOGICAL: Sedated PSYCHIATRIC: Unable to assess LINE: No evidence of infection Assessment & Plan Remarks IMPRESSION Fever, etiology, likely due to massive PE, better Massive PE, etiology? UTI, repeat UA better No evidence of PNA, infiltrates now likely more on pulmonary infarcts Respiratory failure due to massive PE Shock to due to PE, better Leukocytosis due to PE, better Bilateral brain infarcts, likely due to hypoperfusion - emboli usually smaller Low grade temps RECOMMENDATION Continue Rocephin for the UTI (proteus and Strep mutans) Follow CBC Monitor progress Monitor temps To get repeat CT head per neuro D/W Dee Rutledge MD Jan 05, 2017 09:51
--- NOTE | 2017-01-05 10:05 | PD.ONC.PN ---
Subjective Subjective Remarks Afebrile overnight. Patient intubated, sedated. Going for CT at noon today. No overnight events. Objective Data Date Time Temp Pulse Resp B/P Pulse Ox O2 Delivery O2 Flow Rate FiO2 01/05/17 09:04 98 40 01/05/17 08:00 99.3 85 14 164/79 96 01/05/17 08:00 40 01/05/17 06:00 82 01/05/17 04:05 95 40 01/05/17 04:00 99.1 77 12 120/84 95 133/73 01/05/17 04:00 77 01/05/17 04:00 40 01/05/17 02:00 79 01/05/17 00:00 99.6 82 20 141/78 96 150/81 01/05/17 00:00 40 01/05/17 00:00 82 01/04/17 23:18 96 40 01/04/17 22:00 85 01/04/17 20:00 40 01/04/17 20:00 97.9 87 13 153/81 98 154/81 01/04/17 20:00 87 01/04/17 19:20 98 40 01/04/17 18:00 77 01/04/17 16:00 40 01/04/17 16:00 69 01/04/17 16:00 99.1 69 20 134/82 98 144/81 01/04/17 14:49 95 40 01/04/17 14:00 65 01/04/17 12:00 40 01/04/17 12:00 67 01/04/17 12:00 98.3 67 19 98/58 96 112/66 01/04/17 10:00 72 01/05/17 01/05/17 01/05/17 07:00 15:00 23:00 Intake Total 958 ml Output Total 450 ml Balance 508 ml Result Diagram: 01/05/17 0434 01/05/17 0435 Laboratory Results Laboratory Tests Test 01/05/17 01/05/17 04:34 04:35 White Blood Count 11.9 TH/MM3 Red Blood Count 3.49 MIL/MM3 Hemoglobin 10.0 GM/DL Hematocrit 30.0 % Mean Corpuscular Volume 86.0 FL Mean Corpuscular Hemoglobin 28.6 PG Mean Corpuscular Hemoglobin 33.3 % Concent Red Cell Distribution Width 14.1 % Platelet Count 235 TH/MM3 Mean Platelet Volume 6.1 FL Activated Partial 34.2 SEC Thromboplast Time Sodium Level 139 MEQ/L Potassium Level 4.0 MEQ/L Chloride Level 104 MEQ/L Carbon Dioxide Level 30.4 MEQ/L Anion Gap 5 MEQ/L Blood Urea Nitrogen 22 MG/DL Creatinine 0.63 MG/DL Estimat Glomerular Filtration 98 ML/MIN Rate Random Glucose 114 MG/DL Calcium Level 7.7 MG/DL Phosphorus Level 3.0 MG/DL Magnesium Level 2.2 MG/DL Culture Results Microbiology Date/Time Procedure Status Source Growth 01/03/17 05:30 Stool Occult Blood (SHAR) Ordered Stool Stool Pending 01/03/17 11:28 Stool Occult Blood (SHAR) - Final Complete Stool Stool HEMOCCULT NEGATIVE Imaging Studies Last 24 hours Impressions Chest X-Ray 01/05/17 0600 Signed Impressions: Service Date/Time: Saturday, January 05, 2017 03:17 - CONCLUSION: 1. Stable bilateral basilar airspace disease. Support apparatus unchanged. Indra Allen MD Administered Medications Medications (Trade) Dose Ordered Sig/Sabine Route PRN Reason Start Time Stop Time Status Last Admin Dose Admin Sodium Chloride (NS Flush) 2 ml UNSCH PRN IVF FLUSH AFTER USING IV ACCESS 12/29/16 08:30 01/04/17 20:56 Sodium Chloride (NS Flush) 2 ml UNSCH PRN IVF FLUSH AFTER USING IV ACCESS 12/29/16 08:45 01/04/17 20:56 Pantoprazole Sodium (Protonix Inj) 40 mg DAILY IV 12/29/16 11:00 01/05/17 09:23 Chlorhexidine Gluconate (Chlorhexidine 2% Cloth) Taper DAILY@04 TOP 12/30/16 04:00 12/26/17 03:59 01/04/17 20:57 Senna/Docusate Sodium 1 tab 1 tab BID PO 12/29/16 21:00 01/04/17 20:55 Fentanyl Citrate (fentaNYL DRIP) 250 ml @ 0 mls/hr TITRATE IV 12/29/16 10:30 01/05/17 06:55 Insulin Human Regular 1 1 Q4H SQ 12/29/16 11:00 12/31/16 03:00 Vasopressin 40 units/Sodium Chloride 100 ml @ 1.5 mls/hr Q24H IV 12/30/16 05:30 12/30/16 21:36 Propofol (Diprivan 1000 Mg/100ml Inj) 100 ml @ 0 mls/hr TITRATE IV 12/30/16 07:30 01/05/17 06:55 Hydrocortisone Sodium Succinate 50 mg 50 mg Q12HR IV PUSH 12/31/16 21:00 01/05/17 09:24 Ceftriaxone Sodium 2000 mg/ Sodium Chloride 100 ml @ 200 mls/hr Q24H IV 01/03/17 16:00 01/04/17 16:46 Heparin Sodium/ Dextrose (Heparin-D5W Inj) 250 ml @ 0 mls/hr TITRATE IV 01/03/17 16:15 01/04/17 22:04 Objective Remarks GENERAL: Middle aged, obese female supine in bed, intubated, sedated. SKIN: Warm and dry. HEAD: Normocephalic. EYES: No injection or drainage. NECK: Supple, trachea midline. CARDIOVASCULAR: +S1/S2 RESPIRATORY: anterior ohara clear. on mechanical ventilation. GASTROINTESTINAL: Abdomen nondistended. EXTREMITIES: No cyanosis NEUROLOGICAL: intubated, sedated. Assessment/Plan Assessment 1. DVT and PE: hemodynamically unstable on admission on 12/29 and s/p TPA. On heparin. tolerating heparin gtt. ptt 34s this AM and was increased to 19cc/hr. 2. CVA, ischemic: neurology team following. With stroke there is a risk of hemorrhagic transformation with anticoagulation. This is a difficult situation in a patient with a known VTE and hypercoagable state that cannot come off of anticoagulation. Case has been discussed with Dr. Rojas. She has been unable to have sedation vacation due to elevated blood pressure that occurs with weaning of sedation. CT pending for noon today. 3. Anemia: normocytic. Likely multifactorial in the setting of critically ill patient. hgb=10 today. no transfusion needed. 4. Thrombocytopenia: multifactorial due to PE, thrombolytic therapy, antibiotic use. Continue to trend. platelet count WNL today. 5. Hypercoaguable state: Known obesity. Protein C, Protein S studies WNL. No Factor V leiden mutation. No LA. AT3 is 79 with lower limit of normal of 80 this is likely artifact due to acute clot and anticoagulation. Antiphospholipid antibody panel WNL. Anticardiolipin pending. Not performed were prothrombin gene mutation, will hold off on ordering at this point in time as results would not change current management. 6. Palliative care: trach vs palliative care. Mother is health care surrogate. Palliative care has been following and attempting to reach the family. Attending Statement The exam, history, and the medical decision-making described in the above note were completed with the assistance of the mid-level provider. I reviewed and agree with the findings presented. I attest that I had a [id number] encounter with the patient on the same day, and personally performed and documented my assessment and findings in the medical record Dianna Buckner Jan 05, 2017 10:05 Rafiq Dang MD Jan 06, 2017 18:03
[2017-01-05] MEDS: HEPARIN-D5W 25,000 U/250 ML 250 ML IV SCH ×2 (13:06→23:18)
[2017-01-05 13:31] LABS: APTT (PATIENT) 34.4 SEC (24.3-30.1)
[2017-01-05] MEDS: cefTRIAXone INJ 2,000 MG in SODIUM CHLORIDE 0.9% INJ 100 ML IV SCH (16:00)
--- NOTE | 2017-01-05 17:44 | HHI.CCPN ---
Subjective Remarks/Hospital Course Patient is a 56-year-old female without significant past medical history who presented to the [facility] Emergency Department with severe respiratory distress. Per ED records, the patient woke up this morning feeling short of breath. She denied any associated symptoms of chest pain, orthopnea, PND or edema of the lower extremities. On arrival to the emergency department, she was found hypoxic with saturation in the 70s on room air and tachycardiac with heart rate of 160. The patient was subsequently intubated with etomidate, succinylcholine and Versed and placed on full mechanical ventilation. ABG post- intubation showed severe respiratory acidosis with a pH of 7.15, CO2 51, pAO2 73 , bicarb 17, sats of 88% PRVC mode, rate of 24, tidal volume 500,IT: 1.0, PEEP of 20 with 100% FIO2. Chest x-ray showed no acute cardiopulmonary disease. The patient underwent a stat CT scan of the chest, which showed extensive bilateral pulmonary embolism. She also had CT scan of the brain, which showed no evidence of hemorrhage or mass effect. In ER she was given IV fluids 2 liters, Ativan, and placed on Diprivan infusion for sedation. 12/30 On arrival to ICU from patient became hemodynamically unstable and placed on multiple pressors. She is currently on Neosyn 100 mics, Vasopressin 0.04, Levophed 12 mics, Off Dobutamine. In addition she is sedated with Fentanyl, Diprivan and on Nimbex. At approx 3 am she developed right sided PTX and pig tail catheter was placed with resolution of PTX on repeat CXR. On PC/AC RR 28, IP: 18, IT:1.0, PEEP:10, FIO2 70%. On TPA 1mg/hr and Heparin drip. T;101.1 at 4am. 12/31 Patient remains sedated, intubated and on Nimbex. She had recurrent right sided PTX yesterday afternoon and a second pigtail catheter was placed with resolution of PTX. Off TPA and on heparin drip. She is off Levophed, Neosyn however remained on Vasopressin. Also, there is improvements in her O2 requirements and down to PEEP: 10 and FIO2 40%. T:101.1 last night 01/01 Patient is off all pressors, sedated with Diprivan and Fentanyl. Remains on Heparin drip. WBC is trending down. T:100.0 01/02: Tmax 100.6. Leukocytosis resolving. PEEP decreased to 5. Hemodynamically stable overnight 01/03: Tmax 99.2. No change in neurological status. Leukocytosis improving. Hit panel pending. Patient change to Argatroban infusion yesterday, remains in therapeutic range. 01/04: Per hematology and oncology patients infusion return back to heparin. Hit panel results negative. No change in neurological status. 01/05: Sedation vacation attempted, the patient unresponsive. Repeat CT of the head pending, Dr. Frias neurology following. Objective Vital Signs Date Time Temp Pulse Resp B/P Pulse Ox O2 Delivery O2 Flow Rate FiO2 01/05/17 16:02 40 01/05/17 16:00 99.7 78 18 134/76 95 Intake and Output 01/04/17 01/04/17 01/05/17 08:00 16:00 00:00 Intake Total 696 ml 915 ml 776 ml Output Total 350 ml 554 ml 450 ml Balance 346 ml 361 ml 326 ml Result Diagram: 01/05/17 0434 01/05/17 0435 Other Results Microbiology Date/Time Procedure Status Source Growth 01/03/17 11:28 Stool Occult Blood (SHAR) - Final Complete Stool Stool HEMOCCULT NEGATIVE Imaging Last Impressions Chest X-Ray 01/04/17 0600 Signed Impressions: Service Date/Time: Wednesday, January 04, 2017 03:25 - CONCLUSION: 1. Bilateral patchy air space disease, unchanged. Probable associated left-sided effusion. 2. Right-sided [place] loop thoracostomy tube without pneumothorax. Stable position of life support tubes. Harry Hilliard MD Neck CTA 01/03/17 0000 Signed Impressions: Service Date/Time: December 10:37 - CONCLUSION: 1. No hemodynamically significant carotid artery stenosis identified. 2. The vertebrobasilar circulation appears widely patent. 3. Incidental note made of a 2.2 cm cystic thyroid nodule. Jd Cornelius MD Head CTA 01/03/17 0000 Signed Impressions: Service Date/Time: December 10:37 - CONCLUSION: No large or central vessel occlusion. Jd Cornelius MD Head CT 01/03/17 0000 Signed Impressions: Service Date/Time: December 10:37 - CONCLUSION: 1. Study is limited by motion artifact. 2. No significant change in the areas of edema likely from subacute infarction. 3. Slight midline shift to the right remains with no change in the ventricular system. 4. The questionable subtle area of low density in the left cerebellar hemisphere seen on the prior study is no longer distinctly visualized. Oswaldo Moody MD Carotid Artery Ultrasound 01/02/17 1308 Signed Impressions: Service Date/Time: Monday, January 02, 2017 14:02 - CONCLUSION: 1. There is elevation of the velocity in the distal left internal carotid artery. The proximal ICA shows normal velocities. I see no appreciable plaque within the area of concern. I cannot completely exclude a 50-69%% stenosis of the distal left ICA. Consider CTA of the carotid arteries to further evaluate. 2. 2.4 cm cystic nodule involving the right lobe of the thyroid. Karl Oliver Jr., MD Upper Extremity Ultrasound 01/02/17 0000 Signed Impressions: Service Date/Time: Monday, January 02, 2017 14:26 - CONCLUSION: 1. Occlusive and nonocclusive thrombus in the right cephalic vein. 2. No left upper extremity venous thrombosis. Oswaldo Moody MD Lower Extremity Ultrasound 01/02/17 0000 Signed Impressions: Service Date/Time: Monday, January 02, 2017 13:33 - CONCLUSION: 1. Occlusive thrombus in the right posterior tibial vein. 2. Nonocclusive thrombus in the right common femoral vein, greater saphenous vein and peroneal veins. 3. No deep venous thrombosis in the left lower extremity. Oswaldo Moody MD Abdomen/Pelvis CT 01/01/17 0000 Signed Impressions: Service Date/Time: Sunday, January 01, 2017 13:57 - CONCLUSION: 1. Pulmonary emboli with patchy areas of peripheral consolidation at the right lower lobe concerning for possible infarcts. 2. 2.4 cm focal splenic lesion. This is nonspecific. The most common splenic lesion to have this appearance would be a hemangioma. This can be followed up with an MRI examination in several months as an outpatient. 3. 1.7 cm large nonobstructing right renal stone. 4. Mild cystic change or possible area of infarction in the lateral right kidney with an area of cortical thinning and mild cystic change. 5. Left adnexal mass likely related to a dermoid given the large fat component. 6. Mild amount of free intraperitoneal fluid in the pelvis. 7. Scattered colonic diverticula in the sigmoid region without inflammatory change. 8. Catheter in the right femoral artery. Oren Gamez MD Liver Ultrasound 12/31/16 Signed Impressions: Service Date/Time: Saturday, December 31, 2016 15:09 - CONCLUSION: 1. Mildly increased echotexture of the liver characteristic of steatosis. No focal liver abnormality is identified. 2. Mild splenomegaly. Adjacent to the spleen and liver in the upper abdomen the civil division deputy sheriff reports a questionable mass. Consider abdomen and pelvis CT for further characterization. 3. Suspected 15 mm right renal stone. Oren Palafox MD Venogram 12/29/16 Signed Impressions: Service Date/Time: Thursday, December 29, 2016 11:26 - CONCLUSION: Uncomplicated bilateral venogram as above. No significant DVT in the legs on either side. No ileocaval thrombus. As such, I do not feel inferior vena caval filter placement is indicated prior to thrombolytic therapy and/or other therapy for the patient's pulmonary embolism. Oren Álvarez MD Central Venous Line 12/29/16 Signed Impressions: Service Date/Time: Thursday, December 29, 2016 11:26 - CONCLUSION: Uncomplicated ultrasound and fluoroscopic guided central line placement as above. Oren Álvarez MD CT Angiography 12/29/16 Signed Impressions: Service Date/Time: Thursday, December 29, 2016 10:01 - CONCLUSION: Extensive bilateral pulmonary embolism. These findings were discussed with the emergency room physician at 1009 hrs. Oswaldo Moody MD Last Impressions Chest X-Ray 01/02/17 Signed Impressions: Service Date/Time: Monday, January 02, 2017 04:24 - CONCLUSION: 1. Improved aeration left lower lung with residual patchy infiltrates. Stable patchy infiltrates right lower lung. 2. Interval development of soft tissue emphysema about the right anterior chest wall. 3. Blurring of the image limits evaluation for right pneumothorax. Some lung markings are seen into the right apex however. Karl Tan MD Head CT 01/01/17 0000 Signed Impressions: Service Date/Time: Sunday, January 01, 2017 13:58 - CONCLUSION: 1. New areas of edema likely from infarction in the left frontoparietal region and right frontal regions. 2. Narrowing of the left lateral ventricle. Significant midline shift is not seen. The basal cisterns are open. 3. Questionable subtle area of low-density in the left cerebellar hemisphere which could potentially represent a small area of infarction. Oren Gamez MD Abdomen/Pelvis CT 01/01/17 Signed Impressions: Service Date/Time: Sunday, January 01, 2017 13:57 - CONCLUSION: 1. Pulmonary emboli with patchy areas of peripheral consolidation at the right lower lobe concerning for possible infarcts. 2. 2.4 cm focal splenic lesion. This is nonspecific. The most common splenic lesion to have this appearance would be a hemangioma. This can be followed up with an MRI examination in several months as an outpatient. 3. 1.7 cm large nonobstructing right renal stone. 4. Mild cystic change or possible area of infarction in the lateral right kidney with an area of cortical thinning and mild cystic change. 5. Left adnexal mass likely related to a dermoid given the large fat component. 6. Mild amount of free intraperitoneal fluid in the pelvis. 7. Scattered colonic diverticula in the sigmoid region without inflammatory change. 8. Catheter in the right femoral artery. Oren Gamez MD Liver Ultrasound 12/31/16 Signed Impressions: Service Date/Time: Saturday, December 31, 2016 15:09 - CONCLUSION: 1. Mildly increased echotexture of the liver characteristic of steatosis. No focal liver abnormality is identified. 2. Mild splenomegaly. Adjacent to the spleen and liver in the upper abdomen the civil division deputy sheriff reports a questionable mass. Consider abdomen and pelvis CT for further characterization. 3. Suspected 15 mm right renal stone. Oren Palafox MD Venogram 12/29/16 Signed Impressions: Service Date/Time: Thursday, December 29, 2016 11:26 - CONCLUSION: Uncomplicated bilateral venogram as above. No significant DVT in the legs on either side. No ileocaval thrombus. As such, I do not feel inferior vena caval filter placement is indicated prior to thrombolytic therapy and/or other therapy for the patient's pulmonary embolism. Oren Álvarez MD Lower Extremity Ultrasound 12/29/16 Signed Impressions: Service Date/Time: Thursday, December 29, 2016 10:56 - CONCLUSION: 1. Occlusive thrombus in the right posterior tibial vein. 2. Nonocclusive thrombus in the right common femoral vein and greater saphenous vein. 3. No deep venous thrombosis in the left lower extremity. Oswaldo Moody MD Central Venous Line 12/29/16 Signed Impressions: Service Date/Time: Thursday, December 29, 2016 11:26 - CONCLUSION: Uncomplicated ultrasound and fluoroscopic guided central line placement as above. Oren Álvarez MD CT Angiography 12/29/16 Signed Impressions: Service Date/Time: Thursday, December 29, 2016 10:01 - CONCLUSION: Extensive bilateral pulmonary embolism. These findings were discussed with the emergency room physician at 1009 hrs. Oswaldo Moody MD Last Impressions Liver Ultrasound 12/31/16 Signed Impressions: Service Date/Time: Saturday, December 31, 2016 15:09 - CONCLUSION: 1. Mildly increased echotexture of the liver characteristic of steatosis. No focal liver abnormality is identified. 2. Mild splenomegaly. Adjacent to the spleen and liver in the upper abdomen the civil division deputy sheriff reports a questionable mass. Consider abdomen and pelvis CT for further characterization. 3. Suspected 15 mm right renal stone. Oren Palafox MD Chest X-Ray 12/31/16 Signed Impressions: Service Date/Time: Saturday, December 31, 2016 09:17 - CONCLUSION: 1. Small bore chest tubes on the right in good position. No pneumothorax. 2. Central line, ET tube and NG tube in good position. 3. Atelectatic changes in the lung bases. Jd Cornelius MD Venogram 12/29/16 Signed Impressions: Service Date/Time: Thursday, December 29, 2016 11:26 - CONCLUSION: Uncomplicated bilateral venogram as above. No significant DVT in the legs on either side. No ileocaval thrombus. As such, I do not feel inferior vena caval filter placement is indicated prior to thrombolytic therapy and/or other therapy for the patient's pulmonary embolism. Oren Álvarez MD Lower Extremity Ultrasound 12/29/16 Signed Impressions: Service Date/Time: Thursday, December 29, 2016 10:56 - CONCLUSION: 1. Occlusive thrombus in the right posterior tibial vein. 2. Nonocclusive thrombus in the right common femoral vein and greater saphenous vein. 3. No deep venous thrombosis in the left lower extremity. Oswaldo Moody MD Head CT 12/29/16 0000 Signed Impressions: Service Date/Time: Thursday, December 29, 2016 09:49 - CONCLUSION: 1. Suboptimal examination secondary to motion artifact. 2. No evidence of hemorrhage or mass effect identified. Oswaldo Moody MD Central Venous Line 12/29/16 0000 Signed Impressions: Service Date/Time: Thursday, December 29, 2016 11:26 - CONCLUSION: Uncomplicated ultrasound and fluoroscopic guided central line placement as above. Oren Álvarez MD CT Angiography 12/29/16 0000 Signed Impressions: Service Date/Time: Thursday, December 29, 2016 10:01 - CONCLUSION: Extensive bilateral pulmonary embolism. These findings were discussed with the emergency room physician at 1009 hrs. Oswaldo Moody MD Objective Remarks Infusions Heparin 2000 units/hr Fentanyl 250 mcgs/hour Diprivan 37mcgs/min GENERAL: Patient is 56 yo female morbidly obese, critically ill intubated and sedated for ventilator synchrony SKIN: Warm and dry. HEAD: Normocephalic. EYES: No scleral icterus. No injection or drainage. Pupils equal and reactive NECK: Supple, trachea midline. Unable to evaluate JVD or lymphadenopathy secondary to body habitus. Orally intubated CARDIOVASCULAR: Regular rate and rhythm without murmurs, gallops, or rubs. Telemetry sinus rhythm RESPIRATORY: Breath sounds equal bilaterally. No accessory muscle use. Chest tubes right in situ on 20 cm H20 suction GASTROINTESTINAL: Abdomen soft, obese .non-tender, nondistended. MUSCULOSKELETAL: No cyanosis, or edema. Neuro: GCS 3T .Sedated on propofol and fentanyl infusions for ventilator synchrony. Off sedation patient continues to be unresponsive A/P Assessment and Plan 1. Acute hypoxemic hypercapnic respiratory failure requiring intubation 2 Distributive shock 3. Extensive bilateral pulmonary embolism. 4. DVT RLE 5 Lactic acidemia 6 EKATERINA 7 Elevated trop...2nd PE 8 Leukocytosis, 9 UTI 10. Hyperglycemia. 11 Morbid obesity Obesity. 12 Right sided PTX s/p pig tail catheter placement 13 Elevated LFT's 14. Fatty liver Plan Neuro: On Diprivan and Fentanyl infusion for sedation. Perform daily Sedation vacation- unresponsive CT brain in ED negative for acute intracranial process. 01/01Repeat CT brain today showed infarct frontal lobes bilateral L>R MCA embolic stroke ,likely 2nd hypoperfusion . F/U EEG Neurology followingDr. Altagracia- unable to perform MRI secondary to instability at this time Concern for transformation to ICH, secondary to anticoagulation therapy 01/[address] brain-no change in slight midline shift, no change in edema secondary to subacute infarction 01/03 CTA brain no central vessel occlusion, CTA neck-no significant carotid artery stenosis. Vertebrobasilar artery system widely patent. 01/05-repeat CT brain pending Pulm: Continue with vent support and maintain sats > 92%. Bronchodilators, ICU vent bundle. CPAP trials as tolerated On PC/AC RR 18, IP:20, IT:1.0, PEEP:5, FIO2 40%. Decrease rate pigtail catheter was placed 12/30 in afternoon for recurrent PTX. s/p pigtail catheter placement for right sided PTX morning of 12/30 CXR: 12/31: Atelectasis Off TPA, continue with Heparin infusion per PE protocol. Hypercoagulable workup in process. 01/02-HIT panel negative 01/03 CT # 2 to waterseal, CT #1 to waterseal CV: monitor HR and BP maintain MAP> 65 mmHg. Taper steroids- HC 50mg IV Q12 Serial lactic acid monitoring -cleared Echo showed mid dilated RV with mod. decrease in systolic function, PAP 41mmHg, LV is not well visualized. No EF reported 01/02 Repeat ECHO w/ bubble study- negative for shunt 01/02 Carotid doppler studies : Monitor renal function, intake and output and electrolyte replacement as needed. Electrolytes pending this a.m. replete per ICU protocol GI: On Protonix 40 milligrams IV daily for GI prophylaxis. On tube feeds ( Glucerna 1.5 with goal rate 45ml/hr)- minimal residuals US Liver: Mildly increased echotexture of the liver characteristic of steatosis. No focal liver abnormality is identified. Mild splenomegaly. Adjacent to the spleen and liver in the upper abdomen the civil division deputy sheriff reports a ? mass. Will get CT abdomen/pelvis r/o abd masses ID:Continue with abx (Zosyn) ID is following, Monitor for signs of infections( fever and WBCs). WBC is trending down urine cx: Proteus mirabilis, strep mutans Endo: SSI with Accu-Chek for glycemic control q. 4 hours. Heme: Monitor CBC and coags/Fibrinogen( Fibrinogen level 205) Heparin infusion per PE protocol, discontinue begin Argatroban Doppler US LE: DVT RLE Hematologyoncology [id number] procoagulant studies GI prophylaxis with Protonix 40 mg daily and DVT prophylaxis- on Heparin infusion Lines: Right subclavian CVP placed by IR 12/29, femoral arterial line Dispo: Discussed with RESEARCH PROFESSOR OF BIOSTATISTICS at bedside. Palliative care consulted to define goals of care. This patient remains critically ill with one or more organ systems which are or may become a threat to life. I have spent in excess of 25 minutes discontinuously in the care and management of this patient. This time is exclusive of procedures, and includes, but is not limited to, evaluation of the patient, review of the medical record, discussions with family, consultants, nursing staff, or respiratory therapy, and documentation in the medical record. Physician Sulema Faulkner MD Jan 05, 2017 17:44
--- NOTE | 2017-01-05 19:49 | RADRPT ---
EXAM DATE/TIME: 01/05/2017 19:31 [facility] COMPARISON: CT BRAIN W/O CONTRAST, January 03, 2017, 10:37. INDICATIONS : Follow up stroke. RADIATION DOSE: 36.57 CTDIvol (mGy) MEDICAL HISTORY : None SURGICAL HISTORY : None. ENCOUNTER: Subsequent ACUITY: 1 week PAIN SCALE: Non-responsive LOCATION: cranial TECHNIQUE: Multiple contiguous axial images were obtained of the head. Using automated exposure control and adj ustment of the mA and/or kV according to patient size, radiation dose was kept as low as reasonably a chievable to obtain optimal diagnostic quality images. DICOM format image data is available electro nically for review and comparison. FINDINGS: There is no change in subacute infarctions of bilateral frontal lobes. There is no hemorrhage or mass effect. These areas of infarctions involving into areas of encephalomalacia. CONCLUSION: Evolution of bilateral frontal lobe infarctions without hemorrhage or mass effect. Danielle Higuera MD on January 05, 2017 at 19:46 Board Certified Radiologist. This report was verified electronically.
[2017-01-05 21:39] LABS: APTT (PATIENT) 38.4 SEC (24.3-30.1)
[2017-01-05] MEDS: CHLORHEXIDINE GLUCONATE 2 % 1 PACK (2 CLOTHS) TOP SCH (21:56)
[2017-01-06] VITALS (31 sets, daily range): BP systolic 98–157; BP diastolic 56–97; PULSE 65–88; RESP 15–53; TEMP 98.3–100.2; O2SAT 91–99
[2017-01-06] MEDS: PROPOFOL 1000 MG/100 ML IV SCH ×8 (00:28→23:45)
[2017-01-06] MEDS: INSULIN NovoLIN REGULAR SUPPLEMENTAL SCALE SQ SCH ×6 (02:33→23:00)
[2017-01-06 02:34] LABS: HEMATOCRIT 29.2 % (35.0-46.0); MEAN CELL VOLUME 85.4 FL (80.0-100.0); MEAN CORPUSCULAR HEMOGLOBIN 29.2 PG (27.0-34.0); MEAN CORPUSCULAR HGB CONC 34.2 % (32.0-36.0); PLATELET COUNT 221 TH/MM3 (150-450); RED BLOOD COUNT 3.42 MIL/MM3 (4.00-5.30); RED CELL DISTRIBUTION WIDTH 13.7 % (11.6-17.2); REVIEW FLAG FINAL; WHITE BLOOD COUNT 11.7 TH/MM3 (4.0-11.0)
[2017-01-06 02:46] LABS: APTT (PATIENT) 46.3 SEC (24.3-30.1)
[2017-01-06 02:59] LABS: MAGNESIUM 2.1 MG/DL (1.5-2.5); POTASSIUM 4.1 MEQ/L (3.5-5.1)
[2017-01-06] MEDS: fentaNYL DRIP 250 ML IV SCH (03:33)
[2017-01-06 05:23] LABS: BLOOD GAS BASE EXCESS 2.8 mmol/L (-2-2); BLOOD GAS CARBOXYHEMOGLOBIN 1.8 % (0-4); BLOOD GAS HCO3 26 mmol/L (22-26); BLOOD GAS O2 HGB SATURATION 95 % (90-100); BLOOD GAS PCO2 38 mmHg (38-42); BLOOD GAS PO2 94 mmHg (61-120); BLOOD GAS TOTAL HGB 9.6 G/DL (12.0-16.0); CRITICAL VALUE NO; DRAW SITE ART LINE; FIO2 40 %; OXYGEN DEVICE VENTILATOR; STAT NO; TEMP CORR TO 98.6; VENT SETTINGS PC/AC16/16IP/1.0IT/
--- NOTE | 2017-01-06 05:36 | RADRPT ---
EXAM DATE/TIME: 01/06/2017 03:05 [facility] COMPARISON: CHEST SINGLE AP, January 05, 2017, 3:17. INDICATIONS : Shortness of breath, possible pulmonary disease. MEDICAL HISTORY : Hypertension. Diabetes mellitus type II. SURGICAL HISTORY : None. ENCOUNTER: Subsequent ACUITY: 1 week PAIN SCORE: Non-responsive. LOCATION: Bilateral chest FINDINGS: A single view of the chest demonstrates stable patchy bilateral airspace disease. Right-sided [place] lo op catheter projects over the mid chest. No pneumothorax. Right subclavian central venous catheter, e ndotracheal and nasogastric tubes are unchanged in position. CONCLUSION: 1. Stable radiographic appearance of the chest with patchy bilateral airspace disease 2. Stable position of life support tubes including right-sided [place] loop thoracostomy tube without pn eumothorax. Harry Hilliard MD on January 06, 2017 at 5:32 Board Certified Radiologist. This report was verified electronically.
[2017-01-06] MEDS: HEPARIN-D5W 25,000 U/250 ML 250 ML IV SCH ×2 (07:26→23:49)
[2017-01-06] MEDS: PANTOPRAZOLE SODIUM 40 MG VIAL IV SCH (07:28)
[2017-01-06] MEDS: HYDROCORTISONE SOD SUCCINATE 100 MG VIAL IV PUSH SCH ×2 (07:28→19:58)
[2017-01-06] MEDS: DOCUSATE SODIUM 50 MG/SENNA 8.6 MG TAB PO SCH ×2 (08:00→19:58)
[2017-01-06 13:04] LABS: APTT (PATIENT) 43.9 SEC (24.3-30.1)
--- NOTE | 2017-01-06 13:06 | PD.ONC.PN ---
Subjective Subjective Remarks Afebrile overnight. remains intubated, sedated. per nursing staff, patient becomes very agitated when sedation removed. Objective Data Date Time Temp Pulse Resp B/P (MAP) Pulse Ox O2 Delivery O2 Flow Rate FiO2 01/06/17 07:28 94 40 01/06/17 04:45 71 17 130/66 (87) 96 01/06/17 04:30 70 16 131/69 (89) 96 01/06/17 04:15 65 16 110/59 (76) 92 01/06/17 04:05 93 40 01/06/17 04:00 98.3 65 16 103/65 (78) 94 121/65 (83) 01/06/17 04:00 40 01/06/17 03:45 66 16 120/65 (83) 91 01/06/17 03:30 67 16 108/59 (75) 92 01/06/17 03:15 67 16 118/64 (82) 92 01/06/17 03:00 71 16 98/56 (70) 93 105/56 (72) 01/06/17 02:45 73 16 111/59 (76) 93 01/06/17 02:30 73 16 115/62 (79) 93 01/06/17 02:15 73 16 127/67 (87) 94 01/06/17 02:00 76 15 134/75 (94) 96 142/80 (100) 01/06/17 01:45 72 25 151/79 (103) 97 01/06/17 01:30 72 48 140/75 (96) 95 01/06/17 01:15 71 53 145/77 (99) 93 01/06/17 01:00 78 31 131/87 (102) 99 157/82 (107) 01/06/17 00:45 72 20 130/68 (88) 93 01/06/17 00:30 76 24 133/70 (91) 96 01/06/17 00:15 75 18 119/63 (81) 92 01/06/17 00:12 93 40 01/06/17 00:00 40 01/06/17 00:00 98.7 75 18 124/66 (85) 95 01/06/17 00:00 74 22 120/67 (84) 93 128/68 (88) 01/05/17 20:00 40 01/05/17 20:00 98.7 77 18 143/77 (99) 95 01/05/17 19:52 100 40 01/05/17 19:25 100 01/05/17 16:02 40 01/05/17 16:00 99.7 78 18 134/76 (95) 95 01/05/17 15:27 96 40 01/06/17 01/06/17 01/06/17 07:00 15:00 23:00 Intake Total 1075 ml Output Total 850 ml Balance 225 ml Result Diagram: 01/06/17 0211 01/06/17 0211 Laboratory Results Laboratory Tests Test 01/05/17 20:27 01/06/17 02:11 01/06/17 05:08 01/06/17 09:00 Activated Partial Thromboplast Time 38.4 SEC 46.3 SEC White Blood Count 11.7 TH/MM3 Red Blood Count 3.42 MIL/MM3 Hemoglobin 10.0 GM/DL Hematocrit 29.2 % Mean Corpuscular Volume 85.4 FL Mean Corpuscular Hemoglobin 29.2 PG Mean Corpuscular Hemoglobin Concent 34.2 % Red Cell Distribution Width 13.7 % Platelet Count 221 TH/MM3 Mean Platelet Volume 6.2 FL Blood Urea Nitrogen 19 MG/DL Creatinine 0.61 MG/DL Random Glucose 109 MG/DL Calcium Level 8.1 MG/DL Phosphorus Level 3.1 MG/DL Magnesium Level 2.1 MG/DL Sodium Level 141 MEQ/L Potassium Level 4.1 MEQ/L Chloride Level 106 MEQ/L Carbon Dioxide Level 29.0 MEQ/L Anion Gap 6 MEQ/L Estimat Glomerular Filtration Rate 102 ML/MIN Blood Gas Puncture Site ART LINE Blood Gas Patient Temperature 98.6 Blood Gas HCO3 26 mmol/L Blood Gas Base Excess 2.8 mmol/L Blood Gas Oxygen Saturation 95 % Arterial Blood pH 7.46 Arterial Blood Partial Pressure CO2 38 mmHg Arterial Blood Partial Pressure O2 94 mmHg Arterial Blood Oxygen Content 13.0 Vol % Arterial Blood Carboxyhemoglobin 1.8 % Arterial Blood Methemoglobin 1.0 % Blood Gas Hemoglobin 9.6 G/DL Oxygen Delivery Device VENTILATOR Blood Gas Ventilator Setting PC/AC16/16IP/1.0IT/ Blood Gas Inspired Oxygen 40 % Imaging Studies Last 24 hours Impressions Chest X-Ray 01/06/17 0600 Signed Impressions: Service Date/Time: Friday, January 06, 2017 03:05 - CONCLUSION: 1. Stable radiographic appearance of the chest with patchy bilateral airspace disease 2. Stable position of life support tubes including right-sided Lincoln loop thoracostomy tube without pneumothorax. Harry Hilliard MD Administered Medications Medications (Trade) Dose Ordered Sig/Sabine Route PRN Reason Start Time Stop Time Status Last Admin Dose Admin Sodium Chloride (NS Flush) 2 ml UNSCH PRN IVF FLUSH AFTER USING IV ACCESS 12/29/16 08:30 01/04/17 20:56 Sodium Chloride (NS Flush) 2 ml UNSCH PRN IVF FLUSH AFTER USING IV ACCESS 12/29/16 08:45 01/04/17 20:56 Pantoprazole Sodium (Protonix Inj) 40 mg DAILY IV 12/29/16 11:00 01/06/17 07:28 Chlorhexidine Gluconate (Chlorhexidine 2% Cloth) Taper DAILY@04 TOP 12/30/16 04:00 12/26/17 03:59 01/05/17 21:56 Senna/Docusate Sodium (Radha-Colace) 1 tab BID PO 12/29/16 21:00 01/05/17 20:35 Fentanyl Citrate 250 ml @ 0 mls/hr TITRATE IV 12/29/16 10:30 01/06/17 03:33 Insulin Human Regular (NovoLIN R SUPPLEMENTAL SCALE) 1 Q4H SQ 12/29/16 11:00 12/31/16 03:00 Vasopressin 40 units/Sodium Chloride 100 ml @ 1.5 mls/hr Q24H IV 12/30/16 05:30 12/30/16 21:36 Propofol 100 ml @ 0 mls/hr TITRATE IV 12/30/16 07:30 01/06/17 12:57 Hydrocortisone Sodium Succinate (SoluCORTEF INJ) 50 mg Q12HR IV PUSH 12/31/16 21:00 01/06/17 07:28 Ceftriaxone Sodium 2000 mg/ Sodium Chloride 100 ml @ 200 mls/hr Q24H IV 01/03/17 16:00 01/05/17 16:00 Heparin Sodium/ Dextrose 250 ml @ 0 mls/hr TITRATE IV 01/03/17 16:15 01/06/17 07:26 Objective Remarks GENERAL: Middle aged female supine in bed, intubated, sedated. SKIN: Warm and dry. HEAD: Normocephalic. EYES: No injection or drainage. NECK: Supple, trachea midline. CARDIOVASCULAR: +S1/S2 RESPIRATORY: anterior ohara clear. on mechanical ventilation. GASTROINTESTINAL: Abdomen nondistended. EXTREMITIES: No cyanosis NEUROLOGICAL: intubated, sedated. Assessment/Plan Assessment 1. DVT and PE: hemodynamically unstable on admission on 12/29 and s/p TPA. On heparin. tolerating heparin gtt. 2. CVA, ischemic: neurology team following. With stroke there is a risk of hemorrhagic transformation with anticoagulation. This is a difficult situation in a patient with a known VTE and hypercoagable state that cannot come off of anticoagulation. Case has been discussed with Dr. Rojas. She has been unable to have sedation vacation due to elevated blood pressure that occurs with weaning of sedation. CT from 01/06 showed stable infarct. no hemorrhagic conversion. 3. Anemia: normocytic. Likely multifactorial in the setting of critically ill patient. hgb remains 10 today. no transfusion needed. 4. Thrombocytopenia: multifactorial due to PE, thrombolytic therapy, antibiotic use. Continue to trend. platelet count WNL today. 5. Hypercoaguable state: Known obesity. Protein C, Protein S studies WNL. No Factor V leiden mutation. No LA. AT3 is 79 with lower limit of normal of 80 this is likely artifact due to acute clot and anticoagulation. Antiphospholipid antibody panel WNL. Anticardiolipin pending. Not performed were prothrombin gene mutation, will hold off on ordering at this point in time as results would not change current management. 6. Palliative care: trach vs palliative care. Mother is health care surrogate. Palliative care has been following and attempting to reach the family. Attending Statement The exam, history, and the medical decision-making described in the above note were completed with the assistance of the mid-level provider. I reviewed and agree with the findings presented. I attest that I had a [id number] encounter with the patient on the same day, and personally performed and documented my assessment and findings in the medical record Dianna Buckner Jan 06, 2017 13:06 Rafiq Dang MD Jan 06, 2017 18:02
[2017-01-06] MEDS: CEFUROXIME AXETIL 500 MG TAB PEG SCH ×2 (14:00→19:58)
--- NOTE | 2017-01-06 16:08 | HHI.CCPN ---
Subjective Remarks/Hospital Course Patient is a 56-year-old female without significant past medical history who presented to the [facility] Emergency Department with severe respiratory distress. Per ED records, the patient woke up this morning feeling short of breath. She denied any associated symptoms of chest pain, orthopnea, PND or edema of the lower extremities. On arrival to the emergency department, she was found hypoxic with saturation in the 70s on room air and tachycardiac with heart rate of 160. The patient was subsequently intubated with etomidate, succinylcholine and Versed and placed on full mechanical ventilation. ABG post- intubation showed severe respiratory acidosis with a pH of 7.15, CO2 51, pAO2 73 , bicarb 17, sats of 88% PRVC mode, rate of 24, tidal volume 500,IT: 1.0, PEEP of 20 with 100% FIO2. Chest x-ray showed no acute cardiopulmonary disease. The patient underwent a stat CT scan of the chest, which showed extensive bilateral pulmonary embolism. She also had CT scan of the brain, which showed no evidence of hemorrhage or mass effect. In ER she was given IV fluids 2 liters, Ativan, and placed on Diprivan infusion for sedation. 12/30 On arrival to ICU from patient became hemodynamically unstable and placed on multiple pressors. She is currently on Neosyn 100 mics, Vasopressin 0.04, Levophed 12 mics, Off Dobutamine. In addition she is sedated with Fentanyl, Diprivan and on Nimbex. At approx 3 am she developed right sided PTX and pig tail catheter was placed with resolution of PTX on repeat CXR. On PC/AC RR 28, IP: 18, IT:1.0, PEEP:10, FIO2 70%. On TPA 1mg/hr and Heparin drip. T;101.1 at 4am. 12/31 Patient remains sedated, intubated and on Nimbex. She had recurrent right sided PTX yesterday afternoon and a second pigtail catheter was placed with resolution of PTX. Off TPA and on heparin drip. She is off Levophed, Neosyn however remained on Vasopressin. Also, there is improvements in her O2 requirements and down to PEEP: 10 and FIO2 40%. T:101.1 last night 01/01 Patient is off all pressors, sedated with Diprivan and Fentanyl. Remains on Heparin drip. WBC is trending down. T:100.0 01/02: Tmax 100.6. Leukocytosis resolving. PEEP decreased to 5. Hemodynamically stable overnight 01/03: Tmax 99.2. No change in neurological status. Leukocytosis improving. Hit panel pending. Patient change to Argatroban infusion yesterday, remains in therapeutic range. 01/04: Per hematology and oncology patients infusion return back to heparin. No change in neurological status. Echocardiogram with bubble study performed no shunt was noted 01/05: Sedation vacation attempted, the patient unresponsive. Repeat CT of the head pending, Dr. Frias neurology following. 01/06: No acute changes , with sedation patient becomes hypertensive does not follow commands no spontaneous movement. CT performed which reveal no infarct. Objective Vital Signs Date Time Temp Pulse Resp B/P (MAP) Pulse Ox O2 Delivery O2 Flow Rate FiO2 01/06/17 16:04 100.0 84 21 153/84 (107) 01/06/17 15:49 96 40 Intake and Output 01/06/17 01/06/17 01/07/17 08:00 16:00 00:00 Intake Total 1075 ml 992 ml Output Total 850 ml 950 ml Balance 225 ml 42 ml Result Diagram: 01/06/17 0211 01/06/17 0211 Other Results Laboratory Tests Test 01/06/17 05:08 Blood Gas Puncture Site ART LINE Blood Gas Patient Temperature 98.6 Blood Gas HCO3 26 mmol/L (22-26) Blood Gas Base Excess 2.8 mmol/L (-2-2) Blood Gas Oxygen Saturation 95 % (90-100) Arterial Blood pH 7.46 (7.380-7.420) Arterial Blood Partial Pressure CO2 38 mmHg (38-42) Arterial Blood Partial Pressure O2 94 mmHg (61-120) Arterial Blood Oxygen Content 13.0 Vol % (12.0-20.0) Arterial Blood Carboxyhemoglobin 1.8 % (0-4) Arterial Blood Methemoglobin 1.0 % (0-2) Blood Gas Hemoglobin 9.6 G/DL (12.0-16.0) Oxygen Delivery Device VENTILATOR Blood Gas Ventilator Setting PC/AC16/16IP/1.0IT/ Blood Gas Inspired Oxygen 40 % Imaging Last Impressions Chest X-Ray 01/04/17 0600 Signed Impressions: Service Date/Time: Alex, January 04, 2017 03:25 - CONCLUSION: 1. Bilateral patchy air space disease, unchanged. Probable associated left-sided effusion. 2. Right-sided [place] loop thoracostomy tube without pneumothorax. Stable position of life support tubes. Harry Hilliard MD Neck CTA 01/03/17 0000 Signed Impressions: Service Date/Time: December 10:37 - CONCLUSION: 1. No hemodynamically significant carotid artery stenosis identified. 2. The vertebrobasilar circulation appears widely patent. 3. Incidental note made of a 2.2 cm cystic thyroid nodule. Jd Cornelius MD Head CTA 01/03/17 0000 Signed Impressions: Service Date/Time: December 10:37 - CONCLUSION: No large or central vessel occlusion. Jd Cornelius MD Head CT 01/03/17 0000 Signed Impressions: Service Date/Time: December 10:37 - CONCLUSION: 1. Study is limited by motion artifact. 2. No significant change in the areas of edema likely from subacute infarction. 3. Slight midline shift to the right remains with no change in the ventricular system. 4. The questionable subtle area of low density in the left cerebellar hemisphere seen on the prior study is no longer distinctly visualized. Oswaldo Moody MD Carotid Artery Ultrasound 01/02/17 1308 Signed Impressions: Service Date/Time: Monday, January 02, 2017 14:02 - CONCLUSION: 1. There is elevation of the velocity in the distal left internal carotid artery. The proximal ICA shows normal velocities. I see no appreciable plaque within the area of concern. I cannot completely exclude a 50-69%% stenosis of the distal left ICA. Consider CTA of the carotid arteries to further evaluate. 2. 2.4 cm cystic nodule involving the right lobe of the thyroid. Karl Oliver Jr., MD Upper Extremity Ultrasound 01/02/17 0000 Signed Impressions: Service Date/Time: Monday, January 02, 2017 14:26 - CONCLUSION: 1. Occlusive and nonocclusive thrombus in the right cephalic vein. 2. No left upper extremity venous thrombosis. Oswaldo Moody MD Lower Extremity Ultrasound 01/02/17 0000 Signed Impressions: Service Date/Time: Monday, January 02, 2017 13:33 - CONCLUSION: 1. Occlusive thrombus in the right posterior tibial vein. 2. Nonocclusive thrombus in the right common femoral vein, greater saphenous vein and peroneal veins. 3. No deep venous thrombosis in the left lower extremity. Oswaldo Moody MD Abdomen/Pelvis CT 01/01/17 Signed Impressions: Service Date/Time: Sunday, January 01, 2017 13:57 - CONCLUSION: 1. Pulmonary emboli with patchy areas of peripheral consolidation at the right lower lobe concerning for possible infarcts. 2. 2.4 cm focal splenic lesion. This is nonspecific. The most common splenic lesion to have this appearance would be a hemangioma. This can be followed up with an MRI examination in several months as an outpatient. 3. 1.7 cm large nonobstructing right renal stone. 4. Mild cystic change or possible area of infarction in the lateral right kidney with an area of cortical thinning and mild cystic change. 5. Left adnexal mass likely related to a dermoid given the large fat component. 6. Mild amount of free intraperitoneal fluid in the pelvis. 7. Scattered colonic diverticula in the sigmoid region without inflammatory change. 8. Catheter in the right femoral artery. Oern Gamez MD Liver Ultrasound 12/31/16 Signed Impressions: Service Date/Time: Saturday, December 31, 2016 15:09 - CONCLUSION: 1. Mildly increased echotexture of the liver characteristic of steatosis. No focal liver abnormality is identified. 2. Mild splenomegaly. Adjacent to the spleen and liver in the upper abdomen the chemist food reports a questionable mass. Consider abdomen and pelvis CT for further characterization. 3. Suspected 15 mm right renal stone. Oren Palafox MD Venogram 12/29/16 Signed Impressions: Service Date/Time: Thursday, December 29, 2016 11:26 - CONCLUSION: Uncomplicated bilateral venogram as above. No significant DVT in the legs on either side. No ileocaval thrombus. As such, I do not feel inferior vena caval filter placement is indicated prior to thrombolytic therapy and/or other therapy for the patient's pulmonary embolism. Oren Álvarez MD Central Venous Line 12/29/16 Signed Impressions: Service Date/Time: Thursday, December 29, 2016 11:26 - CONCLUSION: Uncomplicated ultrasound and fluoroscopic guided central line placement as above. Oren Álvarez MD CT Angiography 12/29/16 Signed Impressions: Service Date/Time: Thursday, December 29, 2016 10:01 - CONCLUSION: Extensive bilateral pulmonary embolism. These findings were discussed with the emergency room physician at 1009 hrs. Oswaldo Moody MD Last Impressions Chest X-Ray 01/02/17 Signed Impressions: Service Date/Time: Monday, January 02, 2017 04:24 - CONCLUSION: 1. Improved aeration left lower lung with residual patchy infiltrates. Stable patchy infiltrates right lower lung. 2. Interval development of soft tissue emphysema about the right anterior chest wall. 3. Blurring of the image limits evaluation for right pneumothorax. Some lung markings are seen into the right apex however. Karl Tan MD Head CT 01/01/17 Signed Impressions: Service Date/Time: Sunday, January 01, 2017 13:58 - CONCLUSION: 1. New areas of edema likely from infarction in the left frontoparietal region and right frontal regions. 2. Narrowing of the left lateral ventricle. Significant midline shift is not seen. The basal cisterns are open. 3. Questionable subtle area of low-density in the left cerebellar hemisphere which could potentially represent a small area of infarction. Oren Gamez MD Abdomen/Pelvis CT 01/01/17 Signed Impressions: Service Date/Time: Sunday, January 01, 2017 13:57 - CONCLUSION: 1. Pulmonary emboli with patchy areas of peripheral consolidation at the right lower lobe concerning for possible infarcts. 2. 2.4 cm focal splenic lesion. This is nonspecific. The most common splenic lesion to have this appearance would be a hemangioma. This can be followed up with an MRI examination in several months as an outpatient. 3. 1.7 cm large nonobstructing right renal stone. 4. Mild cystic change or possible area of infarction in the lateral right kidney with an area of cortical thinning and mild cystic change. 5. Left adnexal mass likely related to a dermoid given the large fat component. 6. Mild amount of free intraperitoneal fluid in the pelvis. 7. Scattered colonic diverticula in the sigmoid region without inflammatory change. 8. Catheter in the right femoral artery. Oren Gamez MD Liver Ultrasound 12/31/16 Signed Impressions: Service Date/Time: Saturday, December 31, 2016 15:09 - CONCLUSION: 1. Mildly increased echotexture of the liver characteristic of steatosis. No focal liver abnormality is identified. 2. Mild splenomegaly. Adjacent to the spleen and liver in the upper abdomen the chemist food reports a questionable mass. Consider abdomen and pelvis CT for further characterization. 3. Suspected 15 mm right renal stone. Oren Palafox MD Venogram 12/29/16 Signed Impressions: Service Date/Time: Thursday, December 29, 2016 11:26 - CONCLUSION: Uncomplicated bilateral venogram as above. No significant DVT in the legs on either side. No ileocaval thrombus. As such, I do not feel inferior vena caval filter placement is indicated prior to thrombolytic therapy and/or other therapy for the patient's pulmonary embolism. Oren Álvarez MD Lower Extremity Ultrasound 12/29/16 Signed Impressions: Service Date/Time: Thursday, December 29, 2016 10:56 - CONCLUSION: 1. Occlusive thrombus in the right posterior tibial vein. 2. Nonocclusive thrombus in the right common femoral vein and greater saphenous vein. 3. No deep venous thrombosis in the left lower extremity. Oswaldo Moody MD Central Venous Line 12/29/16 Signed Impressions: Service Date/Time: Thursday, December 29, 2016 11:26 - CONCLUSION: Uncomplicated ultrasound and fluoroscopic guided central line placement as above. Oren Álvarez MD CT Angiography 12/29/16 Signed Impressions: Service Date/Time: Thursday, December 29, 2016 10:01 - CONCLUSION: Extensive bilateral pulmonary embolism. These findings were discussed with the emergency room physician at 1009 hrs. Oswaldo Moody MD Last Impressions Liver Ultrasound 12/31/16 Signed Impressions: Service Date/Time: Saturday, December 31, 2016 15:09 - CONCLUSION: 1. Mildly increased echotexture of the liver characteristic of steatosis. No focal liver abnormality is identified. 2. Mild splenomegaly. Adjacent to the spleen and liver in the upper abdomen the chemist food reports a questionable mass. Consider abdomen and pelvis CT for further characterization. 3. Suspected 15 mm right renal stone. Oren Palafox MD Chest X-Ray 12/31/16 Signed Impressions: Service Date/Time: Saturday, December 31, 2016 09:17 - CONCLUSION: 1. Small bore chest tubes on the right in good position. No pneumothorax. 2. Central line, ET tube and NG tube in good position. 3. Atelectatic changes in the lung bases. Jd Cornelius MD Venogram 12/29/16 Signed Impressions: Service Date/Time: Thursday, December 29, 2016 11:26 - CONCLUSION: Uncomplicated bilateral venogram as above. No significant DVT in the legs on either side. No ileocaval thrombus. As such, I do not feel inferior vena caval filter placement is indicated prior to thrombolytic therapy and/or other therapy for the patient's pulmonary embolism. Oren Álvarez MD Lower Extremity Ultrasound 12/29/16 Signed Impressions: Service Date/Time: Thursday, December 29, 2016 10:56 - CONCLUSION: 1. Occlusive thrombus in the right posterior tibial vein. 2. Nonocclusive thrombus in the right common femoral vein and greater saphenous vein. 3. No deep venous thrombosis in the left lower extremity. Oswaldo Moody MD Head CT 12/29/16 Signed Impressions: Service Date/Time: Thursday, December 29, 2016 09:49 - CONCLUSION: 1. Suboptimal examination secondary to motion artifact. 2. No evidence of hemorrhage or mass effect identified. Oswaldo Moody MD Central Venous Line 12/29/16 Signed Impressions: Service Date/Time: Thursday, December 29, 2016 11:26 - CONCLUSION: Uncomplicated ultrasound and fluoroscopic guided central line placement as above. Oren Álvarez MD CT Angiography 12/29/16 Signed Impressions: Service Date/Time: Thursday, December 29, 2016 10:01 - CONCLUSION: Extensive bilateral pulmonary embolism. These findings were discussed with the emergency room physician at 1009 hrs. Oswaldo Moody MD Objective Remarks Infusions Heparin 2100 units/hr Fentanyl 170 mcgs/hour Diprivan 37mcgs/min GENERAL: Patient is 56 yo female morbidly obese, critically ill intubated and sedated for ventilator synchrony SKIN: Warm and dry. HEAD: Normocephalic. EYES: No scleral icterus. No injection or drainage. Pupils equal and reactive NECK: Supple, trachea midline. Unable to evaluate JVD or lymphadenopathy secondary to body habitus. Orally intubated CARDIOVASCULAR: Regular rate and rhythm without murmurs, gallops, or rubs. Telemetry sinus rhythm RESPIRATORY: Breath sounds equal bilaterally. No accessory muscle use. Chest tubes to waterseal greater than 24 hours. GASTROINTESTINAL: Abdomen soft, obese .non-tender, nondistended. MUSCULOSKELETAL: No cyanosis, or edema. Neuro: GCS 3T .Sedated on propofol and fentanyl infusions for ventilator synchrony. Off sedation patient continues to be unresponsive A/P Assessment and Plan 1. Acute hypoxemic hypercapnic respiratory failure requiring intubation 2 Distributive shock 3. Extensive bilateral pulmonary embolism. 4. DVT RLE 5 Lactic acidemia 6 EKATERINA 7 Elevated trop...2nd PE 8 Leukocytosis, 9 UTI 10. Hyperglycemia. 11 Morbid obesity Obesity. 12 Right sided PTX s/p pig tail catheter placement 13 Elevated LFT's 14. Fatty liver Plan Neuro: On Diprivan and Fentanyl infusion for sedation. Perform daily Sedation vacation- unresponsive CT brain in ED negative for acute intracranial process. 01/01Repeat CT brain today showed infarct frontal lobes bilateral L>R MCA embolic stroke ,likely 2nd hypoperfusion . F/U EEG Neurology followingDrWaldo Frias- unable to perform MRI secondary to instability at this time Concern for transformation to ICH, secondary to anticoagulation therapy 01/[address] brain-no change in slight midline shift, no change in edema secondary to subacute infarction 01/03 CTA brain no central vessel occlusion, CTA neck-no significant carotid artery stenosis. Vertebrobasilar artery system widely patent. 01/05-CT brain Evolution of bilateral frontal lobe infarcts no hemorrhage or mass effects no change in subacute infarctions Pulm: Continue with vent support and maintain sats > 92%. Bronchodilators, ICU vent bundle. CPAP trials as tolerated On PC/AC RR 18, IP:20, IT:1.0, PEEP:5, FIO2 40%. Decrease rate pigtail catheter was placed 12/30 in afternoon for recurrent PTX. s/p pigtail catheter placement for right sided PTX morning of 12/30 CXR: 12/31: Atelectasis Off TPA, continue with Heparin infusion per PE protocol. Hypercoagulable workup in process. 01/02-HIT panel negative 01/03 CT # 2 to waterseal, CT #1 to waterseal 01/06 removed chest tubes CV: monitor HR and BP maintain MAP> 65 mmHg. Taper steroids- HC 50mg IV Q12 Serial lactic acid monitoring -cleared Echo showed mid dilated RV with mod. decrease in systolic function, PAP 41mmHg, LV is not well visualized. No EF reported 01/02 Repeat ECHO w/ bubble study- negative for shunt 01/02 Carotid doppler studies : Monitor renal function, intake and output and electrolyte replacement as needed. Electrolytes pending this a.m. replete per ICU protocol GI: On Protonix 40 milligrams IV daily for GI prophylaxis. On tube feeds ( Glucerna 1.5 with goal rate 45ml/hr)- minimal residuals US Liver: Mildly increased echotexture of the liver characteristic of steatosis. No focal liver abnormality is identified. Mild splenomegaly. Adjacent to the spleen and liver in the upper abdomen the chemist food reports a ? mass. Will get CT abdomen/pelvis r/o abd masses ID:Continue with abx (Zosyn) ID is following, Monitor for signs of infections( fever and WBCs). WBC is trending down urine cx: Proteus mirabilis, strep mutans Endo: SSI with Accu-Chek for glycemic control q. 4 hours. Heme: Monitor CBC and coags/Fibrinogen( Fibrinogen level 205) Heparin infusion per PE protocol, discontinue begin Argatroban Doppler US LE: DVT RLE Hematologyoncology [id number] procoagulant studies GI prophylaxis with Protonix 40 mg daily and DVT prophylaxis- on Heparin infusion Lines: Right subclavian CVP placed by IR 12/29, femoral arterial line Dispo: Discussed with [employer] SUPER[employer] at bedside. Palliative care consulted to define goals of care. This patient remains critically ill with one or more organ systems which are or may become a threat to life. I have spent in excess of 25 minutes discontinuously in the care and management of this patient. This time is exclusive of procedures, and includes, but is not limited to, evaluation of the patient, review of the medical record, discussions with family, consultants, nursing staff, or respiratory therapy, and documentation in the medical record. Physician Sulema Faulkner MD Jan 06, 2017 16:08
[2017-01-06] MEDS: CHLORHEXIDINE GLUCONATE 2 % 1 PACK (2 CLOTHS) TOP SCH (19:58)
[2017-01-06] MEDS: VASOPRESSIN INJ 40 UNITS in SODIUM CHLORIDE 0.9% INJ 98 ML IV SCH (19:59)
[2017-01-06] MEDS: ACETAMINOPHEN 325 MG/10.15 ML UDC NG PRN (21:07)
[2017-01-06 23:38] LABS: C. DIFF EPI 027 PRESUMPTIVE NEGATIVE (NEGATIVE)
[2017-01-07] VITALS (23 sets, daily range): BP systolic 127–193; BP diastolic 71–99; PULSE 57–125; RESP 16–35; TEMP 99.4–100.9; O2SAT 91–96
[2017-01-07] MEDS: INSULIN NovoLIN REGULAR SUPPLEMENTAL SCALE SQ SCH ×6 (03:00→23:00)
[2017-01-07] MEDS: PROPOFOL 1000 MG/100 ML IV SCH ×8 (03:45→23:25)
[2017-01-07 04:27] LABS: HEMATOCRIT 29.7 % (35.0-46.0); MEAN CELL VOLUME 85.6 FL (80.0-100.0); MEAN CORPUSCULAR HEMOGLOBIN 28.6 PG (27.0-34.0); MEAN CORPUSCULAR HGB CONC 33.4 % (32.0-36.0); PLATELET COUNT 202 TH/MM3 (150-450); RED BLOOD COUNT 3.47 MIL/MM3 (4.00-5.30); RED CELL DISTRIBUTION WIDTH 14.3 % (11.6-17.2); REVIEW FLAG FINAL; WHITE BLOOD COUNT 15.2 TH/MM3 (4.0-11.0)
[2017-01-07 04:35] LABS: APTT (PATIENT) 43.5 SEC (24.3-30.1)
[2017-01-07 04:49] LABS: BICARBONATE 31.3 MEQ/L (21.0-32.0); MAGNESIUM 2.1 MG/DL (1.5-2.5); POTASSIUM 3.6 MEQ/L (3.5-5.1)
--- NOTE | 2017-01-07 05:07 | RADRPT ---
EXAM DATE/TIME: 01/07/2017 02:51 [facility] COMPARISON: CHEST SINGLE AP, January 06, 2017, 3:05. INDICATIONS : Shortness of breath, possible pulmonary disease. MEDICAL HISTORY : Hypertension. Diabetes mellitus type II. SURGICAL HISTORY : None. ENCOUNTER: Subsequent ACUITY: 1 week PAIN SCORE: Non-responsive. LOCATION: Bilateral chest FINDINGS: Endotracheal tube tip in satisfactory position. NG tube midesophagus. Right central line in superior vena cava. Small caliber right chest tube present. No pneumothorax. Bilateral airspace disease, right greater than left similar to January 06. CONCLUSION: 1. NG tip is now in mid esophagus and should be repositioned. Right chest tube present without pneumo thorax. Stable bilateral airspace disease. Indra Allen MD on January 07, 2017 at 5:03 Board Certified Radiologist. This report was verified electronically.
[2017-01-07 05:18] LABS: BLOOD GAS BASE EXCESS 2.3 mmol/L (-2-2); BLOOD GAS CARBOXYHEMOGLOBIN 1.8 % (0-4); BLOOD GAS HCO3 25 mmol/L (22-26); BLOOD GAS METHEMOGLOBIN 1.2 % (0-2); BLOOD GAS O2 HGB SATURATION 95 % (90-100); BLOOD GAS OXYGEN CONTENT 13.4 Vol % (12.0-20.0); BLOOD GAS PCO2 31 mmHg (38-42); BLOOD GAS PO2 93 mmHg (61-120); BLOOD GAS TOTAL HGB 9.9 G/DL (12.0-16.0); TEMP CORR TO 98.6
[2017-01-07 05:29] LABS: CRITICAL VALUE YES; DRAW SITE ART LINE; FIO2 40 %; OXYGEN DEVICE VENTILATOR; STAT NO; VENT SETTINGS PC/AC 16/IP16/IT1.0/
[2017-01-07] MEDS: HYDROCORTISONE SOD SUCCINATE 100 MG VIAL IV PUSH SCH ×2 (09:00→21:00)
[2017-01-07] MEDS: DOCUSATE SODIUM 50 MG/SENNA 8.6 MG TAB PO SCH ×2 (09:00→21:00)
[2017-01-07] MEDS: PANTOPRAZOLE SODIUM 40 MG VIAL IV SCH (09:00)
[2017-01-07] MEDS: CEFUROXIME AXETIL 500 MG TAB PEG SCH ×2 (09:00→21:00)
--- NOTE | 2017-01-07 09:10 | RADRPT ---
EXAM DATE/TIME: 01/07/2017 08:23 [facility] COMPARISON: CHEST SINGLE AP, January 07, 2017, 2:51. INDICATIONS : Chest tube position; chest tube dislodgement. MEDICAL HISTORY : Hypertension. Diabetes mellitus type II. SURGICAL HISTORY : None. ENCOUNTER: Subsequent ACUITY: 1 day PAIN SCORE: Non-responsive. LOCATION: Bilateral chest FINDINGS: A single portable frontal view of the chest shows a small caliber right thoracostomy 2 without pneumo thorax. Right subclavian central line with the tip in the innominate vein. Tip of the endotracheal tu be 5 cm proximal to the bernice. Tip of the nasogastric tube within the mid chest level projecting abo ve the level of the bernice. Bibasilar parenchymal consolidation is unchanged. No effusions. Heart is normal in size. CONCLUSION: 1. Right thoracostomy tube without pneumothorax. 2. Tip of the NG tube in the mid thorax level. 3. Bibasilar consolidation is unchanged. Karl Oliver Jr., MD on January 07, 2017 at 9:07 Board Certified Radiologist. This report was verified electronically.
--- NOTE | 2017-01-07 11:14 | PD.ONC.PN ---
Subjective Subjective Remarks Patient is intubated and sedated. Objective Data Date Time Temp Pulse Resp B/P (MAP) Pulse Ox O2 Delivery O2 Flow Rate FiO2 01/07/17 08:02 40 01/07/17 08:00 100.3 80 26 150/80 (103) 95 01/07/17 07:39 95 40 01/07/17 07:39 40 01/07/17 06:00 76 01/07/17 04:00 80 01/07/17 04:00 99.4 80 21 131/71 (91) 95 144/78 (100) 01/07/17 04:00 40 01/07/17 03:00 96 40 01/07/17 02:00 92 01/07/17 02:00 87 01/07/17 00:20 40 01/07/17 00:19 96 40 01/07/17 00:00 99.8 87 35 127/89 (102) 95 165/91 (115) 01/07/17 00:00 87 01/06/17 22:00 85 01/06/17 20:00 100.2 88 22 150/77 (101) 98 154/82 (106) 01/06/17 20:00 88 01/06/17 20:00 40 01/06/17 19:32 99 40 01/06/17 17:22 40 01/06/17 16:04 100.0 84 21 153/84 (107) 01/06/17 16:00 40 01/06/17 15:49 96 40 01/06/17 12:00 40 01/06/17 12:00 98.8 71 16 153/97 (115) 99 01/06/17 11:55 40 01/06/17 11:50 93 40 01/07/17 01/07/17 01/07/17 07:00 15:00 23:00 Intake Total 1562 ml Output Total 1800 ml Balance -238 ml Result Diagram: 01/07/1739901/07/17 040 Laboratory Results Laboratory Tests Test 01/06/17 11:30 01/07/17 04:00 01/07/17 05:05 Stool C. difficile Toxin (PCR) NEGATIVE Stl C. difficile Toxin Epiderm 027 PRESUMPTIVE NEGATIVE White Blood Count 15.2 TH/MM3 Red Blood Count 3.47 MIL/MM3 Hemoglobin 9.9 GM/DL Hematocrit 29.7 % Mean Corpuscular Volume 85.6 FL Mean Corpuscular Hemoglobin 28.6 PG Mean Corpuscular Hemoglobin Concent 33.4 % Red Cell Distribution Width 14.3 % Platelet Count 202 TH/MM3 Mean Platelet Volume 5.8 FL Activated Partial Thromboplast Time 43.5 SEC Blood Urea Nitrogen 17 MG/DL Creatinine 0.69 MG/DL Random Glucose 115 MG/DL Calcium Level 7.7 MG/DL Phosphorus Level 2.4 MG/DL Magnesium Level 2.1 MG/DL Sodium Level 139 MEQ/L Potassium Level 3.6 MEQ/L Chloride Level 104 MEQ/L Carbon Dioxide Level 31.3 MEQ/L Anion Gap 4 MEQ/L Estimat Glomerular Filtration Rate 89 ML/MIN Blood Gas Puncture Site ART LINE Blood Gas Patient Temperature 98.6 Blood Gas HCO3 25 mmol/L Blood Gas Base Excess 2.3 mmol/L Blood Gas Oxygen Saturation 95 % Arterial Blood pH 7.52 Arterial Blood Partial Pressure CO2 31 mmHg Arterial Blood Partial Pressure O2 93 mmHg Arterial Blood Oxygen Content 13.4 Vol % Arterial Blood Carboxyhemoglobin 1.8 % Arterial Blood Methemoglobin 1.2 % Blood Gas Hemoglobin 9.9 G/DL Oxygen Delivery Device VENTILATOR Blood Gas Ventilator Setting PC/AC 16/IP16/IT1.0/ Blood Gas Inspired Oxygen 40 % Administered Medications Medications (Trade) Dose Ordered Sig/Sabine Route PRN Reason Start Time Stop Time Status Last Admin Dose Admin Sodium Chloride (NS Flush) 2 ml UNSCH PRN IVF FLUSH AFTER USING IV ACCESS 12/29/16 08:30 01/04/17 20:56 Sodium Chloride (NS Flush) 2 ml UNSCH PRN IVF FLUSH AFTER USING IV ACCESS 12/29/16 08:45 01/04/17 20:56 Pantoprazole Sodium (Protonix Inj) 40 mg DAILY IV 12/29/16 11:00 01/07/17 09:00 Chlorhexidine Gluconate (Chlorhexidine 2% Cloth) Taper DAILY@04 TOP 12/30/16 04:00 12/26/17 03:59 01/05/17 21:56 Senna/Docusate Sodium (Radha-Colace) 1 tab BID PO 12/29/16 21:00 01/06/17 19:58 Fentanyl Citrate 250 ml @ 0 mls/hr TITRATE IV 12/29/16 10:30 01/06/17 03:33 Insulin Human Regular (NovoLIN R SUPPLEMENTAL SCALE) 1 Q4H SQ 12/29/16 11:00 12/31/16 03:00 Vasopressin 40 units/Sodium Chloride 100 ml @ 1.5 mls/hr Q24H IV 12/30/16 05:30 12/30/16 21:36 Propofol 100 ml @ 0 mls/hr TITRATE IV 12/30/16 07:30 01/07/17 09:15 Hydrocortisone Sodium Succinate (SoluCORTEF INJ) 50 mg Q12HR IV PUSH 12/31/16 21:00 01/07/17 09:00 Sodium Phosphate 30 mmol/Sodium Chloride 250 ml @ 42 mls/hr UNSCH PRN IV For Phosphorus < 2.5 mg/dL 12/31/16 11:00 01/07/17 09:59 Heparin Sodium/ Dextrose 250 ml @ 0 mls/hr TITRATE IV 01/03/17 16:15 01/06/17 23:49 Cefuroxime Axetil (Ceftin) 500 mg BID PEG 01/06/17 14:00 01/12/17 23:00 01/07/17 09:00 Acetaminophen (Tylenol 325 Mg/ 10 ml Liq) 650 mg Q4H PRN NG TEMP > 101.5 01/06/17 20:45 01/06/17 21:07 Objective Remarks GENERAL: obese lady in NAD SKIN: Warm and dry. HEAD: Normocephalic. NECK: Supple, trachea midline. No JVD or lymphadenopathy. CARDIOVASCULAR: Regular rate and rhythm without murmurs. RESPIRATORY: Breath sounds equal bilaterally. ET tube in place GASTROINTESTINAL: Abdomen soft, non-tender, nondistended. EXTREMITIES: edema of all four extremities MUSCULOSKELETAL: Adequate muscle tone. NEUROLOGICAL: intubated and sedated PSYCHIATRIC: Intubated and sedated. Assessment/Plan Assessment 1. VTE: DVT and PE on admission s/p TPA due to hemodynamic instability. On heparin. 2. CVA: Neurology team following. With stroke there is a risk of hemorrhagic transformation with anticoagulation. This is a difficult situation in a patient with a known VTE and hypercoagable state that cannot come off of anticoagulation. CT scan from 01/05 with evolution of stroke and no hemorrhagic conversion. When sedation is weaned patient becomes hypertensive and she does not follow commands. 3. Normocytic anemia: Hemoglobin stable. Multifactorial in the setting of critically ill patient. 4. Thrombocytopenia: Resolved. 5. Prolonged PT: Will recheck today. Likely due to decreased intake leading to vitamin K deficiency in the setting of hospitalization and critical illness. 5. Hypercoaguable state: Known obesity. Protein C, Protein S studies WNL. No Factor V leiden mutation. No LA. AT3 is 79 with lower limit of normal of 80 this is likely artifact due to acute clot and anticoagulation. Antiphospholipid antibody panel WNL. Not performed was prothrombin gene mutation, will hold off on ordering at this point in time as results would not change current management. 6. Palliative care: trach vs palliative care. Mother is health care surrogate. Neema Ruiz MD Jan 07, 2017 11:14
[2017-01-07 11:46] LABS: PROTHROMBIN TIME - PATIENT 10.9 SEC (9.8-11.6)
[2017-01-07 12:02] LABS: ANION GAP 10 MEQ/L (5-15); AST (GOT) 139 U/L (15-37); BICARBONATE 25.4 MEQ/L (21.0-32.0); BLOOD UREA NITROGEN 15 MG/DL (7-18); CHLORIDE 104 MEQ/L (98-107); GLOMERULAR FILTRATION RATE 118 ML/MIN (>89); POTASSIUM 3.3 MEQ/L (3.5-5.1); SODIUM (NA) 139 MEQ/L (136-145)
[2017-01-07 12:04] LABS: ALT (GPT) 136 U/L (10-53)
[2017-01-07 12:06] LABS: ALKALINE PHOSPHATASE 150 U/L (45-117); TOTAL BILIRUBIN ADULT 0.6 MG/DL (0.2-1.0)
[2017-01-07] MEDS: ACETAMINOPHEN 325 MG/10.15 ML UDC NG PRN ×2 (12:07→16:29)
--- NOTE | 2017-01-07 12:07 | HHI.HCPN ---
Reason for visit a. To assist with evaluation and management of symptoms including: dyspnea, pain. b. To assist medical decision maker(s) with: better understanding of current medical conditions; weighing benefits/burdens of medical treatment options; making medical treatment decisions. . Subjective/Interval History Patient seen and examined in ICU. Friend, Stella at bedside. Patient remains sedated (Diprivan 37mcg) on [facility] vent FiO2 40%. Not tolerating sedation vacations, becomes hypertensive, not following commands, no spontaneous movements. Tmax 100.3. WBC 15.2, hemoglobin 9.9, hematocrit 29.7, platelets 202. Chest xray stable bilateral air space disease. Repeat CT head on 01/05/17 revealed evolution of bilateral frontal lobe infarctions without hemorrhage or mass effect. Will need trach/PEG decision in the coming days. . Family/friend interactions Spoke with mother via phone to provide medical update. She is considering CODE STATUS and understands upcoming trach and PEG decisions. She is going to speak with her son, Jai (pts brother) and Stella (pts friend) to assist in medical decision making. I also spoke with Stella at bedside, medical update provided. Stella feels patient would want DNR and does not think she would want trach/PEG. She wants to speak with patient significant other and family. It sounds like they will all be working together to make medical decisions. Palliative care number provided. Questions answered to their satisfaction. 4pm: Call from motherGabby to request NO CODE. She is still considering trach/ PEG decisions. We agreed to speak again 01/08/17. . Advance Directives Living Will: Never completed Health Care Surrogate: Never completed Durable Power of It Coordinator: Never completed Advance Directive Specifics Health Care Surrogate(s): According to [place] statutes, health care proxy decision-making falls to the patient's mother, Gabby Sadler. . Significant change in goals: NO CODE. Family considering trach/PEG decisions, may take them a few days. . Objective Vital Signs Date Time Temp Pulse Resp B/P (MAP) Pulse Ox O2 Delivery O2 Flow Rate FiO2 01/07/17 11:00 95 40 01/07/17 08:02 40 01/07/17 08:00 100.3 80 26 150/80 (103) 95 01/07/17 07:39 95 40 01/07/17 07:39 40 01/07/17 06:00 76 01/07/17 04:00 80 01/07/17 04:00 99.4 80 21 131/71 (91) 95 144/78 (100) 01/07/17 04:00 40 01/07/17 03:00 96 40 01/07/17 02:00 92 01/07/17 02:00 87 01/07/17 00:20 40 01/07/17 00:19 96 40 01/07/17 00:00 99.8 87 35 127/89 (102) 95 165/91 (115) 01/07/17 00:00 87 01/06/17 22:00 85 01/06/17 20:00 100.2 88 22 150/77 (101) 98 154/82 (106) 01/06/17 20:00 88 01/06/17 20:00 40 01/06/17 19:32 99 40 01/06/17 17:22 40 01/06/17 16:04 100.0 84 21 153/84 (107) 01/06/17 16:00 40 01/06/17 15:49 96 40 01/06/17 12:00 40 01/06/17 12:00 98.8 71 16 153/97 (115) 99 01/06/17 11:55 40 01/06/17 11:50 93 40 Intake & Output 01/07/17 01/07/17 07:00 19:00 Intake Total 1562 ml Output Total 1800 ml Balance -238 ml IV Total 784 ml Tube Feeding 658 ml Other 120 ml Output Urine Total 1450 ml Stool Total 350 ml Chest Tube Drainage Total 0 ml Physical Exam CONSTITUTIONAL/GENERAL: This is an adequately nourished patient, intubated on mechanical ventilation. TUBES/LINES/DRAINS: ETT, OG, right subclavian central line, right chest tube, PIV right hand, Mcdaniel, podus boots. SKIN: No jaundice, rashes, or lesions. Ecchymoses on upper extremities. No wounds seen anteriorly. Skin temperature appropriate. Not diaphoretic. EYES: eyes closed. ENT: Unable to assess hearing. Nose without bleeding or purulent drainage. Difficult to visualize Throat due to tubes. Bloody/ brownish secretions noted in suction tubing. CARDIOVASCULAR: Regular rate and rhythm without murmurs, gallops, or rubs. Peripheral pulses symmetric. RESPIRATORY/CHEST: Symmetric, unlabored respirations on vent. Diminished. right chest tubes. GASTROINTESTINAL: Abdomen soft, protuberant, nondistended. Bowel sounds present. GENITOURINARY: Without palpable bladder distension. Mcdaniel catheter in place. MUSCULOSKELETAL: Extremities x 4 with edema. No mottling or clubbing. NEUROLOGICAL: Sedated. Does not follow commands, open eyes, no spontaneous movements noted. PSYCHIATRIC: Sedated. . Diagnostic Tests Laboratory Laboratory Tests Test 01/05/17 04:34 01/05/17 04:35 01/05/17 12:48 01/05/17 20:27 White Blood Count 11.9 TH/MM3 (4.0-11.0) Red Blood Count 3.49 MIL/MM3 (4.00-5.30) Hemoglobin 10.0 GM/DL (11.6-15.3) Hematocrit 30.0 % (35.0-46.0) Mean Corpuscular Volume 86.0 FL (80.0-100.0) Mean Corpuscular Hemoglobin 28.6 PG (27.0-34.0) Mean Corpuscular Hemoglobin Concent 33.3 % (32.0-36.0) Red Cell Distribution Width 14.1 % (11.6-17.2) Platelet Count 235 TH/MM3 (150-450) Mean Platelet Volume 6.1 FL (7.0-11.0) Activated Partial Thromboplast Time 34.2 SEC (24.3-30.1) 34.4 SEC (24.3-30.1) 38.4 SEC (24.3-30.1) Blood Urea Nitrogen 22 MG/DL (7-18) Creatinine 0.63 MG/DL (0.50-1.00) Random Glucose 114 MG/DL (74-106) Calcium Level 7.7 MG/DL (8.5-10.1) Phosphorus Level 3.0 MG/DL (2.5-4.9) Magnesium Level 2.2 MG/DL (1.5-2.5) Sodium Level 139 MEQ/L (136-145) Potassium Level 4.0 MEQ/L (3.5-5.1) Chloride Level 104 MEQ/L (98-107) Carbon Dioxide Level 30.4 MEQ/L (21.0-32.0) Anion Gap 5 MEQ/L (5-15) Estimat Glomerular Filtration Rate 98 ML/MIN (>89) Test 01/06/17 02:11 01/06/17 05:08 01/06/17 09:00 01/06/17 11:30 White Blood Count 11.7 TH/MM3 (4.0-11.0) Red Blood Count 3.42 MIL/MM3 (4.00-5.30) Hemoglobin 10.0 GM/DL (11.6-15.3) Hematocrit 29.2 % (35.0-46.0) Mean Corpuscular Volume 85.4 FL (80.0-100.0) Mean Corpuscular Hemoglobin 29.2 PG (27.0-34.0) Mean Corpuscular Hemoglobin Concent 34.2 % (32.0-36.0) Red Cell Distribution Width 13.7 % (11.6-17.2) Platelet Count 221 TH/MM3 (150-450) Mean Platelet Volume 6.2 FL (7.0-11.0) Activated Partial Thromboplast Time 46.3 SEC (24.3-30.1) 43.9 SEC (24.3-30.1) Blood Urea Nitrogen 19 MG/DL (7-18) Creatinine 0.61 MG/DL (0.50-1.00) Random Glucose 109 MG/DL (74-106) Calcium Level 8.1 MG/DL (8.5-10.1) Phosphorus Level 3.1 MG/DL (2.5-4.9) Magnesium Level 2.1 MG/DL (1.5-2.5) Sodium Level 141 MEQ/L (136-145) Potassium Level 4.1 MEQ/L (3.5-5.1) Chloride Level 106 MEQ/L (98-107) Carbon Dioxide Level 29.0 MEQ/L (21.0-32.0) Anion Gap 6 MEQ/L (5-15) Estimat Glomerular Filtration Rate 102 ML/MIN (>89) Blood Gas Puncture Site ART LINE Blood Gas Patient Temperature 98.6 Blood Gas HCO3 26 mmol/L (22-26) Blood Gas Base Excess 2.8 mmol/L (-2-2) Blood Gas Oxygen Saturation 95 % (90-100) Arterial Blood pH 7.46 (7.380-7.420) Arterial Blood Partial Pressure CO2 38 mmHg (38-42) Arterial Blood Partial Pressure O2 94 mmHg (61-120) Arterial Blood Oxygen Content 13.0 Vol % (12.0-20.0) Arterial Blood Carboxyhemoglobin 1.8 % (0-4) Arterial Blood Methemoglobin 1.0 % (0-2) Blood Gas Hemoglobin 9.6 G/DL (12.0-16.0) Oxygen Delivery Device VENTILATOR Blood Gas Ventilator Setting PC/AC16/16IP/1.0IT/ Blood Gas Inspired Oxygen 40 % Stool C. difficile Toxin (PCR) NEGATIVE (NEGATIVE) Stl C. difficile Toxin Epiderm 027 PRESUMPTIVE NEGATIVE Test 01/07/17 04:00 01/07/17 05:05 01/07/17 11:01 White Blood Count 15.2 TH/MM3 (4.0-11.0) Red Blood Count 3.47 MIL/MM3 (4.00-5.30) Hemoglobin 9.9 GM/DL (11.6-15.3) Hematocrit 29.7 % (35.0-46.0) Mean Corpuscular Volume 85.6 FL (80.0-100.0) Mean Corpuscular Hemoglobin 28.6 PG (27.0-34.0) Mean Corpuscular Hemoglobin Concent 33.4 % (32.0-36.0) Red Cell Distribution Width 14.3 % (11.6-17.2) Platelet Count 202 TH/MM3 (150-450) Mean Platelet Volume 5.8 FL (7.0-11.0) Activated Partial Thromboplast Time 43.5 SEC (24.3-30.1) Blood Urea Nitrogen 17 MG/DL (7-18) Creatinine 0.69 MG/DL (0.50-1.00) Random Glucose 115 MG/DL (74-106) Calcium Level 7.7 MG/DL (8.5-10.1) Phosphorus Level 2.4 MG/DL (2.5-4.9) Magnesium Level 2.1 MG/DL (1.5-2.5) Sodium Level 139 MEQ/L (136-145) Potassium Level 3.6 MEQ/L (3.5-5.1) Chloride Level 104 MEQ/L (98-107) Carbon Dioxide Level 31.3 MEQ/L (21.0-32.0) Anion Gap 4 MEQ/L (5-15) Estimat Glomerular Filtration Rate 89 ML/MIN (>89) Blood Gas Puncture Site ART LINE Blood Gas Patient Temperature 98.6 Blood Gas HCO3 25 mmol/L (22-26) Blood Gas Base Excess 2.3 mmol/L (-2-2) Blood Gas Oxygen Saturation 95 % (90-100) Arterial Blood pH 7.52 (7.380-7.420) Arterial Blood Partial Pressure CO2 31 mmHg (38-42) Arterial Blood Partial Pressure O2 93 mmHg (61-120) Arterial Blood Oxygen Content 13.4 Vol % (12.0-20.0) Arterial Blood Carboxyhemoglobin 1.8 % (0-4) Arterial Blood Methemoglobin 1.2 % (0-2) Blood Gas Hemoglobin 9.9 G/DL (12.0-16.0) Oxygen Delivery Device VENTILATOR Blood Gas Ventilator Setting PC/AC 16/IP16/IT1.0/ Blood Gas Inspired Oxygen 40 % Result Diagram: 01/07/17 0400 01/07/17 0400 Microbiology Microbiology Date/Time Source Procedure Growth Status 12/31/16 11:30 Blood Peripheral Aerobic Blood Culture - Final NO GROWTH IN 5 DAYS Complete 12/31/16 11:30 Blood Peripheral Anaerobic Blood Culture - Final NO GROWTH IN 5 DAYS Complete 01/03/17 11:28 Stool Stool Stool Occult Blood (SHAR) - Final HEMOCCULT NEGATIVE Complete 12/30/16 16:30 Sputum Endotracheal Gram Stain - Final Complete 12/30/16 16:30 Sputum Endotracheal Sputum Culture - Final LIGHT GROWTH NORMAL RESPIRATORY JUVE Complete 12/31/16 12:20 Urine Catheterized Urine Urine Culture - Final NO GROWTH IN 48 HOURS. Complete Imaging Last Impressions Chest X-Ray 01/06/17 0600 Signed Impressions: Service Date/Time: Friday, January 06, 2017 03:05 - CONCLUSION: 1. Stable radiographic appearance of the chest with patchy bilateral airspace disease 2. Stable position of life support tubes including right-sided [place] loop thoracostomy tube without pneumothorax. Harry Hilliard MD Head CT 01/05/17 1200 Signed Impressions: Service Date/Time: Thursday, January 05, 2017 19:31 - CONCLUSION: Evolution of bilateral frontal lobe infarctions without hemorrhage or mass effect. Danielle Higuera MD Neck CTA 01/03/17 0000 Signed Impressions: Service Date/Time: December 10:37 - CONCLUSION: 1. No hemodynamically significant carotid artery stenosis identified. 2. The vertebrobasilar circulation appears widely patent. 3. Incidental note made of a 2.2 cm cystic thyroid nodule. Jd Cornelius MD Head CTA 01/03/17 0000 Signed Impressions: Service Date/Time: December 10:37 - CONCLUSION: No large or central vessel occlusion. Jd Cornelius MD Carotid Artery Ultrasound 01/02/17 1308 Signed Impressions: Service Date/Time: Monday, January 02, 2017 14:02 - CONCLUSION: 1. There is elevation of the velocity in the distal left internal carotid artery. The proximal ICA shows normal velocities. I see no appreciable plaque within the area of concern. I cannot completely exclude a 50-69%% stenosis of the distal left ICA. Consider CTA of the carotid arteries to further evaluate. 2. 2.4 cm cystic nodule involving the right lobe of the thyroid. Karl Oliver Jr., MD Upper Extremity Ultrasound 01/02/17 0000 Signed Impressions: Service Date/Time: Monday, January 02, 2017 14:26 - CONCLUSION: 1. Occlusive and nonocclusive thrombus in the right cephalic vein. 2. No left upper extremity venous thrombosis. Oswaldo Moody MD Lower Extremity Ultrasound 01/02/17 0000 Signed Impressions: Service Date/Time: Monday, January 02, 2017 13:33 - CONCLUSION: 1. Occlusive thrombus in the right posterior tibial vein. 2. Nonocclusive thrombus in the right common femoral vein, greater saphenous vein and peroneal veins. 3. No deep venous thrombosis in the left lower extremity. Oswaldo Moody MD Abdomen/Pelvis CT 01/01/17 0000 Signed Impressions: Service Date/Time: Sunday, January 01, 2017 13:57 - CONCLUSION: 1. Pulmonary emboli with patchy areas of peripheral consolidation at the right lower lobe concerning for possible infarcts. 2. 2.4 cm focal splenic lesion. This is nonspecific. The most common splenic lesion to have this appearance would be a hemangioma. This can be followed up with an MRI examination in several months as an outpatient. 3. 1.7 cm large nonobstructing right renal stone. 4. Mild cystic change or possible area of infarction in the lateral right kidney with an area of cortical thinning and mild cystic change. 5. Left adnexal mass likely related to a dermoid given the large fat component. 6. Mild amount of free intraperitoneal fluid in the pelvis. 7. Scattered colonic diverticula in the sigmoid region without inflammatory change. 8. Catheter in the right femoral artery. Oren Gamez MD Liver Ultrasound 12/31/16 0000 Signed Impressions: Service Date/Time: Saturday, December 31, 2016 15:09 - CONCLUSION: 1. Mildly increased echotexture of the liver characteristic of steatosis. No focal liver abnormality is identified. 2. Mild splenomegaly. Adjacent to the spleen and liver in the upper abdomen the bottom finisher reports a questionable mass. Consider abdomen and pelvis CT for further characterization. 3. Suspected 15 mm right renal stone. Oren Palafox MD Venogram 12/29/16 0000 Signed Impressions: Service Date/Time: Thursday, December 29, 2016 11:26 - CONCLUSION: Uncomplicated bilateral venogram as above. No significant DVT in the legs on either side. No ileocaval thrombus. As such, I do not feel inferior vena caval filter placement is indicated prior to thrombolytic therapy and/or other therapy for the patient's pulmonary embolism. Oren Álvarez MD Central Venous Line 12/29/16 0000 Signed Impressions: Service Date/Time: Thursday, December 29, 2016 11:26 - CONCLUSION: Uncomplicated ultrasound and fluoroscopic guided central line placement as above. Oren Álvarez MD CT Angiography 12/29/16 0000 Signed Impressions: Service Date/Time: Thursday, December 29, 2016 10:01 - CONCLUSION: Extensive bilateral pulmonary embolism. These findings were discussed with the emergency room physician at 1009 hrs. Oswaldo Moody MD . Procedures * Right pigtail chest tube x 2 * Right subclavian central line basement * right femoral A-line placement * 12/29/16 intubated Assessment and Plan Disease Oriented Problem List: (1) Acute embolic stroke (2) Acute pulmonary embolus (3) Acute hypoxemic respiratory failure (4) Shock circulatory Symptom Scale: (1) Pain 0-10 Scale: Unable to quantify Comment: possible sources include PE, DVT, tubes, lines, bedbound status, stroke. Sedated Fentanyl and Propofol. (2) Dyspnea 0-10 Scale: Unable to quantify Comment: remains on [facility] vent. Pertinent Non-Medical Issues Psychosocial: lives with significant other. Not legally . No biological children. Mother alive, [place] out of state. Spiritual: [employer]riism rojas. Welcomes flight manager support. Legal: According to [place] statutes, health care proxy decision-making would fall to the patient's mother, Gabby Sadler. She is willing to serve as HCP. Ethical issues impacting care: no known concerns at this time. . Important Contacts * Gabby Sadler, mother: [phone] * Anastacio Kirk, significant other: [phone] * Stella Granados, boss: [phone] * Jai Sadler, brother: [phone] . Prognosis Will need to speak with medical team for further prognostication. Code Status: No Code Plan * Decision Maker: Single. No children. Has a significant other, not legally . Mother is alive. Has 1 brother, Dorian. According to [place] statutes, health care proxy decision-making falls to the patient's mother, Gabby Sadler. Mother is willing to serve as health care proxy decision maker. * NO CODE per mother request 01/06/17 4pm. * Palliative care spoke with mother, friend (Stella) the family considering trach/ PEG decisions agreed to talk again 01/08/17. * SYMPTOMS: Pain: possible sources include PE, DVT, tubes, lines, bedbound status, stroke. Sedated Fentanyl and Propofol. Dyspnea: sedated on mech vent. No new medication recommendations at this time. * Palliative care will continue to follow throughout hospital course to assist with symptom management and clarification of goals as needed. . Attestation To help prompt me to consider important information that might be impacting today's encounter and assessment, information from prior notes written by myself or my colleagues may have been "brought forward" into today's note. My signature on this note, however, is an attestation that I personally performed the exam, history, and/or decision-making noted today, and, unless otherwise indicated, the interactions with patient, family, and staff as well as the review of records all occurred today. I also attest that the listed assessment and stated plan reflect my best clinical judgment today based on the combination of historical information, prior notes, and today's exam/ interactions. When time spent is documented, it refers only to time spent today by the signer, or if indicated, combined time spent today by collaborating physician/nurse practitioner. Kristen Casillas Jan 07, 2017 12:07
[2017-01-07] MEDS: HEPARIN-D5W 25,000 U/250 ML 250 ML IV SCH ×2 (15:54→21:53)
--- NOTE | 2017-01-07 17:47 | HHI.CCPN ---
Subjective Remarks/Hospital Course Patient is a 56-year-old female without significant past medical history who presented to the [facility] Emergency Department with severe respiratory distress. Per ED records, the patient woke up this morning feeling short of breath. She denied any associated symptoms of chest pain, orthopnea, PND or edema of the lower extremities. On arrival to the emergency department, she was found hypoxic with saturation in the 70s on room air and tachycardiac with heart rate of 160. The patient was subsequently intubated with etomidate, succinylcholine and Versed and placed on full mechanical ventilation. ABG post- intubation showed severe respiratory acidosis with a pH of 7.15, CO2 51, pAO2 73 , bicarb 17, sats of 88% PRVC mode, rate of 24, tidal volume 500,IT: 1.0, PEEP of 20 with 100% FIO2. Chest x-ray showed no acute cardiopulmonary disease. The patient underwent a stat CT scan of the chest, which showed extensive bilateral pulmonary embolism. She also had CT scan of the brain, which showed no evidence of hemorrhage or mass effect. In ER she was given IV fluids 2 liters, Ativan, and placed on Diprivan infusion for sedation. 12/30 On arrival to ICU from patient became hemodynamically unstable and placed on multiple pressors. She is currently on Neosyn 100 mics, Vasopressin 0.04, Levophed 12 mics, Off Dobutamine. In addition she is sedated with Fentanyl, Diprivan and on Nimbex. At approx 3 am she developed right sided PTX and pig tail catheter was placed with resolution of PTX on repeat CXR. On PC/AC RR 28, IP: 18, IT:1.0, PEEP:10, FIO2 70%. On TPA 1mg/hr and Heparin drip. T;101.1 at 4am. 12/31 Patient remains sedated, intubated and on Nimbex. She had recurrent right sided PTX yesterday afternoon and a second pigtail catheter was placed with resolution of PTX. Off TPA and on heparin drip. She is off Levophed, Neosyn however remained on Vasopressin. Also, there is improvements in her O2 requirements and down to PEEP: 10 and FIO2 40%. T:101.1 last night 01/01 Patient is off all pressors, sedated with Diprivan and Fentanyl. Remains on Heparin drip. WBC is trending down. T:100.0 01/02: Tmax 100.6. Leukocytosis resolving. PEEP decreased to 5. Hemodynamically stable overnight 01/03: Tmax 99.2. No change in neurological status. Leukocytosis improving. Hit panel pending. Patient change to Argatroban infusion yesterday, remains in therapeutic range. 01/04: Per hematology and oncology patients infusion return back to heparin. No change in neurological status. Echocardiogram with bubble study performed no shunt was noted 01/05: Sedation vacation attempted, the patient unresponsive. Repeat CT of the head pending, Dr. Frias neurology following. 01/06: No acute changes , with sedation patient becomes hypertensive does not follow commands no spontaneous movement. CT performed which reveal no infarct. 01/07: febrile today. wbc uptrending. family met with palliative today and decided on DNR status, discussing further whether or not they want to pursue comfort measures. Objective Vital Signs Date Time Temp Pulse Resp B/P (MAP) Pulse Ox O2 Delivery O2 Flow Rate FiO2 01/07/17 16:00 40 01/07/17 16:00 100.9 64 22 145/79 (101) 96 Intake and Output 01/07/17 01/07/17 01/08/17 08:00 16:00 00:00 Intake Total 1562 ml 300 ml 247 ml Output Total 1800 ml Balance -238 ml 300 ml 247 ml Result Diagram: 01/07/17 0400 01/07/17 1101 Other Results Laboratory Tests Test 01/07/17 05:05 Blood Gas Puncture Site ART LINE Blood Gas Patient Temperature 98.6 Blood Gas HCO3 25 mmol/L (22-26) Blood Gas Base Excess 2.3 mmol/L (-2-2) Blood Gas Oxygen Saturation 95 % (90-100) Arterial Blood pH 7.52 (7.380-7.420) Arterial Blood Partial Pressure CO2 31 mmHg (38-42) Arterial Blood Partial Pressure O2 93 mmHg (61-120) Arterial Blood Oxygen Content 13.4 Vol % (12.0-20.0) Arterial Blood Carboxyhemoglobin 1.8 % (0-4) Arterial Blood Methemoglobin 1.2 % (0-2) Blood Gas Hemoglobin 9.9 G/DL (12.0-16.0) Oxygen Delivery Device VENTILATOR Blood Gas Ventilator Setting PC/AC 16/IP16/IT1.0/ Blood Gas Inspired Oxygen 40 % Imaging Last Impressions Chest X-Ray 01/04/17 0600 Signed Impressions: Service Date/Time: Wednesday, January 04, 2017 03:25 - CONCLUSION: 1. Bilateral patchy air space disease, unchanged. Probable associated left-sided effusion. 2. Right-sided [place] loop thoracostomy tube without pneumothorax. Stable position of life support tubes. Harry Hilliard MD Neck CTA 01/03/17 0000 Signed Impressions: Service Date/Time: December 10:37 - CONCLUSION: 1. No hemodynamically significant carotid artery stenosis identified. 2. The vertebrobasilar circulation appears widely patent. 3. Incidental note made of a 2.2 cm cystic thyroid nodule. Jd Cornelius MD Head CTA 01/03/17 0000 Signed Impressions: Service Date/Time: December 10:37 - CONCLUSION: No large or central vessel occlusion. Jd Cornelius MD Head CT 01/03/17 0000 Signed Impressions: Service Date/Time: December 10:37 - CONCLUSION: 1. Study is limited by motion artifact. 2. No significant change in the areas of edema likely from subacute infarction. 3. Slight midline shift to the right remains with no change in the ventricular system. 4. The questionable subtle area of low density in the left cerebellar hemisphere seen on the prior study is no longer distinctly visualized. Oswaldo Moody MD Carotid Artery Ultrasound 01/02/17 1308 Signed Impressions: Service Date/Time: Monday, January 02, 2017 14:02 - CONCLUSION: 1. There is elevation of the velocity in the distal left internal carotid artery. The proximal ICA shows normal velocities. I see no appreciable plaque within the area of concern. I cannot completely exclude a 50-69%% stenosis of the distal left ICA. Consider CTA of the carotid arteries to further evaluate. 2. 2.4 cm cystic nodule involving the right lobe of the thyroid. Karl Oliver Jr., MD Upper Extremity Ultrasound 01/02/17 0000 Signed Impressions: Service Date/Time: Monday, January 02, 2017 14:26 - CONCLUSION: 1. Occlusive and nonocclusive thrombus in the right cephalic vein. 2. No left upper extremity venous thrombosis. Oswaldo Moody MD Lower Extremity Ultrasound 01/02/17 0000 Signed Impressions: Service Date/Time: Monday, January 02, 2017 13:33 - CONCLUSION: 1. Occlusive thrombus in the right posterior tibial vein. 2. Nonocclusive thrombus in the right common femoral vein, greater saphenous vein and peroneal veins. 3. No deep venous thrombosis in the left lower extremity. Oswaldo Moody MD Abdomen/Pelvis CT 01/01/17 Signed Impressions: Service Date/Time: Sunday, January 01, 2017 13:57 - CONCLUSION: 1. Pulmonary emboli with patchy areas of peripheral consolidation at the right lower lobe concerning for possible infarcts. 2. 2.4 cm focal splenic lesion. This is nonspecific. The most common splenic lesion to have this appearance would be a hemangioma. This can be followed up with an MRI examination in several months as an outpatient. 3. 1.7 cm large nonobstructing right renal stone. 4. Mild cystic change or possible area of infarction in the lateral right kidney with an area of cortical thinning and mild cystic change. 5. Left adnexal mass likely related to a dermoid given the large fat component. 6. Mild amount of free intraperitoneal fluid in the pelvis. 7. Scattered colonic diverticula in the sigmoid region without inflammatory change. 8. Catheter in the right femoral artery. Oren Gamez MD Liver Ultrasound 12/31/16 0000 Signed Impressions: Service Date/Time: Saturday, December 31, 2016 15:09 - CONCLUSION: 1. Mildly increased echotexture of the liver characteristic of steatosis. No focal liver abnormality is identified. 2. Mild splenomegaly. Adjacent to the spleen and liver in the upper abdomen the engineering technology instructor reports a questionable mass. Consider abdomen and pelvis CT for further characterization. 3. Suspected 15 mm right renal stone. Oren Palafox MD Venogram 12/29/16 0000 Signed Impressions: Service Date/Time: Thursday, December 29, 2016 11:26 - CONCLUSION: Uncomplicated bilateral venogram as above. No significant DVT in the legs on either side. No ileocaval thrombus. As such, I do not feel inferior vena caval filter placement is indicated prior to thrombolytic therapy and/or other therapy for the patient's pulmonary embolism. Oren Álvarez MD Central Venous Line 12/29/16 Signed Impressions: Service Date/Time: Thursday, December 29, 2016 11:26 - CONCLUSION: Uncomplicated ultrasound and fluoroscopic guided central line placement as above. Oren Álvarez MD CT Angiography 12/29/16 0000 Signed Impressions: Service Date/Time: Thursday, December 29, 2016 10:01 - CONCLUSION: Extensive bilateral pulmonary embolism. These findings were discussed with the emergency room physician at 1009 hrs. Oswaldo Moody MD Last Impressions Chest X-Ray 01/02/17 0000 Signed Impressions: Service Date/Time: Monday, January 02, 2017 04:24 - CONCLUSION: 1. Improved aeration left lower lung with residual patchy infiltrates. Stable patchy infiltrates right lower lung. 2. Interval development of soft tissue emphysema about the right anterior chest wall. 3. Blurring of the image limits evaluation for right pneumothorax. Some lung markings are seen into the right apex however. Karl Tan MD Head CT 01/01/17 0000 Signed Impressions: Service Date/Time: Sunday, January 01, 2017 13:58 - CONCLUSION: 1. New areas of edema likely from infarction in the left frontoparietal region and right frontal regions. 2. Narrowing of the left lateral ventricle. Significant midline shift is not seen. The basal cisterns are open. 3. Questionable subtle area of low-density in the left cerebellar hemisphere which could potentially represent a small area of infarction. Oren Gamez MD Abdomen/Pelvis CT 01/01/17 0000 Signed Impressions: Service Date/Time: Sunday, January 01, 2017 13:57 - CONCLUSION: 1. Pulmonary emboli with patchy areas of peripheral consolidation at the right lower lobe concerning for possible infarcts. 2. 2.4 cm focal splenic lesion. This is nonspecific. The most common splenic lesion to have this appearance would be a hemangioma. This can be followed up with an MRI examination in several months as an outpatient. 3. 1.7 cm large nonobstructing right renal stone. 4. Mild cystic change or possible area of infarction in the lateral right kidney with an area of cortical thinning and mild cystic change. 5. Left adnexal mass likely related to a dermoid given the large fat component. 6. Mild amount of free intraperitoneal fluid in the pelvis. 7. Scattered colonic diverticula in the sigmoid region without inflammatory change. 8. Catheter in the right femoral artery. Oren Gamez MD Liver Ultrasound 12/31/16 Signed Impressions: Service Date/Time: Saturday, December 31, 2016 15:09 - CONCLUSION: 1. Mildly increased echotexture of the liver characteristic of steatosis. No focal liver abnormality is identified. 2. Mild splenomegaly. Adjacent to the spleen and liver in the upper abdomen the engineering technology instructor reports a questionable mass. Consider abdomen and pelvis CT for further characterization. 3. Suspected 15 mm right renal stone. Oren Palafox MD Venogram 12/29/16 Signed Impressions: Service Date/Time: Thursday, December 29, 2016 11:26 - CONCLUSION: Uncomplicated bilateral venogram as above. No significant DVT in the legs on either side. No ileocaval thrombus. As such, I do not feel inferior vena caval filter placement is indicated prior to thrombolytic therapy and/or other therapy for the patient's pulmonary embolism. Oren Álvarez MD Lower Extremity Ultrasound 12/29/16 Signed Impressions: Service Date/Time: Thursday, December 29, 2016 10:56 - CONCLUSION: 1. Occlusive thrombus in the right posterior tibial vein. 2. Nonocclusive thrombus in the right common femoral vein and greater saphenous vein. 3. No deep venous thrombosis in the left lower extremity. Oswaldo Moody MD Central Venous Line 12/29/16 Signed Impressions: Service Date/Time: Thursday, December 29, 2016 11:26 - CONCLUSION: Uncomplicated ultrasound and fluoroscopic guided central line placement as above. Oren Álvarez MD CT Angiography 12/29/16 Signed Impressions: Service Date/Time: Thursday, December 29, 2016 10:01 - CONCLUSION: Extensive bilateral pulmonary embolism. These findings were discussed with the emergency room physician at 1009 hrs. Oswaldo Moody MD Last Impressions Liver Ultrasound 12/31/16 Signed Impressions: Service Date/Time: Saturday, December 31, 2016 15:09 - CONCLUSION: 1. Mildly increased echotexture of the liver characteristic of steatosis. No focal liver abnormality is identified. 2. Mild splenomegaly. Adjacent to the spleen and liver in the upper abdomen the engineering technology instructor reports a questionable mass. Consider abdomen and pelvis CT for further characterization. 3. Suspected 15 mm right renal stone. Oren Palafox MD Chest X-Ray 12/31/16 Signed Impressions: Service Date/Time: Saturday, December 31, 2016 09:17 - CONCLUSION: 1. Small bore chest tubes on the right in good position. No pneumothorax. 2. Central line, ET tube and NG tube in good position. 3. Atelectatic changes in the lung bases. Jd Cornelius MD Venogram 12/29/16 Signed Impressions: Service Date/Time: Thursday, December 29, 2016 11:26 - CONCLUSION: Uncomplicated bilateral venogram as above. No significant DVT in the legs on either side. No ileocaval thrombus. As such, I do not feel inferior vena caval filter placement is indicated prior to thrombolytic therapy and/or other therapy for the patient's pulmonary embolism. Oren Álvarez MD Lower Extremity Ultrasound 12/29/16 Signed Impressions: Service Date/Time: Thursday, December 29, 2016 10:56 - CONCLUSION: 1. Occlusive thrombus in the right posterior tibial vein. 2. Nonocclusive thrombus in the right common femoral vein and greater saphenous vein. 3. No deep venous thrombosis in the left lower extremity. Oswaldo Moody MD Head CT 12/29/16 Signed Impressions: Service Date/Time: Thursday, December 29, 2016 09:49 - CONCLUSION: 1. Suboptimal examination secondary to motion artifact. 2. No evidence of hemorrhage or mass effect identified. Oswaldo Moody MD Central Venous Line 12/29/16 Signed Impressions: Service Date/Time: Thursday, December 29, 2016 11:26 - CONCLUSION: Uncomplicated ultrasound and fluoroscopic guided central line placement as above. Oren Álvarez MD CT Angiography 12/29/16 Signed Impressions: Service Date/Time: Thursday, December 29, 2016 10:01 - CONCLUSION: Extensive bilateral pulmonary embolism. These findings were discussed with the emergency room physician at 1009 hrs. Oswaldo Moody MD Objective Remarks GENERAL: Patient is 56 yo female morbidly obese, critically ill intubated and sedated for ventilator synchrony SKIN: Warm and dry. HEAD: Normocephalic. EYES: No scleral icterus. No injection or drainage. Pupils equal and reactive NECK: Supple, trachea midline. Unable to evaluate JVD or lymphadenopathy secondary to body habitus. Orally intubated CARDIOVASCULAR: Regular rate and rhythm. Telemetry sinus rhythm RESPIRATORY: Breath sounds equal bilaterally. No accessory muscle use. Chest tube to waterseal greater than 24 hours. GASTROINTESTINAL: Abdomen soft, obese .non-tender, nondistended. MUSCULOSKELETAL: No cyanosis, or edema. Neuro: GCS 3T .Sedated on propofol and fentanyl infusions for ventilator synchrony. Off sedation patient continues to be unresponsive A/P Assessment and Plan Assessment: 56yF with hypoxic respiratory failure post massive CVA and massive pulmonary embolism. unlikely to survive. agree with palliative. will d/c cvl and chest tube today. reculture. appreciate ID recs. critically ill with multiple organs involved. unlikely to improve. 1. Acute hypoxemic hypercapnic respiratory failure requiring intubation, persistent, not improving on pathway 2 Distributive shock- resolved. 3. Extensive bilateral pulmonary embolism. 4. DVT RLE 5 Lactic acidemia 6 EKATERINA 7 Elevated trop...2nd PE 8 Leukocytosis, worsening 9 UTI 10. Hyperglycemia. 11 Morbid obesity Obesity. 12 Right sided PTX s/p pig tail catheter placement- resolved. 13 Elevated LFT's 14. Fatty liver Plan Neuro: On Diprivan and Fentanyl infusion for sedation. Perform daily Sedation vacation- unresponsive CT brain in ED negative for acute intracranial process. 01/01Repeat CT brain today showed infarct frontal lobes bilateral L>R MCA embolic stroke ,likely 2nd hypoperfusion . F/U EEG Neurology followingDr. Frias- unable to perform MRI secondary to instability at this time Concern for transformation to ICH, secondary to anticoagulation therapy 01/[address] brain-no change in slight midline shift, no change in edema secondary to subacute infarction 01/03 CTA brain no central vessel occlusion, CTA neck-no significant carotid artery stenosis. Vertebrobasilar artery system widely patent. 01/05-CT brain Evolution of bilateral frontal lobe infarcts no hemorrhage or mass effects no change in subacute infarctions Pulm: Continue with vent support and maintain sats > 92%. Bronchodilators, ICU vent bundle. CPAP trials as tolerated CXR: 12/31: Atelectasis Off TPA, continue with Heparin infusion per PE protocol. Hypercoagulable workup in process. 01/02-HIT panel negative 01/06 removed chest tube x 1. will remove remaining CT today. CV: monitor HR and BP maintain MAP> 65 mmHg. Taper steroids- HC 50mg IV Q12 Serial lactic acid monitoring -cleared Echo showed mid dilated RV with mod. decrease in systolic function, PAP 41mmHg, LV is not well visualized. No EF reported 01/02 Repeat ECHO w/ bubble study- negative for shunt 01/02 Carotid doppler studies : Monitor renal function, intake and output and electrolyte replacement as needed. Electrolytes pending this a.m. replete per ICU protocol GI: On Protonix 40 milligrams IV daily for GI prophylaxis. On tube feeds ( Glucerna 1.5 with goal rate 45ml/hr)- minimal residuals US Liver: Mildly increased echotexture of the liver characteristic of steatosis. No focal liver abnormality is identified. Mild splenomegaly. Adjacent to the spleen and liver in the upper abdomen the engineering technology instructor reports a ? mass. ID:Continue with abx (Rocephin) ID is following, Monitor for signs of infections ( fever and WBCs). WBC is trending down urine cx: Proteus mirabilis, strep mutans Endo: SSI with Accu-Chek for glycemic control q. 4 hours. Heme: Monitor CBC and coags/Fibrinogen( Fibrinogen level 205) Heparin infusion per PE protocol, discontinue begin Argatroban Doppler US LE: DVT RLE Hematologyoncology [id number] procoagulant studies GI prophylaxis with Protonix 40 mg daily and DVT prophylaxis- on Heparin infusion Lines: Right subclavian CVP placed by IR 12/29, femoral arterial line- d/c both. obtain piv per vascular access team. Dispo: Discussed with [employer] at bedside. Palliative care consulted to define goals of care. Rob Hayes MD Jan 07, 2017 17:47
[2017-01-07 19:06] LABS: BACTERIA, URINE RARE /hpf; BLOOD, URINE TRACE (NEG); GLUCOSE,URINE NEG (NEG); KETONE, URINE NEG (NEG); MUCUS URINE FEW /lpf (OCC); NITRITE,URINE NEG (NEG); PH, URINE 5.5 (5.0-8.5); SQUAMOUS EPITHELIAL CELL URINE 3 /hpf (0-5); TRANSITIONAL EPI CELLS, URINE 1 /hpf; URINE COLOR YELLOW (YELLW/STRAW)
[2017-01-07 19:07] LABS: COMMENT (UR) CATH-CULTURE IND; CULTURE IF INDICATED CATH CULTURE IND
[2017-01-08] VITALS (54 sets, daily range): BP systolic 68–159; BP diastolic 43–89; PULSE 52–120; RESP 14–28; TEMP 97.7–100.2; O2SAT 90–100
[2017-01-08] MEDS: fentaNYL DRIP 250 ML IV SCH (00:38)
[2017-01-08] MEDS: INSULIN NovoLIN REGULAR SUPPLEMENTAL SCALE SQ SCH ×3 (03:00→11:00)
[2017-01-08 06:24] LABS: HEMATOCRIT 27.7 % (35.0-46.0); MEAN CELL VOLUME 85.8 FL (80.0-100.0); MEAN CORPUSCULAR HEMOGLOBIN 28.5 PG (27.0-34.0); MEAN CORPUSCULAR HGB CONC 33.2 % (32.0-36.0); PLATELET COUNT 189 TH/MM3 (150-450); RED BLOOD COUNT 3.22 MIL/MM3 (4.00-5.30); REVIEW FLAG FINAL; WHITE BLOOD COUNT 11.9 TH/MM3 (4.0-11.0)
[2017-01-08 06:31] LABS: APTT (PATIENT) 46.7 SEC (24.3-30.1)
[2017-01-08] MEDS: CHLORHEXIDINE GLUCONATE 2 % 1 PACK (2 CLOTHS) TOP SCH (06:44)
--- NOTE | 2017-01-08 07:44 | HHI.PR ---
Review/Management Diagnosis/Plan: (1) Acute embolic stroke ICD Codes: I63.9 - Cerebral infarction, unspecified Status: Acute Plan: bihemispheric left mca >rt mca strokes mechanism: hypercoagulable state > hypoperfusion (vessels normal) dilated, fixed pupils. since 2 am per rn r/o brainstem infarct/ich/midline shift recs ct brain stat d/w rn (2) Acute hypoxemic respiratory failure ICD Codes: J96.01 - Acute respiratory failure with hypoxia Status: Acute (3) Acute pulmonary embolus ICD Codes: I26.99 - Other pulmonary embolism without acute cor pulmonale Status: Acute Subjective Subjective Comments No acute events reported off propofol x 4 hrs Active Medications Current Medications Medications (Trade) Dose Ordered Sig/Sabine Route Start Time Stop Time Status Last Admin (NS Flush) 2 ml UNSCH PRN IVF 12/29/16 08:30 01/04/17 20:56 (NS Flush) 2 ml UNSCH PRN IVF 12/29/16 08:45 01/04/17 20:56 (Protonix Inj) 40 mg DAILY IV 12/29/16 11:00 01/07/17 09:00 Miscellaneous Information 1 Q361D XX 12/29/16 10:30 (Chlorhexidine 2% Cloth) Taper DAILY@04 TOP 12/30/16 04:00 12/26/17 03:59 01/05/17 21:56 (Chlorhexidine 2% Cloth) 3 pack UNSCH PRN TOP 12/29/16 10:30 (Radha-Colace) 1 tab BID PO 12/29/16 21:00 01/07/17 21:00 (Milk Of Magnesia Liq) 30 ml Q12H PRN PO 12/29/16 10:30 (Senokot) 17.2 mg Q12H PRN PO 12/29/16 10:30 (Dulcolax Supp) 10 mg DAILY PRN RECTAL 12/29/16 10:30 (Lactulose Liq) 30 ml DAILY PRN PO 12/29/16 10:30 Fentanyl Citrate 250 ml @ 0 mls/hr TITRATE IV 12/29/16 10:30 01/08/17 00:38 (D50w (Vial) Inj) 50 ml UNSCH PRN IV 12/29/16 10:30 (Glucagon Inj) 1 mg UNSCH PRN OTHER 12/29/16 10:30 (NovoLIN R SUPPLEMENTAL SCALE) 1 Q4H SQ 12/29/16 11:00 12/31/16 03:00 (Brethine Inj) 1 mg UNSCH PRN SQ 12/29/16 19:45 Vasopressin 40 units/Sodium Chloride 100 ml @ 1.5 mls/hr Q24H IV 12/30/16 05:30 12/30/16 21:36 Propofol 100 ml @ 0 mls/hr TITRATE IV 12/30/16 07:30 01/07/17 23:25 (SoluCORTEF INJ) 50 mg Q12HR IV PUSH 12/31/16 21:00 01/07/17 21:00 Potassium Chloride 100 ml @ 50 mls/hr Q2H PRN IV 12/31/16 11:00 Potassium Chloride 100 ml @ 50 mls/hr Q2H PRN IV 12/31/16 11:00 (K-Lyte Cl Eff) 50 meq UNSCH PRN PO 12/31/16 11:00 Potassium Chloride 100 ml @ 25 mls/hr UNSCH PRN IV 12/31/16 11:00 Potassium Chloride 100 ml @ 50 mls/hr Q2H PRN IV 12/31/16 11:00 Magnesium Sulfate 4 gm/Sodium Chloride 100 ml @ 50 mls/hr UNSCH PRN IV 12/31/16 11:00 (Mag-Ox) 800 mg UNSCH PRN PO 12/31/16 11:00 Magnesium Sulfate 2 gm/Sodium Chloride 100 ml @ 50 mls/hr UNSCH PRN IV 12/31/16 11:00 (K-Phos) 2,000 mg Q4H PRN PO 12/31/16 11:00 Sodium Phosphate 30 mmol/Sodium Chloride 250 ml @ 42 mls/hr UNSCH PRN IV 12/31/16 11:00 01/07/17 09:59 (K-Phos) 2,000 mg UNSCH PRN PO/TUBE 12/31/16 11:00 Potassium Phosphate 30 mmol/ Sodium Chloride 260 ml @ 42 mls/hr UNSCH PRN IV 12/31/16 11:00 Heparin Sodium/ Dextrose 250 ml @ 0 mls/hr TITRATE IV 01/03/17 16:15 01/07/17 21:53 (Ceftin) 500 mg BID PEG 01/06/17 14:00 01/12/17 23:00 01/07/17 21:00 (Tylenol 325 Mg/ 10 ml Liq) 650 mg Q4H PRN NG 01/06/17 20:45 01/07/17 16:29 Allergies Allergies Coded Allergies No Known Allergies (Verified11/17/16) Review of Systems All other ROS: Unable to obtain Exam I&O / VS Vital Signs Date Time Temp Pulse Resp B/P (MAP) Pulse Ox O2 Delivery O2 Flow Rate FiO2 01/08/17 07:00 59 16 92/50 (64) 90 01/08/17 06:30 59 16 92/50 (64) 90 01/08/17 06:00 60 01/08/17 06:00 60 16 91/53 (66) 90 01/08/17 05:30 60 16 90/56 (67) 90 01/08/17 05:00 61 16 93/53 (66) 90 01/08/17 04:30 61 16 95/51 (66) 90 01/08/17 04:02 91 70 01/08/17 04:00 97.7 62 16 91/57 (68) 90 01/08/17 04:00 62 01/08/17 04:00 70 01/08/17 03:00 64 16 93/56 (68) 92 01/08/17 02:30 66 16 95/52 (66) 91 01/08/17 02:00 68 16 92/56 (68) 90 01/08/17 02:00 68 01/08/17 01:56 69 16 98/57 (71) 90 01/08/17 01:30 72 16 101/56 (71) 90 01/08/17 01:18 79 16 104/58 (73) 92 01/08/17 01:00 93 16 117/70 (86) 94 01/08/17 00:30 104 16 132/69 (90) 90 01/08/17 00:00 40 01/08/17 00:00 98.4 120 16 159/80 (106) 90 01/08/17 00:00 120 01/07/17 23:32 125 18 174/94 (120) 91 01/07/17 23:30 91 40 01/07/17 23:00 125 16 178/99 (125) 91 01/07/17 22:00 75 01/07/17 22:00 75 16 159/73 (101) 91 01/07/17 21:00 68 16 176/81 (112) 93 01/07/17 20:47 94 40 01/07/17 20:00 100.7 63 23 170/78 (108) 94 01/07/17 20:00 63 01/07/17 20:00 40 01/07/17 19:06 58 28 172/83 (112) 93 01/07/17 19:03 58 27 193/88 (123) 93 01/07/17 19:01 57 25 190/94 (126) 93 01/07/17 19:00 58 26 93 01/07/17 16:00 40 01/07/17 16:00 100.9 64 22 145/79 (101) 96 01/07/17 15:45 96 40 01/07/17 12:17 40 01/07/17 12:00 100.0 72 32 160/79 (106) 95 01/07/17 11:00 95 40 01/07/17 08:02 40 01/07/17 08:00 100.3 80 26 150/80 (103) 95 Exam Comments morbidly obese. intubated. coma state, not following, not opening eyes, ou 5mm fixed, in ue restraints, not moving any extremity Objective Micro and Labs Laboratory Tests Test 01/07/17 11:01 01/07/17 18:00 01/08/17 06:00 Prothrombin Time 10.9 Prothromb Time International Ratio 1.0 Blood Urea Nitrogen 15 Creatinine 0.54 Random Glucose 131 Total Protein 5.3 Albumin 1.8 Calcium Level 7.7 Alkaline Phosphatase 150 Aspartate Amino Transf (AST/SGOT) 139 Alanine Aminotransferase (ALT/SGPT) 136 Total Bilirubin 0.6 Sodium Level 139 Potassium Level 3.3 Chloride Level 104 Carbon Dioxide Level 25.4 Anion Gap 10 Estimat Glomerular Filtration Rate 118 Urine Color YELLOW Urine Turbidity HAZY Urine pH 5.5 Urine Specific Jermyn 1.023 Urine Protein 30 Urine Glucose (UA) NEG Urine Ketones NEG Urine Occult Blood TRACE Urine Nitrite NEG Urine Bilirubin NEG Urine Urobilinogen LESS THAN 2.0 Urine Leukocyte Esterase SMALL Urine RBC 78 Urine WBC 12 Urine Squamous Epithelial Cells 3 Urine Transitional Epithelial Cells 1 Urine Amorphous Sediment RARE Urine Bacteria RARE Urine Mucus FEW Urine Yeast with Hyphae MOD Urine Yeast (Budding) MOD Microscopic Urinalysis Comment CATH-CULTURE IND White Blood Count 11.9 Red Blood Count 3.22 Hemoglobin 9.2 Hematocrit 27.7 Mean Corpuscular Volume 85.8 Mean Corpuscular Hemoglobin 28.5 Mean Corpuscular Hemoglobin Concent 33.2 Red Cell Distribution Width 14.0 Platelet Count 189 Mean Platelet Volume 5.7 Activated Partial Thromboplast Time 46.7 Date/Time Source Procedure Growth Status 12/31/16 11:30 Blood Peripheral Aerobic Blood Culture - Final NO GROWTH IN 5 DAYS Complete 12/31/16 11:30 Blood Peripheral Anaerobic Blood Culture - Final NO GROWTH IN 5 DAYS Complete 01/03/17 11:28 Stool Stool Stool Occult Blood (SHAR) - Final HEMOCCULT NEGATIVE Complete 01/07/17 18:00 Sputum Endotracheal Gram Stain Pending Received 01/07/17 18:00 Sputum Endotracheal Sputum Culture Pending Received 01/07/17 18:00 Urine Catheterized Urine Urine Culture Pending Received Problem Qualifiers (1) Acute pulmonary embolus: Dk Frias MD Jan 08, 2017 07:44
[2017-01-08] MEDS: DOCUSATE SODIUM 50 MG/SENNA 8.6 MG TAB PO SCH ×3 (09:00→21:00)
--- NOTE | 2017-01-08 09:29 | RADRPT ---
EXAM DATE/TIME: 01/08/2017 09:08 [facility] COMPARISON: CT BRAIN W/O CONTRAST, January 05, 2017, 19:31. INDICATIONS : Cerebrovascular accident. Bilateral fixed and dilated pupils. RADIATION DOSE: 45.29 CTDIvol (mGy) MEDICAL HISTORY : Cerebrovascular disease. SURGICAL HISTORY : None. ENCOUNTER: Initial ACUITY: 1 day PAIN SCALE: Non-responsive LOCATION: cranial TECHNIQUE: Multiple contiguous axial images were obtained of the head. Using automated exposure control and adj ustment of the mA and/or kV according to patient size, radiation dose was kept as low as reasonably a chievable to obtain optimal diagnostic quality images. DICOM format image data is available electro nically for review and comparison. FINDINGS: There is interval development of a large intraparenchymal hemorrhage at site of infarct and edema in the right frontal lobe with mass effect on the lateral ventricles and right to left shift of 7.2 mm. Parenchymal hemorrhage in the right frontal region measures 8.1 x 5.7 cm in AP and transverse dimensi on. There is edema in the left frontal lobe as before from infarction. There is intraventricular hemo rrhage identified in the right posterior horn as well as basilar cisterns with a small amount of hemo rrhage in the fourth ventricle and perimesencephalic region. There is effacement of the third ventric le and body of the left lateral ventricle and temporal horns. There is petechial hemorrhage suspected in the left frontal infarct. There is sulcal effacement. No fractures are seen. The basilar cisterns are completely effaced. CONCLUSION: Interval development of intra-axial and extra-axial hemorrhage with significant mass effect, cisterna l effacement, subfalcine herniation and possible transtentorial herniation. Xavi De Anda MD on January 08, 2017 at 9:14 Board Certified Radiologist. This report was verified electronically.
[2017-01-08] MEDS: CEFUROXIME AXETIL 500 MG TAB PEG SCH ×3 (10:08→21:00)
[2017-01-08] MEDS: HYDROCORTISONE SOD SUCCINATE 100 MG VIAL IV PUSH SCH ×2 (10:10→20:31)
[2017-01-08] MEDS: PANTOPRAZOLE SODIUM 40 MG VIAL IV SCH (10:10)
--- NOTE | 2017-01-08 10:56 | HHI.CCPN ---
Subjective Remarks/Hospital Course Patient is a 56-year-old female without significant past medical history who presented to the [facility] Emergency Department with severe respiratory distress. Per ED records, the patient woke up this morning feeling short of breath. She denied any associated symptoms of chest pain, orthopnea, PND or edema of the lower extremities. On arrival to the emergency department, she was found hypoxic with saturation in the 70s on room air and tachycardiac with heart rate of 160. The patient was subsequently intubated with etomidate, succinylcholine and Versed and placed on full mechanical ventilation. ABG post- intubation showed severe respiratory acidosis with a pH of 7.15, CO2 51, pAO2 73 , bicarb 17, sats of 88% PRVC mode, rate of 24, tidal volume 500,IT: 1.0, PEEP of 20 with 100% FIO2. Chest x-ray showed no acute cardiopulmonary disease. The patient underwent a stat CT scan of the chest, which showed extensive bilateral pulmonary embolism. She also had CT scan of the brain, which showed no evidence of hemorrhage or mass effect. In ER she was given IV fluids 2 liters, Ativan, and placed on Diprivan infusion for sedation. 12/30 On arrival to ICU from patient became hemodynamically unstable and placed on multiple pressors. She is currently on Neosyn 100 mics, Vasopressin 0.04, Levophed 12 mics, Off Dobutamine. In addition she is sedated with Fentanyl, Diprivan and on Nimbex. At approx 3 am she developed right sided PTX and pig tail catheter was placed with resolution of PTX on repeat CXR. On PC/AC RR 28, IP: 18, IT:1.0, PEEP:10, FIO2 70%. On TPA 1mg/hr and Heparin drip. T;101.1 at 4am. 12/31 Patient remains sedated, intubated and on Nimbex. She had recurrent right sided PTX yesterday afternoon and a second pigtail catheter was placed with resolution of PTX. Off TPA and on heparin drip. She is off Levophed, Neosyn however remained on Vasopressin. Also, there is improvements in her O2 requirements and down to PEEP: 10 and FIO2 40%. T:101.1 last night 01/01 Patient is off all pressors, sedated with Diprivan and Fentanyl. Remains on Heparin drip. WBC is trending down. T:100.0 01/02: Tmax 100.6. Leukocytosis resolving. PEEP decreased to 5. Hemodynamically stable overnight 01/03: Tmax 99.2. No change in neurological status. Leukocytosis improving. Hit panel pending. Patient change to Argatroban infusion yesterday, remains in therapeutic range. 01/04: Per hematology and oncology patients infusion return back to heparin. No change in neurological status. Echocardiogram with bubble study performed no shunt was noted 01/05: Sedation vacation attempted, the patient unresponsive. Repeat CT of the head pending, Dr. Frias neurology following. 01/06: No acute changes , with sedation patient becomes hypertensive does not follow commands no spontaneous movement. CT performed which reveal no infarct. 01/07: febrile today. wbc uptrending. family met with palliative today and decided on DNR status, discussing further whether or not they want to pursue comfort measures. 01/08: clinical change overnight. GCS now 3, nonresponsive. pupils are fixed and dilated, 6mm. stat CT head demonstrates massive IPH conversion of frontal hemorrhage. Objective Vital Signs Date Time Temp Pulse Resp B/P (MAP) Pulse Ox O2 Delivery O2 Flow Rate FiO2 01/08/17 09:00 100 100 01/08/17 07:00 59 16 92/50 (64) 01/08/17 04:00 97.7 Intake and Output 01/08/17 01/08/17 01/09/17 08:00 16:00 00:00 Intake Total 1706 ml Output Total 4050 ml Balance -2344 ml Result Diagram: 01/08/17 0600 01/07/17 1101 Imaging Last Impressions Chest X-Ray 01/04/17 0600 Signed Impressions: Service Date/Time: Wednesday, January 04, 2017 03:25 - CONCLUSION: 1. Bilateral patchy air space disease, unchanged. Probable associated left-sided effusion. 2. Right-sided Poynette loop thoracostomy tube without pneumothorax. Stable position of life support tubes. Harry Hilliard MD Neck CTA 01/03/17 0000 Signed Impressions: Service Date/Time: December 10:37 - CONCLUSION: 1. No hemodynamically significant carotid artery stenosis identified. 2. The vertebrobasilar circulation appears widely patent. 3. Incidental note made of a 2.2 cm cystic thyroid nodule. Jd Cornelius MD Head CTA 01/03/17 0000 Signed Impressions: Service Date/Time: December 10:37 - CONCLUSION: No large or central vessel occlusion. Jd Cornelius MD Head CT 01/03/17 0000 Signed Impressions: Service Date/Time: December 10:37 - CONCLUSION: 1. Study is limited by motion artifact. 2. No significant change in the areas of edema likely from subacute infarction. 3. Slight midline shift to the right remains with no change in the ventricular system. 4. The questionable subtle area of low density in the left cerebellar hemisphere seen on the prior study is no longer distinctly visualized. Oswaldo Moody MD Carotid Artery Ultrasound 01/02/17 1308 Signed Impressions: Service Date/Time: Monday, January 02, 2017 14:02 - CONCLUSION: 1. There is elevation of the velocity in the distal left internal carotid artery. The proximal ICA shows normal velocities. I see no appreciable plaque within the area of concern. I cannot completely exclude a 50-69%% stenosis of the distal left ICA. Consider CTA of the carotid arteries to further evaluate. 2. 2.4 cm cystic nodule involving the right lobe of the thyroid. Karl Oliver Jr., MD Upper Extremity Ultrasound 01/02/17 0000 Signed Impressions: Service Date/Time: Monday, January 02, 2017 14:26 - CONCLUSION: 1. Occlusive and nonocclusive thrombus in the right cephalic vein. 2. No left upper extremity venous thrombosis. Oswaldo Moody MD Lower Extremity Ultrasound 01/02/17 0000 Signed Impressions: Service Date/Time: Monday, January 02, 2017 13:33 - CONCLUSION: 1. Occlusive thrombus in the right posterior tibial vein. 2. Nonocclusive thrombus in the right common femoral vein, greater saphenous vein and peroneal veins. 3. No deep venous thrombosis in the left lower extremity. Oswaldo Moody MD Abdomen/Pelvis CT 01/01/17 0000 Signed Impressions: Service Date/Time: Sunday, January 01, 2017 13:57 - CONCLUSION: 1. Pulmonary emboli with patchy areas of peripheral consolidation at the right lower lobe concerning for possible infarcts. 2. 2.4 cm focal splenic lesion. This is nonspecific. The most common splenic lesion to have this appearance would be a hemangioma. This can be followed up with an MRI examination in several months as an outpatient. 3. 1.7 cm large nonobstructing right renal stone. 4. Mild cystic change or possible area of infarction in the lateral right kidney with an area of cortical thinning and mild cystic change. 5. Left adnexal mass likely related to a dermoid given the large fat component. 6. Mild amount of free intraperitoneal fluid in the pelvis. 7. Scattered colonic diverticula in the sigmoid region without inflammatory change. 8. Catheter in the right femoral artery. Oren Gamez MD Liver Ultrasound 12/31/16 Signed Impressions: Service Date/Time: Saturday, December 31, 2016 15:09 - CONCLUSION: 1. Mildly increased echotexture of the liver characteristic of steatosis. No focal liver abnormality is identified. 2. Mild splenomegaly. Adjacent to the spleen and liver in the upper abdomen the estate tax examiner reports a questionable mass. Consider abdomen and pelvis CT for further characterization. 3. Suspected 15 mm right renal stone. Oren Palafox MD Venogram 12/29/16 Signed Impressions: Service Date/Time: Thursday, December 29, 2016 11:26 - CONCLUSION: Uncomplicated bilateral venogram as above. No significant DVT in the legs on either side. No ileocaval thrombus. As such, I do not feel inferior vena caval filter placement is indicated prior to thrombolytic therapy and/or other therapy for the patient's pulmonary embolism. Oren Álvarez MD Central Venous Line 12/29/16 Signed Impressions: Service Date/Time: Thursday, December 29, 2016 11:26 - CONCLUSION: Uncomplicated ultrasound and fluoroscopic guided central line placement as above. Oren Álvarez MD CT Angiography 12/29/16 Signed Impressions: Service Date/Time: Thursday, December 29, 2016 10:01 - CONCLUSION: Extensive bilateral pulmonary embolism. These findings were discussed with the emergency room physician at 1009 hrs. Oswaldo Moody MD Last Impressions Chest X-Ray 01/02/17 Signed Impressions: Service Date/Time: Monday, January 02, 2017 04:24 - CONCLUSION: 1. Improved aeration left lower lung with residual patchy infiltrates. Stable patchy infiltrates right lower lung. 2. Interval development of soft tissue emphysema about the right anterior chest wall. 3. Blurring of the image limits evaluation for right pneumothorax. Some lung markings are seen into the right apex however. Karl Tan MD Head CT 01/01/17 Signed Impressions: Service Date/Time: Sunday, January 01, 2017 13:58 - CONCLUSION: 1. New areas of edema likely from infarction in the left frontoparietal region and right frontal regions. 2. Narrowing of the left lateral ventricle. Significant midline shift is not seen. The basal cisterns are open. 3. Questionable subtle area of low-density in the left cerebellar hemisphere which could potentially represent a small area of infarction. Oren Gamez MD Abdomen/Pelvis CT 01/01/17 Signed Impressions: Service Date/Time: Sunday, January 01, 2017 13:57 - CONCLUSION: 1. Pulmonary emboli with patchy areas of peripheral consolidation at the right lower lobe concerning for possible infarcts. 2. 2.4 cm focal splenic lesion. This is nonspecific. The most common splenic lesion to have this appearance would be a hemangioma. This can be followed up with an MRI examination in several months as an outpatient. 3. 1.7 cm large nonobstructing right renal stone. 4. Mild cystic change or possible area of infarction in the lateral right kidney with an area of cortical thinning and mild cystic change. 5. Left adnexal mass likely related to a dermoid given the large fat component. 6. Mild amount of free intraperitoneal fluid in the pelvis. 7. Scattered colonic diverticula in the sigmoid region without inflammatory change. 8. Catheter in the right femoral artery. Oren Gamez MD Liver Ultrasound 12/31/16 Signed Impressions: Service Date/Time: Saturday, December 31, 2016 15:09 - CONCLUSION: 1. Mildly increased echotexture of the liver characteristic of steatosis. No focal liver abnormality is identified. 2. Mild splenomegaly. Adjacent to the spleen and liver in the upper abdomen the estate tax examiner reports a questionable mass. Consider abdomen and pelvis CT for further characterization. 3. Suspected 15 mm right renal stone. Oren Palafox MD Venogram 12/29/16 Signed Impressions: Service Date/Time: Thursday, December 29, 2016 11:26 - CONCLUSION: Uncomplicated bilateral venogram as above. No significant DVT in the legs on either side. No ileocaval thrombus. As such, I do not feel inferior vena caval filter placement is indicated prior to thrombolytic therapy and/or other therapy for the patient's pulmonary embolism. Oren Álvarez MD Lower Extremity Ultrasound 12/29/16 Signed Impressions: Service Date/Time: Thursday, December 29, 2016 10:56 - CONCLUSION: 1. Occlusive thrombus in the right posterior tibial vein. 2. Nonocclusive thrombus in the right common femoral vein and greater saphenous vein. 3. No deep venous thrombosis in the left lower extremity. Oswaldo Moody MD Central Venous Line 12/29/16 Signed Impressions: Service Date/Time: Thursday, December 29, 2016 11:26 - CONCLUSION: Uncomplicated ultrasound and fluoroscopic guided central line placement as above. Oren Álvarez MD CT Angiography 12/29/16 Signed Impressions: Service Date/Time: Thursday, December 29, 2016 10:01 - CONCLUSION: Extensive bilateral pulmonary embolism. These findings were discussed with the emergency room physician at 1009 hrs. Oswaldo Moody MD Last Impressions Liver Ultrasound 12/31/16 Signed Impressions: Service Date/Time: Saturday, December 31, 2016 15:09 - CONCLUSION: 1. Mildly increased echotexture of the liver characteristic of steatosis. No focal liver abnormality is identified. 2. Mild splenomegaly. Adjacent to the spleen and liver in the upper abdomen the estate tax examiner reports a questionable mass. Consider abdomen and pelvis CT for further characterization. 3. Suspected 15 mm right renal stone. Oren Palafox MD Chest X-Ray 12/31/16 Signed Impressions: Service Date/Time: Saturday, December 31, 2016 09:17 - CONCLUSION: 1. Small bore chest tubes on the right in good position. No pneumothorax. 2. Central line, ET tube and NG tube in good position. 3. Atelectatic changes in the lung bases. Jd Cornelius MD Venogram 12/29/16 Signed Impressions: Service Date/Time: Thursday, December 29, 2016 11:26 - CONCLUSION: Uncomplicated bilateral venogram as above. No significant DVT in the legs on either side. No ileocaval thrombus. As such, I do not feel inferior vena caval filter placement is indicated prior to thrombolytic therapy and/or other therapy for the patient's pulmonary embolism. Oren Álvarez MD Lower Extremity Ultrasound 12/29/16 Signed Impressions: Service Date/Time: Thursday, December 29, 2016 10:56 - CONCLUSION: 1. Occlusive thrombus in the right posterior tibial vein. 2. Nonocclusive thrombus in the right common femoral vein and greater saphenous vein. 3. No deep venous thrombosis in the left lower extremity. Oswaldo Moody MD Head CT 12/29/16 Signed Impressions: Service Date/Time: Thursday, December 29, 2016 09:49 - CONCLUSION: 1. Suboptimal examination secondary to motion artifact. 2. No evidence of hemorrhage or mass effect identified. Oswaldo Moody MD Central Venous Line 12/29/16 Signed Impressions: Service Date/Time: Thursday, December 29, 2016 11:26 - CONCLUSION: Uncomplicated ultrasound and fluoroscopic guided central line placement as above. Oren Álvarez MD CT Angiography 12/29/16 Signed Impressions: Service Date/Time: Thursday, December 29, 2016 10:01 - CONCLUSION: Extensive bilateral pulmonary embolism. These findings were discussed with the emergency room physician at 1009 hrs. Oswaldo Moody MD Objective Remarks GENERAL: Patient is 56 yo female morbidly obese, critically ill intubated and sedated for ventilator synchrony SKIN: Warm and dry. HEAD: Normocephalic. EYES: No scleral icterus. No injection or drainage. Pupils equal and reactive NECK: Supple, trachea midline. Unable to evaluate JVD or lymphadenopathy secondary to body habitus. Orally intubated CARDIOVASCULAR: Regular rate and rhythm. Telemetry sinus rhythm RESPIRATORY: Breath sounds equal bilaterally. No accessory muscle use. Chest tube to waterseal greater than 24 hours. GASTROINTESTINAL: Abdomen soft, obese .non-tender, nondistended. MUSCULOSKELETAL: No cyanosis, or edema. Neuro: GCS 3 off all sedation. pupils 6mm, fixed, dilated. no cough. no gag. no corneals. not overbreathing ventilator. no movement to noxious stimuli. negative oculocephalic reflex. A/P Assessment and Plan Assessment: 56yF with hypoxic respiratory failure post massive CVA and massive pulmonary embolism. now with massive hemorrhagic conversion with massive intraparenchymal hemorrhage and transtentorial herniation. Very critically ill at this time and actively decompensating. Will discuss with family and neurology today: she may have completed to brain at this point, but regardless, this is a nonsurvivable event for her, given her ongoing underlying massive PE and bilateral ischemic infarcts. Massive hemorrhagic conversion with massive intraparenchymal hemorrhage and transtentorial herniation Acute hypoxemic hypercapnic respiratory failure requiring intubation, persistent , not improving on pathway Bifrontal large ischemic CVA Extensive bilateral pulmonary embolism. DVT RLE Leukocytosis, worsening Morbid obesity Obesity. Plan Neuro: - hold oall sedation - will discuss with neurology. may pursue brain testing. - CT brain in ED negative for acute intracranial process. - 01/01Repeat CT brain today showed infarct frontal lobes bilateral L>R MCA embolic stroke ,likely 2nd hypoperfusion . - Neurology followingDrWaldo Frias- unable to perform MRI secondary to instability at this time - 01/08: massive hemorrhagic conversion, IPH, transtentorial herniation. Pulm: - Continue with vent support and maintain sats > 92%. - Bronchodilators, ICU vent bundle. CPAP trials as tolerated - CXR: 12/31: Atelectasis - Off TPA, continue with Heparin infusion per PE protocol. - Hypercoagulable workup in process. - 01/02-HIT panel negative CV: - monitor HR and BP maintain MAP> 65 mmHg. - Taper steroids- HC 50mg IV Q12 - Echo showed mid dilated RV with mod. decrease in systolic function, PAP 41mmHg , LV is not well visualized. No EF reported - 01/02 Repeat ECHO w/ bubble study- negative for shunt - 01/02 Carotid doppler studies : Monitor renal function, intake and output and electrolyte replacement as needed. Electrolytes pending this a.m. replete per ICU protocol GI: On Protonix 40 milligrams IV daily for GI prophylaxis. On tube feeds ( Glucerna 1.5 with goal rate 45ml/hr)- minimal residuals US Liver: Mildly increased echotexture of the liver characteristic of steatosis. No focal liver abnormality is identified. Mild splenomegaly. Adjacent to the spleen and liver in the upper abdomen the estate tax examiner reports a ? mass. ID:Continue with abx ID is following, Monitor for signs of infections( fever and WBCs). WBC is trending down urine cx: Proteus mirabilis, strep mutans Endo: SSI with Accu-Chek for glycemic control q. 4 hours. Heme: Monitor CBC and coags/Fibrinogen( Fibrinogen level 205) - d/c heparin drip. Doppler US LE: DVT RLE Hematologyoncology [id number] procoagulant studies GI prophylaxis with Protonix 40 mg daily and DVT prophylaxis- SCDs. no heparin given head bleed. Lines: piv's Dispo: Discussed with TOOL HONING MACHINE SET UP OPERATOR at bedside. Palliative care consulted to define goals of care. nonsurvivable event. Critical Care time: 39 minutes exclusive of separately billable procedures. Rob Hayes MD Jan 08, 2017 10:56
--- NOTE | 2017-01-08 11:29 | HHI.HCPN ---
Reason for visit a. To assist with evaluation and management of symptoms including: dyspnea, pain. b. To assist medical decision maker(s) with: better understanding of current medical conditions; weighing benefits/burdens of medical treatment options; making medical treatment decisions. . Subjective/Interval History Patient seen and examined in ICU. Friends at bedside. Patient remains on mech vent, not breathing over vent. Pupils fixed and dilated. CT scan head overnight revealed intra-axial and extra-axial hemorrhage with mass effect and herniation. Hypotensive, BP 76/50. Discussed with nurse, Jacinta and Dr. Hayes. Possible brain , pending evaluation. . Family/friend interactions Met with friend, Stella and mother (Gabby) on via conference call. Also spoke with brother, Jai via phone. Medical update provided. Family desires comfort focused care and possible withdrawal of life support once all family/friends have arrived. Family understands she may not survive until withdrawal of life support. Anticipatory guidance Dr. Hayes notified of family wishes. Palliative care will assist with orders. . Advance Directives Living Will: Never completed Health Care Surrogate: Never completed Durable Power of Consulting Database Administrator: Never completed Advance Directive Specifics Health Care Surrogate(s): According to [place] statutes, health care proxy decision-making falls to the patient's mother, Gabby Sadler. . Significant change in goals: NO CODE. Plan for transition to comfort measures with withdrawal of life support once family arrives. . Objective Vital Signs Date Time Temp Pulse Resp B/P (MAP) Pulse Ox O2 Delivery O2 Flow Rate FiO2 01/08/17 09:00 100 100 01/08/17 08:30 92 80 01/08/17 07:00 59 16 92/50 (64) 90 01/08/17 06:30 59 16 92/50 (64) 90 01/08/17 06:00 60 01/08/17 06:00 60 16 91/53 (66) 90 01/08/17 05:30 60 16 90/56 (67) 90 01/08/17 05:00 61 16 93/53 (66) 90 01/08/17 04:30 61 16 95/51 (66) 90 01/08/17 04:02 91 70 01/08/17 04:00 97.7 62 16 91/57 (68) 90 01/08/17 04:00 62 01/08/17 04:00 70 01/08/17 03:00 64 16 93/56 (68) 92 01/08/17 02:30 66 16 95/52 (66) 91 01/08/17 02:00 68 16 92/56 (68) 90 01/08/17 02:00 68 01/08/17 01:56 69 16 98/57 (71) 90 01/08/17 01:30 72 16 101/56 (71) 90 01/08/17 01:18 79 16 104/58 (73) 92 01/08/17 01:00 93 16 117/70 (86) 94 01/08/17 00:30 104 16 132/69 (90) 90 01/08/17 00:00 40 01/08/17 00:00 98.4 120 16 159/80 (106) 90 01/08/17 00:00 120 01/07/17 23:32 125 18 174/94 (120) 91 01/07/17 23:30 91 40 01/07/17 23:00 125 16 178/99 (125) 91 01/07/17 22:00 75 01/07/17 22:00 75 16 159/73 (101) 91 01/07/17 21:00 68 16 176/81 (112) 93 01/07/17 20:47 94 40 01/07/17 20:00 100.7 63 23 170/78 (108) 94 01/07/17 20:00 63 01/07/17 20:00 40 01/07/17 19:06 58 28 172/83 (112) 93 01/07/17 19:03 58 27 193/88 (123) 93 01/07/17 19:01 57 25 190/94 (126) 93 01/07/17 19:00 58 26 93 01/07/17 16:00 40 01/07/17 16:00 100.9 64 22 145/79 (101) 96 01/07/17 15:45 96 40 01/07/17 12:17 40 01/07/17 12:00 100.0 72 32 160/79 (106) 95 Intake & Output 01/08/17 01/08/17 07:00 19:00 Intake Total 1706 ml Output Total 4050 ml Balance -2344 ml IV Total 1222 ml Tube Feeding 484 ml Output Urine Total 3850 ml Stool Total 200 ml Physical Exam CONSTITUTIONAL/GENERAL: This is an adequately nourished patient, intubated on mechanical ventilation. EYES: pupils fixed and dilated. ENT: Unable to assess hearing. Nose without bleeding or purulent drainage. Difficult to visualize Throat due to tubes. Bloody/ brownish secretions noted in suction tubing. CARDIOVASCULAR: Regular rate and rhythm without murmurs, gallops, or rubs. RESPIRATORY/CHEST: Symmetric, unlabored respirations on vent. Diminished. GASTROINTESTINAL: Abdomen soft, protuberant, nondistended. Bowel sounds present. GENITOURINARY: Without palpable bladder distension. Mcdaniel catheter in place. MUSCULOSKELETAL: Extremities x 4 with edema. No mottling or clubbing. NEUROLOGICAL: Unresponsive. PSYCHIATRIC: Unresponsive. . Diagnostic Tests Laboratory Laboratory Tests Test 01/05/17 12:48 01/05/17 20:27 01/06/17 02:11 01/06/17 05:08 Activated Partial Thromboplast Time 34.4 SEC (24.3-30.1) 38.4 SEC (24.3-30.1) 46.3 SEC (24.3-30.1) White Blood Count 11.7 TH/MM3 (4.0-11.0) Red Blood Count 3.42 MIL/MM3 (4.00-5.30) Hemoglobin 10.0 GM/DL (11.6-15.3) Hematocrit 29.2 % (35.0-46.0) Mean Corpuscular Volume 85.4 FL (80.0-100.0) Mean Corpuscular Hemoglobin 29.2 PG (27.0-34.0) Mean Corpuscular Hemoglobin Concent 34.2 % (32.0-36.0) Red Cell Distribution Width 13.7 % (11.6-17.2) Platelet Count 221 TH/MM3 (150-450) Mean Platelet Volume 6.2 FL (7.0-11.0) Blood Urea Nitrogen 19 MG/DL (7-18) Creatinine 0.61 MG/DL (0.50-1.00) Random Glucose 109 MG/DL (74-106) Calcium Level 8.1 MG/DL (8.5-10.1) Phosphorus Level 3.1 MG/DL (2.5-4.9) Magnesium Level 2.1 MG/DL (1.5-2.5) Sodium Level 141 MEQ/L (136-145) Potassium Level 4.1 MEQ/L (3.5-5.1) Chloride Level 106 MEQ/L (98-107) Carbon Dioxide Level 29.0 MEQ/L (21.0-32.0) Anion Gap 6 MEQ/L (5-15) Estimat Glomerular Filtration Rate 102 ML/MIN (>89) Blood Gas Puncture Site ART LINE Blood Gas Patient Temperature 98.6 Blood Gas HCO3 26 mmol/L (22-26) Blood Gas Base Excess 2.8 mmol/L (-2-2) Blood Gas Oxygen Saturation 95 % (90-100) Arterial Blood pH 7.46 (7.380-7.420) Arterial Blood Partial Pressure CO2 38 mmHg (38-42) Arterial Blood Partial Pressure O2 94 mmHg (61-120) Arterial Blood Oxygen Content 13.0 Vol % (12.0-20.0) Arterial Blood Carboxyhemoglobin 1.8 % (0-4) Arterial Blood Methemoglobin 1.0 % (0-2) Blood Gas Hemoglobin 9.6 G/DL (12.0-16.0) Oxygen Delivery Device VENTILATOR Blood Gas Ventilator Setting PC/AC16/16IP/1.0IT/ Blood Gas Inspired Oxygen 40 % Test 01/06/17 09:00 01/06/17 11:30 01/07/17 04:00 01/07/17 05:05 Activated Partial Thromboplast Time 43.9 SEC (24.3-30.1) 43.5 SEC (24.3-30.1) Stool C. difficile Toxin (PCR) NEGATIVE (NEGATIVE) Stl C. difficile Toxin Epiderm 027 PRESUMPTIVE NEGATIVE White Blood Count 15.2 TH/MM3 (4.0-11.0) Red Blood Count 3.47 MIL/MM3 (4.00-5.30) Hemoglobin 9.9 GM/DL (11.6-15.3) Hematocrit 29.7 % (35.0-46.0) Mean Corpuscular Volume 85.6 FL (80.0-100.0) Mean Corpuscular Hemoglobin 28.6 PG (27.0-34.0) Mean Corpuscular Hemoglobin Concent 33.4 % (32.0-36.0) Red Cell Distribution Width 14.3 % (11.6-17.2) Platelet Count 202 TH/MM3 (150-450) Mean Platelet Volume 5.8 FL (7.0-11.0) Blood Urea Nitrogen 17 MG/DL (7-18) Creatinine 0.69 MG/DL (0.50-1.00) Random Glucose 115 MG/DL (74-106) Calcium Level 7.7 MG/DL (8.5-10.1) Phosphorus Level 2.4 MG/DL (2.5-4.9) Magnesium Level 2.1 MG/DL (1.5-2.5) Sodium Level 139 MEQ/L (136-145) Potassium Level 3.6 MEQ/L (3.5-5.1) Chloride Level 104 MEQ/L (98-107) Carbon Dioxide Level 31.3 MEQ/L (21.0-32.0) Anion Gap 4 MEQ/L (5-15) Estimat Glomerular Filtration Rate 89 ML/MIN (>89) Blood Gas Puncture Site ART LINE Blood Gas Patient Temperature 98.6 Blood Gas HCO3 25 mmol/L (22-26) Blood Gas Base Excess 2.3 mmol/L (-2-2) Blood Gas Oxygen Saturation 95 % (90-100) Arterial Blood pH 7.52 (7.380-7.420) Arterial Blood Partial Pressure CO2 31 mmHg (38-42) Arterial Blood Partial Pressure O2 93 mmHg (61-120) Arterial Blood Oxygen Content 13.4 Vol % (12.0-20.0) Arterial Blood Carboxyhemoglobin 1.8 % (0-4) Arterial Blood Methemoglobin 1.2 % (0-2) Blood Gas Hemoglobin 9.9 G/DL (12.0-16.0) Oxygen Delivery Device VENTILATOR Blood Gas Ventilator Setting PC/AC 16/IP16/IT1.0/ Blood Gas Inspired Oxygen 40 % Test 01/07/17 11:01 01/07/17 18:00 01/08/17 06:00 Prothrombin Time 10.9 SEC (9.8-11.6) Prothromb Time International Ratio 1.0 RATIO Blood Urea Nitrogen 15 MG/DL (7-18) Creatinine 0.54 MG/DL (0.50-1.00) Random Glucose 131 MG/DL (74-106) Total Protein 5.3 GM/DL (6.4-8.2) Albumin 1.8 GM/DL (3.4-5.0) Calcium Level 7.7 MG/DL (8.5-10.1) Alkaline Phosphatase 150 U/L (45-117) Aspartate Amino Transf (AST/SGOT) 139 U/L (15-37) Alanine Aminotransferase (ALT/SGPT) 136 U/L (10-53) Total Bilirubin 0.6 MG/DL (0.2-1.0) Sodium Level 139 MEQ/L (136-145) Potassium Level 3.3 MEQ/L (3.5-5.1) Chloride Level 104 MEQ/L (98-107) Carbon Dioxide Level 25.4 MEQ/L (21.0-32.0) Anion Gap 10 MEQ/L (5-15) Estimat Glomerular Filtration Rate 118 ML/MIN (>89) Urine Color YELLOW (YELLW/STRAW) Urine Turbidity HAZY (CLEAR) Urine pH 5.5 (5.0-8.5) Urine Specific Wagner 1.023 (1.002-1.035) Urine Protein 30 mg/dL (NEG-TRACE) Urine Glucose (UA) NEG mg/dL (NEG) Urine Ketones NEG mg/dL (NEG) Urine Occult Blood TRACE (NEG) Urine Nitrite NEG (NEG) Urine Bilirubin NEG (NEG) Urine Urobilinogen LESS THAN 2.0 MG/DL (LESS Urine Leukocyte Esterase SMALL (NEG) Urine RBC 78 /hpf (0-3) Urine WBC 12 /hpf (0-5) Urine Squamous Epithelial Cells 3 /hpf (0-5) Urine Transitional Epithelial Cells 1 /hpf (NONE) Urine Amorphous Sediment RARE Urine Bacteria RARE /hpf (NONE) Urine Mucus FEW /lpf (OCC) Urine Yeast with Hyphae MOD (NONE) Urine Yeast (Budding) MOD (NONE) Microscopic Urinalysis Comment CATH-CULTURE IND White Blood Count 11.9 TH/MM3 (4.0-11.0) Red Blood Count 3.22 MIL/MM3 (4.00-5.30) Hemoglobin 9.2 GM/DL (11.6-15.3) Hematocrit 27.7 % (35.0-46.0) Mean Corpuscular Volume 85.8 FL (80.0-100.0) Mean Corpuscular Hemoglobin 28.5 PG (27.0-34.0) Mean Corpuscular Hemoglobin Concent 33.2 % (32.0-36.0) Red Cell Distribution Width 14.0 % (11.6-17.2) Platelet Count 189 TH/MM3 (150-450) Mean Platelet Volume 5.7 FL (7.0-11.0) Activated Partial Thromboplast Time 46.7 SEC (24.3-30.1) Result Diagram: 01/08/17 0600 01/07/17 1101 Microbiology Microbiology Date/Time Source Procedure Growth Status 01/08/17 10:14 Blood Peripheral Aerobic Blood Culture Pending Received 01/08/17 10:14 Blood Peripheral Anaerobic Blood Culture Pending Received 01/07/17 18:00 Sputum Endotracheal Gram Stain - Final Resulted 01/07/17 18:00 Sputum Endotracheal Sputum Culture Pending Resulted 01/07/17 18:00 Urine Catheterized Urine Urine Culture Pending Received Imaging Last Impressions Chest X-Ray 01/07/17 0600 Signed Impressions: Service Date/Time: Saturday, January 07, 2017 02:51 - CONCLUSION: 1. NG tip is now in mid esophagus and should be repositioned. Right chest tube present without pneumothorax. Stable bilateral airspace disease. Indra Allen MD Head CT 01/05/17 1200 Signed Impressions: Service Date/Time: Thursday, January 05, 2017 19:31 - CONCLUSION: Evolution of bilateral frontal lobe infarctions without hemorrhage or mass effect. Danielle Higuera MD Neck CTA 01/03/17 0000 Signed Impressions: Service Date/Time: December 10:37 - CONCLUSION: 1. No hemodynamically significant carotid artery stenosis identified. 2. The vertebrobasilar circulation appears widely patent. 3. Incidental note made of a 2.2 cm cystic thyroid nodule. Jd Cornelius MD Head CTA 01/03/17 0000 Signed Impressions: Service Date/Time: December 10:37 - CONCLUSION: No large or central vessel occlusion. Jd Cornelius MD Carotid Artery Ultrasound 01/02/17 1308 Signed Impressions: Service Date/Time: Monday, January 02, 2017 14:02 - CONCLUSION: 1. There is elevation of the velocity in the distal left internal carotid artery. The proximal ICA shows normal velocities. I see no appreciable plaque within the area of concern. I cannot completely exclude a 50-69%% stenosis of the distal left ICA. Consider CTA of the carotid arteries to further evaluate. 2. 2.4 cm cystic nodule involving the right lobe of the thyroid. Karl Oliver Jr., MD Upper Extremity Ultrasound 01/02/17 0000 Signed Impressions: Service Date/Time: Monday, January 02, 2017 14:26 - CONCLUSION: 1. Occlusive and nonocclusive thrombus in the right cephalic vein. 2. No left upper extremity venous thrombosis. Oswaldo Moody MD Lower Extremity Ultrasound 01/02/17 0000 Signed Impressions: Service Date/Time: Monday, January 02, 2017 13:33 - CONCLUSION: 1. Occlusive thrombus in the right posterior tibial vein. 2. Nonocclusive thrombus in the right common femoral vein, greater saphenous vein and peroneal veins. 3. No deep venous thrombosis in the left lower extremity. Oswaldo Moody MD Abdomen/Pelvis CT 01/01/17 0000 Signed Impressions: Service Date/Time: Sunday, January 01, 2017 13:57 - CONCLUSION: 1. Pulmonary emboli with patchy areas of peripheral consolidation at the right lower lobe concerning for possible infarcts. 2. 2.4 cm focal splenic lesion. This is nonspecific. The most common splenic lesion to have this appearance would be a hemangioma. This can be followed up with an MRI examination in several months as an outpatient. 3. 1.7 cm large nonobstructing right renal stone. 4. Mild cystic change or possible area of infarction in the lateral right kidney with an area of cortical thinning and mild cystic change. 5. Left adnexal mass likely related to a dermoid given the large fat component. 6. Mild amount of free intraperitoneal fluid in the pelvis. 7. Scattered colonic diverticula in the sigmoid region without inflammatory change. 8. Catheter in the right femoral artery. Oren Gamez MD Liver Ultrasound 12/31/16 0000 Signed Impressions: Service Date/Time: Saturday, December 31, 2016 15:09 - CONCLUSION: 1. Mildly increased echotexture of the liver characteristic of steatosis. No focal liver abnormality is identified. 2. Mild splenomegaly. Adjacent to the spleen and liver in the upper abdomen the city wellness coordinator reports a questionable mass. Consider abdomen and pelvis CT for further characterization. 3. Suspected 15 mm right renal stone. Oren Palafox MD Venogram 12/29/16 0000 Signed Impressions: Service Date/Time: Thursday, December 29, 2016 11:26 - CONCLUSION: Uncomplicated bilateral venogram as above. No significant DVT in the legs on either side. No ileocaval thrombus. As such, I do not feel inferior vena caval filter placement is indicated prior to thrombolytic therapy and/or other therapy for the patient's pulmonary embolism. Oren Álvarez MD Central Venous Line 12/29/16 0000 Signed Impressions: Service Date/Time: Thursday, December 29, 2016 11:26 - CONCLUSION: Uncomplicated ultrasound and fluoroscopic guided central line placement as above. Oren Álvarez MD CT Angiography 12/29/16 0000 Signed Impressions: Service Date/Time: Thursday, December 29, 2016 10:01 - CONCLUSION: Extensive bilateral pulmonary embolism. These findings were discussed with the emergency room physician at 1009 hrs. Oswaldo Moody MD . Procedures * Right pigtail chest tube x 2 * Right subclavian central line basement * right femoral A-line placement * 12/29/16 intubated Assessment and Plan Disease Oriented Problem List: (1) Intracranial hemorrhage (2) Acute embolic stroke (3) Acute pulmonary embolus (4) DVT (deep venous thrombosis) (5) Acute hypoxemic respiratory failure (6) Shock circulatory Symptom Scale: (1) Pain 0-10 Scale: Unable to quantify Comment: possible sources include PE, DVT, tubes, lines, bedbound status, stroke. Sedated Fentanyl and Propofol. (2) Dyspnea 0-10 Scale: Unable to quantify Comment: [facility]. Pertinent Non-Medical Issues Psychosocial: lives with significant other. Not legally . No biological children. Mother alive, lives out of state. Spiritual: Evangelical rojas. 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 Legal: According to [place] statutes, health care proxy decision-making would fall to the patient's mother, Gabby Sadler. She is willing to serve as HCP. Ethical issues impacting care: no known concerns at this time. . Important Contacts * Gabby Sadler, mother: [phone] * Anastacio Kirk, significant other: [phone] * Stella Granados, boss: [phone] . Prognosis Will need to speak with medical team for further prognostication. Code Status: No Code Plan * Decision Maker: Single. No children. Has a significant other, not legally . Mother is alive. Has 1 brother, Dorian. According to [place] statutes, health care proxy decision-making falls to the patient's mother, Gabby Sadler. Mother is willing to serve as health care proxy decision maker. * NO CODE * Met with friend, Stella and mother (Gabby) on via conference call. Also spoke with brother, Jai via phone. Medical update provided. Family desires comfort focused care and possible withdrawal of life support once all family/friends have arrived. Family understands she may not survive until withdrawal of life support. Anticipatory guidance Dr. Hayes notified of family wishes. Palliative care will assist with orders. * SYMPTOMS: Pain: possible sources include PE, DVT, tubes, lines, bedbound status, stroke. Sedated Fentanyl and Propofol. Dyspnea: sedated on mech vent. No new medication recommendations at this time. * Palliative care will continue to follow throughout hospital course to assist with symptom management and clarification of goals as needed. . Attestation To help prompt me to consider important information that might be impacting today's encounter and assessment, information from prior notes written by myself or my colleagues may have been "brought forward" into today's note. My signature on this note, however, is an attestation that I personally performed the exam, history, and/or decision-making noted today, and, unless otherwise indicated, the interactions with patient, family, and staff as well as the review of records all occurred today. I also attest that the listed assessment and stated plan reflect my best clinical judgment today based on the combination of historical information, prior notes, and today's exam/ interactions. When time spent is documented, it refers only to time spent today by the signer, or if indicated, combined time spent today by collaborating physician/nurse practitioner. Kristen Casillas Jan 08, 2017 11:29
[2017-01-08] MEDS ORDERED: TERBUTALINE INJ 1 MG/ML AMP SQ PRN (14:00)
[2017-01-08] MEDS ORDERED: NOREPINEPHRINE-DEXTROSE DRIP 250 ML IV PRN (14:00)
[2017-01-08] MEDS ORDERED: fentaNYL DRIP 250 ML IV PRN (15:45)
[2017-01-08 16:52] LABS: BLOOD GAS BASE EXCESS 3.9 mmol/L (-2-2); BLOOD GAS CARBOXYHEMOGLOBIN 1.6 % (0-4); BLOOD GAS HCO3 28 mmol/L (22-26); BLOOD GAS METHEMOGLOBIN 0.6 % (0-2); BLOOD GAS O2 HGB SATURATION 91 % (90-100); BLOOD GAS OXYGEN CONTENT 13.8 Vol % (12.0-20.0); BLOOD GAS PCO2 43 mmHg (38-42); BLOOD GAS PO2 75 mmHg (61-120); BLOOD GAS TOTAL HGB 10.7 G/DL (12.0-16.0); TEMP CORR TO 98.6
[2017-01-08 16:53] LABS: CRITICAL VALUE NO; DRAW SITE ART LINE; FIO2 100 %; OXYGEN DEVICE VENTILATOR; STAT YES
--- NOTE | 2017-01-08 16:55 | PD.PROCEDR ---
Procedure Note Procedure Procedure: Arterial Line Placement Right radial arterial line Diagnosis: Acute intraparenchymal hemorrhage Indications: Need for beat to beat hemodynamic monitoring Consent: Emergent Description of the Procedure: The right wrist was prepped and draped sterilely. 1% lidocaine was used for local anesthesia. The pulse was located and a needle was advanced into the artery. A 20 gauge, 12 cm catheter was advanced into the artery using a modified Seldinger technique. The catheter was sutured to the skin and a sterile dressing was applied. The catheter was connected to a pressure transducer and an arterial waveform was noted. There were no immediate complications noted. There was minimal EBL. I personally performed the procedure. Rob Hayes MD Jan 08, 2017 16:55
--- NOTE | 2017-01-08 16:57 | PD.PROCEDR ---
Procedure Note Procedure Central Line Procedure Note Left subclavian triple lumen catheter Diagnosis: Acute intraparenchymal hemorrhage Indications: Need for highly potent vasoactive substances Consent: Emergent Anesthesia: none Description of the Procedure: The patient was placed in the supine, mild- Trendelenburg position. The area was prepped and draped sterilely. A 19g needle was inserted under negative pressure aspiration and dark venous blood was obtained. A guidewire was inserted easily without resistance. A small incision was made using a #11 blade. Using a modified Seldinger technique, the dilator and 7 [place], 20 cm catheter were advanced over the guidewire without resistance. All ports were aspirated and flushed, and had brisk blood return. The line was secured at 20 cm at the skin using 2-0 silk interrupted sutures. A Biopatch and Transparent sterile dressing were applied. There were no immediate complications noted. There was minimal EBL. The patient tolerated the procedure well. Ultrasound guidance was not used for this procedure A Chest x-ray has been ordered. I personally performed the procedure. Rob Hayes MD Jan 08, 2017 16:56
--- NOTE | 2017-01-08 17:13 | RADRPT ---
EXAM DATE/TIME: 01/08/2017 16:45 [facility] COMPARISON: CHEST SINGLE AP, January 07, 2017, 8:23. INDICATIONS : Central line placement. MEDICAL HISTORY : Cerebrovascular disease. SURGICAL HISTORY : None. ENCOUNTER: Subsequent ACUITY: 3 days PAIN SCORE: Non-responsive. LOCATION: Bilateral chest FINDINGS: Bilateral small effusions and lower lobe consolidation identified. Endotracheal tube tip at the super ior margin of the clavicles. Left subclavian line tip overlies the SVC. Enteric tube courses beneath the diaphragm. CONCLUSION: Left subclavian line placement as above. Xavi De Adna MD on January 08, 2017 at 17:11 Board Certified Radiologist. This report was verified electronically.
--- NOTE | 2017-01-08 18:23 | DEATH SUM ---
Pronouncement Date Pronounced : Jan 08, 2017 Time Of : 17:45 Pronouncement Declared by neurologic criteria. Please see separately documented Brain examination and cerebral blood flow. Preliminary Cause of : Brain Rob Hayes MD Jan 08, 2017 18:23
[2017-01-08] MEDS ORDERED: LEVOTHYROXINE SODIUM 100 MCG VIAL IV PUSH ONE (19:15)
[2017-01-08] MEDS ORDERED: DEXTROSE 50% IN WATER 50 ML VIAL(D50) IV SCH (19:15)
[2017-01-08 19:39] LABS: BLOOD GAS BASE EXCESS 4.4 mmol/L (-2-2); BLOOD GAS CARBOXYHEMOGLOBIN 1.5 % (0-4); BLOOD GAS HCO3 28 mmol/L (22-26); BLOOD GAS O2 HGB SATURATION 94 % (90-100); BLOOD GAS OXYGEN CONTENT 14.6 Vol % (12.0-20.0); BLOOD GAS PCO2 40 mmHg (38-42); BLOOD GAS PO2 86 mmHg (61-120); CRITICAL VALUE NO; OXYGEN DEVICE VENTILATOR; TEMP CORR TO 98.6
[2017-01-08 19:40] LABS: DRAW SITE ART LINE; FIO2 100 %; STAT YES; ULNAR PULSE PRESENT; VENT SETTINGS PC/AC
[2017-01-08] MEDS ORDERED: D5-1/2 NS + KCL 20 MEQ INJ 1,000 ML IV SCH (20:00)
[2017-01-08] MEDS ORDERED: DOPamine INJ PREMIX 500 ML IV SCH (20:00)
[2017-01-08] MEDS ORDERED: INSULIN HUMAN REGULAR 1,000 UNITS/10 ML VIAL IV PUSH SCH (20:00)
[2017-01-08] MEDS ORDERED: INSULIN NovoLIN REGULAR SUPPLEMENTAL SCALE SQ SCH (20:00)
[2017-01-08] MEDS ORDERED: ceFAZolin 1,000 MG/NS 100 ML IV SCH ×2 (20:00)
[2017-01-08] MEDS ORDERED: DEXTROSE 5% IN WATE 1000ML INJ 1,000 ML IV SCH (20:00)
[2017-01-08] MEDS ORDERED: 1/2 NS + KCL 20 MEQ INJ 1,000 ML IV SCH ×2 (20:00→21:30)
[2017-01-08] MEDS ORDERED: methylPREDNISolone SOD SUCC 1000 MG/16 ML VIAL IV SCH (20:00)
[2017-01-08] MEDS ORDERED: VASOPRESSIN 80 U/NS 100 ML Titrate per Translife Protocol IV SCH ×2 (20:00)
[2017-01-08] MEDS ORDERED: LEVOTHYROXINE 400 MCG/NS 500 ML IV PRN ×2 (20:00)
[2017-01-08 21:54] LABS: AUTOMATED NEUTROPHIL # 9.7 TH/MM3 (1.8-7.7); BASOPHIL # 0.1 TH/MM3 (0-0.2); BASOPHIL % 0.3 % (0.0-2.0); EOSINOPHIL # 0.1 TH/MM3 (0-0.4); EOSINOPHIL % 0.4 % (0.0-4.0); HEMATOCRIT 32.8 % (35.0-46.0); LYMPH % 36.5 % (9.0-44.0); LYMPHOCYTE # 6.3 TH/MM3 (1.0-4.8); MEAN CELL VOLUME 87.2 FL (80.0-100.0); MEAN CORPUSCULAR HEMOGLOBIN 28.7 PG (27.0-34.0); MEAN CORPUSCULAR HGB CONC 32.9 % (32.0-36.0); NEUT % 55.8 % (16.0-70.0); PLATELET COUNT 217 TH/MM3 (150-450); RED BLOOD COUNT 3.76 MIL/MM3 (4.00-5.30); RED CELL DISTRIBUTION WIDTH 14.4 % (11.6-17.2); WHITE BLOOD COUNT 17.3 TH/MM3 (4.0-11.0)
[2017-01-08 21:58] LABS: HEMO FLAGS AUTO DIFF
[2017-01-08 22:12] LABS: APTT (PATIENT) 23.7 SEC (24.3-30.1)
[2017-01-08] MEDS ORDERED: DEXTROSE 50% IN WATER 50 ML SYRINGE IV PRN (22:15)
[2017-01-08 22:26] LABS: BANDS 2 % (0-6); NEUTROPHIL # MANUAL DIFF 11.1 TH/MM3 (1.8-7.7); POLYS (SEG NEUTROPHILS) 62 % (16-70); WBC DIFF SAMPLE 100
[2017-01-08 22:27] LABS: PLATELET ESTIMATE SMEAR NORMAL (NORMAL); PLATELET MORPHOLOGY NORMAL (NORMAL); SCAN/DIFF FINAL DIFF MANUAL
[2017-01-08 22:33] LABS: BACTERIA, URINE RARE /hpf; BLOOD, URINE TRACE (NEG); GLUCOSE,URINE NEG (NEG); KETONE, URINE NEG (NEG); MUCUS URINE FEW /lpf (OCC); NITRITE,URINE NEG (NEG); SQUAMOUS EPITHELIAL CELL URINE 1 /hpf (0-5); URINE COLOR LIGHT-YELLOW (YELLW/STRAW)
[2017-01-08 22:51] LABS: ALKALINE PHOSPHATASE 136 U/L (45-117); ALT (GPT) 204 U/L (10-53); ANION GAP 5 MEQ/L (5-15); AST (GOT) 137 U/L (15-37); BETA HCG QUANT 4 MIU/ML (0-5); BICARBONATE 30.6 MEQ/L (21.0-32.0); BLOOD UREA NITROGEN 19 MG/DL (7-18); CHLORIDE 124 MEQ/L (98-107); GAMMA GT 382 U/L (5-55); GLOMERULAR FILTRATION RATE 81 ML/MIN (>89); INDIRECT BILIRUBIN 0.5 MG/DL (0.0-0.8); MAGNESIUM 2.8 MG/DL (1.5-2.5); POTASSIUM 3.3 MEQ/L (3.5-5.1); TOTAL BILIRUBIN ADULT 0.8 MG/DL (0.2-1.0)
[2017-01-08 22:57] LABS: SODIUM (NA) 160 MEQ/L (136-145)
[2017-01-08] MEDS ORDERED: METHYLPREDNISOLONE SO SUCC IV ONE (23:00)
[2017-01-08] MEDS ORDERED: METHYLPREDNISOLONE SO SUCC OTHER ONE (23:00)
[2017-01-08] MEDS ORDERED: WATER STERILE FOR OTHER ONE (23:00)
[2017-01-08] MEDS ORDERED: SODIUM CHLORIDE 0.9% IV ONE (23:00)
[2017-01-08] MEDS ORDERED: [UNRECOGNIZED DRUG - OTHER] IV SCH ×2 (23:45)
[2017-01-09 01:03] VITALS: O2SAT 97
[2017-01-09] MEDS ORDERED: SODIUM CHLORIDE 0.9% IV SCH (06:00)
[2017-01-09] MEDS ORDERED: METHYLPREDNISOLONE SO SUCC IV SCH (06:00)
[2017-01-09 08:00] VITALS: PULSE 71
--- NOTE | 2017-01-09 09:08 | RADRPT ---
EXAM DATE/TIME: 01/08/2017 17:15 [facility] COMPARISON: CT BRAIN W/O CONTRAST, January 08, 2017, 9:08. INDICATIONS : Frontal hemorrhage. DOSE: 25.1 mCi Tc99m DTPA IV The diagnosis of brain is clinical and the results of this test should be taken in the content of clinical and electrocephalographic data. MEDICAL HISTORY : Short of breath. SURGICAL HISTORY : None. ENCOUNTER: Initial ACUITY: 1 day PAIN SCALE: Non-responsive LOCATION: Head. TECHNIQUE: Anterior dynamic imaging as well as delayed static imaging. FINDINGS: Imaging demonstrates no intracranial blood flow. Delayed imaging also demonstrates no visualization o f the venous system. No blood flow is documented within the posterior fossa either. CONCLUSION: No intracranial blood flow is identified. Oren Palafox MD on January 08, 2017 at 18:15 Board Certified Radiologist. This report was verified electronically.
[2017-01-09 10:00] VITALS: PULSE 83
[2017-01-09 10:48] LABS: HEMOGLOBIN A1a 1.4 %; HEMOGLOBIN A1b 0.8 %; HEMOGLOBIN F 1.1 %; HEMOGLOBIN LA1C 1.8 %; HEMOGLOBIN P3 3.4 %
[2017-01-09 12:00] VITALS: PULSE 81
[2017-01-09 14:00] VITALS: PULSE 80
[2017-01-09 16:00] VITALS: PULSE 76
--- NOTE | 2017-02-07 21:27 | HHI.DS ---
Discharge Summary Admission Date Dec 29, 2016 at 10:32 Admitting Diagnosis acute hypoxemic resp failure from large bilateral PE Brief History Patient is a 56-year-old female without significant past medical history who presented to the [facility] Emergency Department with severe respiratory distress. Per ED records, the patient woke up this morning feeling short of breath. She denied any associated symptoms of chest pain, orthopnea, PND or edema of the lower extremities. On arrival to the emergency department, she was found hypoxic with saturation in the 70s on room air and tachycardiac with heart rate of 160. The patient was subsequently intubated with etomidate, succinylcholine and Versed and placed on full mechanical ventilation. ABG post- intubation showed severe respiratory acidosis with a pH of 7.15, CO2 51, pAO2 73 , bicarb 17, sats of 88% PRVC mode, rate of 24, tidal volume 500,IT: 1.0, PEEP of 20 with 100% FIO2. Chest x-ray showed no acute cardiopulmonary disease. The patient underwent a stat CT scan of the chest, which showed extensive bilateral pulmonary embolism. She also had CT scan of the brain, which showed no evidence of hemorrhage or mass effect. In ER she was given IV fluids 2 liters, Ativan, and placed on Diprivan infusion for sedation. Imaging Last Impressions Brain Flow Nuclear Medicine 01/08/17 0857 Signed Impressions: Service Date/Time: Sunday, January 08, 2017 17:15 - CONCLUSION: No intracranial blood flow is identified. Oren Palafox MD Head CT 01/08/17 0000 Signed Impressions: Service Date/Time: Sunday, January 08, 2017 09:08 - CONCLUSION: Interval development of intra-axial and extra-axial hemorrhage with significant mass effect, cisternal effacement, subfalcine herniation and possible transtentorial herniation. Xavi De Anda MD Chest X-Ray 01/08/17 0000 Signed Impressions: Service Date/Time: Sunday, January 08, 2017 16:45 - CONCLUSION: Left subclavian line placement as above. Xavi De Anda MD Neck CTA 01/03/17 0000 Signed Impressions: Service Date/Time: December 10:37 - CONCLUSION: 1. No hemodynamically significant carotid artery stenosis identified. 2. The vertebrobasilar circulation appears widely patent. 3. Incidental note made of a 2.2 cm cystic thyroid nodule. Jd Cornelius MD Head CTA 01/03/17 0000 Signed Impressions: Service Date/Time: December 10:37 - CONCLUSION: No large or central vessel occlusion. Jd Cornelius MD Carotid Artery Ultrasound 01/02/17 1308 Signed Impressions: Service Date/Time: Monday, January 02, 2017 14:02 - CONCLUSION: 1. There is elevation of the velocity in the distal left internal carotid artery. The proximal ICA shows normal velocities. I see no appreciable plaque within the area of concern. I cannot completely exclude a 50-69%% stenosis of the distal left ICA. Consider CTA of the carotid arteries to further evaluate. 2. 2.4 cm cystic nodule involving the right lobe of the thyroid. Karl Oliver Jr., MD Upper Extremity Ultrasound 01/02/17 0000 Signed Impressions: Service Date/Time: Monday, January 02, 2017 14:26 - CONCLUSION: 1. Occlusive and nonocclusive thrombus in the right cephalic vein. 2. No left upper extremity venous thrombosis. Oswaldo Moody MD Lower Extremity Ultrasound 01/02/17 0000 Signed Impressions: Service Date/Time: Monday, January 02, 2017 13:33 - CONCLUSION: 1. Occlusive thrombus in the right posterior tibial vein. 2. Nonocclusive thrombus in the right common femoral vein, greater saphenous vein and peroneal veins. 3. No deep venous thrombosis in the left lower extremity. Oswaldo Moody MD Abdomen/Pelvis CT 01/01/17 0000 Signed Impressions: Service Date/Time: Sunday, January 01, 2017 13:57 - CONCLUSION: 1. Pulmonary emboli with patchy areas of peripheral consolidation at the right lower lobe concerning for possible infarcts. 2. 2.4 cm focal splenic lesion. This is nonspecific. The most common splenic lesion to have this appearance would be a hemangioma. This can be followed up with an MRI examination in several months as an outpatient. 3. 1.7 cm large nonobstructing right renal stone. 4. Mild cystic change or possible area of infarction in the lateral right kidney with an area of cortical thinning and mild cystic change. 5. Left adnexal mass likely related to a dermoid given the large fat component. 6. Mild amount of free intraperitoneal fluid in the pelvis. 7. Scattered colonic diverticula in the sigmoid region without inflammatory change. 8. Catheter in the right femoral artery. Oren Gamez MD Liver Ultrasound 12/31/16 Signed Impressions: Service Date/Time: Saturday, December 31, 2016 15:09 - CONCLUSION: 1. Mildly increased echotexture of the liver characteristic of steatosis. No focal liver abnormality is identified. 2. Mild splenomegaly. Adjacent to the spleen and liver in the upper abdomen the metal bench patternmaker reports a questionable mass. Consider abdomen and pelvis CT for further characterization. 3. Suspected 15 mm right renal stone. Oren Palafox MD Venogram 12/29/16 Signed Impressions: Service Date/Time: Thursday, December 29, 2016 11:26 - CONCLUSION: Uncomplicated bilateral venogram as above. No significant DVT in the legs on either side. No ileocaval thrombus. As such, I do not feel inferior vena caval filter placement is indicated prior to thrombolytic therapy and/or other therapy for the patient's pulmonary embolism. Oren Álvarez MD Central Venous Line 12/29/16 Signed Impressions: Service Date/Time: Thursday, December 29, 2016 11:26 - CONCLUSION: Uncomplicated ultrasound and fluoroscopic guided central line placement as above. Oren Álvarez MD ADDENDUM: At the start of the above described combined procedure: The patient was placed supine on the angiography table. The right shoulder region was prepped in sterile fashion. Full sterile technique was used, including cap, mask, sterile gloves and gown and a large sterile sheet. Hand hygiene and 2%% chlorhexidine and/or betadine/alcohol prep was utilized per protocol for cutaneous antisepsis with appropriate dry time for site. The skin and subcutaneous tissues were infiltrated with lidocaine solution. Blunt dissection was utilized to free up the tissues superficial to the access vessel. Ultrasound guidance was utilized using sterile gel and sterile probe cover. Under direct ultrasound guidance, micropuncture access was accomplished into the right subclavian vein allowing placement of a 4 Turkish vascular sheath. The ultrasound images depicting access guidance were saved and stored to PACS for permanent record. Oren Álvarez MD CT Angiography 12/29/16 Signed Impressions: Service Date/Time: Thursday, December 29, 2016 10:01 - CONCLUSION: Extensive bilateral pulmonary embolism. These findings were discussed with the emergency room physician at 1009 hrs. Oswaldo Moody MD Hospital Course Patient is a 56-year-old female without significant past medical history who presented to the [facility] Emergency Department with severe respiratory distress. Per ED records, the patient woke up this morning feeling short of breath. She denied any associated symptoms of chest pain, orthopnea, PND or edema of the lower extremities. On arrival to the emergency department, she was found hypoxic with saturation in the 70s on room air and tachycardiac with heart rate of 160. The patient was subsequently intubated with etomidate, succinylcholine and Versed and placed on full mechanical ventilation. ABG post- intubation showed severe respiratory acidosis with a pH of 7.15, CO2 51, pAO2 73 , bicarb 17, sats of 88% PRVC mode, rate of 24, tidal volume 500,IT: 1.0, PEEP of 20 with 100% FIO2. Chest x-ray showed no acute cardiopulmonary disease. The patient underwent a stat CT scan of the chest, which showed extensive bilateral pulmonary embolism. She also had CT scan of the brain, which showed no evidence of hemorrhage or mass effect. In ER she was given IV fluids 2 liters, Ativan, and placed on Diprivan infusion for sedation. 12/30 On arrival to ICU from patient became hemodynamically unstable and placed on multiple pressors. She is currently on Neosyn 100 mics, Vasopressin 0.04, Levophed 12 mics, Off Dobutamine. In addition she is sedated with Fentanyl, Diprivan and on Nimbex. At approx 3 am she developed right sided PTX and pig tail catheter was placed with resolution of PTX on repeat CXR. On PC/AC RR 28, IP: 18, IT:1.0, PEEP:10, FIO2 70%. On TPA 1mg/hr and Heparin drip. T;101.1 at 4am. 12/31 Patient remains sedated, intubated and on Nimbex. She had recurrent right sided PTX yesterday afternoon and a second pigtail catheter was placed with resolution of PTX. Off TPA and on heparin drip. She is off Levophed, Neosyn however remained on Vasopressin. Also, there is improvements in her O2 requirements and down to PEEP: 10 and FIO2 40%. T:101.1 last night 01/01 Patient is off all pressors, sedated with Diprivan and Fentanyl. Remains on Heparin drip. WBC is trending down. T:100.0 01/02: Tmax 100.6. Leukocytosis resolving. PEEP decreased to 5. Hemodynamically stable overnight 01/03: Tmax 99.2. No change in neurological status. Leukocytosis improving. Hit panel pending. Patient change to Argatroban infusion yesterday, remains in therapeutic range. 01/04: Per hematology and oncology patients infusion return back to heparin. No change in neurological status. Echocardiogram with bubble study performed no shunt was noted 01/05: Sedation vacation attempted, the patient unresponsive. Repeat CT of the head pending, Dr. Frias neurology following. 01/06: No acute changes , with sedation patient becomes hypertensive does not follow commands no spontaneous movement. CT performed which reveal no infarct. 01/07: febrile today. wbc uptrending. family met with palliative today and decided on DNR status, discussing further whether or not they want to pursue comfort measures. 01/08: clinical change overnight. GCS now 3, nonresponsive. pupils are fixed and dilated, 6mm. stat CT head demonstrates massive IPH conversion of frontal hemorrhage. Pt Condition on Discharge: Deteriorating Rob Hayes MD Feb 07, 2017 21:27
--- NOTE | 2017-02-23 14:35 | HHI.DS ---
Summary Note Date of : Jan 09, 2017 Time Of : 1758 Admission Date Dec 29, 2016 at 10:32 Admitting Diagnosis acute hypoxemic resp failure from large bilateral PE Diagnosis at Time of : Brief History Patient is a 56-year-old female without significant past medical history who presented to the [facility] Emergency Department with severe respiratory distress. Per ED records, the patient woke up this morning feeling short of breath. She denied any associated symptoms of chest pain, orthopnea, PND or edema of the lower extremities. On arrival to the emergency department, she was found hypoxic with saturation in the 70s on room air and tachycardiac with heart rate of 160. The patient was subsequently intubated with etomidate, succinylcholine and Versed and placed on full mechanical ventilation. ABG post- intubation showed severe respiratory acidosis with a pH of 7.15, CO2 51, pAO2 73 , bicarb 17, sats of 88% PRVC mode, rate of 24, tidal volume 500,IT: 1.0, PEEP of 20 with 100% FIO2. Chest x-ray showed no acute cardiopulmonary disease. The patient underwent a stat CT scan of the chest, which showed extensive bilateral pulmonary embolism. She also had CT scan of the brain, which showed no evidence of hemorrhage or mass effect. In ER she was given IV fluids 2 liters, Ativan, and placed on Diprivan infusion for sedation. Imaging Last Impressions Chest X-Ray 01/04/17 0600 Signed Impressions: Service Date/Time: Wednesday, January 04, 2017 03:25 - CONCLUSION: 1. Bilateral patchy air space disease, unchanged. Probable associated left-sided effusion. 2. Right-sided [place] loop thoracostomy tube without pneumothorax. Stable position of life support tubes. Harry Hilliard MD Neck CTA 01/03/17 0000 Signed Impressions: Service Date/Time: December 10:37 - CONCLUSION: 1. No hemodynamically significant carotid artery stenosis identified. 2. The vertebrobasilar circulation appears widely patent. 3. Incidental note made of a 2.2 cm cystic thyroid nodule. Jd Cornelius MD Head CTA 01/03/17 0000 Signed Impressions: Service Date/Time: December 10:37 - CONCLUSION: No large or central vessel occlusion. Jd Cornelius MD Head CT 01/03/17 0000 Signed Impressions: Service Date/Time: December 10:37 - CONCLUSION: 1. Study is limited by motion artifact. 2. No significant change in the areas of edema likely from subacute infarction. 3. Slight midline shift to the right remains with no change in the ventricular system. 4. The questionable subtle area of low density in the left cerebellar hemisphere seen on the prior study is no longer distinctly visualized. Oswaldo Moody MD Carotid Artery Ultrasound 01/02/17 1308 Signed Impressions: Service Date/Time: Monday, January 02, 2017 14:02 - CONCLUSION: 1. There is elevation of the velocity in the distal left internal carotid artery. The proximal ICA shows normal velocities. I see no appreciable plaque within the area of concern. I cannot completely exclude a 50-69%% stenosis of the distal left ICA. Consider CTA of the carotid arteries to further evaluate. 2. 2.4 cm cystic nodule involving the right lobe of the thyroid. Karl Oliver Jr., MD Upper Extremity Ultrasound 01/02/17 0000 Signed Impressions: Service Date/Time: Monday, January 02, 2017 14:26 - CONCLUSION: 1. Occlusive and nonocclusive thrombus in the right cephalic vein. 2. No left upper extremity venous thrombosis. Oswaldo Moody MD Lower Extremity Ultrasound 01/02/17 0000 Signed Impressions: Service Date/Time: Monday, January 02, 2017 13:33 - CONCLUSION: 1. Occlusive thrombus in the right posterior tibial vein. 2. Nonocclusive thrombus in the right common femoral vein, greater saphenous vein and peroneal veins. 3. No deep venous thrombosis in the left lower extremity. Oswaldo Moody MD Abdomen/Pelvis CT 01/01/17 0000 Signed Impressions: Service Date/Time: Sunday, January 01, 2017 13:57 - CONCLUSION: 1. Pulmonary emboli with patchy areas of peripheral consolidation at the right lower lobe concerning for possible infarcts. 2. 2.4 cm focal splenic lesion. This is nonspecific. The most common splenic lesion to have this appearance would be a hemangioma. This can be followed up with an MRI examination in several months as an outpatient. 3. 1.7 cm large nonobstructing right renal stone. 4. Mild cystic change or possible area of infarction in the lateral right kidney with an area of cortical thinning and mild cystic change. 5. Left adnexal mass likely related to a dermoid given the large fat component. 6. Mild amount of free intraperitoneal fluid in the pelvis. 7. Scattered colonic diverticula in the sigmoid region without inflammatory change. 8. Catheter in the right femoral artery. Oren Gamez MD Liver Ultrasound 12/31/16 0000 Signed Impressions: Service Date/Time: Saturday, December 31, 2016 15:09 - CONCLUSION: 1. Mildly increased echotexture of the liver characteristic of steatosis. No focal liver abnormality is identified. 2. Mild splenomegaly. Adjacent to the spleen and liver in the upper abdomen the drawer waxer reports a questionable mass. Consider abdomen and pelvis CT for further characterization. 3. Suspected 15 mm right renal stone. Oren Palafox MD Venogram 12/29/16 0000 Signed Impressions: Service Date/Time: Thursday, December 29, 2016 11:26 - CONCLUSION: Uncomplicated bilateral venogram as above. No significant DVT in the legs on either side. No ileocaval thrombus. As such, I do not feel inferior vena caval filter placement is indicated prior to thrombolytic therapy and/or other therapy for the patient's pulmonary embolism. Oren Álvarez MD Central Venous Line 12/29/16 0000 Signed Impressions: Service Date/Time: Thursday, December 29, 2016 11:26 - CONCLUSION: Uncomplicated ultrasound and fluoroscopic guided central line placement as above. Oren Álvarez MD CT Angiography 12/29/16 0000 Signed Impressions: Service Date/Time: Thursday, December 29, 2016 10:01 - CONCLUSION: Extensive bilateral pulmonary embolism. These findings were discussed with the emergency room physician at 1009 hrs. Oswaldo Moody MD Last Impressions Chest X-Ray 01/02/17 0000 Signed Impressions: Service Date/Time: Monday, January 02, 2017 04:24 - CONCLUSION: 1. Improved aeration left lower lung with residual patchy infiltrates. Stable patchy infiltrates right lower lung. 2. Interval development of soft tissue emphysema about the right anterior chest wall. 3. Blurring of the image limits evaluation for right pneumothorax. Some lung markings are seen into the right apex however. Karl Tan MD Head CT 01/01/17 0000 Signed Impressions: Service Date/Time: Sunday, January 01, 2017 13:58 - CONCLUSION: 1. New areas of edema likely from infarction in the left frontoparietal region and right frontal regions. 2. Narrowing of the left lateral ventricle. Significant midline shift is not seen. The basal cisterns are open. 3. Questionable subtle area of low-density in the left cerebellar hemisphere which could potentially represent a small area of infarction. Oren Gamez MD Abdomen/Pelvis CT 01/01/17 Signed Impressions: Service Date/Time: Sunday, January 01, 2017 13:57 - CONCLUSION: 1. Pulmonary emboli with patchy areas of peripheral consolidation at the right lower lobe concerning for possible infarcts. 2. 2.4 cm focal splenic lesion. This is nonspecific. The most common splenic lesion to have this appearance would be a hemangioma. This can be followed up with an MRI examination in several months as an outpatient. 3. 1.7 cm large nonobstructing right renal stone. 4. Mild cystic change or possible area of infarction in the lateral right kidney with an area of cortical thinning and mild cystic change. 5. Left adnexal mass likely related to a dermoid given the large fat component. 6. Mild amount of free intraperitoneal fluid in the pelvis. 7. Scattered colonic diverticula in the sigmoid region without inflammatory change. 8. Catheter in the right femoral artery. Oren Gamez MD Liver Ultrasound 12/31/16 Signed Impressions: Service Date/Time: Saturday, December 31, 2016 15:09 - CONCLUSION: 1. Mildly increased echotexture of the liver characteristic of steatosis. No focal liver abnormality is identified. 2. Mild splenomegaly. Adjacent to the spleen and liver in the upper abdomen the drawer waxer reports a questionable mass. Consider abdomen and pelvis CT for further characterization. 3. Suspected 15 mm right renal stone. Oren Palafox MD Venogram 12/29/16 Signed Impressions: Service Date/Time: Thursday, December 29, 2016 11:26 - CONCLUSION: Uncomplicated bilateral venogram as above. No significant DVT in the legs on either side. No ileocaval thrombus. As such, I do not feel inferior vena caval filter placement is indicated prior to thrombolytic therapy and/or other therapy for the patient's pulmonary embolism. Oren Álvarez MD Lower Extremity Ultrasound 12/29/16 Signed Impressions: Service Date/Time: Thursday, December 29, 2016 10:56 - CONCLUSION: 1. Occlusive thrombus in the right posterior tibial vein. 2. Nonocclusive thrombus in the right common femoral vein and greater saphenous vein. 3. No deep venous thrombosis in the left lower extremity. Oswaldo Moody MD Central Venous Line 12/29/16 Signed Impressions: Service Date/Time: Thursday, December 29, 2016 11:26 - CONCLUSION: Uncomplicated ultrasound and fluoroscopic guided central line placement as above. Oren Álvarez MD CT Angiography 12/29/16 Signed Impressions: Service Date/Time: Thursday, December 29, 2016 10:01 - CONCLUSION: Extensive bilateral pulmonary embolism. These findings were discussed with the emergency room physician at 1009 hrs. Oswaldo Moody MD Last Impressions Liver Ultrasound 12/31/16 Signed Impressions: Service Date/Time: Saturday, December 31, 2016 15:09 - CONCLUSION: 1. Mildly increased echotexture of the liver characteristic of steatosis. No focal liver abnormality is identified. 2. Mild splenomegaly. Adjacent to the spleen and liver in the upper abdomen the drawer waxer reports a questionable mass. Consider abdomen and pelvis CT for further characterization. 3. Suspected 15 mm right renal stone. Oren Palafox MD Chest X-Ray 12/31/16 Signed Impressions: Service Date/Time: Saturday, December 31, 2016 09:17 - CONCLUSION: 1. Small bore chest tubes on the right in good position. No pneumothorax. 2. Central line, ET tube and NG tube in good position. 3. Atelectatic changes in the lung bases. Jd Cornelius MD Venogram 12/29/16 Signed Impressions: Service Date/Time: Thursday, December 29, 2016 11:26 - CONCLUSION: Uncomplicated bilateral venogram as above. No significant DVT in the legs on either side. No ileocaval thrombus. As such, I do not feel inferior vena caval filter placement is indicated prior to thrombolytic therapy and/or other therapy for the patient's pulmonary embolism. Oren Álvarez MD Lower Extremity Ultrasound 12/29/16 Signed Impressions: Service Date/Time: Thursday, December 29, 2016 10:56 - CONCLUSION: 1. Occlusive thrombus in the right posterior tibial vein. 2. Nonocclusive thrombus in the right common femoral vein and greater saphenous vein. 3. No deep venous thrombosis in the left lower extremity. Oswaldo Moody MD Head CT 12/29/16 0000 Signed Impressions: Service Date/Time: Thursday, December 29, 2016 09:49 - CONCLUSION: 1. Suboptimal examination secondary to motion artifact. 2. No evidence of hemorrhage or mass effect identified. Oswaldo Moody MD Central Venous Line 12/29/16 0000 Signed Impressions: Service Date/Time: Thursday, December 29, 2016 11:26 - CONCLUSION: Uncomplicated ultrasound and fluoroscopic guided central line placement as above. Oren Álvarez MD CT Angiography 12/29/16 0000 Signed Impressions: Service Date/Time: Thursday, December 29, 2016 10:01 - CONCLUSION: Extensive bilateral pulmonary embolism. These findings were discussed with the emergency room physician at 1009 hrs. Oswaldo Moody MD Hospital Course 12/30 On arrival to ICU from patient became hemodynamically unstable and placed on multiple pressors. She is currently on Neosyn 100 mics, Vasopressin 0.04, Levophed 12 mics, Off Dobutamine. In addition she is sedated with Fentanyl, Diprivan and on Nimbex. At approx 3 am she developed right sided PTX and pig tail catheter was placed with resolution of PTX on repeat CXR. On PC/AC RR 28, IP: 18, IT:1.0, PEEP:10, FIO2 70%. On TPA 1mg/hr and Heparin drip. T;101.1 at 4am. 12/31 Patient remains sedated, intubated and on Nimbex. She had recurrent right sided PTX yesterday afternoon and a second pigtail catheter was placed with resolution of PTX. Off TPA and on heparin drip. She is off Levophed, Neosyn however remained on Vasopressin. Also, there is improvements in her O2 requirements and down to PEEP: 10 and FIO2 40%. T:101.1 last night 01/01 Patient is off all pressors, sedated with Diprivan and Fentanyl. Remains on Heparin drip. WBC is trending down. T:100.0 01/02: Tmax 100.6. Leukocytosis resolving. PEEP decreased to 5. Hemodynamically stable overnight 01/03: Tmax 99.2. No change in neurological status. Leukocytosis improving. Hit panel pending. Patient change to Argatroban infusion yesterday, remains in therapeutic range. 01/04: Per hematology and oncology patients infusion return back to heparin. No change in neurological status. Echocardiogram with bubble study performed no shunt was noted 01/05: Sedation vacation attempted, the patient unresponsive. Repeat CT of the head pending, Dr. Frias neurology following. 01/06: No acute changes , with sedation patient becomes hypertensive does not follow commands no spontaneous movement. CT performed which reveal no infarct. 01/07: febrile today. wbc uptrending. family met with palliative today and decided on DNR status, discussing further whether or not they want to pursue comfort measures. 01/08: clinical change overnight. GCS now 3, nonresponsive. pupils are fixed and dilated, 6mm. stat CT head demonstrates massive IPH conversion of frontal hemorrhage. Patient deteriorated with massive head bleed, she was declared by neurologic criteria on 01/09 at 17:58. Her family was notified. Rob Hayes MD Feb 23, 2017 14:35
== END 2017-01-08 17:45 | disposition expired | DRG 207 ==
LOC: NEPE 08:20 → NEDA 10:32 → HIMW 13:40
PROVIDERS: ADMIT Internal Medicine Critical Care Medicine; ATTEND Internal Medicine Critical Care Medicine
PROC: 5A1955Z Respiratory Ventilation, Greater than 96 Consecutive Hours (ICD-10-PCS; principal; 2016-12-29)
PROC: 04HY32Z Insertion of Monitoring Device into Lower Artery, Percutaneous Approach (ICD-10-PCS; 2016-12-29)
PROC: 0BH17EZ Insertion of Endotracheal Airway into Trachea, Via Natural or Artificial Opening (ICD-10-PCS; 2016-12-29)
PROC: 3E04317 Introduction of Other Thrombolytic into Central Vein, Percutaneous Approach (ICD-10-PCS; 2016-12-29)
PROC: 02HV33Z Insertion of Infusion Device into Superior Vena Cava, Percutaneous Approach (ICD-10-PCS; 2016-12-29)
PROC: B513ZZA Fluoroscopy of Right Jugular Veins, Guidance (ICD-10-PCS; 2016-12-29)
PROC: B543ZZA Ultrasonography of Right Jugular Veins, Guidance (ICD-10-PCS; 2016-12-29)
PROC: 0W9930Z Drainage of Right Pleural Cavity with Drainage Device, Percutaneous Approach (ICD-10-PCS; 2016-12-30)
PROC: 0W9930Z Drainage of Right Pleural Cavity with Drainage Device, Percutaneous Approach (ICD-10-PCS; 2016-12-30)
PROC: 03HY32Z Insertion of Monitoring Device into Upper Artery, Percutaneous Approach (ICD-10-PCS; 2017-01-08)
PROC: 02HV33Z Insertion of Infusion Device into Superior Vena Cava, Percutaneous Approach (ICD-10-PCS; 2017-01-08)
DX: J96.01 Acute respiratory failure with hypoxia (principal); I26.09 Other pulmonary embolism with acute cor pulmonale; G93.6 Cerebral edema; G93.5 Compression of brain; Z51.5 Encounter for palliative care; G81.91 Hemiplegia, unspecified affecting right dominant side; D68.59 Other primary thrombophilia; I61.1 Nontraumatic intracerebral hemorrhage in hemisphere, cortical; I63.411 Cerebral infarction due to embolism of right middle cerebral artery; J93.0 Spontaneous tension pneumothorax; I82.441 Acute embolism and thrombosis of right tibial vein; I82.411 Acute embolism and thrombosis of right femoral vein; I82.811 Embolism and thrombosis of superficial veins of right lower extremity; E87.4 Mixed disorder of acid-base balance; J98.11 Atelectasis; N39.0 Urinary tract infection, site not specified; Z68.42 Body mass index [BMI] 45.0-49.9, adult; N17.9 Acute kidney failure, unspecified; D68.4 Acquired coagulation factor deficiency; R57.8 Other shock; R00.0 Tachycardia, unspecified; J96.02 Acute respiratory failure with hypercapnia; R73.9 Hyperglycemia, unspecified; E66.01 Morbid (severe) obesity due to excess calories; K75.81 Nonalcoholic steatohepatitis (NASH); R16.1 Splenomegaly, not elsewhere classified; D64.9 Anemia, unspecified; D69.6 Thrombocytopenia, unspecified; I10 Essential (primary) hypertension; R40.2434 Glasgow coma scale score 3-8, 24 hours or more after hospital admission; B95.4 Other streptococcus as the cause of diseases classified elsewhere; B96.4 Proteus (mirabilis) (morganii) as the cause of diseases classified elsewhere; Z66 Do not resuscitate; Z78.1 Physical restraint status; Z80.3 Family history of malignant neoplasm of breast; Z82.49 Family history of ischemic heart disease and other diseases of the circulatory system
CPT/HCPCS: 31500; 32551; 36012; 36430; 36556; 36600; 51702; 70450; 70496; 70498; 71010; 71275; 74177; 75822; 75825; 76705; 76937; 78606; 80048; 80053; 80074; 80076; 81001; 81241; 82272; 82330; 82550; 82805; 82948; 82977; 83010; 83036; 83090; 83605; 83735; 84100; 84155; 84484; 84702; 85007; 85025; 85027; 85060; 85240; 85300; 85303; 85306; 85379; 85384; 85597; 85610; 85613; 85730; 86022; 86147; 86403; 86850; 86900; 86901; 86920; 87040; 87070; 87077; 87086; 87186; 87205; 87493; 87641; 93005; 93306; 93880; 93970; 94002; 94003; 94640; 94664; 94667; 94668; 95819; 96365; 96375; A9539; C1769; C1887; C9113; J0330; J0610; J0690; J0696; J0883; J1250; J1644; J1720; J1815; J2060; J2250; J2370; J2543; J2997; J3010; J3370; J3475; J7030; J7040; J7050; J7060; P9016; Q9963; Q9967